=== PATIENT | male | born 1960 | race Caucasian/White ===

== ENCOUNTER 2019-05-12 19:46 | Emergency (ER) | payer MEDICARE, SELFPAY ==
[2019-05-12 19:47] VITALS: BP 129/66; PULSE 96; RESP 16; TEMP 36.6; O2SAT 99; BMI 35.6
--- NOTE | 2019-05-12 20:39 | ED.VIS.GEN ---
History of Present Illness Chief Complaint: Head Injury Informant: Patient Onset: Today Current Severity: Mild Maximum Severity: Mild Narrative: Patient presents approximate 1 hour after head injury. 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 He states the player was coming toward him and he could not grab the way. He was hit, not backwards, and hit his head on the turf. He states he was told he was knocked out for just a brief moment. Patient reports some mild soreness to the back of his scalp. He denies headache, vision change, nausea, or vomiting. He states he did not want to come but staff at the football game made him come in for evaluation. Past Medical History - Allergies and Home Meds Allergies/Adverse Reactions: Allergies No Known Allergies Allergy (Verified 05/12/19 19:50) Primary Care Physician: Victor Manuel Olvera MD [Primary Care Provider] - As Needed Prior records reviewed: Yes Past Medical History: - - Reviewed Surgical History: - - Right foot infection 2012, empyema 2010 Lives: Spouse/ Significant Other Smoking Status: Never smoker - Family History Maternal Family History: Reports: No pertinent history Paternal Family History: Reports: Cancer - age 58, pancreatic Review of Systems General: Denies: Chills, Fever Eyes: Denies: Visual changes - bilaterally ENT: Denies: Bilateral ear pain Cardiovascular: Denies: Chest pain, Palpitations Respiratory: Denies: Dyspnea, Cough Gastrointestinal: Denies: Abdominal pain, Nausea, Vomiting, Diarrhea Musculoskeletal: Denies: Neck pain Skin: Denies: Rash, Abrasions, Wounds Neurological: Reports: Headache - Scalp soreness Physical Exam Vital Signs/Narrative: Vital Signs Temp Pulse Resp BP Pulse Ox 05/12/19 19:47 97.9 F 96 16 129/66 H 99 Inital Vital Signs reviewed: Yes General: Well nourished, Well developed Head: Normocephalic, Atraumatic ENT: Moist mucous membranes Neck: Nontender Cardiovascular: Regular rate, Regular rhythm Respiratory: No distress, CTA bilaterally Abdomen: Soft, Nontender Extremities: Nontender, No edema Skin: Normal color, No rash Neurological: Alert, Oriented x3, Normal Strength, Normal Sensation Psychological: Normal affect Diagnostic/Tx/Re-eval - Medical Decision Making I discussed with the patient my preference to obtain a head CT. He is declining at this time. He states he will return if his symptoms worsen. He understands that at this time I cannot guarantee no skull fracture, bleeding, or swelling. ED Disposition - Plan for ED Patient: Disposition: Home or Assisted Living Diagnosis: Closed head injury Instructions: HEAD INJURY, No Wake-Up (Adult) Referrals: Victor Manuel Olvera MD [Primary Care Provider] - As Needed
== END 2019-05-12 20:49 | disposition home or self-care (01) ==
LOC: ED 20:48
PROVIDERS: Emergency Provider Emergency Medicine; Family Provider Family Medicine; PCP Family Medicine
DX: S09.90XA Unspecified injury of head, initial encounter (principal); W50.0XXA Accidental hit or strike by another person, initial encounter; Y93.61 Activity, american tackle football; Y92.9 Unspecified place or not applicable; Y99.9 Unspecified external cause status; Z79.82 Long term (current) use of aspirin; Z79.4 Long term (current) use of insulin; Z79.899 Other long term (current) drug therapy
CPT/HCPCS: 99284

== ENCOUNTER 2019-09-10 09:25 | Inpatient (IN) | payer MEDICARE, SELFPAY ==
[2019-09-10] VITALS (9 sets, daily range): BP systolic 104–155; BP diastolic 51–74; PULSE 88–116; RESP 16–20; TEMP 37.1–39.5; O2SAT 94–98; BMI 34.9; BMI 38.9; BMI 39.0
--- NOTE | 2019-09-10 09:48 | RAD_ITS ---
STUDY: X-RAY CHEST REASON FOR EXAM: Male, 59 years old. FEELING SHAKY X 3 HRS TECHNIQUE: PA and lateral views of the chest. COMPARISON: 07/08/2012 FINDINGS: The lungs are clear and expanded. There is no demonstrated pleural abnormality. There is moderate cardiac enlargement. Normal mediastinum and beth. Normal visualized pulmonary arteries. Normal visualized aortic arch and descending thoracic aorta. Normal visualized thoracic spine. Normal visualized ribs, clavicles, and shoulders. There is no demonstrated abnormality of the visualized soft tissue structures of the upper abdomen. RAD/Chest PA and Lateral IMPRESSION: No active disease. Electronically Signed: Reynaldo Chaudhry MD at 10:23 EST Tel , Service support ,
--- NOTE | 2019-09-10 09:49 | ED.DCSUM_ITS ---
- ER Visit Summary Date of Service: 09/10/19 Chief Complaint: Fever, chills and cough History of Present Illness: The patient is a 59 M diabetes, hypertension, high cholesterol anemia. Patient states for last 2 days he has had nausea without vomiting or diarrhea. Subjective fever and chills. Nonproductive cough. States has body aches and just is aching all over. No abdominal pain. No dysuria. Physical Examination: Middle-aged male vital signs stable temperature 100.7. He does not look septic or toxic. Pulse ox 97% room air no signs of policy. H EENT exam normal except dry mucous members. Posterior pharynx normal. No erythema or exudate. TM normal. Neck nontender no lymphadenopathy. No meningismus. Lungs clear to auscultation bilaterally. Heart tachycardic rate about 115 no murmur. Chest were nontender. Abdomen soft nontender normal bowel sounds no peritoneal signs. Extremities moves all 4. Calves nontender without edema or cords. Neurologically is awake alert with no focal motor deficits. Skin unremarkable no rashes. No petechiae or purpura. Test Results: X-ray AP lateral 2 views read myself shows no acute abnormality. No pneumonia. Normal cardiac silhouette. BG T prior to arrival by squad was 263. White count 16.9. Hemoglobin 10 hematocrit 31. Which is his baseline. Chemistries show dehydration with a BUN 25 creatinine 2.2 acute on chronic renal insufficiency and dehydration. Glucose 305. Gap of 8. Lactate is elevated 3.1. Emergency Department Course and Treatment: Patient treated with IV fluids, IV Zofran and p.o. Tylenol. History exam are consistent with viral syndrome most likely influenza. Gustavo exam patient is doing well at 10:12 AM. After his IV fluids are now be discharged home. He and I discussed his chest x-ray being negative. Patient was not feeling well enough to be discharged home. On multiple repeat exams. Will be admitted for dehydration, and acute kidney injury. Treatment Plan: He is receiving a second liter of fluid. Influenza is pending. As are blood cultures. Disposition: Admission I spoke to the hospitalist. Impression: Acute viral syndrome Dehydration Acute kidney injury with a creatinine and 2.2 Elevated lactic acid 3.1. Leukocytosis. History of insulin-dependent diabetes This note was generated with fring Ltdation software. It may contain incorrect words, spelling, and punctuation that were not noted in review of the chart prior to signing ED Disposition - Plan for ED Patient: Disposition: Home or Assisted Living Instructions: INFLUENZA (Adult) Prescriptions: Ondansetron [Zofran Odt] 4 mg PO Q8H PRN PRN #7 tab PRN Reason: Nausea Prescription Printed Referrals: Victor Manuel Olvera MD [Primary Care Provider] - 3-5 Days if not improving Additional Instructions: Plenty of fluids and rest. Alternate Tylenol Motrin for fever. Follow-up with your doctor if not improving or return if worse. Zofran as needed for nausea
--- NOTE | 2019-09-10 09:51 | ED.DEP ---
ED Disposition - Plan for ED Patient: Disposition: Home or Assisted Living Instructions: INFLUENZA (Adult) Prescriptions: Ondansetron [Zofran Odt] 4 mg PO Q8H PRN PRN #7 tab PRN Reason: Nausea Prescription Printed Referrals: Victor Manuel Olvera MD [Primary Care Provider] - 3-5 Days if not improving Additional Instructions: Plenty of fluids and rest. Alternate Tylenol Motrin for fever. Follow-up with your doctor if not improving or return if worse. Zofran as needed for nausea
[2019-09-10] MEDS: Ondansetron 4 MG/2 ML Vial IV (10:01)
[2019-09-10] MEDS: Acetaminophen 500 MG Tablet 1000 MG PO (10:01)
[2019-09-10] MEDS: 0.9% Normal Saline 1,000 ML 999 ML IV ×2 (10:01→13:20)
[2019-09-10] MEDS: Ketorolac 30 MG/ML Syringe IV (11:10)
--- NOTE | 2019-09-10 13:09 | ED.RN ---
Pt's ride arrived but pt diaphoretic and states i dont feel well and that he feels like he is going to pass out. Assisted to bed and MD Rutherford notified.
[2019-09-10 13:33] LABS: Absolute Lymphocyte Count 0.47 X10^3/uL (0.83-4.51); Absolute Neutrophil Count 15.4 X10^3/uL (2.0-7.7); Anion Gap 8 (5-15); BUN 25 mg/dL (7-18); BUN/Creat Ratio 11.4 RATIO (10-20); Basophil# 0.05 X10^3/uL; Basophil% 0.3 % (0-1); Calcium,Total 8.8 mg/dL (8.5-10.1); Chloride 104 mmol/L (98-107); EST Glomerular Filtration Rate 33 mL/min (>60); Est Glom Filt Rate - Afr Amer 39 mL/min (>60); Estimated Creatinine Clearance 42.14 ml/min; Glucose 305 mg/dL (74-106); Hematocrit 31.2 % (40-54); Hemoglobin 10.4 g/dL (13.0-16.5); Lymphocyte # 0.47 X10^3/ul (4.0); Lymphocyte % 2.8 % (19-41); Mean Corp Hgb Conc 33.3 g/dL (32-36); Mean Corpuscular Hgb 29.9 pg (27.0-32.0); Mean Corpuscular Volume 89.7 fL (80-94); Mean Platelet Vol. 9.2 fl (6.2-12.0); Monocyte# 0.86 X10^3/uL; Monocyte% 5.1 % (0-10); NRBC Flagged by Analyzer 0 % (0-5); Neutrophil # 15.41 X10^3/uL (2.7-7.7); Neutrophil % 91.2 % (47-70); POSITIVE DIFFERENTIAL YES; Platelet Count 329 K/mm3 (150-450); Potassium 4.2 mmol/L (3.5-5.1); RBC Distribution Width CV 13.2 % (11.6-14.6); RBC Distribution Width SD 43.7 fl (35.1-43.9); Red Blood Count 3.48 M/mm3 (4.6-6.2); Sodium Level 136 mmol/L (136-145); White Blood Count 16.9 K/mm3 (4.4-11.0)
[2019-09-10 13:47] LABS: Lactic Acid 3.1 mmol/L (0.4-1.9)
[2019-09-10 13:50] LABS: Differential Comment SCANNED; Differential Indicated SCAN CRITERIA MET
--- NOTE | 2019-09-10 15:07 | NURSING ---
MED SURG SEMENTI VIRAL SYDROME, DEHYDRATION, LEUKOCYTOSIS, ANDRE, DM
[2019-09-10 17:18] LABS: Reflex Lactate? Y
[2019-09-10] MEDS: 0.9% Normal Saline 1,000 ML 100 ML IV (17:45)
--- NOTE | 2019-09-10 17:51 | HP.PCM_ITS ---
Problem List (1) Febrile illness, acute Status: Acute (2) Acute renal failure Status: Acute (3) Chronic renal failure, stage 3 (moderate) Status: Chronic (4) Ankle ligament laxity Status: Resolved (5) Morbid obesity Status: Chronic (6) S/P arthroscopy Status: Resolved (7) Hyperlipidemia Status: Chronic (8) Hypertension Status: Chronic (9) Osteoarthritis Status: Chronic (10) History of BPH Status: Acute (11) Diabetes mellitus, type II Status: Chronic (12) Diabetic neuropathy Status: Acute (13) Peripheral vascular disease Status: Acute History of Present Illness Date of Admission: 09/10/19 Chief Complaint: Cough, fevers, shaking chills The patient is a 59 year old M with a past medical history of hypertension, hyperlipidemia, BPH, diabetes mellitus type 2, morbid obesity, diabetic peripheral polyneuropathy and peripheral vascular disease who presented to the emergency department earlier today complaining of sudden onset of cough associated with weakness and fevers just this morning. He was discharged home and told to come back if he felt worse. He came back later in the day and he is now being admitted for acute febrile illness, generalized weakness and acute renal failure. He tells me his appetite and intake have been good for the preceding few days. His cough is nonproductive. He denies shortness of breath and also denies chest pain. He has no diarrhea or abdominal pain but does have some nausea. He has not been checking his blood sugars and tells me that he is compliant with Lantus but often misses the mealtime Humalog. His PCP is Dr. Olvera. He has had a temp to 103.1 in the emergency department. Tachycardia resolved with resolution of the fever. Blood pressure is within normal limits. He is maintaining an appropriate oxygen saturation of 95 to 97% on room air and is not tachypneic. White blood cell count was elevated at 16.9 with 91% neutrophils. Hemoglobin is low at 10.4 with normochromic normocytic indices. Platelet count is within normal limits. BMP shows an elevated BUN at 25 with a creatinine of 2.20. The last creatinine we have on record is from July 2015 and at that time it was 1.28. Lactic acid was elevated at 3.1. Chest x-ray shows no acute infiltrates, pleural effusions or pulmonary vascular congestion. Has not voided since he presented to the ED despite boluses of fluids. Does not feel the urge to go. Has had BPH in the past and was on Flomax but, he is not now. Does not know his last HGBA1C. Denies any hx of CAD Past Medical History Past Medical History (Chronic Problems): Chronic Problems Chronic renal failure, stage 3 (moderate) (Chronic) Diabetes mellitus, type II (Chronic) Hyperlipidemia (Chronic) Morbid obesity (Chronic) Hypertension (Chronic) Osteoarthritis (Chronic) Allergies No Known Allergies Allergy (Verified 09/10/19 16:15) Home Medications: Ambulatory Orders Medication Instructions Recorded Aspirin [Aspirin, Baby] 81 mg PO DAILY@0800 06/25/15 Cilostazol 50 mg PO DAILY 06/25/15 Hydrochlorothiazide [Hctz] 25 mg PO DAILY 06/25/15 Insulin Aspart [Novolog Flexpen] 13 units SC TIDCM 06/25/15 Insulin Glargine [Lantus SoloStar 77 units SC DAILY 06/25/15 Pen] Lisinopril 40 mg PO DAILY 06/25/15 Meloxicam 15 mg PO DAILY 06/25/15 NIFEdipine [Procardia XL] 90 mg PO DAILY 06/25/15 Simvastatin 40 mg PO QHS 06/25/15 Gabapentin [Neurontin] 300 mg PO TID 07/15/15 [place]-3 Fatty Acids/Fish Oil 1 each PO BID 07/15/15 [[place] 3 1,000 mg Softgel] traMADol [Ultram] 50 - 100 mg PO Q6H PRN PRN 07/15/15 Hydrocodone Bitart/Apap 5-325 1 - 2 tablet PO Q4H PRN PRN #60 08/01/15 [[place] 5/325] tablet Iron Poly/Vit C [Niferex-150] 150 mg PO DAILYCM #30 capsule 08/01/15 Ondansetron [Zofran Odt] 4 mg PO Q8H PRN PRN #7 tab 09/10/19 Surgical History: - - Right foot infection 2012, empyema 2010, left ankle [place] [address] Dent Psychiatric History: No pertinent psych hx Lives: Alone Smoking Status: Never smoker Tobacco Use: Non-smoker Alcohol: Occasional Drugs: None - *Family History Maternal History Items: No pertinent history Paternal History Items: Cancer - age 58, pancreatic, No pertinent history Review of Systems Constitutional: Reports: Chills, Fever, Malaise, Weakness. Denies: Weight Change Eyes: Denies: Blurred vision HEENT: Reports: Sore Throat. Denies: Difficulty Hearing, Difficulty Swallowing, Ear Pain, Head Aches, Sinus Congestion, Sinus Drainage Cardiovascular: Reports: Light Headedness. Denies: Chest Pain, Orthopnea, Palpitations, Syncope Respiratory: Reports: Cough - Nonproductive. Denies: Hemoptysis, Pleuritic Pain, Shortness of Breath, Shortness of breath at rest, Shortness of breath upon exertion, Sputum production Gastrointestinal: Reports: Nausea. Denies: Abdominal Pain, Diarrhea, Vomiting Genitourinary: Reports: Retention - currently is retaining 400 cc's and his has no urge to void.. Denies: Dysuria, Incontinence, Nocturia Musculoskeletal: Denies: Joint Pain, Joint Tenderness, Leg Pain Skin: Denies: Jaundice, Rash, Wounds Neurological: Denies: Balance problems, Slurred speech, Confusion, Focal weakness, Numbness, Tingling, Tremor, Seizures Psychiatric: Denies: Anxiety, Depression, Homicidal Ideations, Suicidal Ideations Endocrine: Denies: Change in Body Habitus Hematologic/ Lymphatic: Denies: Easy Bruising, Easy Bleeding, Hx of blood clot VTE Information - Inpt Only VTE Present on Admission: No VTE Mechan Device Prophylaxis: Knee High DANISH Hose VTE Pharm Prophylaxis ordered?: Yes Patient Problems: Active and Suspected Problems Febrile illness, acute (Acute) Acute renal failure (Acute) History of BPH (Acute) Diabetic neuropathy (Acute) Peripheral vascular disease (Acute) - Physical Exam Vitals/I&O's: Vital Signs Temp Pulse Resp BP Pulse Ox 100.1 F H 93 20 H 117/59 L 94 09/10/19 16:38 09/10/19 16:38 09/10/19 16:38 09/10/19 16:38 09/10/19 16:38 Oxygen Delivery Method Room Air Weight: 312 lb Body Mass Index (BMI) 38.9 Finger Stick Blood Glucose 298 Intake and Output for Last 24 Hours 09/08/19 09/09/19 09/10/19 23:59 23:59 23:59 Intake Total 1999 Balance 1999 General: Alert, Oriented x3, Cooperative, No apparent distress, Well developed, Well nourished HEENT: Atraumatic, PERRLA, EOMI, Normocephalic Oral: Moist Mucosa, No Gingival or Mucosal Lesions/ Ulcerations - many missing teeth and broken off teeth Neck: Supple, No JVD, No Nodes, No Nuchal Rigidity, Trachea Midline Lungs: Clear to auscultation, Diminished - elyssa in the bases but no rhonchi, no rales and no wheezing, - - He is not tachypneic and has no conversational dyspnea. There is no accessory muscle use. He has symmetric chest expansion. Cardiovascular: Regular rate, Regular Rhythm, Normal S1, Normal S2, No murmurs, No rub noted, No Gallop, - Abdomen: Bowel Sounds Present, Soft, Non Tender, Non-Distended, Obese Extremities: No clubbing, No cyanosis, No edema, No Calf Tenderness, Diminished Peripheral Pulses Skin: No rashes, No breakdown Musculoskeletal: No Tenderness to Palpation of Joints or Extremities, No Muscle Wasting Neurological: Cranial nerves II-XII grossly intact, Neuro grossly intact Psych/Mental Status: Normal Affect, Appropriate Microbiology Past 72 Hours 09/10/19 15:21 Mucosa - Nasopharyngeal Influenza Types A,B Direct FA ([facility]) - Final Laboratory Results 09/10/19 13:15: WBC 16.9 H, RBC 3.48 L, Hgb 10.4 L, Hct 31.2 L, MCV 89.7, MCH 29.9, MCHC 33.3, RDW Std Deviation 43.7, RDW Coeff of [place] 13.2, Plt Count 329, MPV 9.2, Immature Gran % (Auto) 0.600, Neut % (Auto) 91.2 H, Lymph % (Auto) 2.8 L, [place] % (Auto) 5.1, Eos % (Auto) 0.0, Baso % (Auto) 0.3, Absolute Neuts (auto) 15.4 H, Absolute Lymphs (auto) 0.47 L, Nucleated RBC % 0, Differential Comment SCANNED 09/10/19 13:15: Sodium 136, Potassium 4.2, Chloride 104, Carbon Dioxide 24.0, Anion Gap 8, BUN 25 H, Creatinine 2.20 H, Estim Creat Clear Calc 42.14, Est GFR (MDRD) Af Amer 39 L, Est GFR (MDRD) Non-Af 33 L, BUN/Creatinine Ratio 11.4, Glucose 305 H, Calcium 8.8 09/10/19 13:15: Lactic Acid 3.1 H* Current Medications Acetaminophen (Tylenol) 650 mg PO Q4H PRN PRN PRN Reason: temp > 100.5 or Pain 1-5 Aspirin (Aspirin, Baby) 81 mg PO DAILY@0800 [facility] Atorvastatin Calcium (Lipitor) 20 mg PO QHS [facility] Cilostazol (Pletal) 50 mg PO BIDAC [facility] Gabapentin (Neurontin) 300 mg PO TID JANELLE Sodium Chloride () 250 mls @ 15 mls/hr IV .[id number] PRN PRN Reason: Saline Flush Sodium Chloride () 250 mls @ 15 mls/hr IV .[id number] PRN PRN Reason: Additional IVPB Infusion Sodium Chloride () 1,000 mls @ 100 mls/hr IV .Q10H [facility] Last Admin: 09/10/19 17:45 Dose: 100 mls/hr Documented by: Insulin Glargine (Lantus ([facility])) 77 units SC DAILY@0800 [facility] Insulin Human Lispro (Humalog Kwikpen ([facility])) 13 unit SC 0800,1200,1700 [facility] Nifedipine (Procardia Xl) 90 mg PO DAILY [facility] Polysaccharide Iron Complex (Ferrex 150) 150 mg PO DAILYCM [facility] Sodium Chloride () 10 - 40 ml IV UD PRN PRN Reason: SALINE FLUSH Tramadol HCl (Ultram) 50 - 100 mg PO Q6H PRN PRN PRN Reason: Pain Score 1-10/10 Assessment/Plan All Active Problems Febrile illness, acute (Acute) Acute renal failure (Acute) History of BPH (Acute) Diabetic neuropathy (Acute) Peripheral vascular disease (Acute) Ankle ligament laxity (Resolved) S/P arthroscopy (Resolved) Impressions 1. Acute febrile illness-more likely than not secondary to upper respiratory tract infection, likely viral. He also has urine retention and urinary tract infection has not been ruled out. UA and urine culture have been ordered. Will empirically place on Rocephin and Azithromycin because of the leukocytosis with left shift. Blood cultures were drawn in the emergency department. Influenza panel is negative and a respiratory panel has been ordered. 2. Uncontrolled diabetes mellitus type 2 and noncompliance with Humalog at mealtimes. Hemoglobin A1c is pending. He will be on a cardiac 2200 calorie diet. will order what he is supposed to be taking at home. Await the results of the HGBA1C. Random blood sugar in the emergency department this morning was 305. 3. Elevated lactic acid-most likely secondary to dehydration. I do not feel that he has severe sepsis. 4. Acute renal failure? He has not had a creat at this institution since 2016 so I do not know if this is acute renal failure or just a progression of chronic kidney disease due to uncontrolled DM or is it due to obstruction. Ultrasound of the kidneys and bladder ordered for the a.m. 5. History of BPH and urine retention - somehow is no longer on Flomax. He is retaining and has an increased creat so will insert a Trent and restart Flomax. Voiding trial in a few days. Urine sent for UA and culture 6. Chronic medical conditions including: Hypertension/hyperlipidemia/morbid obesity/peripheral vascular disease/chronic pain syndrome secondary to diabetic peripheral polyneuropathy-complicate care, management, recovery and prognosis. Hold lisinopril in light of increased creatinine. Avoid nonsteroidal anti-inflammatory drugs in light of renal failure. Lisinopril has been discontinued. Start Rocephin and azithromycin and await the results of the urine culture, blood cultures and respiratory panel US of the kidneys and the bladder in the AM Recheck lab in the AM Consult with the manager inspection for education/teaching. Ambulatory pulse ox on room air prior to discharge Recommend outpatient sleep study STOP BANG indicates he is at high risk for JESÚS. Code Visit Inpatient E&M: 30939 Init Hosp L2
[2019-09-10] MEDS: Gabapentin 300 MG Capsule PO ×2 (17:52→22:52)
[2019-09-10 18:39] LABS: Thyroid Stim Hormone (TSH) 0.59 uIU/mL (0.358-3.74)
[2019-09-10 18:56] LABS: Hemoglobin A1c 11.2 % (4.2-6.3)
[2019-09-10] MEDS: Acetaminophen 325 MG Tablet 650 MG PO (18:59)
[2019-09-10] MEDS: Insulin Lispro 100 UNIT/ML INSULN.PEN 13 UNIT SC (18:59)
[2019-09-10] MEDS: Tamsulosin HCl 0.4 MG Capsule PO (18:59)
[2019-09-10 19:00] LABS: Bedside Glucose 253 mg/dL (70-110)
[2019-09-10] MEDS: traMADol 50 MG Tablet PO (20:30)
[2019-09-10 21:48] LABS: Mucous, Urine 0 SEEN /hpf (<or=2+)
[2019-09-10 21:52] LABS: Color, Urine Yellow (Yellow); Glucose, Dipstick 1000 mg/dl (Normal); Ketone-Dipstick 5 mg/dl (Negative); Leukocyte Esterase-Dipstick Negative /ul (Negative); Nitrite-Dipstick Negative (Negative); Occult Blood-Urine Negative /ul (Negative); Protein-Dipstick 15 mg/dl (Negative); Specific Gravity, Urine 1.015 (1.002-1.030); Urine Bilirubin Dipstick Negative (Negative); Urine Clarity Sl. Cloudy (Clear); Urine Urobilinogen Normal (Normal)
[2019-09-10 22:00] LABS: Red Blood Cells-Urine 0-5 SEEN /hpf (0-5); White Blood Cells 0-5 SEEN /hpf (0-5)
[2019-09-10 22:01] LABS: Bacteria RARE /hpf (None Seen); Squamous Epithelial Cells - UA 0-5 SEEN /hpf (0-5)
[2019-09-10] MEDS: Atorvastatin Calcium 20 MG Tablet PO (22:52)
[2019-09-10] MEDS: Famotidine 20 MG Tablet PO (22:52)
[2019-09-10] MEDS: 0.9% Saline Lock 10 ML Syringe IV (23:12)
[2019-09-10 23:26] LABS: Bedside Glucose 172 mg/dL (70-110)
[2019-09-11] VITALS (29 sets, daily range): BP systolic 92–162; BP diastolic 47–77; PULSE 68–120; RESP 13–22; TEMP 36.3–40.9; O2SAT 84–100
[2019-09-11] MEDS: Acetaminophen 325 MG Tablet 650 MG PO (00:51)
[2019-09-11] MEDS: 0.9% Normal Saline 1,000 ML 100 ML IV ×3 (03:39→16:45)
[2019-09-11] MEDS: 0.9% Saline Lock 10 ML Syringe IV (03:40)
[2019-09-11] MEDS: traMADol 50 MG Tablet PO (04:39)
--- NOTE | 2019-09-11 04:57 | PCM.PN.BLA ---
Progress Note With increasing temperature. Will empirically start Tamiflu while we wait for respiratory pathogen panel to result. Also patient has been started on azithromycin and ceftriaxone. Patient has been placed on droplet precautions. STROKE Vital Signs/Narrative: Vital Signs Temp Pulse Resp BP Pulse Ox 09/11/19 03:37 103.0 F H 120 H 20 H 154/47 H 92
--- NOTE | 2019-09-11 05:00 | RAD_ITS ---
STUDY: X-RAY CHEST REASON FOR EXAM: Male, 59 years old. Fever. TECHNIQUE: AP portable upright COMPARISON: 09/10/2019 FINDINGS: No evidence of pneumonia, pulmonary edema, pneumothorax or pleural effusion. Mild subsegmental bibasilar atelectasis. Cardiac silhouette, hilar and mediastinal contours with no acute findings. Heart size normal. Atherosclerosis of the thoracic aorta. Degenerative osseous changes with no acute osseous abnormality. RAD/Chest 1 View (Portable) IMPRESSION: No acute findings. Electronically Signed: Milan Turner, at 5:27 EST Tel , Service support ,
--- NOTE | 2019-09-11 05:15 | NURSING ---
assisting primary rn with pt due to elevated temp, pt has ice packs in groin, axilla, neck. called nursing electrician supervisor to obtain cooling blanket as tax investigator went to icu but machine not available in icu. supv to bring to floor.
[2019-09-11] MEDS: Oseltamivir Phosphate 30 MG Capsule PO (05:32)
[2019-09-11 05:36] LABS: Bedside Glucose 247 mg/dL (70-110)
--- NOTE | 2019-09-11 05:42 | CT_ITS ---
STUDY: CT BRAIN WITHOUT CONTRAST REASON FOR EXAM: Male, 59 years old. AMS. Renal failure. TECHNIQUE: Transaxial CT imaging of the brain was performed without administration of intravenous contrast material. Individualized dose optimization techniques were used for this CT. COMPARISON: No relevant priors. FINDINGS: No evidence of intracranial hemorrhage, mass, acute infarct, or hydrocephalus. Chronic microangiopathic changes in the white matter. Atherosclerosis of the intracranial arteries. No acute osseous abnormality. Complete opacification of the left maxillary sinus with a heterogenous lesion which has some calcifications medially, and extends slightly into the nasal cavity. Mild wall thickening of the left maxillary sinus. Mild mucosal thickening right sphenoid sinus. Visualized extracranial soft tissues unremarkable. ASPECTS 04/27 CT/Brain/Head without Contrast IMPRESSION: No acute intracranial findings. Complete opacification of the left maxillary sinus with a heterogenous lesion which has some calcifications medially, and extends slightly into the nasal cavity. While this could represent chronic sinusitis, a slow-growing neoplasm is also possible. Nonemergent ENT follow-up recommended. Electronically Signed: Milan Turner, at 6:49 EST Tel , Service support ,
--- NOTE | 2019-09-11 05:48 | PN_ITS ---
Progress Note Patient is a 59-year-old gentleman who was admitted for acute febrile illness and continued to have high-grade fever with highest fever of 105.6 Fahrenheit. Nurse reported that patient is now lethargic. Patient was examined at the bedside. Patient appeared lethargic. Heart sounds S1-S2 present, tachycardia. Lung sounds noted. Neuro examination: Brudzinski was negative; Kernig's was negative. Extremities without edema. Assessment and plan: Acute febrile illness etiology unclear. Probable viral. Differential diagnosis include encephalitis/meningitis. Initially patient was started on ceftriaxone 2 g daily and azithromycin 500 mg daily. We will continue azithromycin. We will add vancomycin IV. Will escalate ceftriaxone 2 g daily to 2 g twice daily. Will start patient empirically on Tamiflu as we await respiratory pathogen panel. Of note a rapid influenza screen was negative. Start patient on acyclovir. Cooling blankets were ordered. We will get CT of the head. Portable chest x- ray ordered Lumbar puncture ordered. CSF test ordered. Will transfer patient to intensive care unit and will consult occupational therapy technician. STROKE Vital Signs/Narrative: Vital Signs Temp Pulse Resp BP Pulse Ox 09/11/19 05:12 105.6 F H 113 H 22 H 84 09/11/19 04:58 105.6 F H 09/11/19 03:37 103.0 F H 120 H 20 H 154/47 H 92
[2019-09-11 06:06] LABS: Hemoglobin 8.5 g/dL (13.0-16.5); Mean Corp Hgb Conc 31.5 g/dL (32-36); Mean Corpuscular Hgb 29.1 pg (27.0-32.0); Mean Corpuscular Volume 92.5 fL (80-94); Mean Platelet Vol. 9.1 fl (6.2-12.0); Platelet Count 272 K/mm3 (150-450); RBC Distribution Width CV 13.6 % (11.6-14.6); RBC Distribution Width SD 46.3 fl (35.1-43.9); Red Blood Count 2.92 M/mm3 (4.6-6.2); White Blood Count 11.5 K/mm3 (4.4-11.0)
--- NOTE | 2019-09-11 06:17 | NURSING ---
Addendum entered by Triny Aldrich 09/11/19 06:31: 0525 Cooling blanket placed on patient. Original Note: 0440 Pt altered level of consciousness. A&Ox1. See physician notification. 0518 Report called to ASHLYN Florez in ICU. Dr. Park wants pt to go to CT first before ICU transfer. 0600 Patient placed on a monitor. ASHLYN Schaeffer and ASHLYN Mnan took patient to CT.
[2019-09-11 06:24] LABS: Lactic Acid 1.1 mmol/L (0.4-1.9)
[2019-09-11 06:37] LABS: ALB/GLOB Ratio 0.6 RATIO (0.9-2.4); AST(SGOT) 54 U/L (15-37); Alanine Aminotransfer ALT/SGPT 57 U/L (16-61); Albumin, Serum 2.5 g/dL (3.2-5.0); Alkaline Phosphatase 132 U/L (45-117); Anion Gap 7 (5-15); BUN 28 mg/dL (7-18); BUN/Creat Ratio 16.2 RATIO (10-20); Calcium,Total 7.3 mg/dL (8.5-10.1); Chloride 105 mmol/L (98-107); Cholesterol 56 mg/dL (200); Creatinine, Serum 1.73 mg/dL (0.70-1.30); EST Glomerular Filtration Rate 43 mL/min (>60); Est Glom Filt Rate - Afr Amer 52 mL/min (>60); Estimated Creatinine Clearance 53.59 ml/min; Globulin 3.9 g/dL (2.2-4.2); Glucose 243 mg/dL (74-106); High Density Lipoprotein 26 mg/dL; Protein, Total 6.4 g/dL (6.4-8.2); Sodium Level 136 mmol/L (136-145); Triglycerides 62 mg/dL; Very Low Density Lipoprotein 12 mg/dL (5-40)
--- NOTE | 2019-09-11 06:40 | NURSING ---
0640 upon transfer to icu pt placed on cooling blanket. See vital signs intervention.
[2019-09-11 07:06] LABS: Bedside Glucose 242 mg/dL (70-110)
[2019-09-11 07:16] LABS: Allen Test POS; Base Excess -3 mmol/L (-2 to +2); Bicarbonate 21.4 mmol/L (22-26); O2 Delivery Device Nasal Can; PO2 53 mmHG (75-100); SITE L Radial; SO2 88 % (95-99); Time Given 708; Total Carbon Dioxide 22 mmol/L; pCO2 32.8 mmHg (35-45); pH 7.42 (7.35-7.45)
[2019-09-11 07:36] LABS: Bedside Glucose 298 mg/dL (70-110)
[2019-09-11] MEDS: Gabapentin 300 MG Capsule PO ×3 (07:59→21:28)
[2019-09-11] MEDS: Acetaminophen 500 MG Tablet 1000 MG PO ×3 (07:59→21:29)
--- NOTE | 2019-09-11 08:29 | PCM.CON.CC ---
Reason for Consult Date of Consultation: 09/11/19 Reason for Consultation: Severe sepsis History of Present Illness: The patient is a 59-year-old male, with a history as outlined below, who presented to the emergency department on September 10 with complaints of a fever, chills and cough. The patient reports that his symptoms initially began the day preceding his hospital admission. He denied any shortness of breath or cough. 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 He denies any recent travel. He denies photophobia or nuchal rigidity. On presentation to the emergency department, the patient was noted to be febrile with a temperature of 100.7 ?F. The patient was also tachycardic and tachypneic. He was, nevertheless, maintaining appropriate oxygen saturations on room air. Laboratory evaluation revealed an elevated white blood cell count to 17,000. Chemistry profile was notable for acute on chronic kidney disease. Lactate was elevated to 3.1. Initial plain film chest x-ray revealed no acute cardiopulmonary process. The patient received supplemental IV fluid hydration. The patient was subsequently admitted to the medical surgical floor for management of his renal insufficiency and dehydration. Antibiotics were not initially administered to the patient. During the road commissioner hours of September 11, the patient was noted to have an increasing fever to 105.6 ?F. The patient was also noted to be more lethargic. The patient was started at that time on empiric antimicrobials. A CT head was obtained which revealed complete opacification of the left maxillary sinus. While the lesion noted on CT was initially felt to be chronic sinusitis, a slow-growing neoplasm was also a consideration. Follow-up chest x-ray again demonstrated no evidence of a focal infiltrate or consolidation. Of note, the patient did receive Ultram 50 mg this morning, prior to documentation of his lethargy. The patient was then transferred to the medical intensive care unit for further management. Past Medical History Past Medical History (Chronic Problems): Chronic Problems Chronic renal failure, stage 3 (moderate) (Chronic) Diabetes mellitus, type II (Chronic) Hyperlipidemia (Chronic) Morbid obesity (Chronic) Hypertension (Chronic) Osteoarthritis (Chronic) Allergies No Known Allergies Allergy (Verified 09/10/19 16:15) Home Medications: Ambulatory Orders Medication Instructions Recorded Aspirin [Aspirin, Baby] 81 mg PO DAILY@0800 06/25/15 Cilostazol 50 mg PO DAILY 06/25/15 Hydrochlorothiazide [Hctz] 25 mg PO DAILY 06/25/15 Insulin Aspart [Novolog Flexpen] 13 units SC TIDCM 06/25/15 Insulin Glargine [Lantus SoloStar 77 units SC DAILY 06/25/15 Pen] Lisinopril 40 mg PO DAILY 06/25/15 Meloxicam 15 mg PO DAILY 06/25/15 NIFEdipine [Procardia XL] 90 mg PO DAILY 06/25/15 Simvastatin 40 mg PO QHS 06/25/15 Gabapentin [Neurontin] 300 mg PO TID 07/15/15 [place]-3 Fatty Acids/Fish Oil 1 each PO BID 07/15/15 [[place] 3 1,000 mg Softgel] traMADol [Ultram] 50 - 100 mg PO Q6H PRN PRN 07/15/15 Hydrocodone Bitart/Apap 5-325 1 - 2 tablet PO Q4H PRN PRN #60 08/01/15 [[place] 5/325] tablet Iron Poly/Vit C [Niferex-150] 150 mg PO DAILYCM #30 capsule 08/01/15 Ondansetron [Zofran Odt] 4 mg PO Q8H PRN PRN #7 tab 09/10/19 Surgical History: - - Right foot infection 2012, empyema 2010, left ankle surgery [place] [address] Dent Psychiatric History: No pertinent psych hx Lives: Alone Smoking Status: Never smoker Tobacco Use: Non-smoker Alcohol: Occasional Drugs: None - *Family History Maternal History Items: No pertinent history Paternal History Items: Cancer - age 58, pancreatic, No pertinent history Review of Systems Constitutional: Reports: Chills, Fever, Malaise, Fatigue Eyes: Denies: Blurred vision, Double vision HEENT: Denies: Head Aches, Sinus Congestion, Sinus Drainage Cardiovascular: Denies: Chest Pain, Palpitations Respiratory: Denies: Cough, Shortness of breath at rest, Sputum production Gastrointestinal: Denies: Abdominal Pain, Nausea, Vomiting Genitourinary: Denies: Dysuria Musculoskeletal: Reports: Muscle pain. Denies: Joint Pain, Joint Tenderness, Neck Pain Skin: Denies: Rash, Wounds Neurological: Denies: Numbness, Tingling, Focal weakness Psychiatric: Denies: Anxiety, Depression, Homicidal Ideations, Suicidal Ideations Hematologic/ Lymphatic: Denies: Easy Bruising, Easy Bleeding Patient Problems: Active and Suspected Problems Febrile illness, acute (Acute) Acute renal failure (Acute) History of BPH (Acute) Diabetic neuropathy (Acute) Peripheral vascular disease (Acute) Objective: The patient's most recent lab work, culture data and imaging studies have all been personally reviewed. - Physical Exam Vitals/I&O's: Vital Signs Temp Pulse Resp BP Pulse Ox 102.8 F H 111 H 13 151/77 H 98 09/11/19 06:45 09/11/19 06:45 09/11/19 06:45 09/11/19 06:45 09/11/19 07:07 Oxygen Flow Rate (L/min) 4 Oxygen Delivery Method Nasal Cannula Weight: 312 lb Body Mass Index (BMI) 38.9 Finger Stick Blood Glucose 298 Intake and Output for Last 24 Hours 09/09/19 09/10/19 09/11/19 23:59 23:59 23:59 Intake Total 1999 / 2600 2041.67 / 2041.67 Output Total 400 / 600 750 / 750 Balance 1600 / 1999 1291.67 / 1291.67 General: Alert, Oriented x3, Cooperative, No apparent distress HEENT: Atraumatic, PERRLA, Normocephalic Oral: Dry Mucosa Neck: Supple, No Nodes, Trachea Midline Lungs: No rhonchi, No wheeze, No rales, Diminished Cardiovascular: Normal S1, Normal S2, No murmurs, Tachycardic Abdomen: Bowel Sounds Present, Soft, Non Tender, Obese Extremities: No clubbing, No cyanosis, Edema Skin: No breakdown Musculoskeletal: No Tenderness to Palpation of Joints or Extremities Lymphatic: No Cervical, Supraclavicular, or Inguinal Adenopathy Neurological: Cranial nerves II-XII grossly intact, Neuro grossly intact Psych/Mental Status: Normal Affect, Appropriate Labs (Last 48 Hours) 09/10/19 09/10/19 09/10/19 13:04 13:15 13:15 WBC 16.9 H RBC 3.48 L Hgb 10.4 L Hct 31.2 L MCV 89.7 MCH 29.9 MCHC 33.3 RDW Std Deviation 43.7 RDW Coeff of [place] 13.2 Plt Count 329 MPV 9.2 Immature Gran % (Auto) 0.600 Neut % (Auto) 91.2 H Lymph % (Auto) 2.8 L [place] % (Auto) 5.1 Eos % (Auto) 0.0 Baso % (Auto) 0.3 Absolute Neuts (auto) 15.4 H Absolute Lymphs (auto) 0.47 L Nucleated RBC % 0 Differential Comment SCANNED Specimen Type Sample Site pH Bicarbonate Actual POC Total CO2 Base Excess O2 Saturation ABG pCO2 ABG pO2 Chong Test O2 Delivery Device Liter Flow Blood Gas Notified Whom Blood Gas Notified Time Sodium 136 Potassium 4.2 Chloride 104 Carbon Dioxide 24.0 Anion Gap 8 BUN 25 H Creatinine 2.20 H Estim Creat Clear Calc 42.14 Est GFR (MDRD) Af Amer 39 L Est GFR (MDRD) Non-Af 33 L BUN/Creatinine Ratio 11.4 Glucose 305 H Hemoglobin A1c Lactic Acid Calcium 8.8 Total Bilirubin AST ALT Alkaline Phosphatase Total Protein Albumin Globulin Albumin/Globulin Ratio Triglycerides Cholesterol LDL Cholesterol VLDL Cholesterol HDL Cholesterol TSH Urine Color Urine Clarity Urine pH Ur Specific [place] Urine Protein Urine Glucose (UA) Urine Ketones Urine Occult Blood Urine Nitrite Urine Bilirubin Urine Urobilinogen Ur Leukocyte Esterase Urine RBC Urine WBC Ur Squamous Epith Cells Urine Bacteria Urine Mucus MRSA (PCR) POC Glucose 298 H 09/10/19 09/10/19 09/10/19 13:15 13:15 13:15 WBC RBC Hgb Hct MCV MCH MCHC RDW Std Deviation RDW Coeff of [place] Plt Count MPV Immature Gran % (Auto) Neut % (Auto) Lymph % (Auto) [place] % (Auto) Eos % (Auto) Baso % (Auto) Absolute Neuts (auto) Absolute Lymphs (auto) Nucleated RBC % Differential Comment Specimen Type Sample Site pH Bicarbonate Actual POC Total CO2 Base Excess O2 Saturation ABG pCO2 ABG pO2 Chong Test O2 Delivery Device Liter Flow Blood Gas Notified Whom Blood Gas Notified Time Sodium Potassium Chloride Carbon Dioxide Anion Gap BUN Creatinine Estim Creat Clear Calc Est GFR (MDRD) Af Amer Est GFR (MDRD) Non-Af BUN/Creatinine Ratio Glucose Hemoglobin A1c 11.2 H Lactic Acid 3.1 H* Calcium Total Bilirubin AST ALT Alkaline Phosphatase Total Protein Albumin Globulin Albumin/Globulin Ratio Triglycerides Cholesterol LDL Cholesterol VLDL Cholesterol HDL Cholesterol TSH 0.59 Urine Color Urine Clarity Urine pH Ur Specific [place] Urine Protein Urine Glucose (UA) Urine Ketones Urine Occult Blood Urine Nitrite Urine Bilirubin Urine Urobilinogen Ur Leukocyte Esterase Urine RBC Urine WBC Ur Squamous Epith Cells Urine Bacteria Urine Mucus MRSA (PCR) POC Glucose 09/10/19 09/10/19 09/10/19 17:56 18:15 18:54 WBC RBC Hgb Hct MCV MCH MCHC RDW Std Deviation RDW Coeff of [place] Plt Count MPV Immature Gran % (Auto) Neut % (Auto) Lymph % (Auto) [place] % (Auto) Eos % (Auto) Baso % (Auto) Absolute Neuts (auto) Absolute Lymphs (auto) Nucleated RBC % Differential Comment Specimen Type Sample Site pH Bicarbonate Actual POC Total CO2 Base Excess O2 Saturation ABG pCO2 ABG pO2 Chong Test O2 Delivery Device Liter Flow Blood Gas Notified Whom Blood Gas Notified Time Sodium Potassium Chloride Carbon Dioxide Anion Gap BUN Creatinine Estim Creat Clear Calc Est GFR (MDRD) Af Amer Est GFR (MDRD) Non-Af BUN/Creatinine Ratio Glucose Hemoglobin A1c Lactic Acid 2.0 Calcium Total Bilirubin AST ALT Alkaline Phosphatase Total Protein Albumin Globulin Albumin/Globulin Ratio Triglycerides Cholesterol LDL Cholesterol VLDL Cholesterol HDL Cholesterol TSH Urine Color Yellow Urine Clarity Sl. Cloudy Urine pH 5.0 Ur Specific [place] 1.015 Urine Protein 15 H Urine Glucose (UA) 1000 H Urine Ketones 5 H Urine Occult Blood Negative Urine Nitrite Negative Urine Bilirubin Negative Urine Urobilinogen Normal Ur Leukocyte Esterase Negative Urine RBC 0-5 SEEN Urine WBC 0-5 SEEN Ur Squamous Epith Cells 0-5 SEEN Urine Bacteria RARE Urine Mucus 0 SEEN MRSA (PCR) POC Glucose 253 H 09/10/19 09/11/19 09/11/19 22:57 05:19 05:40 WBC 11.5 H RBC 2.92 L Hgb 8.5 L Hct 27.0 L MCV 92.5 MCH 29.1 MCHC 31.5 L D RDW Std Deviation 46.3 H RDW Coeff of [place] 13.6 Plt Count 272 MPV 9.1 Immature Gran % (Auto) Neut % (Auto) Lymph % (Auto) [place] % (Auto) Eos % (Auto) Baso % (Auto) Absolute Neuts (auto) Absolute Lymphs (auto) Nucleated RBC % Differential Comment Specimen Type Sample Site pH Bicarbonate Actual POC Total CO2 Base Excess O2 Saturation ABG pCO2 ABG pO2 Chong Test O2 Delivery Device Liter Flow Blood Gas Notified Whom Blood Gas Notified Time Sodium Potassium Chloride Carbon Dioxide Anion Gap BUN Creatinine Estim Creat Clear Calc Est GFR (MDRD) Af Amer Est GFR (MDRD) Non-Af BUN/Creatinine Ratio Glucose Hemoglobin A1c Lactic Acid Calcium Total Bilirubin AST ALT Alkaline Phosphatase Total Protein Albumin Globulin Albumin/Globulin Ratio Triglycerides Cholesterol LDL Cholesterol VLDL Cholesterol HDL Cholesterol TSH Urine Color Urine Clarity Urine pH Ur Specific [place] Urine Protein Urine Glucose (UA) Urine Ketones Urine Occult Blood Urine Nitrite Urine Bilirubin Urine Urobilinogen Ur Leukocyte Esterase Urine RBC Urine WBC Ur Squamous Epith Cells Urine Bacteria Urine Mucus MRSA (PCR) POC Glucose 172 H 247 H 09/11/19 09/11/19 09/11/19 05:40 05:40 06:41 WBC RBC Hgb Hct MCV MCH MCHC RDW Std Deviation RDW Coeff of [place] Plt Count MPV Immature Gran % (Auto) Neut % (Auto) Lymph % (Auto) [place] % (Auto) Eos % (Auto) Baso % (Auto) Absolute Neuts (auto) Absolute Lymphs (auto) Nucleated RBC % Differential Comment Specimen Type Sample Site pH Bicarbonate Actual POC Total CO2 Base Excess O2 Saturation ABG pCO2 ABG pO2 Chong Test O2 Delivery Device Liter Flow Blood Gas Notified Whom Blood Gas Notified Time Sodium 136 Potassium 4.0 Chloride 105 Carbon Dioxide 24.0 Anion Gap 7 BUN 28 H Creatinine 1.73 H Estim Creat Clear Calc 53.59 Est GFR (MDRD) Af Amer 52 L Est GFR (MDRD) Non-Af 43 L BUN/Creatinine Ratio 16.2 Glucose 243 H Hemoglobin A1c Lactic Acid 1.1 Calcium 7.3 L Total Bilirubin 0.40 AST 54 H ALT 57 Alkaline Phosphatase 132 H Total Protein 6.4 Albumin 2.5 L Globulin 3.9 Albumin/Globulin Ratio 0.6 L Triglycerides 62 Cholesterol 56 LDL Cholesterol 18 VLDL Cholesterol 12 HDL Cholesterol 26 L TSH Urine Color Urine Clarity Urine pH Ur Specific [place] Urine Protein Urine Glucose (UA) Urine Ketones Urine Occult Blood Urine Nitrite Urine Bilirubin Urine Urobilinogen Ur Leukocyte Esterase Urine RBC Urine WBC Ur Squamous Epith Cells Urine Bacteria Urine Mucus MRSA (PCR) Pending POC Glucose 09/11/19 09/11/19 06:47 07:09 WBC RBC Hgb Hct MCV MCH MCHC RDW Std Deviation RDW Coeff of [place] Plt Count MPV Immature Gran % (Auto) Neut % (Auto) Lymph % (Auto) [place] % (Auto) Eos % (Auto) Baso % (Auto) Absolute Neuts (auto) Absolute Lymphs (auto) Nucleated RBC % Differential Comment Specimen Type ART Sample Site L Radial pH 7.42 Bicarbonate Actual 21.4 L POC Total CO2 22 Base Excess -3 L O2 Saturation 88 L ABG pCO2 32.8 L ABG pO2 53 L Chong Test POS O2 Delivery Device Nasal Can Liter Flow 4.0 Blood Gas Notified Whom ICU Blood Gas Notified Time 708 Sodium Potassium Chloride Carbon Dioxide Anion Gap BUN Creatinine Estim Creat Clear Calc Est GFR (MDRD) Af Amer Est GFR (MDRD) Non-Af BUN/Creatinine Ratio Glucose Hemoglobin A1c Lactic Acid Calcium Total Bilirubin AST ALT Alkaline Phosphatase Total Protein Albumin Globulin Albumin/Globulin Ratio Triglycerides Cholesterol LDL Cholesterol VLDL Cholesterol HDL Cholesterol TSH Urine Color Urine Clarity Urine pH Ur Specific [place] Urine Protein Urine Glucose (UA) Urine Ketones Urine Occult Blood Urine Nitrite Urine Bilirubin Urine Urobilinogen Ur Leukocyte Esterase Urine RBC Urine WBC Ur Squamous Epith Cells Urine Bacteria Urine Mucus MRSA (PCR) POC Glucose 242 H Microbiology 09/10/19 15:21 Mucosa - Nasopharyngeal Influenza Types A,B Direct FA (MARIA ELENA) - Final Clinical Impression(s) from Imaging Studies Chest X-Ray 09/10/19 09:48 IMPRESSION: No active disease. Electronically Signed: Reynaldo Chaudhry MD at 10:23 EST Tel , Service support , Chest X-Ray 09/11/19 05:00 IMPRESSION: No acute findings. Electronically Signed: Milan Turner, at 5:27 EST Tel , Service support , Brain CT 09/11/19 05:42 IMPRESSION: No acute intracranial findings. Complete opacification of the left maxillary sinus with a heterogenous lesion which has some calcifications medially, and extends slightly into the nasal cavity. While this could represent chronic sinusitis, a slow-growing neoplasm is also possible. Nonemergent ENT follow-up recommended. Electronically Signed: Milan Turner, at 6:49 EST Tel , Service support , Current Medications Acetaminophen (Tylenol) 1,000 mg PO Q8 JANELLE Last Admin: 09/11/19 07:59 Dose: 1,000 mg Documented by: Albuterol Sulfate (Ventolin Aerosols) 2.5 mg INHALATION Q2H PRN PRN PRN Reason: Shortness of Breath/Wheezing Aspirin (Aspirin, Baby) 81 mg PO DAILY@0800 [facility] Atorvastatin Calcium (Lipitor) 20 mg PO QHS [facility] Last Admin: 09/10/19 22:52 Dose: 20 mg Documented by: Cilostazol (Pletal) 50 mg PO BIDAC [facility] Dextrose (D50w Syringe) 0 gm IV X1 PRN; Protocol PRN Reason: Hypoglycemia Enoxaparin Sodium (Lovenox) 40 mg SC DAILY [facility] Famotidine (Pepcid) 20 mg PO BID [facility] Last Admin: 09/10/19 22:52 Dose: 20 mg Documented by: Gabapentin (Neurontin) 300 mg PO TID [facility] Last Admin: 09/11/19 07:59 Dose: 300 mg Documented by: Glucagon () 1 mg IM .X1 PRN PRN Reason: Hypoglycemia Sodium Chloride () 250 mls @ 15 mls/hr IV .[id number] PRN PRN Reason: Saline Flush Sodium Chloride () 250 mls @ 15 mls/hr IV .[id number] PRN PRN Reason: Additional IVPB Infusion Sodium Chloride () 1,000 mls @ 100 mls/hr IV .Q10H [facility] Last Admin: 09/11/19 05:37 Dose: 100 mls/hr Documented by: Azithromycin 500 mg/ Dextrose 255 mls @ 250 mls/hr IV Q24@2200 [facility] Last Infusion: 09/11/19 06:55 Dose: Infused Documented by: Vancomycin IV Pharmacy to Dose (2,000 ea/ Sodium Chloride) 500 mls @ 250 mls/hr IV PRN PRN; Protocol Ceftriaxone Sodium 2 gm/ (Sodium Chloride) 50 mls @ 100 mls/hr IV Q12 [facility] Acyclovir Sodium 845 mg/ (Dextrose) 266.9 mls @ 266.9 mls/hr IV Q8 [facility] Last Admin: 09/11/19 06:55 Dose: 266.9 mls/hr Documented by: Vancomycin HCl 2,000 mg/ (Sodium Chloride) 540 mls @ 250 mls/hr IV X1 ONE Stop: 09/11/19 09:09 Last Admin: 09/11/19 08:04 Dose: 250 mls/hr Documented by: Insulin Glargine (Lantus ([facility])) 77 units SC DAILY@0800 [facility] Insulin Human Lispro (Humalog Kwikpen ([facility])) 13 unit SC 0800,1200,1700 [facility] Last Admin: 09/10/19 18:59 Dose: 10 u Documented by: Magnesium Hydroxide (Milk Of Magnesia) 30 ml PO DAILY PRN PRN PRN Reason: Constipation Nifedipine (Procardia Xl) 90 mg PO DAILY [facility] Oseltamivir Phosphate (Tamiflu) 30 mg PO BID [facility] Stop: 09/15/19 22:01 Last Admin: 09/11/19 05:32 Dose: 30 mg Documented by: Polysaccharide Iron Complex (Ferrex 150) 150 mg PO DAILYCM [facility] Prochlorperazine Edisylate (Compazine Iv) 5 mg IV Q4H PRN PRN PRN Reason: Breakthrough nausea/vomiting Sodium Chloride () 10 - 40 ml IV UD PRN PRN Reason: SALINE FLUSH Last Admin: 09/11/19 03:40 Dose: 10 ml Documented by: Sodium Chloride ([place] Nasal [place]) 1 spray NASAL Q1H PRN PRN PRN Reason: NASAL DRYNESS Tamsulosin HCl (Flomax) 0.4 mg PO DAILY@1730 [facility] Last Admin: 09/10/19 18:59 Dose: 0.4 mg Documented by: Assessment/Plan Active and Suspected Problems Febrile illness, acute (Acute) Acute renal failure (Acute) History of BPH (Acute) Diabetic neuropathy (Acute) Peripheral vascular disease (Acute) RECOMMENDATIONS: 1. Discontinue vancomycin, ceftriaxone and azithromycin. Transition to empiric Zosyn for coverage. 2. Obtain blood and urine cultures. 3. Continue Tamiflu empirically while awaiting results of respiratory viral panel. 4. Okay to discontinue orders for lumbar puncture. 5. Consider infectious diseases consultation. IMPRESSIONS: 1. Severe sepsis The patient was transferred to the medical intensive care unit from the medical floor in the setting of severe sepsis with unclear source of infection. Although the patient has remained hemodynamically stable, he was somewhat lethargic upon transfer. This may have been secondary to increased metabolic demands in the setting of a high-grade fever. Head CT did reveal evidence of sinusitis. The patient has been started on empiric antimicrobials. The patient was also started empirically on Tamiflu, pending the results of his respiratory viral panel. Consider obtaining infectious diseases consultation. I have a low clinical index of suspicion for underlying encephalitis/meningitis. Therefore, orders placed for LP can be discontinued. 2. Acute on chronic kidney disease Likely prerenal in etiology. The patient has been receiving supplemental IV fluid hydration. I anticipate improvement in creatinine with time. For now, we will continue to monitor urine output. No indication for renal replacement therapy at this time. 3. Normocytic anemia The patient has a current hemoglobin of 8.5 g/dL. He was previously known to have a baseline hemoglobin in the 9-10 range in 2016. We will continue to monitor H&H daily. Plan to transfuse if hemoglobin drops below 7 g/dL. 4. Hypertension/hyperlipidemia/diabetes mellitus/neuropathy/obesity Complicates care, management, recovery and prognosis. Recommend holding home lisinopril, given renal insufficiency. The remainder of the patient's home medications can likely be continued from my perspective. This note was generated with [employer] dictation software. It may contain incorrect words, spelling, and punctuation that were not noted in checking the note before signing. Code Visit Inpatient E&M: 34957 Init Hosp L3
--- NOTE | 2019-09-11 08:39 | PN_ITS ---
Patient Problems: Active and Suspected Problems Febrile illness, acute (Acute) Acute renal failure (Acute) History of BPH (Acute) Diabetic neuropathy (Acute) Peripheral vascular disease (Acute) Reason for Visit: Severe sepsis Objective: She was having high-grade fever at home for 2 days. Patient had high fever, T-max 105.6, currently running around 102 Fahrenheit. Tachycardic, heart rate 118, on 4 L of oxygen. Chest x-ray does not show acute finding x2. CT head shows complete opacification of left maxillary sinus with heterogeneous lesion with calcification medially on extending into nasal cavity. Possible chronic sinusitis or slow-growing neoplasm. Vitals/I&O's: Vital Signs Temp Pulse Resp BP Pulse Ox 102.0 F H 118 H 15 150/67 H 98 09/11/19 08:00 09/11/19 08:00 09/11/19 08:00 09/11/19 08:00 09/11/19 08:00 Oxygen Flow Rate (L/min) 4 Oxygen Delivery Method Nasal Cannula Weight: 312 lb Body Mass Index (BMI) 38.9 Finger Stick Blood Glucose 298 Intake and Output for Last 24 Hours 09/09/19 09/10/19 09/11/19 23:59 23:59 23:59 Intake Total 1999 / 2600 2041.67 / 2041.67 Output Total 400 / 600 750 / 750 Balance 1600 / 1999 1291.67 / 1291.67 General: Alert, Oriented x3, Cooperative HEENT: Atraumatic, PERRLA, EOMI, Normocephalic Oral: Dry Mucosa, - - No tenderness over maxillary bones on the face. Neck: Supple, No JVD, Negative Carotid Bruits, - - No neck rigidity. Lungs: Clear to auscultation, No rhonchi, No wheeze, No rales, Diminished Cardiovascular: Regular rate, Regular Rhythm, Normal S1, Normal S2, No murmurs, - - Sinus tachycardia on the monitor Abdomen: Bowel Sounds Present, Soft, Non Tender, Non-Distended, - - Trent catheter Extremities: Capillary Refill Less than 3 Seconds, Edema Skin: No rashes, No breakdown Musculoskeletal: No Tenderness to Palpation of Joints or Extremities, Arthritic Changes Neurological: Cranial nerves II-XII grossly intact, Deep Tendon Reflexes 2+/4 and Symmetrical, Neuro grossly intact, - - No neck rigidity. Brudzinski signs negative. Patient does not have signs or symptoms suggestive of meningitis. Plantar reflex downgoing. Psych/Mental Status: Normal Affect, Appropriate Microbiology Past 72 Hours 09/10/19 15:21 Mucosa - Nasopharyngeal Influenza Types A,B Direct FA (MARIA ELENA) - Final Laboratory Results 09/10/19 13:04: POC Glucose 298 H 09/10/19 13:15: WBC 16.9 H, RBC 3.48 L, Hgb 10.4 L, Hct 31.2 L, MCV 89.7, MCH 29.9, MCHC 33.3, RDW Std Deviation 43.7, RDW Coeff of [place] 13.2, Plt Count 329, MPV 9.2, Immature Gran % (Auto) 0.600, Neut % (Auto) 91.2 H, Lymph % (Auto) 2.8 L, Delta % (Auto) 5.1, Eos % (Auto) 0.0, Baso % (Auto) 0.3, Absolute Neuts (auto) 15.4 H, Absolute Lymphs (auto) 0.47 L, Nucleated RBC % 0, Differential Comment SCANNED 09/10/19 13:15: Sodium 136, Potassium 4.2, Chloride 104, Carbon Dioxide 24.0, Anion Gap 8, BUN 25 H, Creatinine 2.20 H, Estim Creat Clear Calc 42.14, Est GFR (MDRD) Af Amer 39 L, Est GFR (MDRD) Non-Af 33 L, BUN/Creatinine Ratio 11.4, Glucose 305 H, Calcium 8.8 09/10/19 13:15: Lactic Acid 3.1 H* 09/10/19 13:15: TSH 0.59 09/10/19 13:15: Hemoglobin A1c 11.2 H 09/10/19 17:56: Lactic Acid 2.0 09/10/19 18:15: Urine Color Yellow, Urine Clarity Sl. Cloudy, Urine pH 5.0, Ur Specific [place] 1.015, Urine Protein 15 H, Urine Glucose (UA) 1000 H, Urine Ketones 5 H, Urine Occult Blood Negative, Urine Nitrite Negative, Urine Bilirubin Negative, Urine Urobilinogen Normal, Ur Leukocyte Esterase Negative, Urine RBC 0-5 SEEN, Urine WBC 0-5 SEEN, Ur Squamous Epith Cells 0-5 SEEN, Urine Bacteria RARE, Urine Mucus 0 SEEN 09/10/19 18:54: POC Glucose 253 H 09/10/19 22:57: POC Glucose 172 H 09/11/19 05:19: POC Glucose 247 H 09/11/19 05:40: WBC 11.5 H, RBC 2.92 L, Hgb 8.5 L, Hct 27.0 L, MCV 92.5, MCH 29.1, MCHC 31.5 L D, RDW Std Deviation 46.3 H, RDW Coeff of [place] 13.6, Plt Count 272, MPV 9.1 09/11/19 05:40: Sodium 136, Potassium 4.0, Chloride 105, Carbon Dioxide 24.0, Anion Gap 7, BUN 28 H, Creatinine 1.73 H, Estim Creat Clear Calc 53.59, Est GFR (MDRD) Af Amer 52 L, Est GFR (MDRD) Non-Af 43 L, BUN/Creatinine Ratio 16.2, Glucose 243 H, Calcium 7.3 L, Total Bilirubin 0.40, AST 54 H, ALT 57, Alkaline Phosphatase 132 H, Total Protein 6.4, Albumin 2.5 L, Globulin 3.9, Albumin/Globulin Ratio 0.6 L, Triglycerides 62, Cholesterol 56, LDL Cholesterol 18, VLDL Cholesterol 12, HDL Cholesterol 26 L 09/11/19 05:40: Lactic Acid 1.1 09/11/19 06:41: MRSA (PCR) Pending 09/11/19 06:47: POC Glucose 242 H 09/11/19 07:09: Specimen Type ART, Sample Site L Radial, pH 7.42, Bicarbonate Actual 21.4 L, POC Total CO2 22, Base Excess -3 L, O2 Saturation 88 L, ABG pCO2 32.8 L, ABG pO2 53 L, Chong Test POS, O2 Delivery Device Nasal Can, Liter Flow 4.0, Blood Gas Notified Whom ICU MD, Blood Gas Notified Time 708 Current Medications Acetaminophen (Tylenol) 1,000 mg PO Q8 [facility] Last Admin: 09/11/19 07:59 Dose: 1,000 mg Documented by: Albuterol Sulfate (Ventolin Aerosols) 2.5 mg INHALATION Q2H PRN PRN PRN Reason: Shortness of Breath/Wheezing Aspirin (Aspirin, Baby) 81 mg PO DAILY@0800 [facility] Atorvastatin Calcium (Lipitor) 20 mg PO QHS [facility] Last Admin: 09/10/19 22:52 Dose: 20 mg Documented by: Cilostazol (Pletal) 50 mg PO BIDAC [facility] Dextrose (D50w Syringe) 0 gm IV X1 PRN; Protocol PRN Reason: Hypoglycemia Enoxaparin Sodium (Lovenox) 40 mg SC DAILY [facility] Famotidine (Pepcid) 20 mg PO BID [facility] Last Admin: 09/10/19 22:52 Dose: 20 mg Documented by: Gabapentin (Neurontin) 300 mg PO TID [facility] Last Admin: 09/11/19 07:59 Dose: 300 mg Documented by: Glucagon () 1 mg IM .X1 PRN PRN Reason: Hypoglycemia Sodium Chloride () 250 mls @ 15 mls/hr IV .[id number] PRN PRN Reason: Saline Flush Sodium Chloride () 250 mls @ 15 mls/hr IV .[id number] PRN PRN Reason: Additional IVPB Infusion Sodium Chloride () 1,000 mls @ 100 mls/hr IV .Q10H [facility] Last Admin: 09/11/19 05:37 Dose: 100 mls/hr Documented by: Azithromycin 500 mg/ Dextrose 255 mls @ 250 mls/hr IV Q24@2200 [facility] Last Infusion: 09/11/19 06:55 Dose: Infused Documented by: Vancomycin IV Pharmacy to Dose (2,000 ea/ Sodium Chloride) 500 mls @ 250 mls/hr IV PRN PRN; Protocol Ceftriaxone Sodium 2 gm/ (Sodium Chloride) 50 mls @ 100 mls/hr IV Q12 [facility] Acyclovir Sodium 845 mg/ (Dextrose) 266.9 mls @ 266.9 mls/hr IV Q8 [facility] Last Admin: 09/11/19 06:55 Dose: 266.9 mls/hr Documented by: Vancomycin HCl 2,000 mg/ (Sodium Chloride) 540 mls @ 250 mls/hr IV X1 ONE Stop: 09/11/19 09:09 Last Admin: 09/11/19 08:04 Dose: 250 mls/hr Documented by: Insulin Glargine (Lantus (Bk)) 77 units SC DAILY@0800 [facility] Insulin Human Lispro (Humalog Kwikpen ([facility])) 13 unit SC 0800,1200,1700 [facility] Last Admin: 09/10/19 18:59 Dose: 10 u Documented by: Magnesium Hydroxide (Milk Of Magnesia) 30 ml PO DAILY PRN PRN PRN Reason: Constipation Nifedipine (Procardia Xl) 90 mg PO DAILY [facility] Oseltamivir Phosphate (Tamiflu) 30 mg PO BID [facility] Stop: 09/15/19 22:01 Last Admin: 09/11/19 05:32 Dose: 30 mg Documented by: Polysaccharide Iron Complex (Ferrex 150) [facility] Prochlorperazine Edisylate (Compazine Iv) 5 mg IV Q4H PRN PRN PRN Reason: Breakthrough nausea/vomiting Sodium Chloride () 10 - 40 ml IV UD PRN PRN Reason: SALINE FLUSH Last Admin: 09/11/19 03:40 Dose: 10 ml Documented by: Sodium Chloride (Christian Nasal [place]) 1 spray NASAL Q1H PRN PRN PRN Reason: NASAL DRYNESS Tamsulosin HCl (Flomax) 0.4 mg PO DAILY@1730 [facility] Last Admin: 09/10/19 18:59 Dose: 0.4 mg Documented by: STROKE Vital Signs/Narrative: Vital Signs Temp Pulse Resp BP Pulse Ox 09/11/19 08:00 102.0 F H 118 H 15 150/67 H 98 09/11/19 07:30 111 H 21 H 135/75 H 94 09/11/19 07:15 110 H 21 H 150/72 H 94 09/11/19 07:07 98 09/11/19 07:00 110 H 17 162/72 H 98 09/11/19 06:45 102.8 F H 111 H 13 151/77 H 98 09/11/19 06:39 108 H 09/11/19 05:52 104.2 F H 107 H 18 97 09/11/19 05:12 105.6 F H 113 H 22 H 84 09/11/19 04:58 105.6 F H Medical Necessity - Tobacco Use Smoking Status: Never smoker Tobacco Use: Non-smoker Assessment/Plan All Active Problems Febrile illness, acute (Acute) Acute renal failure (Acute) History of BPH (Acute) Diabetic neuropathy (Acute) Peripheral vascular disease (Acute) Ankle ligament laxity (Resolved) S/P arthroscopy (Resolved) This 59-year-old male with history of hypertension, diabetes mellitus 2, BPH presenting with sudden onset of cough along with generalized weakness and high- grade fever. Patient also found tachycardic and tachypneic Assessment and plan: 1. Severe sepsis (high-grade fever, tachycardia, tachypnea, lactic acidosis), exact etiology unclear but possible sinusitis or acute RSV a bronchitis: Nose signs and symptoms suggestive of meningitis. CTA shows complete opacification of left medullary sinus. Chest x-ray and UA is negative. On broad-spectrum antibiotic. Consult ID. Respiratory panel positive RSV A. Urine culture negative. Blood cultures x2 pending 2. Uncontrolled diabetes mellitus type 2, complicated with neuropathy and possible nephropathy and noncompliance with Humalog at mealtimes. Hemoglobin A1c 11.2. Last blood sugar 230. On Accu-Cheks and insulin coverage with sliding scale. 3. Acute kidney injury on CKD stage II: Patient baseline creatinine runs around 1.3. Admitted with creatinine 2.2 currently 1.73. Ultrasound of kidneys and bladder ordered. Probably he has a diabetic nephropathy. 5. History of BPH and urine retention -patient has Trent catheter. Urine is clear. On Flomax. UA and urine culture are negative. 6. Chronic medical conditions including: Hypertension/hyperlipidemia/morbid obesity/peripheral vascular disease/chronic pain syndrome secondary to diabetic peripheral polyneuropathy-complicate care, management, recovery and prognosis. Hold lisinopril in light of increased creatinine. Ambulatory pulse ox on room air prior to discharge Recommend outpatient sleep study 09/10/19 18:15 Urine Catheter - Trent Urine Culture - Preliminary Culture exhibits no growth. 09/10/19 18:00 Mucosa - Nasopharyngeal Respiratory Panel (PCR) - Final RSV A 09/10/19 15:21 Mucosa - Nasopharyngeal Influenza Types A,B Direct FA (MARIA ELENA) - Final Laboratory Results 09/10/19 13:04: POC Glucose 298 H 09/10/19 13:15: TSH 0.59 09/10/19 13:15: Hemoglobin A1c 11.2 H 09/10/19 17:56: Lactic Acid 2.0 09/10/19 18:15: Urine Color Yellow, Urine Clarity Sl. Cloudy, Urine pH 5.0, Ur Specific [place] 1.015, Urine Protein 15 H, Urine Glucose (UA) 1000 H, Urine Ketones 5 H, Urine Occult Blood Negative, Urine Nitrite Negative, Urine Bilirubin Negative, Urine Urobilinogen Normal, Ur Leukocyte Esterase Negative, Urine RBC 0-5 SEEN, Urine WBC 0-5 SEEN, Ur Squamous Epith Cells 0-5 SEEN, Urine Bacteria RARE, Urine Mucus 0 SEEN 09/10/19 18:54: POC Glucose 253 H 09/10/19 22:57: POC Glucose 172 H 09/11/19 05:19: POC Glucose 247 H 09/11/19 05:40: WBC 11.5 H, RBC 2.92 L, Hgb 8.5 L, Hct 27.0 L, MCV 92.5, MCH 29.1, MCHC 31.5 L D, RDW Std Deviation 46.3 H, RDW Coeff of [place] 13.6, Plt Count 272, MPV 9.1 09/11/19 05:40: Sodium 136, Potassium 4.0, Chloride 105, Carbon Dioxide 24.0, Anion Gap 7, BUN 28 H, Creatinine 1.73 H, Estim Creat Clear Calc 53.59, Est GFR (MDRD) Af Amer 52 L, Est GFR (MDRD) Non-Af 43 L, BUN/Creatinine Ratio 16.2, Glucose 243 H, Calcium 7.3 L, Total Bilirubin 0.40, AST 54 H, ALT 57, Alkaline Phosphatase 132 H, Total Protein 6.4, Albumin 2.5 L, Globulin 3.9, Albumin/Globulin Ratio 0.6 L, Triglycerides 62, Cholesterol 56, LDL Cholesterol 18, VLDL Cholesterol 12, HDL Cholesterol 26 L 09/11/19 05:40: Lactic Acid 1.1 09/11/19 06:41: MRSA (PCR) Negative 09/11/19 06:47: POC Glucose 242 H 09/11/19 07:09: Specimen Type ART, Sample Site L Radial, pH 7.42, Bicarbonate Actual 21.4 L, POC Total CO2 22, Base Excess -3 L, O2 Saturation 88 L, ABG pCO2 32.8 L, ABG pO2 53 L, Chong Test POS, O2 Delivery Device Nasal Can, Liter Flow 4.0, Blood Gas Notified Whom ICU , Blood Gas Notified Time 708 09/11/19 08:41: POC Glucose 308 H 09/11/19 08:45: PT 16.0 H, INR 1.3, APTT 30.0 09/11/19 12:11: POC Glucose 230 H Clinical Impression(s) from Imaging Studies Chest X-Ray 09/10/19 09:48 IMPRESSION: No active disease. Electronically Signed: Reynaldo Chaudhry MD at 10:23 EST Tel , Service support , Chest X-Ray 09/11/19 05:00 IMPRESSION: No acute findings. Electronically Signed: Milan Turner, at 5:27 EST Tel , Service support , Brain CT 09/11/19 05:42 IMPRESSION: No acute intracranial findings. Complete opacification of the left maxillary sinus with a heterogenous lesion which has some calcifications medially, and extends slightly into the nasal cavity. While this could represent chronic sinusitis, a slow-growing neoplasm is also possible. Nonemergent ENT follow-up recommended. Code Visit Inpatient E&M: 52185 Subs Hosp L3
[2019-09-11] MEDS: Aspirin 81 MG TAB.CHEW PO (08:46)
[2019-09-11] MEDS: Cilostazol 50 MG Tablet PO ×2 (08:46→16:39)
[2019-09-11] MEDS: Iron Polysaccharide Complex 150 MG CAPSULE PO (08:47)
[2019-09-11] MEDS: Insulin Lispro 100 UNIT/ML INSULN.PEN 13 UNIT SC (08:47)
[2019-09-11 09:17] LABS: M R Staph aureus DNA By PCR Negative (Negative); Probe Check PASS; Specimen Processing Control PASS
[2019-09-11 10:43] LABS: International Normalized Ratio 1.3
[2019-09-11 10:50] LABS: Bedside Glucose 308 mg/dL (70-110)
[2019-09-11] MEDS: Famotidine 20 MG Tablet PO ×2 (10:54→21:28)
[2019-09-11] MEDS: Enoxaparin 40 MG/0.4 ML Syringe SC (10:54)
[2019-09-11] MEDS: Insulin Lispro 100 UNIT/ML INSULN.PEN SC ×3 (12:13→21:30)
[2019-09-11 12:26] LABS: Bedside Glucose 230 mg/dL (70-110)
--- NOTE | 2019-09-11 14:31 | NURSING ---
education re chronic illness deferred till acute illness resolving
--- NOTE | 2019-09-11 16:12 | PCM.HP.ID ---
Problem List (1) Febrile illness, acute Status: Acute Reason for Consult: severe sepsis Consulted by: Dr. Grande History of Present Illness: The patient is a 59 year old M with h/o DM and CKD presented to ED with one day history of fever, shakes, chills, nausea, congestion, dyspnea with dry cough. 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 No diarrhea. No headache. No h/o sinus problems. Came to ED, had fever to 105.6 overnight. Given tamiflu, azithro, ceftriaxone, vanc, and acyclovir. Now on zosyn. Feeling better. Full ROS performed and neg except as noted above. - Medical History Past Medical History (Chronic Problems): Chronic Problems Chronic renal failure, stage 3 (moderate) (Chronic) Diabetes mellitus, type II (Chronic) Hyperlipidemia (Chronic) Morbid obesity (Chronic) Hypertension (Chronic) Osteoarthritis (Chronic) Allergies/Adverse Reactions: Allergies No Known Allergies Allergy (Verified 09/10/19 16:15) Home Medications: Ambulatory Orders Medication Instructions Recorded Aspirin [Aspirin, Baby] 81 mg PO DAILY@0800 06/25/15 Cilostazol 50 mg PO DAILY 06/25/15 Hydrochlorothiazide [Hctz] 25 mg PO DAILY 06/25/15 Insulin Aspart [Novolog Flexpen] 13 units SC TIDCM 06/25/15 Insulin Glargine [Lantus SoloStar 77 units SC DAILY 06/25/15 Pen] Lisinopril 40 mg PO DAILY 06/25/15 Meloxicam 15 mg PO DAILY 06/25/15 NIFEdipine [Procardia XL] 90 mg PO DAILY 06/25/15 Simvastatin 40 mg PO QHS 06/25/15 Gabapentin [Neurontin] 300 mg PO TID 07/15/15 [place]-3 Fatty Acids/Fish Oil 1 each PO BID 07/15/15 [[place] 3 1,000 mg Softgel] traMADol [Ultram] 50 - 100 mg PO Q6H PRN PRN 07/15/15 Hydrocodone Bitart/Apap 5-325 1 - 2 tablet PO Q4H PRN PRN #60 08/01/15 [[place] 5/325] tablet Iron Poly/Vit C [Niferex-150] 150 mg PO DAILYCM #30 capsule 08/01/15 Ondansetron [Zofran Odt] 4 mg PO Q8H PRN PRN #7 tab 09/10/19 - Social History Tobacco Use: non-smoker Vital Signs Temp Pulse Resp BP Pulse Ox 97.4 F L 68 19 H 102/65 99 09/11/19 15:00 09/11/19 15:00 09/11/19 15:00 09/11/19 15:00 09/11/19 15:00 Oxygen Flow Rate (L/min) 2 Oxygen Delivery Method Nasal Cannula Weight: 141.521 kg Body Mass Index (BMI) 38.9 Finger Stick Blood Glucose 298 Microbiology Past 72 Hours 09/10/19 18:15 Urine Culture - Preliminary Urine Catheter - Trent Culture exhibits no growth. 09/10/19 18:00 Respiratory Panel (PCR) - Final Mucosa - Nasopharyngeal RSV A 09/10/19 15:21 Influenza Types A,B Direct FA (MARIA ELENA) - Final Mucosa - Nasopharyngeal Laboratory Tests Past 24 Hrs 09/10/19 09/10/19 09/10/19 13:15 13:15 17:56 WBC RBC Hgb Hct MCV MCH MCHC RDW Std Deviation RDW Coeff of [place] Plt Count MPV PT INR APTT Specimen Type Sample Site pH Bicarbonate Actual POC Total CO2 Base Excess O2 Saturation ABG pCO2 ABG pO2 Chong Test O2 Delivery Device Liter Flow Blood Gas Notified Whom Blood Gas Notified Time Sodium Potassium Chloride Carbon Dioxide Anion Gap BUN Creatinine Estim Creat Clear Calc Est GFR (MDRD) Af Amer Est GFR (MDRD) Non-Af BUN/Creatinine Ratio Glucose Hemoglobin A1c 11.2 H Lactic Acid 2.0 Calcium Total Bilirubin AST ALT Alkaline Phosphatase Total Protein Albumin Globulin Albumin/Globulin Ratio Triglycerides Cholesterol LDL Cholesterol VLDL Cholesterol HDL Cholesterol TSH 0.59 Urine Color Urine Clarity Urine pH Ur Specific [place] Urine Protein Urine Glucose (UA) Urine Ketones Urine Occult Blood Urine Nitrite Urine Bilirubin Urine Urobilinogen Ur Leukocyte Esterase Urine RBC Urine WBC Ur Squamous Epith Cells Urine Bacteria Urine Mucus MRSA (PCR) 09/10/19 09/11/19 09/11/19 18:15 05:40 05:40 WBC 11.5 H RBC 2.92 L Hgb 8.5 L Hct 27.0 L MCV 92.5 MCH 29.1 MCHC 31.5 L D RDW Std Deviation 46.3 H RDW Coeff of [place] 13.6 Plt Count 272 MPV 9.1 PT INR APTT Specimen Type Sample Site pH Bicarbonate Actual POC Total CO2 Base Excess O2 Saturation ABG pCO2 ABG pO2 Chong Test O2 Delivery Device Liter Flow Blood Gas Notified Whom Blood Gas Notified Time Sodium 136 Potassium 4.0 Chloride 105 Carbon Dioxide 24.0 Anion Gap 7 BUN 28 H Creatinine 1.73 H Estim Creat Clear Calc 53.59 Est GFR (MDRD) Af Amer 52 L Est GFR (MDRD) Non-Af 43 L BUN/Creatinine Ratio 16.2 Glucose 243 H Hemoglobin A1c Lactic Acid Calcium 7.3 L Total Bilirubin 0.40 AST 54 H ALT 57 Alkaline Phosphatase 132 H Total Protein 6.4 Albumin 2.5 L Globulin 3.9 Albumin/Globulin Ratio 0.6 L Triglycerides 62 Cholesterol 56 LDL Cholesterol 18 VLDL Cholesterol 12 HDL Cholesterol 26 L TSH Urine Color Yellow Urine Clarity Sl. Cloudy Urine pH 5.0 Ur Specific [place] 1.015 Urine Protein 15 H Urine Glucose (UA) 1000 H Urine Ketones 5 H Urine Occult Blood Negative Urine Nitrite Negative Urine Bilirubin Negative Urine Urobilinogen Normal Ur Leukocyte Esterase Negative Urine RBC 0-5 SEEN Urine WBC 0-5 SEEN Ur Squamous Epith Cells 0-5 SEEN Urine Bacteria RARE Urine Mucus 0 SEEN MRSA (PCR) 09/11/19 09/11/19 09/11/19 05:40 06:41 07:09 WBC RBC Hgb Hct MCV MCH MCHC RDW Std Deviation RDW Coeff of [place] Plt Count MPV PT INR APTT Specimen Type ART Sample Site L Radial pH 7.42 Bicarbonate Actual 21.4 L POC Total CO2 22 Base Excess -3 L O2 Saturation 88 L ABG pCO2 32.8 L ABG pO2 53 L Chong Test POS O2 Delivery Device Nasal Can Liter Flow 4.0 Blood Gas Notified Whom ICU Blood Gas Notified Time 708 Sodium Potassium Chloride Carbon Dioxide Anion Gap BUN Creatinine Estim Creat Clear Calc Est GFR (MDRD) Af Amer Est GFR (MDRD) Non-Af BUN/Creatinine Ratio Glucose Hemoglobin A1c Lactic Acid 1.1 Calcium Total Bilirubin AST ALT Alkaline Phosphatase Total Protein Albumin Globulin Albumin/Globulin Ratio Triglycerides Cholesterol LDL Cholesterol VLDL Cholesterol HDL Cholesterol TSH Urine Color Urine Clarity Urine pH Ur Specific [place] Urine Protein Urine Glucose (UA) Urine Ketones Urine Occult Blood Urine Nitrite Urine Bilirubin Urine Urobilinogen Ur Leukocyte Esterase Urine RBC Urine WBC Ur Squamous Epith Cells Urine Bacteria Urine Mucus MRSA (PCR) Negative 09/11/19 08:45 WBC RBC Hgb Hct MCV MCH MCHC RDW Std Deviation RDW Coeff of [place] Plt Count MPV PT 16.0 H INR 1.3 APTT 30.0 Specimen Type Sample Site pH Bicarbonate Actual POC Total CO2 Base Excess O2 Saturation ABG pCO2 ABG pO2 Chong Test O2 Delivery Device Liter Flow Blood Gas Notified Whom Blood Gas Notified Time Sodium Potassium Chloride Carbon Dioxide Anion Gap BUN Creatinine Estim Creat Clear Calc Est GFR (MDRD) Af Amer Est GFR (MDRD) Non-Af BUN/Creatinine Ratio Glucose Hemoglobin A1c Lactic Acid Calcium Total Bilirubin AST ALT Alkaline Phosphatase Total Protein Albumin Globulin Albumin/Globulin Ratio Triglycerides Cholesterol LDL Cholesterol VLDL Cholesterol HDL Cholesterol TSH Urine Color Urine Clarity Urine pH Ur Specific [place] Urine Protein Urine Glucose (UA) Urine Ketones Urine Occult Blood Urine Nitrite Urine Bilirubin Urine Urobilinogen Ur Leukocyte Esterase Urine RBC Urine WBC Ur Squamous Epith Cells Urine Bacteria Urine Mucus MRSA (PCR) - Other Studies Radiology: [] reviewed Other Studies: [] Route of nutrition/ use of supplements: [] Nutritional Intake: [] IV Site: [] Trent Catheter: [] - Physical Exam General: Alert, Oriented x3, Cooperative, No apparent distress HEENT: Atraumatic, PERRLA, EOMI, - - multiple rotted teeth. No sinus tenderness. Neck: Supple, No Nodes Lungs: Clear to auscultation, Normal air movement Cardiovascular: Regular rate, Regular Rhythm, No murmurs Abdomen: Soft, Non Tender, Non-Distended Extremities: No edema Skin: No rashes IV Site: Peripheral, without redness Musculoskeletal: No Tenderness to Palpation of Joints or Extremities Neurological: Cranial nerves II-XII grossly intact - Assessment/Plan Antibiotics: [] Assessment/Plan: [] Active and Suspected Problems Febrile illness, acute (Acute) Acute renal failure (Acute) History of BPH (Acute) Diabetic neuropathy (Acute) Peripheral vascular disease (Acute) severe sepsis with ANDRE on CKD and RSV-A (+) - cxr is clear, not producing sputum. Head CT did show L maxillary opacification, but no headache or sinus tenderness. Does have poor dentition. Overall rapidly improved wbc, Cr, and mental status. Cont zosyn while cxs are pending. Will order panorex. Will follow, thank you, d/w nursing and Dr. Grande.
[2019-09-11] MEDS: Tamsulosin HCl 0.4 MG Capsule PO (16:39)
[2019-09-11 16:50] LABS: Bedside Glucose 203 mg/dL (70-110)
[2019-09-11 21:26] LABS: Bedside Glucose 205 mg/dL (70-110)
[2019-09-11] MEDS: Atorvastatin Calcium 20 MG Tablet PO (21:28)
[2019-09-12] VITALS (16 sets, daily range): BP systolic 114–159; BP diastolic 50–110; PULSE 71–88; RESP 8–18; TEMP 36.4–38.3; O2SAT 94–100
[2019-09-12] MEDS: 0.9% Normal Saline 1,000 ML 100 ML IV (01:38)
[2019-09-12] MEDS: Acetaminophen 500 MG Tablet 1000 MG PO ×3 (05:59→22:24)
[2019-09-12] MEDS: Gabapentin 300 MG Capsule PO ×3 (05:59→22:24)
--- NOTE | 2019-09-12 07:01 | PN_ITS ---
Subjective: The patient was seen and examined at the bedside this morning. Events from the last 24 hours have been reviewed. The patient is currently febrile with a T-max overnight of 100.9 ?F. He remains hemodynamically stable, nevertheless and is maintaining appropriate oxygen saturations on 2 L/min via nasal cannula. The patient continues to cough without sputum production. He reports the continued presence of chills as well. Objective: The patient's most recent lab work, culture data and imaging studies have all been personally reviewed. Respiratory viral panel was positive for RSV. Blood and urine cultures are pending. General: Alert, Oriented x3, Cooperative, No apparent distress HEENT: Atraumatic, PERRLA, Normocephalic Oral: Moist Mucosa, No Gingival or Mucosal Lesions/ Ulcerations Neck: Supple, No Nodes, Trachea Midline Lungs: No rhonchi, No wheeze, No rales, Diminished Cardiovascular: Regular rate, Regular Rhythm, Normal S1, Normal S2 Abdomen: Bowel Sounds Present, Soft, Non Tender, Obese Extremities: No clubbing, No cyanosis Skin: No rashes, No breakdown Musculoskeletal: No Tenderness to Palpation of Joints or Extremities, No Muscle Wasting Lymphatic: No Cervical, Supraclavicular, or Inguinal Adenopathy Neurological: Cranial nerves II-XII grossly intact, Neuro grossly intact Psych/Mental Status: Alert and oriented to time, place, person, mood and affect Vital Signs Temp Pulse Resp BP Pulse Ox 100.4 F H 87 18 158/110 H 98 09/12/19 06:00 09/12/19 06:00 09/12/19 06:00 09/12/19 06:00 09/12/19 06:00 Oxygen Flow Rate (L/min) 2 Oxygen Delivery Method Nasal Cannula Weight: 276 lb 14.409 oz Body Mass Index (BMI) 38.9 Finger Stick Blood Glucose 298 Intake and Output for Last 24 Hours 09/10/19 09/11/19 09/12/19 23:59 23:59 23:59 Intake Total 1999 4048.57 / 4248.57 1138.33 / 1138.33 Output Total 400 / 600 1550 / 1875 925 / 925 Balance 1599 / 1999 2498.57 / 2373.57 213.33 / 213.33 Labs (Last 48 Hours) 09/10/19 09/10/19 09/10/19 13:04 13:15 13:15 WBC 16.9 H RBC 3.48 L Hgb 10.4 L Hct 31.2 L MCV 89.7 MCH 29.9 MCHC 33.3 RDW Std Deviation 43.7 RDW Coeff of [place] 13.2 Plt Count 329 MPV 9.2 Immature Gran % (Auto) 0.600 Neut % (Auto) 91.2 H Lymph % (Auto) 2.8 L [place] % (Auto) 5.1 Eos % (Auto) 0.0 Baso % (Auto) 0.3 Absolute Neuts (auto) 15.4 H Absolute Lymphs (auto) 0.47 L Nucleated RBC % 0 Differential Comment SCANNED PT INR APTT Specimen Type Sample Site pH Bicarbonate Actual POC Total CO2 Base Excess O2 Saturation ABG pCO2 ABG pO2 Chong Test O2 Delivery Device Liter Flow Blood Gas Notified Whom Blood Gas Notified Time Sodium 136 Potassium 4.2 Chloride 104 Carbon Dioxide 24.0 Anion Gap 8 BUN 25 H Creatinine 2.20 H Estim Creat Clear Calc 42.14 Est GFR (MDRD) Af Amer 39 L Est GFR (MDRD) Non-Af 33 L BUN/Creatinine Ratio 11.4 Glucose 305 H Hemoglobin A1c Lactic Acid Calcium 8.8 Total Bilirubin AST ALT Alkaline Phosphatase Total Protein Albumin Globulin Albumin/Globulin Ratio Triglycerides Cholesterol LDL Cholesterol VLDL Cholesterol HDL Cholesterol TSH Urine Color Urine Clarity Urine pH Ur Specific [place] Urine Protein Urine Glucose (UA) Urine Ketones Urine Occult Blood Urine Nitrite Urine Bilirubin Urine Urobilinogen Ur Leukocyte Esterase Urine RBC Urine WBC Ur Squamous Epith Cells Urine Bacteria Urine Mucus MRSA (PCR) POC Glucose 298 H 09/10/19 09/10/19 09/10/19 13:15 13:15 13:15 WBC RBC Hgb Hct MCV MCH MCHC RDW Std Deviation RDW Coeff of [place] Plt Count MPV Immature Gran % (Auto) Neut % (Auto) Lymph % (Auto) [place] % (Auto) Eos % (Auto) Baso % (Auto) Absolute Neuts (auto) Absolute Lymphs (auto) Nucleated RBC % Differential Comment PT INR APTT Specimen Type Sample Site pH Bicarbonate Actual POC Total CO2 Base Excess O2 Saturation ABG pCO2 ABG pO2 Chong Test O2 Delivery Device Liter Flow Blood Gas Notified Whom Blood Gas Notified Time Sodium Potassium Chloride Carbon Dioxide Anion Gap BUN Creatinine Estim Creat Clear Calc Est GFR (MDRD) Af Amer Est GFR (MDRD) Non-Af BUN/Creatinine Ratio Glucose Hemoglobin A1c 11.2 H Lactic Acid 3.1 H* Calcium Total Bilirubin AST ALT Alkaline Phosphatase Total Protein Albumin Globulin Albumin/Globulin Ratio Triglycerides Cholesterol LDL Cholesterol VLDL Cholesterol HDL Cholesterol TSH 0.59 Urine Color Urine Clarity Urine pH Ur Specific [place] Urine Protein Urine Glucose (UA) Urine Ketones Urine Occult Blood Urine Nitrite Urine Bilirubin Urine Urobilinogen Ur Leukocyte Esterase Urine RBC Urine WBC Ur Squamous Epith Cells Urine Bacteria Urine Mucus MRSA (PCR) POC Glucose 09/10/19 09/10/19 09/10/19 17:56 18:15 18:54 WBC RBC Hgb Hct MCV MCH MCHC RDW Std Deviation RDW Coeff of [place] Plt Count MPV Immature Gran % (Auto) Neut % (Auto) Lymph % (Auto) [place] % (Auto) Eos % (Auto) Baso % (Auto) Absolute Neuts (auto) Absolute Lymphs (auto) Nucleated RBC % Differential Comment PT INR APTT Specimen Type Sample Site pH Bicarbonate Actual POC Total CO2 Base Excess O2 Saturation ABG pCO2 ABG pO2 Chong Test O2 Delivery Device Liter Flow Blood Gas Notified Whom Blood Gas Notified Time Sodium Potassium Chloride Carbon Dioxide Anion Gap BUN Creatinine Estim Creat Clear Calc Est GFR (MDRD) Af Amer Est GFR (MDRD) Non-Af BUN/Creatinine Ratio Glucose Hemoglobin A1c Lactic Acid 2.0 Calcium Total Bilirubin AST ALT Alkaline Phosphatase Total Protein Albumin Globulin Albumin/Globulin Ratio Triglycerides Cholesterol LDL Cholesterol VLDL Cholesterol HDL Cholesterol TSH Urine Color Yellow Urine Clarity Sl. Cloudy Urine pH 5.0 Ur Specific [place] 1.015 Urine Protein 15 H Urine Glucose (UA) 1000 H Urine Ketones 5 H Urine Occult Blood Negative Urine Nitrite Negative Urine Bilirubin Negative Urine Urobilinogen Normal Ur Leukocyte Esterase Negative Urine RBC 0-5 SEEN Urine WBC 0-5 SEEN Ur Squamous Epith Cells 0-5 SEEN Urine Bacteria RARE Urine Mucus 0 SEEN MRSA (PCR) POC Glucose 253 H 09/10/19 09/11/19 09/11/19 22:57 05:19 05:40 WBC 11.5 H RBC 2.92 L Hgb 8.5 L Hct 27.0 L MCV 92.5 MCH 29.1 MCHC 31.5 L D RDW Std Deviation 46.3 H RDW Coeff of [place] 13.6 Plt Count 272 MPV 9.1 Immature Gran % (Auto) Neut % (Auto) Lymph % (Auto) [place] % (Auto) Eos % (Auto) Baso % (Auto) Absolute Neuts (auto) Absolute Lymphs (auto) Nucleated RBC % Differential Comment PT INR APTT Specimen Type Sample Site pH Bicarbonate Actual POC Total CO2 Base Excess O2 Saturation ABG pCO2 ABG pO2 Chong Test O2 Delivery Device Liter Flow Blood Gas Notified Whom Blood Gas Notified Time Sodium Potassium Chloride Carbon Dioxide Anion Gap BUN Creatinine Estim Creat Clear Calc Est GFR (MDRD) Af Amer Est GFR (MDRD) Non-Af BUN/Creatinine Ratio Glucose Hemoglobin A1c Lactic Acid Calcium Total Bilirubin AST ALT Alkaline Phosphatase Total Protein Albumin Globulin Albumin/Globulin Ratio Triglycerides Cholesterol LDL Cholesterol VLDL Cholesterol HDL Cholesterol TSH Urine Color Urine Clarity Urine pH Ur Specific [place] Urine Protein Urine Glucose (UA) Urine Ketones Urine Occult Blood Urine Nitrite Urine Bilirubin Urine Urobilinogen Ur Leukocyte Esterase Urine RBC Urine WBC Ur Squamous Epith Cells Urine Bacteria Urine Mucus MRSA (PCR) POC Glucose 172 H 247 H 09/11/19 09/11/19 09/11/19 05:40 05:40 06:41 WBC RBC Hgb Hct MCV MCH MCHC RDW Std Deviation RDW Coeff of [place] Plt Count MPV Immature Gran % (Auto) Neut % (Auto) Lymph % (Auto) [place] % (Auto) Eos % (Auto) Baso % (Auto) Absolute Neuts (auto) Absolute Lymphs (auto) Nucleated RBC % Differential Comment PT INR APTT Specimen Type Sample Site pH Bicarbonate Actual POC Total CO2 Base Excess O2 Saturation ABG pCO2 ABG pO2 Chong Test O2 Delivery Device Liter Flow Blood Gas Notified Whom Blood Gas Notified Time Sodium 136 Potassium 4.0 Chloride 105 Carbon Dioxide 24.0 Anion Gap 7 BUN 28 H Creatinine 1.73 H Estim Creat Clear Calc 53.59 Est GFR (MDRD) Af Amer 52 L Est GFR (MDRD) Non-Af 43 L BUN/Creatinine Ratio 16.2 Glucose 243 H Hemoglobin A1c Lactic Acid 1.1 Calcium 7.3 L Total Bilirubin 0.40 AST 54 H ALT 57 Alkaline Phosphatase 132 H Total Protein 6.4 Albumin 2.5 L Globulin 3.9 Albumin/Globulin Ratio 0.6 L Triglycerides 62 Cholesterol 56 LDL Cholesterol 18 VLDL Cholesterol 12 HDL Cholesterol 26 L TSH Urine Color Urine Clarity Urine pH Ur Specific [place] Urine Protein Urine Glucose (UA) Urine Ketones Urine Occult Blood Urine Nitrite Urine Bilirubin Urine Urobilinogen Ur Leukocyte Esterase Urine RBC Urine WBC Ur Squamous Epith Cells Urine Bacteria Urine Mucus MRSA (PCR) Negative POC Glucose 09/11/19 09/11/19 09/11/19 06:47 07:09 08:41 WBC RBC Hgb Hct MCV MCH MCHC RDW Std Deviation RDW Coeff of [place] Plt Count MPV Immature Gran % (Auto) Neut % (Auto) Lymph % (Auto) [place] % (Auto) Eos % (Auto) Baso % (Auto) Absolute Neuts (auto) Absolute Lymphs (auto) Nucleated RBC % Differential Comment PT INR APTT Specimen Type ART Sample Site L Radial pH 7.42 Bicarbonate Actual 21.4 L POC Total CO2 22 Base Excess -3 L O2 Saturation 88 L ABG pCO2 32.8 L ABG pO2 53 L Chong Test POS O2 Delivery Device Nasal Can Liter Flow 4.0 Blood Gas Notified Whom ICU MD Blood Gas Notified Time 708 Sodium Potassium Chloride Carbon Dioxide Anion Gap BUN Creatinine Estim Creat Clear Calc Est GFR (MDRD) Af Amer Est GFR (MDRD) Non-Af BUN/Creatinine Ratio Glucose Hemoglobin A1c Lactic Acid Calcium Total Bilirubin AST ALT Alkaline Phosphatase Total Protein Albumin Globulin Albumin/Globulin Ratio Triglycerides Cholesterol LDL Cholesterol VLDL Cholesterol HDL Cholesterol TSH Urine Color Urine Clarity Urine pH Ur Specific [place] Urine Protein Urine Glucose (UA) Urine Ketones Urine Occult Blood Urine Nitrite Urine Bilirubin Urine Urobilinogen Ur Leukocyte Esterase Urine RBC Urine WBC Ur Squamous Epith Cells Urine Bacteria Urine Mucus MRSA (PCR) POC Glucose 242 H 308 H 09/11/19 09/11/19 09/11/19 08:45 12:11 16:31 WBC RBC Hgb Hct MCV MCH MCHC RDW Std Deviation RDW Coeff of [place] Plt Count MPV Immature Gran % (Auto) Neut % (Auto) Lymph % (Auto) [place] % (Auto) Eos % (Auto) Baso % (Auto) Absolute Neuts (auto) Absolute Lymphs (auto) Nucleated RBC % Differential Comment PT 16.0 H INR 1.3 APTT 30.0 Specimen Type Sample Site pH Bicarbonate Actual POC Total CO2 Base Excess O2 Saturation ABG pCO2 ABG pO2 [place] Test O2 Delivery Device Liter Flow Blood Gas Notified Whom Blood Gas Notified Time Sodium Potassium Chloride Carbon Dioxide Anion Gap BUN Creatinine Estim Creat Clear Calc Est GFR (MDRD) Af Amer Est GFR (MDRD) Non-Af BUN/Creatinine Ratio Glucose Hemoglobin A1c Lactic Acid Calcium Total Bilirubin AST ALT Alkaline Phosphatase Total Protein Albumin Globulin Albumin/Globulin Ratio Triglycerides Cholesterol LDL Cholesterol VLDL Cholesterol HDL Cholesterol TSH Urine Color Urine Clarity Urine pH Ur Specific [place] Urine Protein Urine Glucose (UA) Urine Ketones Urine Occult Blood Urine Nitrite Urine Bilirubin Urine Urobilinogen Ur Leukocyte Esterase Urine RBC Urine WBC Ur Squamous Epith Cells Urine Bacteria Urine Mucus MRSA (PCR) POC Glucose 230 H 203 H 09/11/19 21:12 WBC RBC Hgb Hct MCV MCH MCHC RDW Std Deviation RDW Coeff of [place] Plt Count MPV Immature Gran % (Auto) Neut % (Auto) Lymph % (Auto) [place] % (Auto) Eos % (Auto) Baso % (Auto) Absolute Neuts (auto) Absolute Lymphs (auto) Nucleated RBC % Differential Comment PT INR APTT Specimen Type Sample Site pH Bicarbonate Actual POC Total CO2 Base Excess O2 Saturation ABG pCO2 ABG pO2 Chong Test O2 Delivery Device Liter Flow Blood Gas Notified Whom Blood Gas Notified Time Sodium Potassium Chloride Carbon Dioxide Anion Gap BUN Creatinine Estim Creat Clear Calc Est GFR (MDRD) Af Amer Est GFR (MDRD) Non-Af BUN/Creatinine Ratio Glucose Hemoglobin A1c Lactic Acid Calcium Total Bilirubin AST ALT Alkaline Phosphatase Total Protein Albumin Globulin Albumin/Globulin Ratio Triglycerides Cholesterol LDL Cholesterol VLDL Cholesterol HDL Cholesterol TSH Urine Color Urine Clarity Urine pH Ur Specific [place] Urine Protein Urine Glucose (UA) Urine Ketones Urine Occult Blood Urine Nitrite Urine Bilirubin Urine Urobilinogen Ur Leukocyte Esterase Urine RBC Urine WBC Ur Squamous Epith Cells Urine Bacteria Urine Mucus MRSA (PCR) POC Glucose 205 H Microbiology 09/10/19 18:15 Urine Catheter - [place] Urine Culture - Preliminary Culture exhibits no growth. 09/10/19 18:00 Mucosa - Nasopharyngeal Respiratory Panel (PCR) - Final RSV A 09/10/19 15:21 Mucosa - Nasopharyngeal Influenza Types A,B Direct FA (MARIA ELENA) - Final Clinical Impression(s) from Imaging Studies Chest X-Ray 09/10/19 09:48 IMPRESSION: No active disease. Electronically Signed: Reynaldo Chaudhry MD at 10:23 EST Tel , Service support , Chest X-Ray 09/11/19 05:00 IMPRESSION: No acute findings. Electronically Signed: Milan Turner at 5:27 EST Tel , Service support , Brain CT 09/11/19 05:42 IMPRESSION: No acute intracranial findings. Complete opacification of the left maxillary sinus with a heterogenous lesion which has some calcifications medially, and extends slightly into the nasal cavity. While this could represent chronic sinusitis, a slow-growing neoplasm is also possible. Nonemergent ENT follow-up recommended. Electronically Signed: Milan Turner, at 6:49 EST Tel , Service support , Medical Necessity - Tobacco Use Smoking Status: Never smoker Tobacco Use: Non-smoker Assessment/Plan All Active Problems Febrile illness, acute (Acute) Acute renal failure (Acute) History of BPH (Acute) Diabetic neuropathy (Acute) Peripheral vascular disease (Acute) Ankle ligament laxity (Resolved) S/P arthroscopy (Resolved) RECOMMENDATIONS: 1. Continue empiric antimicrobials per ID recommendations. 2. Continue supplemental IV fluids to offset insensible losses, given poor p.o. intake. 3. Wean supplemental oxygen to maintain saturations at or above 90%. 4. Encourage incentive spirometer use and mobilize patient as tolerated. 5. Transition from normal saline to lactated Ringer's. 6. Continue appropriate prophylaxis. IMPRESSIONS: 1. Severe sepsis The patient was transferred to the medical intensive care unit from the medical floor in the setting of severe sepsis with unclear source of infection. Subsequent CT head did reveal evidence of chronic sinusitis and respiratory viral panel was positive for RSV. No other sources of infection have been identified to date. The patient remains on empiric antimicrobials per ID recommendations. 2. Acute on chronic kidney disease Resolved. Likely prerenal in etiology. The patient's creatinine has normalized in the setting of IV fluid resuscitation. Urine output is appropriate. No indication for renal replacement therapy. 3. Normocytic anemia Hemoglobin remains stable. He was previously known to have a baseline hemoglobin in the 9-10 range in 2016. We will continue to monitor H&H daily. Plan to transfuse if hemoglobin drops below 7 g/dL. 4. Hypertension/hyperlipidemia/diabetes mellitus/neuropathy/obesity Complicates care, management, recovery and prognosis. This note was generated with [employer] software. It may contain incorrect words, spelling, and punctuation that were not noted in checking the note before signing. Code Visit Inpatient E&M: 03095 Subs Hosp L3
[2019-09-12 07:05] LABS: Bedside Glucose 154 mg/dL (70-110)
[2019-09-12 07:17] LABS: Absolute Lymphocyte Count 0.58 X10^3/uL (0.83-4.51); Absolute Neutrophil Count 5.2 X10^3/uL (2.0-7.7); Basophil# 0.03 X10^3/uL; Basophil% 0.5 % (0-1); Eosinophil# 0.03 X10^3/uL; Eosinophils% 0.5 % (0-5); Hematocrit 27.5 % (40-54); Hemoglobin 8.5 g/dL (13.0-16.5); Lymphocyte # 0.58 X10^3/ul (4.0); Lymphocyte % 9.1 % (19-41); Mean Corp Hgb Conc 30.9 g/dL (32-36); Mean Corpuscular Hgb 29.1 pg (27.0-32.0); Mean Corpuscular Volume 94.2 fL (80-94); Mean Platelet Vol. 9.4 fl (6.2-12.0); Monocyte# 0.52 X10^3/uL; Monocyte% 8.1 % (0-10); NRBC Flagged by Analyzer 0 % (0-5); Neutrophil # 5.21 X10^3/uL (2.7-7.7); Neutrophil % 81.5 % (47-70); POSITIVE DIFFERENTIAL YES; Platelet Count 270 K/mm3 (150-450); RBC Distribution Width CV 13.5 % (11.6-14.6); RBC Distribution Width SD 46.9 fl (35.1-43.9); Red Blood Count 2.92 M/mm3 (4.6-6.2); White Blood Count 6.4 K/mm3 (4.4-11.0)
[2019-09-12 07:21] LABS: Differential Indicated SCAN CRITERIA MET
[2019-09-12 07:25] LABS: Anion Gap 5 (5-15); BUN 21 mg/dL (7-18); BUN/Creat Ratio 16.3 RATIO (10-20); Calcium,Total 7.1 mg/dL (8.5-10.1); Chloride 109 mmol/L (98-107); Creatinine, Serum 1.29 mg/dL (0.70-1.30); EST Glomerular Filtration Rate 60 mL/min (>60); Est Glom Filt Rate - Afr Amer 73 mL/min (>60); Estimated Creatinine Clearance 71.87 ml/min; Glucose 160 mg/dL (74-106); Potassium 3.8 mmol/L (3.5-5.1); Sodium Level 139 mmol/L (136-145)
--- NOTE | 2019-09-12 08:22 | PN_ITS ---
Patient Problems: Active and Suspected Problems Febrile illness, acute (Acute) Acute renal failure (Acute) History of BPH (Acute) Diabetic neuropathy (Acute) Peripheral vascular disease (Acute) Reason for Visit: Severe sepsis with acute kidney injury. RSV positive Objective: Patient still has low-grade temperature, T 100.4, 100.9 Fahrenheit. Has diaphoresis, chills and sweating. Heart rate and blood pressure in acceptable range. Vitals/I&O's: Vital Signs Temp Pulse Resp BP Pulse Ox 100.9 F H 80 17 154/72 H 98 09/12/19 07:00 09/12/19 07:00 09/12/19 07:00 09/12/19 07:00 09/12/19 07:00 Oxygen Flow Rate (L/min) 2 Oxygen Delivery Method Nasal Cannula Weight: 276 lb 14.409 oz Body Mass Index (BMI) 38.9 Finger Stick Blood Glucose 298 Intake and Output for Last 24 Hours 09/10/19 09/11/19 09/12/19 23:59 23:59 23:59 Intake Total 1999 / 2600 4048.57 / 4248.57 1138.33 / 1138.33 Output Total 400 / 600 1550 / 1875 925 / 925 Balance 1600 / 1999 2498.57 / 2373.57 213.33 / 213.33 General: Alert, Oriented x3, Cooperative HEENT: Atraumatic, PERRLA, EOMI, Normocephalic Oral: Dry Mucosa, - - Patient had all her tooth pulled out about 2 to 3 years ago, gumline is hard, chronic but no acute bleeding, tenderness or swelling Neck: Supple, No JVD, Negative Carotid Bruits Lungs: Clear to auscultation, No rhonchi, No wheeze, No rales, Diminished Cardiovascular: Regular rate, Regular Rhythm, Normal S1, Normal S2, No murmurs Abdomen: Bowel Sounds Present, Soft, Non Tender, Non-Distended Extremities: No edema, Capillary Refill Less than 3 Seconds Skin: No rashes, No breakdown Musculoskeletal: No Tenderness to Palpation of Joints or Extremities, Arthritic Changes Neurological: Cranial nerves II-XII grossly intact, Deep Tendon Reflexes 2+/4 and Symmetrical, Neuro grossly intact, Motor Exam 5/5 strength throughout Psych/Mental Status: Normal Affect, Appropriate Microbiology Past 72 Hours 09/10/19 18:15 Urine Catheter - Trent Urine Culture - Preliminary Culture exhibits no growth. 09/10/19 18:00 Mucosa - Nasopharyngeal Respiratory Panel (PCR) - Final RSV A 09/10/19 15:21 Mucosa - Nasopharyngeal Influenza Types A,B Direct FA (MARIA ELENA) - Final Laboratory Results 09/11/19 06:41: MRSA (PCR) Negative 09/11/19 08:41: POC Glucose 308 H 09/11/19 08:45: PT 16.0 H, INR 1.3, APTT 30.0 09/11/19 12:11: POC Glucose 230 H 09/11/19 16:31: POC Glucose 203 H 09/11/19 21:12: POC Glucose 205 H 09/12/19 06:00: WBC 6.4, RBC 2.92 L, Hgb 8.5 L, Hct 27.5 L, MCV 94.2 H, MCH 29.1, MCHC 30.9 L, RDW Std Deviation 46.9 H, RDW Coeff of [place] 13.5, Plt Count 270, MPV 9.4, Immature Gran % (Auto) 0.300, Neut % (Auto) 81.5 H, Lymph % (Auto) 9.1 L, [place] % (Auto) 8.1, Eos % (Auto) 0.5, Baso % (Auto) 0.5, Absolute Neuts (auto) 5.2, Absolute Lymphs (auto) 0.58 L, Nucleated RBC % 0 09/12/19 06:00: Sodium 139, Potassium 3.8, Chloride 109 H, Carbon Dioxide 25.0, Anion Gap 5, BUN 21 H, Creatinine 1.29, Estim Creat Clear Calc 71.87, Est GFR (MDRD) Af Amer 73, Est GFR (MDRD) Non-Af 60, BUN/Creatinine Ratio 16.3, Glucose 160 H, Calcium 7.1 L 09/12/19 06:59: POC Glucose 154 H Current Medications Acetaminophen (Tylenol) 1,000 mg PO Q8 [facility] Last Admin: 09/12/19 05:59 Dose: 1,000 mg Documented by: Albuterol Sulfate (Ventolin Aerosols) 2.5 mg INHALATION Q2H PRN PRN PRN Reason: Shortness of Breath/Wheezing Aspirin (Aspirin, Baby) 81 mg PO DAILY@0800 [facility] Last Admin: 09/11/19 08:46 Dose: 81 mg Documented by: Atorvastatin Calcium (Lipitor) 20 mg PO QHS [facility] Last Admin: 09/11/19 21:28 Dose: 20 mg Documented by: Cilostazol (Pletal) 50 mg PO BIDAC [facility] Last Admin: 09/11/19 16:39 Dose: 50 mg Documented by: Dextrose (D50w Syringe) 0 gm IV X1 PRN; Protocol PRN Reason: Hypoglycemia Enoxaparin Sodium (Lovenox) 40 mg SC DAILY [facility] Last Admin: 09/11/19 10:54 Dose: 40 mg Documented by: Famotidine (Pepcid) 20 mg PO BID [facility] Last Admin: 09/11/19 21:28 Dose: 20 mg Documented by: Gabapentin (Neurontin) 300 mg PO TID [facility] Last Admin: 09/12/19 05:59 Dose: 300 mg Documented by: Glucagon () 1 mg IM .X1 PRN PRN Reason: Hypoglycemia Sodium Chloride () 250 mls @ 15 mls/hr IV .[id number] PRN PRN Reason: Saline Flush Sodium Chloride () 250 mls @ 15 mls/hr IV .[id number] PRN PRN Reason: Additional IVPB Infusion Piperacillin Sod/Tazobactam (Sod 3.375 gm/ Sodium Chloride) 50 mls @ 12.5 mls/hr IV Q8 [facility] Last Admin: 09/12/19 05:59 Dose: 12.5 mls/hr Documented by: Lactated Ringer's () 1,000 mls @ 125 mls/hr IV .Q8H [facility] Insulin Glargine (Lantus (Bkc)) 77 units SC DAILY@0800 [facility] Last Admin: 09/11/19 08:48 Dose: Not Given Documented by: Insulin Human Lispro (Humalog Kwikpen (Bk)) 0 unit SC ACHS [facility]; Protocol Last Admin: 09/11/19 21:30 Dose: 3 u Documented by: Magnesium Hydroxide (Milk Of Magnesia) 30 ml PO DAILY PRN PRN PRN Reason: Constipation Nifedipine (Procardia Xl) 90 mg PO DAILY [facility] Last Admin: 09/11/19 10:54 Dose: Not Given Documented by: Polysaccharide Iron Complex (Ferrex 150) 150 mg PO DAILYCM [facility] Last Admin: 09/11/19 08:47 Dose: 150 mg Documented by: Prochlorperazine Edisylate (Compazine Iv) 5 mg IV Q4H PRN PRN PRN Reason: Breakthrough nausea/vomiting Sodium Chloride () 10 - 40 ml IV UD PRN PRN Reason: SALINE FLUSH Last Admin: 09/11/19 03:40 Dose: 10 ml Documented by: Sodium Chloride ([place] Nasal [place]) 1 spray NASAL Q1H PRN PRN PRN Reason: NASAL DRYNESS Tamsulosin HCl (Flomax) 0.4 mg PO DAILY@1730 [facility] Last Admin: 09/11/19 16:39 Dose: 0.4 mg Documented by: STROKE Vital Signs/Narrative: Vital Signs Temp Pulse Resp BP Pulse Ox 09/12/19 07:00 100.9 F H 80 17 154/72 H 98 09/12/19 06:00 100.4 F H 87 18 158/110 H 98 09/12/19 05:00 100.4 F H 74 11 L 154/59 H 99 Medical Necessity - Tobacco Use Smoking Status: Never smoker Tobacco Use: Non-smoker Assessment/Plan All Active Problems Febrile illness, acute (Acute) Acute renal failure (Acute) History of BPH (Acute) Diabetic neuropathy (Acute) Peripheral vascular disease (Acute) Ankle ligament laxity (Resolved) S/P arthroscopy (Resolved) This 59-year-old male with history of hypertension, diabetes mellitus 2, BPH presenting with sudden onset of cough along with generalized weakness and high- grade fever. Patient also found tachycardic and tachypneic Assessment and plan: 1. Severe sepsis (high-grade fever, tachycardia, tachypnea, lactic acidosis), exact etiology unclear but possible sinusitis or acute RSV a bronchitis: Nose signs and symptoms suggestive of meningitis. CTA shows complete opacification of left medullary sinus. Chest x-ray and UA is negative. On broad-spectrum antibiotic. Consult ID. Respiratory panel positive RSV A. Urine culture negative. Blood cultures x2 pending 09/12: No panoramic x-ray done as recommended by ID. Continue antibiotic. RSV-A bronchitis. Low-grade fever. Continue antibiotic. Patient is status is changed to PCU. 2. Uncontrolled diabetes mellitus type 2, complicated with neuropathy and possible nephropathy and noncompliance with Humalog at mealtimes. Hemoglobin A1c 11.2. Last blood sugar 230. On Accu-Cheks and insulin coverage with sliding scale. 09/12: Blood sugar, around 154, Lantus is on hold. 3. Acute kidney injury on CKD stage II: Patient baseline creatinine runs around 1.3. Admitted with creatinine 2.2 currently 1.73. Ultrasound of kidneys and bladder ordered. Probably he has a diabetic nephropathy. 5. History of BPH and urine retention -patient has Trent catheter. Urine is clear. On Flomax. UA and urine culture are negative. 6. Chronic medical conditions including: Hypertension/hyperlipidemia/morbid obesity/peripheral vascular disease/chronic pain syndrome secondary to diabetic peripheral polyneuropathy-complicate care, management, recovery and prognosis. Hold lisinopril in light of increased creatinine. Ambulatory pulse ox on room air prior to discharge Recommend outpatient sleep study 09/10/19 18:15 Urine Catheter - Trent Urine Culture - Preliminary Culture exhibits no growth. 09/10/19 18:00 Mucosa - Nasopharyngeal Respiratory Panel (PCR) - Final RSV A 09/10/19 15:21 Mucosa - Nasopharyngeal Influenza Types A,B Direct FA (MARIA ELENA) - Final 09/12/19 06:00: WBC 6.4, RBC 2.92 L, Hgb 8.5 L, Hct 27.5 L, MCV 94.2 H, MCH 29.1, MCHC 30.9 L, RDW Std Deviation 46.9 H, RDW Coeff of [place] 13.5, Plt Count 270, MPV 9.4, Immature Gran % (Auto) 0.300, Neut % (Auto) 81.5 H, Lymph % (Auto) 9.1 L, [place] % (Auto) 8.1, Eos % (Auto) 0.5, Baso % (Auto) 0.5, Absolute Neuts (auto) 5.2, Absolute Lymphs (auto) 0.58 L, Nucleated RBC % 0, Differential Comment SCANNED, Hypochromasia 1+, Anisocytosis 1+, Ovalocytes RARE 09/12/19 06:00: Sodium 139, Potassium 3.8, Chloride 109 H, Carbon Dioxide 25.0, Anion Gap 5, BUN 21 H, Creatinine 1.29, Estim Creat Clear Calc 71.87, Est GFR (MDRD) Af Amer 73, Est GFR (MDRD) Non-Af 60, BUN/Creatinine Ratio 16.3, Glucose 160 H, Calcium 7.1 L 09/12/19 06:59: POC Glucose 154 H Clinical Impression(s) from Imaging Studies Chest X-Ray 09/10/19 09:48 IMPRESSION: No active disease. Electronically Signed: Reynaldo Chaudhry MD at 10:23 EST Tel , Service support , Chest X-Ray 09/11/19 05:00 IMPRESSION: No acute findings. Electronically Signed: Milna Turner at 5:27 EST Tel , Service support , Brain CT 09/11/19 05:42 IMPRESSION: No acute intracranial findings. Complete opacification of the left maxillary sinus with a heterogenous lesion which has some calcifications medially, and extends slightly into the nasal cavity. While this could represent chronic sinusitis, a slow-growing neoplasm is also possible. Nonemergent ENT follow-up recommended. Code Visit Inpatient E&M: 98134 Subs Hosp L3
[2019-09-12 08:35] LABS: Anisocytosis 1+; Hypochromasia 1+; Ovalocyte RARE
[2019-09-12 08:36] LABS: Differential Comment SCANNED
[2019-09-12] MEDS: Insulin Lispro 100 UNIT/ML INSULN.PEN SC ×4 (09:02→22:24)
[2019-09-12] MEDS: Aspirin 81 MG TAB.CHEW PO (09:03)
[2019-09-12] MEDS: Lactated Ringers 1,000 ML 125 ML IV ×2 (09:03→16:28)
[2019-09-12] MEDS: Iron Polysaccharide Complex 150 MG CAPSULE PO (09:03)
[2019-09-12] MEDS: Cilostazol 50 MG Tablet PO ×2 (09:03→16:35)
[2019-09-12] MEDS: Famotidine 20 MG Tablet PO ×2 (09:04→22:25)
[2019-09-12] MEDS: Enoxaparin 40 MG/0.4 ML Syringe SC (09:04)
[2019-09-12] MEDS: NIFEdipine 90 MG Tablet PO (09:06)
[2019-09-12 09:21] LABS: Bedside Glucose 159 mg/dL (70-110)
--- NOTE | 2019-09-12 10:33 | PN.ID_ITS ---
Patient Problems: Active and Suspected Problems Febrile illness, acute (Acute) Acute renal failure (Acute) History of BPH (Acute) Diabetic neuropathy (Acute) Peripheral vascular disease (Acute) Subjective: Feeling better, mild fever overnight. No sputum, SOB improved. No abd pain, no headache, no n/v/d. - Physical Exam Vitals/I&O's: Vital Signs Temp Pulse Resp BP Pulse Ox 100.6 F H 71 11 L 159/53 H 99 09/12/19 08:30 09/12/19 08:30 09/12/19 08:30 09/12/19 08:30 09/12/19 08:30 Oxygen Flow Rate (L/min) 2 Oxygen Delivery Method Room Air Weight: 125.6 kg Body Mass Index (BMI) 38.9 Finger Stick Blood Glucose 298 Intake and Output for Last 24 Hours 09/10/19 09/11/19 09/12/19 23:59 23:59 23:59 Intake Total 1999 / 2600 4048.57 / 4248.57 1885.00 / 1885.00 Output Total 400 / 600 1550 / 1875 925 / 925 Balance 1600 / 1999 2498.57 / 2373.57 960.00 / 960.00 General: Alert, Cooperative, No apparent distress Lungs: Clear to auscultation, Normal air movement Cardiovascular: Regular rate, Regular Rhythm Abdomen: Soft, Non Tender, Non-Distended Skin: No rashes Microbiology Past 72 Hours 09/10/19 18:15 Urine Catheter - [place] Urine Culture - Preliminary Culture exhibits no growth. 09/10/19 18:00 Mucosa - Nasopharyngeal Respiratory Panel (PCR) - Final RSV A 09/10/19 15:21 Mucosa - Nasopharyngeal Influenza Types A,B Direct FA (MARIA EELNA) - Final Laboratory Results 09/11/19 08:41: POC Glucose 308 H 09/11/19 08:45: PT 16.0 H, INR 1.3, APTT 30.0 09/11/19 12:11: POC Glucose 230 H 09/11/19 16:31: POC Glucose 203 H 09/11/19 21:12: POC Glucose 205 H 09/12/19 06:00: WBC 6.4, RBC 2.92 L, Hgb 8.5 L, Hct 27.5 L, MCV 94.2 H, MCH 29.1, MCHC 30.9 L, RDW Std Deviation 46.9 H, RDW Coeff of [place] 13.5, Plt Count 270, MPV 9.4, Immature Gran % (Auto) 0.300, Neut % (Auto) 81.5 H, Lymph % (Auto) 9.1 L, [place] % (Auto) 8.1, Eos % (Auto) 0.5, Baso % (Auto) 0.5, Absolute Neuts (auto) 5.2, Absolute Lymphs (auto) 0.58 L, Nucleated RBC % 0, Differential Comment SCANNED, Hypochromasia 1+, Anisocytosis 1+, Ovalocytes RARE 09/12/19 06:00: Sodium 139, Potassium 3.8, Chloride 109 H, Carbon Dioxide 25.0, Anion Gap 5, BUN 21 H, Creatinine 1.29, Estim Creat Clear Calc 71.87, Est GFR (MDRD) Af Amer 73, Est GFR (MDRD) Non-Af 60, BUN/Creatinine Ratio 16.3, Glucose 160 H, Calcium 7.1 L 09/12/19 06:59: POC Glucose 154 H 09/12/19 08:58: POC Glucose 159 H Current Medications Acetaminophen (Tylenol) 1,000 mg PO Q8 [facility] Last Admin: 09/12/19 05:59 Dose: 1,000 mg Documented by: Albuterol Sulfate (Ventolin Aerosols) 2.5 mg INHALATION Q2H PRN PRN PRN Reason: Shortness of Breath/Wheezing Aspirin (Aspirin, Baby) 81 mg PO DAILY@0800 [facility] Last Admin: 09/12/19 09:03 Dose: 81 mg Documented by: Atorvastatin Calcium (Lipitor) 20 mg PO QHS [facility] Last Admin: 09/11/19 21:28 Dose: 20 mg Documented by: Cilostazol (Pletal) 50 mg PO BIDAC [facility] Last Admin: 09/12/19 09:03 Dose: 50 mg Documented by: Dextrose (D50w Syringe) 0 gm IV X1 PRN; Protocol PRN Reason: Hypoglycemia Enoxaparin Sodium (Lovenox) 40 mg SC DAILY [facility] Last Admin: 09/12/19 09:04 Dose: 40 mg Documented by: Famotidine (Pepcid) 20 mg PO BID [facility] Last Admin: 09/12/19 09:04 Dose: 20 mg Documented by: Gabapentin (Neurontin) 300 mg PO TID [facility] Last Admin: 09/12/19 05:59 Dose: 300 mg Documented by: Glucagon () 1 mg IM .X1 PRN PRN Reason: Hypoglycemia Sodium Chloride () 250 mls @ 15 mls/hr IV .[id number] PRN PRN Reason: Saline Flush Sodium Chloride () 250 mls @ 15 mls/hr IV .[id number] PRN PRN Reason: Additional IVPB Infusion Lactated Ringer's () 1,000 mls @ 125 mls/hr IV .Q8H [facility] Last Admin: 09/12/19 09:03 Dose: 125 mls/hr Documented by: Insulin Glargine (Lantus ([facility])) 77 units SC DAILY@0800 [facility] Last Admin: 09/12/19 09:03 Dose: Not Given Documented by: Insulin Human Lispro (Humalog Kwikpen ([facility])) 0 unit SC ACHS [facility]; Protocol Last Admin: 09/12/19 09:02 Dose: 3 u Documented by: Magnesium Hydroxide (Milk Of Magnesia) 30 ml PO DAILY PRN PRN PRN Reason: Constipation Nifedipine (Procardia Xl) 90 mg PO DAILY [facility] Last Admin: 09/12/19 09:06 Dose: 90 mg Documented by: Polysaccharide Iron Complex (Ferrex 150) [facility] Last Admin: 09/12/19 09:03 Dose: 150 mg Documented by: Prochlorperazine Edisylate (Compazine Iv) 5 mg IV Q4H PRN PRN PRN Reason: Breakthrough nausea/vomiting Sodium Chloride () 10 - 40 ml IV UD PRN PRN Reason: SALINE FLUSH Last Admin: 09/11/19 03:40 Dose: 10 ml Documented by: Sodium Chloride ([place] Nasal [place]) 1 spray NASAL Q1H PRN PRN PRN Reason: NASAL DRYNESS Tamsulosin HCl (Flomax) 0.4 mg PO DAILY@1730 [facility] Last Admin: 09/11/19 16:39 Dose: 0.4 mg Documented by: Medical Necessity - Tobacco Use Smoking Status: Never smoker Tobacco Use: Non-smoker Route of nutrition/ use of supplements: [] Nutritional Intake: [] IV Site: [] Bowie Catheter: [] - Assessment/Plan Antibiotics: [] Assessment/Plan: [] Active and Suspected Problems Febrile illness, acute (Acute) Acute renal failure (Acute) History of BPH (Acute) Diabetic neuropathy (Acute) Peripheral vascular disease (Acute) severe sepsis with ANDRE on CKD and RSV-A (+) - cxr is clear, not producing sputum. Head CT did show L maxillary opacification, but no headache or sinus tenderness. Does have poor dentition. Overall rapidly improved wbc, Cr, and mental status. No evidence of bacterial infection at this time. Will stop zosyn. Recommend bowie removal. Unable to do panorex here. Recommend outpt dentistry and ENT eval. Will follow, d/w Dr. Celeste and nursing.
--- NOTE | 2019-09-12 10:40 | CASEMGMT ---
Addendum entered by Marco Antonio Patel 09/12/19 11:04: Pt is Type II diabetic. States he has functioning Blood glucose monitoring equipment at home and checks his blood sugars. Hgb A1c is 11.2 - community mental health worker following. Original Note: RN CM Assessment Note Presentation: Severe Sepsis, Diverticulitis Intro role of CM and purpose of RN CM assessment to patient in room. Pt is sitting in chair, able to participate in assessment. Demographics, PCP and Pharmacy verified. Pt states he lives independently, no DME use and no care needs per pt. PCP: Dr. Olvera Specialists: Dr. Andrews, HARRY Preferred [facility]acy: [facility] Insurance: [employer] Prescription Benefit: yes LNOK : Friend Geovanny Montemayor is listed as NOK Living Arrangements: Lives independently, denies care needs. Plans to return home on dc. Transportation: drives DME: none per pt. States he does not have any ambulatory devices at home. HHC/SNF: no HHC in past few years. Pt was in [facility] 2014 after L ankle repair Patient DC goals: Home DC PLAN: anticipate home on discharge. PT/OT evaluations pending. RN CM available if dc needs arise. RN CM advised to contact cm for any concerns/needs that may arise. Katie FITZGERALDN RN ACM
[2019-09-12 12:25] LABS: Bedside Glucose 271 mg/dL (70-110)
--- NOTE | 2019-09-12 15:49 | CASEMGMT ---
ASHLYN ANGUIANO Note: Reviewed Dr. Andrews's note. Recommendation is for pt to f/u with dentist and ENT. Pt states he does not have dental coverage and limited finances. ASHLYN ANGUIANO let pt know ENT visit would be covered under [facility] Part B benefits, and recommended pt utilize [facility]. Brochure for Dental clinic given to patient. Katie GRANADO RN ACM
[2019-09-12] MEDS: Tamsulosin HCl 0.4 MG Capsule PO ×2 (16:21)
[2019-09-12 16:45] LABS: Bedside Glucose 254 mg/dL (70-110)
[2019-09-12] MEDS: guaiFENesin 10 ML UDC (200MG/10ML) PO (22:24)
[2019-09-12] MEDS: Atorvastatin Calcium 20 MG Tablet PO (22:25)
[2019-09-12 23:46] LABS: Bedside Glucose 267 mg/dL (70-110)
[2019-09-13] MEDS: Lactated Ringers 1,000 ML 125 ML IV (00:14)
[2019-09-13] MEDS: 0.9% Saline Lock 10 ML Syringe IV (00:14)
[2019-09-13] MEDS: MELATONIN 3 MG TABLET PO (00:49)
[2019-09-13 02:59] VITALS: PULSE 73
[2019-09-13] MEDS: guaiFENesin 10 ML UDC (200MG/10ML) PO ×2 (03:56→11:14)
[2019-09-13 04:00] VITALS: BP 141/64; PULSE 78; RESP 15; TEMP 36.6; O2SAT 97
[2019-09-13] MEDS: Acetaminophen 500 MG Tablet 1000 MG PO ×2 (06:27→14:01)
[2019-09-13] MEDS: Gabapentin 300 MG Capsule PO ×2 (06:27→14:01)
[2019-09-13] MEDS: Insulin Lispro 100 UNIT/ML INSULN.PEN SC ×2 (06:31→11:14)
[2019-09-13 06:40] LABS: Bedside Glucose 169 mg/dL (70-110)
[2019-09-13] MEDS: Cilostazol 50 MG Tablet PO (06:54)
[2019-09-13 07:00] VITALS: PULSE 78
[2019-09-13 07:45] VITALS: O2SAT 97
[2019-09-13 07:57] LABS: Blood Gas Specimen Type VEN
[2019-09-13] MEDS: Famotidine 20 MG Tablet PO (08:52)
[2019-09-13] MEDS: Iron Polysaccharide Complex 150 MG CAPSULE PO (08:52)
[2019-09-13] MEDS: Aspirin 81 MG TAB.CHEW PO (08:52)
[2019-09-13] MEDS: NIFEdipine 90 MG Tablet PO (08:52)
[2019-09-13 08:55] VITALS: BP 132/61; PULSE 78; RESP 16; TEMP 36.7; O2SAT 92
--- NOTE | 2019-09-13 10:03 | PCM.PN.PUL ---
Patient Problems: Active and Suspected Problems Febrile illness, acute (Acute) Acute renal failure (Acute) History of BPH (Acute) Diabetic neuropathy (Acute) Peripheral vascular disease (Acute) Subjective: The patient was seen and examined at the bedside this morning. Events from the last 24 hours have been reviewed. The patient is currently afebrile, hemodynamically stable and maintaining appropriate oxygen saturations on room air. The patient has essentially remained afebrile since yesterday evening. Objective: The patient's most recent lab work, culture data and imaging studies have all been personally reviewed. Respiratory viral panel was positive for RSV. Blood and urine cultures have shown no growth to date. - Physical Exam Vitals/I&O's: Vital Signs Temp Pulse Resp BP Pulse Ox 98.0 F 78 16 132/61 H 92 09/13/19 08:55 09/13/19 08:55 09/13/19 08:55 09/13/19 08:55 09/13/19 08:55 Oxygen Flow Rate (L/min) 2 Oxygen Delivery Method Room Air Weight: 284 lb 6.341 oz Body Mass Index (BMI) 38.9 Finger Stick Blood Glucose 298 Intake and Output for Last 24 Hours 09/11/19 09/12/19 09/13/19 23:59 23:59 23:59 Intake Total 4048.57 / 4248.57 4331.25 / 4331.25 1277.08 / 1277.08 Output Total 1550 / 1875 1875 / 1875 Balance 2498.57 / 2373.57 2456.25 / 2456.25 1277.08 / 1277.08 General: Alert, Cooperative, No apparent distress HEENT: Atraumatic, Normocephalic Oral: No Gingival or Mucosal Lesions/ Ulcerations Neck: Supple, No Nodes, Trachea Midline Lungs: No rhonchi, No wheeze, No rales Cardiovascular: Regular rate, Regular Rhythm, Normal S1, Normal S2, No murmurs Abdomen: Bowel Sounds Present, Soft, Non Tender, Obese Extremities: No clubbing, No cyanosis, No edema Skin: No breakdown Musculoskeletal: No Tenderness to Palpation of Joints or Extremities Lymphatic: No Cervical, Supraclavicular, or Inguinal Adenopathy Neurological: Neuro grossly intact Psych/Mental Status: Normal Affect, Appropriate Labs (Last 48 Hours) 09/11/19 09/11/19 09/11/19 07:09 08:41 08:45 WBC RBC Hgb Hct MCV MCH MCHC RDW Std Deviation RDW Coeff of Kamil[place] Plt Count MPV Immature Gran % (Auto) Neut % (Auto) Lymph % (Auto) [place] % (Auto) Eos % (Auto) Baso % (Auto) Absolute Neuts (auto) Absolute Lymphs (auto) Nucleated RBC % Differential Comment Hypochromasia Anisocytosis Ovalocytes PT 16.0 H INR 1.3 APTT 30.0 Specimen Type ANGEL Sodium Potassium Chloride Carbon Dioxide Anion Gap BUN Creatinine Estim Creat Clear Calc Est GFR (MDRD) Af Amer Est GFR (MDRD) Non-Af BUN/Creatinine Ratio Glucose Calcium POC Glucose 308 H 09/11/19 09/11/19 09/11/19 12:11 16:31 21:12 WBC RBC Hgb Hct MCV MCH MCHC RDW Std Deviation RDW Coeff of [place] Plt Count MPV Immature Gran % (Auto) Neut % (Auto) Lymph % (Auto) [place] % (Auto) Eos % (Auto) Baso % (Auto) Absolute Neuts (auto) Absolute Lymphs (auto) Nucleated RBC % Differential Comment Hypochromasia Anisocytosis Ovalocytes PT INR APTT Specimen Type Sodium Potassium Chloride Carbon Dioxide Anion Gap BUN Creatinine Estim Creat Clear Calc Est GFR (MDRD) Af Amer Est GFR (MDRD) Non-Af BUN/Creatinine Ratio Glucose Calcium POC Glucose 230 H 203 H 205 H 09/12/19 09/12/19 09/12/19 06:00 06:00 06:59 WBC 6.4 RBC 2.92 L Hgb 8.5 L Hct 27.5 L MCV 94.2 H MCH 29.1 MCHC 30.9 L RDW Std Deviation 46.9 H RDW Coeff of [place] 13.5 Plt Count 270 MPV 9.4 Immature Gran % (Auto) 0.300 Neut % (Auto) 81.5 H Lymph % (Auto) 9.1 L [place] % (Auto) 8.1 Eos % (Auto) 0.5 Baso % (Auto) 0.5 Absolute Neuts (auto) 5.2 Absolute Lymphs (auto) 0.58 L Nucleated RBC % 0 Differential Comment SCANNED Hypochromasia 1+ Anisocytosis 1+ Ovalocytes RARE PT INR APTT Specimen Type Sodium 139 Potassium 3.8 Chloride 109 H Carbon Dioxide 25.0 Anion Gap 5 BUN 21 H Creatinine 1.29 Estim Creat Clear Calc 71.87 Est GFR (MDRD) Af Amer 73 Est GFR (MDRD) Non-Af 60 BUN/Creatinine Ratio 16.3 Glucose 160 H Calcium 7.1 L POC Glucose 154 H 09/12/19 09/12/19 09/12/19 08:58 12:11 16:23 WBC RBC Hgb Hct MCV MCH MCHC RDW Std Deviation RDW Coeff of [place] Plt Count MPV Immature Gran % (Auto) Neut % (Auto) Lymph % (Auto) [place] % (Auto) Eos % (Auto) Baso % (Auto) Absolute Neuts (auto) Absolute Lymphs (auto) Nucleated RBC % Differential Comment Hypochromasia Anisocytosis Ovalocytes PT INR APTT Specimen Type Sodium Potassium Chloride Carbon Dioxide Anion Gap BUN Creatinine Estim Creat Clear Calc Est GFR (MDRD) Af Amer Est GFR (MDRD) Non-Af BUN/Creatinine Ratio Glucose Calcium POC Glucose 159 H 271 H 254 H 09/12/19 09/13/19 22:22 06:30 WBC RBC Hgb Hct MCV MCH MCHC RDW Std Deviation RDW Coeff of [place] Plt Count MPV Immature Gran % (Auto) Neut % (Auto) Lymph % (Auto) [place] % (Auto) Eos % (Auto) Baso % (Auto) Absolute Neuts (auto) Absolute Lymphs (auto) Nucleated RBC % Differential Comment Hypochromasia Anisocytosis Ovalocytes PT INR APTT Specimen Type Sodium Potassium Chloride Carbon Dioxide Anion Gap BUN Creatinine Estim Creat Clear Calc Est GFR (MDRD) Af Amer Est GFR (MDRD) Non-Af BUN/Creatinine Ratio Glucose Calcium POC Glucose 267 H 169 H Microbiology 09/10/19 18:15 Urine Catheter - Trent Urine Culture - Final Culture exhibits no growth. 09/10/19 15:05 Blood Culture (Wb) - Anticubital Left Blood Culture - Preliminary No growth in 48 hours. 09/10/19 09:35 Blood Culture (Wb) - Anticubital Right Blood Culture - Preliminary No growth in 48 hours. 09/10/19 18:00 Mucosa - Nasopharyngeal Respiratory Panel (PCR) - Final RSV A Clinical Impression(s) from Imaging Studies Chest X-Ray 09/10/19 09:48 IMPRESSION: No active disease. Electronically Signed: Reynaldo Chaudhry MD at 10:23 EST Tel , Service support , Chest X-Ray 09/11/19 05:00 IMPRESSION: No acute findings. Electronically Signed: Milan Turner, at 5:27 EST Tel , Service support , Brain CT 09/11/19 05:42 IMPRESSION: No acute intracranial findings. Complete opacification of the left maxillary sinus with a heterogenous lesion which has some calcifications medially, and extends slightly into the nasal cavity. While this could represent chronic sinusitis, a slow-growing neoplasm is also possible. Nonemergent ENT follow-up recommended. Electronically Signed: Milan Turner, at 6:49 EST Tel , Service support , Current Medications Acetaminophen (Tylenol) 1,000 mg PO Q8 [facility] Last Admin: 09/13/19 06:27 Dose: 1,000 mg Documented by: Albuterol Sulfate (Ventolin Aerosols) 2.5 mg INHALATION Q2H PRN PRN PRN Reason: Shortness of Breath/Wheezing Aspirin (Aspirin, Baby) 81 mg PO DAILY@0800 [facility] Last Admin: 09/13/19 08:52 Dose: 81 mg Documented by: Atorvastatin Calcium (Lipitor) 20 mg PO QHS [facility] Last Admin: 09/12/19 22:25 Dose: 20 mg Documented by: Cilostazol (Pletal) 50 mg PO BIDAC [facility] Last Admin: 09/13/19 06:54 Dose: 50 mg Documented by: Dextrose (D50w Syringe) 0 gm IV X1 PRN; Protocol PRN Reason: Hypoglycemia Enoxaparin Sodium (Lovenox) 40 mg SC DAILY [facility] Last Admin: 09/13/19 08:52 Dose: Not Given Documented by: Famotidine (Pepcid) 20 mg PO BID [facility] Last Admin: 09/13/19 08:52 Dose: 20 mg Documented by: Gabapentin (Neurontin) 300 mg PO TID [facility] Last Admin: 09/13/19 06:27 Dose: 300 mg Documented by: Glucagon () 1 mg IM .X1 PRN PRN Reason: Hypoglycemia Guaifenesin (Robitussin) 10 ml PO Q4H PRN PRN PRN Reason: COUGH Last Admin: 09/13/19 03:56 Dose: 10 ml Documented by: Sodium Chloride () 250 mls @ 15 mls/hr IV .[id number] PRN PRN Reason: Saline Flush Sodium Chloride () 250 mls @ 15 mls/hr IV .[id number] PRN PRN Reason: Additional IVPB Infusion Insulin Glargine (Lantus ([facility])) 77 units SC DAILY@0800 [facility] Last Admin: 09/13/19 08:52 Dose: 77 units Documented by: Insulin Human Lispro (Humalog Kwikpen ([facility])) 0 unit SC ACHS [facility]; Protocol Last Admin: 09/13/19 06:31 Dose: 3 u Documented by: Magnesium Hydroxide (Milk Of Magnesia) 30 ml PO DAILY PRN PRN PRN Reason: Constipation Melatonin (Melatonin) 3 mg PO QHS PRN PRN Last Admin: 09/13/19 00:49 Dose: 3 mg Documented by: Nifedipine (Procardia Xl) 90 mg PO DAILY [facility] Last Admin: 09/13/19 08:52 Dose: 90 mg Documented by: Polysaccharide Iron Complex (Ferrex 150) 150 mg PO DAILYCM [facility] Last Admin: 09/13/19 08:52 Dose: 150 mg Documented by: Prochlorperazine Edisylate (Compazine Iv) 5 mg IV Q4H PRN PRN PRN Reason: Breakthrough nausea/vomiting Sodium Chloride () 10 - 40 ml IV UD PRN PRN Reason: SALINE FLUSH Last Admin: 09/13/19 00:14 Dose: 10 ml Documented by: Sodium Chloride ([place] Nasal [place]) 1 spray NASAL Q1H PRN PRN PRN Reason: NASAL DRYNESS Tamsulosin HCl (Flomax) 0.4 mg PO DAILY@1730 [facility] Last Admin: 09/12/19 16:21 Dose: 0.4 mg Documented by: Medical Necessity - Tobacco Use Smoking Status: Never smoker Tobacco Use: Non-smoker Assessment/Plan All Active Problems Febrile illness, acute (Acute) Acute renal failure (Acute) History of BPH (Acute) Diabetic neuropathy (Acute) Peripheral vascular disease (Acute) Ankle ligament laxity (Resolved) S/P arthroscopy (Resolved) RECOMMENDATIONS: 1. Continue to monitor clinically off of antimicrobials. 2. Encourage incentive spirometer use and mobilize patient as tolerated. 3. Continue appropriate prophylaxis. 4. Given the patient's lack of further ICU or pulmonary needs, will sign off. Please call with any additional questions. IMPRESSIONS: 1. Severe sepsis The patient was transferred to the medical intensive care unit from the medical floor in the setting of severe sepsis with unclear source of infection. Subsequent CT head did reveal evidence of chronic sinusitis and respiratory viral panel was positive for RSV. No other sources of infection have been identified to date. 2. Acute on chronic kidney disease Resolved. Likely prerenal in etiology. The patient's creatinine has normalized in the setting of IV fluid resuscitation. Urine output is appropriate. No indication for renal replacement therapy. 3. Normocytic anemia Hemoglobin remains stable. He was previously known to have a baseline hemoglobin in the 9-10 range in 2016. We will continue to monitor H&H daily. Plan to transfuse if hemoglobin drops below 7 g/dL. 4. Hypertension/hyperlipidemia/diabetes mellitus/neuropathy/obesity Complicates care, management, recovery and prognosis. This note was generated with [employer] dictation software. It may contain incorrect words, spelling, and punctuation that were not noted in checking the note before signing. Code Visit Inpatient E&M: 16356 Subs Hosp L2
[2019-09-13 11:31] LABS: Bedside Glucose 199 mg/dL (70-110)
[2019-09-13 14:02] VITALS: BP 140/65; PULSE 67; RESP 16; TEMP 36.7; O2SAT 95
--- NOTE | 2019-09-13 14:18 | DCINST_ITS ---
- Discharge Diagnoses Current Active Problems: Current Active and Chronic Problems Febrile illness, acute (Acute) Acute renal failure (Acute) Chronic renal failure, stage 3 (moderate) (Chronic) History of BPH (Acute) Diabetes mellitus, type II (Chronic) Diabetic neuropathy (Acute) Peripheral vascular disease (Acute) You will use the following diet at home:: Calorie/Carbohydrate Controlled (specify 1200, 1400, etc), Cardiac Your food should be the consistency of: Regular Discharge Activity: May Not Drive Call your doctor if you observe: Fever of 101 or Higher, Coldness, Increased Pain, Numbness or Tingling, Change in Color, Inability to have a bowel movement, Shortness of breath, Dizziness, Fainting spells, Swelling in the ankles, Chest pain, Prolonged hiccoughing, Increased palpitations (irregular heartbeat), Calf discomfort, Uncontrolled pain Instructions: INFLUENZA (Adult) Allergies/Adverse Reactions: Allergies No Known Allergies Allergy (Verified 09/10/19 16:15) Medications to take at Discharge Aspirin [Aspirin, Baby] 81 mg PO DAILY@0800 06/25/15 Cilostazol 50 mg PO DAILY 06/25/15 Insulin Aspart [Novolog Flexpen] 13 units SC TIDCM 06/25/15 Insulin Glargine [Lantus SoloStar Pen] 77 units SC DAILY 06/25/15 NIFEdipine [Procardia XL] 90 mg PO DAILY 06/25/15 Simvastatin 40 mg PO QHS 06/25/15 Gabapentin [Neurontin] 300 mg PO TID 07/15/15 Delta-3 Fatty Acids/Fish Oil [Delta 3 1,000 mg Softgel] 1 each PO BID 07/15/15 traMADol [Ultram] 50 - 100 mg PO Q6H PRN PRN 07/15/15 Hydrocodone Bitart/Apap 5-325 [[place] 5/325] 1 - 2 tablet PO Q4H PRN PRN #60 tablet 08/01/15 Iron Poly/Vit C [Niferex-150] 150 mg PO DAILYCM #30 capsule 08/01/15 Ondansetron [Zofran Odt] 4 mg PO Q8H PRN PRN #7 tab 09/10/19 Hydrochlorothiazide [Hctz] 25 mg PO DAILY #0 09/13/19 Lisinopril [Prinivil] 10 mg PO DAILY #30 tab 09/13/19 Tamsulosin HCl [Flomax] 0.4 mg PO DAILY@1730 #30 cap 09/13/19 The following prescriptions were given: Tamsulosin HCl [Flomax] 0.4 mg PO DAILY@1730 #30 cap Transmission Status: Pending to [facility] Lisinopril [Prinivil] 10 mg PO DAILY #30 tab Transmission Status: Pending to [facility] Ondansetron [Zofran Odt] 4 mg PO Q8H PRN PRN #7 tab PRN Reason: Nausea Prescription Printed Primary Care Physician: Victor Manuel Olvera MD [Primary Care Provider] - 3-5 Days if not improving Test Results: Test results from this visit will be discussed in further detail at your follow- up appointment, if applicable. Please Follow Up With: Victor Manuel Olvera MD When: in 1-2 weeks Please Follow Up With: Pal Almanzar MD When: for ANDRE in 2 weeks
--- NOTE | 2019-09-13 14:20 | PCM.DC.SUM ---
Discharge Date and Diagnosis - Problem List Patient Problems: Active and Suspected Problems Febrile illness, acute (Acute) Acute renal failure (Acute) History of BPH (Acute) Diabetic neuropathy (Acute) Peripheral vascular disease (Acute) Date of Admission: 09/10/19 Date of Discharge: 09/13/19 - Primary Discharge Diagnosis Active and Suspected Problems Febrile illness, acute (Acute) Acute renal failure (Acute) History of BPH (Acute) Diabetic neuropathy (Acute) Peripheral vascular disease (Acute) - Secondary Discharge Diagnosis Chronic Problems Chronic renal failure, stage 3 (moderate) (Chronic) Diabetes mellitus, type II (Chronic) Hyperlipidemia (Chronic) Morbid obesity (Chronic) Hypertension (Chronic) Osteoarthritis (Chronic) Hospital Course and Treatment Operations: None, - - arthroscopy, left ankle. Summary of Care Provided: [] This 59-year-old male with history of hypertension, diabetes mellitus 2, BPH presenting with sudden onset of cough along with generalized weakness and high-grade fever. Patient also found tachycardic and tachypneic Assessment and plan: 1. Severe sepsis (high-grade fever, tachycardia, tachypnea, lactic acidosis), exact etiology unclear but possible sinusitis or acute RSV a bronchitis: Nose signs and symptoms suggestive of meningitis. CTA shows complete opacification of left medullary sinus. Chest x-ray and UA is negative. On broad-spectrum antibiotic. Consult ID. Respiratory panel positive RSV A. Urine culture negative. Blood cultures x2 negative for 48 hours 09/12: No panoramic x-ray done as recommended by ID. Continue antibiotic. RSV-A bronchitis. Low-grade fever. Continue antibiotic. Patient is status is changed to PCU. 09/13: Discussed with ID. He recommended patient can be discharged home without antibiotics. Low-grade fever possible RSV A bronchitis 2. Uncontrolled diabetes mellitus type 2, complicated with neuropathy and possible nephropathy and noncompliance with Humalog at mealtimes. Hemoglobin A1c 11.2. Last blood sugar 230. On Accu-Cheks and insulin coverage with sliding scale. 09/12: Blood sugar, around 154, Lantus is on hold. 3. Acute kidney injury on CKD stage II: Patient baseline creatinine runs around 1.3. Admitted with creatinine 2.2 currently 1.73. Ultrasound of kidneys and bladder ordered. Probably he has a diabetic nephropathy. 09/13: Acute kidney injury resolved. BUN/creatinine /.29. Advised follow-up with tack welder as an outpatient. 5. History of BPH and urine retention -patient has Trent catheter. Urine is clear. On Flomax. UA and urine culture are negative. 6. Chronic medical conditions including: Hypertension/hyperlipidemia/morbid obesity/peripheral vascular disease/chronic pain syndrome secondary to diabetic peripheral polyneuropathy-complicate care, management, recovery and prognosis. Hold lisinopril in light of increased creatinine. Ambulatory pulse ox on room air prior to discharge Recommend outpatient sleep study Discharge medication reconciliation done. Discharge follow-up instructions completed. Discharge process discussed with the patient and all questions were answered to patient's satisfaction. Total time spent, exact 35 minutes on discharge meds reconciliation, examination, coordination of care with nurses and ancillary staff, review of imaging and blood test and discussion with the patient on follow-up instructions Patient Problems: Active and Suspected Problems Febrile illness, acute (Acute) Acute renal failure (Acute) History of BPH (Acute) Diabetic neuropathy (Acute) Peripheral vascular disease (Acute) Subjective: Seen and examined. Patient wants to go home. Patient states if he is not discharged he is leaving AMA. Patient had been afebrile most of the time except yesterday morning when he had T-max 100.9 and evening about 99.6 at 4 PM. Has mild cough but he thinks it is not severe and usual for him. - Physical Exam Vitals/I&O's: Vital Signs Temp Pulse Resp BP Pulse Ox 98.0 F 67 16 140/65 H 95 09/13/19 14:02 09/13/19 14:02 09/13/19 14:02 09/13/19 14:02 09/13/19 14:02 Oxygen Flow Rate (L/min) 2 Oxygen Delivery Method Room Air Weight: 284 lb 6.341 oz Body Mass Index (BMI) 38.9 Finger Stick Blood Glucose 298 Intake and Output for Last 24 Hours 09/11/19 09/12/19 09/13/19 23:59 23:59 23:59 Intake Total 4048.57 / 4248.57 4331.25 / 4331.25 1752.08 / 175.08 Output Total 1550 / 1875 1875 / 1875 Balance 2498.57 / 2373.57 2456.25 / 2456.25 1752.08 / 1752.08 General: Alert, Oriented x3, Cooperative HEENT: Atraumatic, PERRLA, EOMI, Normocephalic Neck: Supple, No JVD, Negative Carotid Bruits Lungs: Clear to auscultation, No rhonchi, No wheeze, No rales, Diminished Cardiovascular: Regular rate, Regular Rhythm, Normal S1, Normal S2, No murmurs Abdomen: Bowel Sounds Present, Soft, Non Tender, Non-Distended Extremities: No edema, Capillary Refill Less than 3 Seconds Skin: No rashes, No breakdown Musculoskeletal: No Tenderness to Palpation of Joints or Extremities, Arthritic Changes Neurological: Cranial nerves II-XII grossly intact, Deep Tendon Reflexes 2+/4 and Symmetrical, Neuro grossly intact, Motor Exam 5/5 strength throughout Psych/Mental Status: Normal Affect, Appropriate Microbiology Past 72 Hours 09/10/19 18:15 Urine Catheter - Trent Urine Culture - Final Culture exhibits no growth. 09/10/19 15:05 Blood Culture (Wb) - Anticubital Left Blood Culture - Preliminary No growth in 48 hours. 09/10/19 09:35 Blood Culture (Wb) - Anticubital Right Blood Culture - Preliminary No growth in 48 hours. 09/10/19 18:00 Mucosa - Nasopharyngeal Respiratory Panel (PCR) - Final RSV A 09/10/19 15:21 Mucosa - Nasopharyngeal Influenza Types A,B Direct FA (MARIA ELENA) - Final Laboratory Results 09/11/19 07:09: Specimen Type ANGEL 09/12/19 16:23: POC Glucose 254 H 09/12/19 22:22: POC Glucose 267 H 09/13/19 06:30: POC Glucose 169 H 09/13/19 11:10: POC Glucose 199 H Current Medications Acetaminophen (Tylenol) 1,000 mg PO Q8 [facility] Last Admin: 09/13/19 14:01 Dose: 1,000 mg Documented by: Albuterol Sulfate (Ventolin Aerosols) 2.5 mg INHALATION Q2H PRN PRN PRN Reason: Shortness of Breath/Wheezing Aspirin (Aspirin, Baby) 81 mg PO DAILY@0800 [facility] Last Admin: 09/13/19 08:52 Dose: 81 mg Documented by: Atorvastatin Calcium (Lipitor) 20 mg PO QHS [facility] Last Admin: 09/12/19 22:25 Dose: 20 mg Documented by: Cilostazol (Pletal) 50 mg PO BIDAC [facility] Last Admin: 09/13/19 06:54 Dose: 50 mg Documented by: Dextrose (D50w Syringe) 0 gm IV X1 PRN; Protocol PRN Reason: Hypoglycemia Famotidine (Pepcid) 20 mg PO BID [facility] Last Admin: 09/13/19 08:52 Dose: 20 mg Documented by: Gabapentin (Neurontin) 300 mg PO TID [facility] Last Admin: 09/13/19 14:01 Dose: 300 mg Documented by: Glucagon () 1 mg IM .X1 PRN PRN Reason: Hypoglycemia Guaifenesin (Robitussin) 10 ml PO Q4H PRN PRN PRN Reason: COUGH Last Admin: 09/13/19 11:14 Dose: 10 ml Documented by: Sodium Chloride () 250 mls @ 15 mls/hr IV .[id number] PRN PRN Reason: Saline Flush Sodium Chloride () 250 mls @ 15 mls/hr IV .[id number] PRN PRN Reason: Additional IVPB Infusion Insulin Glargine (Lantus ([facility])) 77 units SC DAILY@0800 [facility] Last Admin: 09/13/19 08:52 Dose: 77 units Documented by: Insulin Human Lispro (Humalog Kwikpen ([facility])) 0 unit SC ACHS [facility]; Protocol Last Admin: 09/13/19 11:14 Dose: 3 u Documented by: Magnesium Hydroxide (Milk Of Magnesia) 30 ml PO DAILY PRN PRN PRN Reason: Constipation Melatonin (Melatonin) 3 mg PO QHS PRN PRN Last Admin: 09/13/19 00:49 Dose: 3 mg Documented by: Nifedipine (Procardia Xl) 90 mg PO DAILY [facility] Last Admin: 09/13/19 08:52 Dose: 90 mg Documented by: Polysaccharide Iron Complex (Ferrex 150) 150 mg PO DAILYCM [facility] Last Admin: 09/13/19 08:52 Dose: 150 mg Documented by: Prochlorperazine Edisylate (Compazine Iv) 5 mg IV Q4H PRN PRN PRN Reason: Breakthrough nausea/vomiting Sodium Chloride () 10 - 40 ml IV UD PRN PRN Reason: SALINE FLUSH Last Admin: 09/13/19 00:14 Dose: 10 ml Documented by: Sodium Chloride ([place] Nasal [place]) 1 spray NASAL Q1H PRN PRN PRN Reason: NASAL DRYNESS Tamsulosin HCl (Flomax) 0.4 mg PO DAILY@1730 [facility] Last Admin: 09/12/19 16:21 Dose: 0.4 mg Documented by: Discharge Activity: May Not Drive Call your doctor if you observe: Fever of 101 or Higher, Coldness, Increased Pain, Numbness or Tingling, Change in Color, Inability to have a bowel movement, Shortness of breath, Dizziness, Fainting spells, Swelling in the ankles, Chest pain, Prolonged hiccoughing, Increased palpitations (irregular heartbeat), Calf discomfort, Uncontrolled pain Home Medications: Medications to take at Discharge Aspirin [Aspirin, Baby] 81 mg PO DAILY@0800 06/25/15 Cilostazol 50 mg PO DAILY 06/25/15 Insulin Aspart [Novolog Flexpen] 13 units SC TIDCM 06/25/15 Insulin Glargine [Lantus SoloStar Pen] 77 units SC DAILY 06/25/15 NIFEdipine [Procardia XL] 90 mg PO DAILY 06/25/15 Simvastatin 40 mg PO QHS 06/25/15 Gabapentin [Neurontin] 300 mg PO TID 07/15/15 Mitchell-3 Fatty Acids/Fish Oil [Mitchell 3 1,000 mg Softgel] 1 each PO BID 07/15/15 traMADol [Ultram] 50 - 100 mg PO Q6H PRN PRN 07/15/15 Hydrocodone Bitart/Apap 5-325 [[place]rison 5/325] 1 - 2 tablet PO Q4H PRN PRN #60 tablet 08/01/15 Iron Poly/Vit C [Niferex-150] 150 mg PO DAILYCM #30 capsule 08/01/15 Ondansetron [Zofran Odt] 4 mg PO Q8H PRN PRN #7 tab 09/10/19 Hydrochlorothiazide [Hctz] 25 mg PO DAILY #0 09/13/19 Lisinopril [Prinivil] 10 mg PO DAILY #30 tab 09/13/19 Tamsulosin HCl [Flomax] 0.4 mg PO DAILY@1730 #30 cap 09/13/19 Following Prescrptions Were Given to Patient: Tamsulosin HCl [Flomax] 0.4 mg PO DAILY@1730 #30 cap Transmission Status: Received by [id number] Lisinopril [Prinivil] 10 mg PO DAILY #30 tab Transmission Status: Received by [facility] Ondansetron [Zofran Odt] 4 mg PO Q8H PRN PRN #7 tab PRN Reason: Nausea Prescription Printed Primary Care Physician: Victor Manuel Olvera MD [Primary Care Provider] - 3-5 Days if not improving Please Follow Up With: Victor Manuel Olvera MD When: in 1-2 weeks Please Follow Up With: Pal Almanzar MD When: for ANDRE in 2 weeks Patient Instructions: INFLUENZA (Adult) Medical Necessity - Tobacco Use Smoking Status: Never smoker Tobacco Use: Non-smoker Meaningful Use Info Meaningful Use Diagnoses (Choose all that apply): None applicable Code Visit Inpatient E&M: 69005 Disch Hosp
--- NOTE | 2019-09-13 14:25 | PCA ---
No apts made, patient threatening to leave AMA if he didn't get his paperwork TEVIN.
--- NOTE | 2019-09-14 13:54 | CASEMGMT ---
RN CM Discharge Follow-Up Phone Call. Lace: 12 Strata: 3 Discharge Date: 09/13/19 Adm Dx: ARF, Febrile Illness Attempted discharge follow-up phone call. No answer. Message left for pt to return call to RN ANNMARIE if he has any questions/concerns/needs. Phone number provided. Musa GRANADO RN CM
== END 2019-09-13 14:46 | disposition home or self-care (01) | DRG 872 ==
LOC: ED 10:37 → MS3 16:57 → ICU 09-11 05:55 → PCU 09-12 17:12
PROVIDERS: Hospitalist; Internal Medicine Critical Care Medicine; Admitting Provider Internal Medicine; Emergency Provider Emergency Medicine; PCP Family Medicine; Visit Provider Internal Medicine
DX: A41.89 Other specified sepsis (principal); G93.40 Encephalopathy, unspecified; N17.9 Acute kidney failure, unspecified; J20.5 Acute bronchitis due to respiratory syncytial virus; E11.65 Type 2 diabetes mellitus with hyperglycemia; R65.20 Severe sepsis without septic shock; A41.9 Sepsis, unspecified organism; E66.01 Morbid (severe) obesity due to excess calories; E11.42 Type 2 diabetes mellitus with diabetic polyneuropathy; J32.9 Chronic sinusitis, unspecified; Z91.14 Patient's other noncompliance with medication regimen; E78.5 Hyperlipidemia, unspecified; D64.9 Anemia, unspecified; N18.3 Chronic kidney disease, stage 3 (moderate); I12.9 Hypertensive chronic kidney disease with stage 1 through stage 4 chronic kidney disease, or unspecified chronic kidney disease; E11.22 Type 2 diabetes mellitus with diabetic chronic kidney disease; M19.90 Unspecified osteoarthritis, unspecified site; N40.0 Benign prostatic hyperplasia without lower urinary tract symptoms; I73.9 Peripheral vascular disease, unspecified; G89.4 Chronic pain syndrome; Z68.38 Body mass index [BMI] 38.0-38.9, adult; Z79.4 Long term (current) use of insulin
CPT/HCPCS: 36415; 36600; 70450; 71045; 71046; 80048; 80053; 80061; 81001; 82803; 82962; 83036; 83605; 84443; 85025; 85027; 85610; 85730; 87040; 87086; 87633; 87641; 87804; 97162; 97530; 97802; 99285; J7030; J7040; J7120; A4216; J0696; J2405

== ENCOUNTER 2020-02-27 19:21 | Inpatient (IN) | payer MEDICARE, SELFPAY ==
[2019-09-10 16:06] VITALS: BMI 38.9
[2020-02-27] VITALS (8 sets, daily range): BP systolic 155–195; BP diastolic 68–88; PULSE 87–108; RESP 12–18; TEMP 37.7–38.8; O2SAT 96–99; BMI 34.5
--- NOTE | 2020-02-27 19:55 | EKG12_ITS ---
Test Reason : DYSRHYTHMIA Blood Pressure : / mmHG Vent. Rate : 100 BPM Atrial Rate : 100 BPM P-R Int : 140 ms QRS Dur : 098 ms QT Int : 340 ms P-R-T Axes : 049 067 043 degrees QTc Int : 438 ms Normal sinus rhythm Normal ECG Confirmed by SADAF RAMIRES ([id number]), index editor MILY BARNHART ([id number]) on 03/01/2020 10:26:25 AM Referred By: PASHA Confirmed By:SADAF RAMIRES
--- NOTE | 2020-02-27 20:06 | CT_ITS ---
STUDY: CT BRAIN WITHOUT CONTRAST REASON FOR EXAM: Male, 59 years old. ALTERED LOC/BLOOD GLUCOSE 360/FEVER RADIATION DOSAGE (If Supplied By Facility): CTDIvol = ( 44.99 ) mGy, DLP = ( 897.35 ) mGycm TECHNIQUE: Transaxial CT imaging of the brain was performed without administration of intravenous contrast material. Individualized dose optimization techniques were used for this CT. COMPARISON: Prior study of 09/11/2019 FINDINGS: Normal soft tissue structures. Normal calvarium. Normal size ventricles and extra-axial spaces for the patient''s age. Normal white matter tracts of the cerebral hemispheres. Normal basal ganglia and thalami. Normal brainstem. Normal cerebellum. There is no intracranial hemorrhage. There are no findings of an acute ischemic infarction. There is mucosal thickening of the maxillary sinuses. CT/Brain/Head without Contrast IMPRESSION: Chronic maxillary sinusitis. There is no intracranial hemorrhage or evidence of acute infarct. Findings appear similar to the previous study. Electronically Signed: Milan Lee MD at 21:06 EDT , Service support ,
--- NOTE | 2020-02-27 20:20 | ED.DCSUM_ITS ---
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 Apparently he was driving the [place] and was not acting right. EMS does know the patient states that this is not like him. He does appear confused and not answering questions appropriately on exam. He denies using any alcohol or drugs. He is a known diabetic and has chronic kidney disease with hypertension and hyperlipidemia. Patient denies being ill recently. His only complaint at time of exam is feeling very cold. [place] any cough, abdominal pain or nausea/vomiting. Denies any chest pain or shortness of breath. Denies any diarrhea. He is answering all his questions but not sure if these are correct answers as he does not remember who brought him here he does not know the month and year. He is currently denying any headache, vision changes or neck stiffness. Patient apparently has tested positive for antibodies for COVID and had all the symptoms a few months back. Past Medical History - Allergies and Home Meds Allergies/Adverse Reactions: Allergies No Known Allergies Allergy (Verified 02/27/20 19:30) Primary Care Physician: Victor Manuel Olvera MD [Primary Care Provider] - Prior records reviewed: Yes Past Medical History: - - Diabetes, hypertension, hyperlipidemia, CKD Surgical History: - - Right foot infection 2012, empyema 2010, left ankle surgery [place] [address] Dent Smoking Status: Never smoker Alcohol: None Drugs: None - Family History Paternal Family History: Reports: Cancer - age 58, pancreatic, No pertinent history Maternal Family History: Reports: No pertinent history Review of Systems All systems negative except as indicated General: Reports: Chills, Fever. Denies: Sweats Eyes: Denies: Visual changes - bilaterally, Diplopia ENT: Denies: Rhinorrhea, Sore throat Cardiovascular: Denies: Chest pain, Palpitations Respiratory: Denies: Dyspnea, Cough, Dyspnea on exertion Gastrointestinal: Denies: Abdominal pain, Nausea, Vomiting, Diarrhea Genitourinary: Denies: Dysuria, Hematuria, Frequency Musculoskeletal: Denies: Back pain, Extremity Pain Skin: Denies: Rash, Wounds Neurological: Denies: Headache, Weakness, Numbness Physical Exam Vital Signs/Narrative: Vital Signs Temp Pulse Resp BP Pulse Ox 02/27/20 19:26 101.8 F H 100 12 155/88 H 99 Inital Vital Signs reviewed: Yes General: Well nourished, Well developed, - - Patient appears confused. Head: Normocephalic, Atraumatic Eyes: Perrl, EOMI ENT: Moist mucous membranes Neck: Supple, Nontender, - - Negative Kernig and Brudzinski sign Cardiovascular: Regular rate, Regular rhythm, No murmurs Respiratory: No distress, CTA bilaterally, Chest nontender Abdomen: Soft, Nontender, Nondistended, Normal bowel sounds Back: Nontender, Normal Inspection Extremities: Nontender, No edema Skin: Normal color, No rash Neurological: Alert, Normal Strength, Normal Sensation, - - Patient oriented to person and place but not time.. Negative for: Lethargic, Left side facial droop, Right side facial droop Diagnostic/Tx/Re-eval - EKG Initial EKG Interpretation: - - Rate of 100 bpm and normal sinus rhythm. Normal intervals. Normal axis. No ST elevations or depressions appreciated. No T wave abnormalities. - Medical Decision Making Patient presents to the emerge department for confusion and was found to have a fever. He does appear confused but answering some questions appropriately but others he does not know the answer to. He otherwise does not appear in any acute distress on physical exam. He is given Tylenol and started on IV fluids. Blood cultures, lactic acid basic lab work being obtained. Will check chest x- ray and urinalysis for evidence of infection. We will repeat coronavirus test now. Patient did appear confused and was having difficulty answering questions upon arrival. Throughout ED stay he is becoming more alert and answering questions appropriately. Etiology as to why patient has a fever and the confusion. He has no meningitic symptoms on physical exam. The scan of the head was obtained which was unremarkable. Lab work does not show any significant acute abnormality to explain patient's symptoms. Chest x-ray does not show any evidence of pneumonia. Will bring to the hospital for further evaluation and management. This was all discussed with the hospitalist. He may benefit from MRI. We will hold off on lumbar puncture this time. Start broad-spectrum antibiotics in the meantime and can de-escalate at a later time. Patient did refuse to give urinalysis and is absolutely refusing to do a straight cath. ED Disposition - Plan for ED Patient: Disposition: Acute Care Hospital [facility] Diagnosis: Fever of unknown origin, Encephalopathy acute Referrals: Naumoff,Victor Manuel, MD [Primary Care Provider] -
[2020-02-27] MEDS: 0.9% Normal Saline 1,000 ML 999 ML IV (20:50)
[2020-02-27] MEDS: Acetaminophen 325 MG Tablet 650 MG PO (20:50)
--- NOTE | 2020-02-27 20:54 | RAD_ITS ---
STUDY: X-RAY CHEST REASON FOR EXAM: Male, 59 years old. CONFUSED, TEMP 102.8. ILL SEVERAL MONTHS AGO WITH PRESUMED COVID, POSIITVE ANTIBODY TEST LATER. DIABETIC. TECHNIQUE: Single AP portable view of the chest. COMPARISON: Prior study of 09/11/2019 FINDINGS: lunchroom monitor leads are present. The lungs are clear and expanded. There is no demonstrated pleural abnormality. Normal size heart. Normal mediastinum and beth. Normal visualized pulmonary arteries. Normal visualized aortic arch and descending thoracic aorta. There are diffuse degenerative changes of the visualized thoracic spine. Normal visualized ribs, clavicles, and shoulders. There is no demonstrated abnormality of the visualized soft tissue structures of the upper abdomen. RAD/Chest 1 View (Portable) IMPRESSION: Degenerative changes of the thoracic spine. No acute cardiopulmonary disease process is seen. Electronically Signed: Milan Lee MD at 21:25 EDT , Service support ,
[2020-02-27 21:07] LABS: Absolute Neutrophil Count 9.1 X10^3/uL (2.0-7.7); Basophil# 0.04 X10^3/uL; Basophil% 0.4 % (0-1); Eosinophil# 0.01 X10^3/uL; Eosinophils% 0.1 % (0-5); Hematocrit 30.7 % (40-54); Hemoglobin 9.7 g/dL (13.0-16.5); Lymphocyte % 4.9 % (19-41); Mean Corp Hgb Conc 31.6 g/dL (32-36); Mean Corpuscular Hgb 28.1 pg (27.0-32.0); Mean Platelet Vol. 9.9 fl (6.2-12.0); Monocyte# 0.47 X10^3/uL; Monocyte% 4.6 % (0-10); NRBC Flagged by Analyzer 0 % (0-5); Neutrophil # 9.06 X10^3/uL (2.7-7.7); Neutrophil % 89.6 % (47-70); POSITIVE DIFFERENTIAL YES; Platelet Count 398 K/mm3 (150-450); RBC Distribution Width CV 14.1 % (11.6-14.6); RBC Distribution Width SD 45.1 fl (35.1-43.9); Red Blood Count 3.45 M/mm3 (4.6-6.2); White Blood Count 10.1 K/mm3 (4.4-11.0)
[2020-02-27 21:14] LABS: Differential Indicated SCAN CRITERIA MET
[2020-02-27 21:23] LABS: ALB/GLOB Ratio 0.7 RATIO (0.9-2.4); AST(SGOT) 43 U/L (15-37); Alanine Aminotransfer ALT/SGPT 42 U/L (16-61); Albumin, Serum 3.1 g/dL (3.2-5.0); Alkaline Phosphatase 147 U/L (45-117); Anion Gap 8 (5-15); BUN 16 mg/dL (7-18); BUN/Creat Ratio 10.7 RATIO (10-20); Calcium,Total 8.8 mg/dL (8.5-10.1); Chloride 106 mmol/L (98-107); Creatinine, Serum 1.49 mg/dL (0.70-1.30); EST Glomerular Filtration Rate 51 mL/min (>60); Est Glom Filt Rate - Afr Amer 62 mL/min (>60); Estimated Creatinine Clearance 60.53 ml/min; Globulin 4.4 g/dL (2.2-4.2); Glucose 217 mg/dL (74-106); Potassium 4.3 mmol/L (3.5-5.1); Protein, Total 7.5 g/dL (6.4-8.2); Sodium Level 137 mmol/L (136-145)
--- NOTE | 2020-02-27 21:29 | PCM.HP.STD ---
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 of insulin (7) Diabetic neuropathy Status: Chronic Qualifiers: Diabetes mellitus type: type 2 Diabetes mellitus complication detail: with other neurological complication Qualified Code(s): E11.49 - Type 2 diabetes mellitus with other diabetic neurological complication (8) Hyperlipidemia Status: Chronic Qualifiers: Hyperlipidemia type: unspecified Qualified Code(s): E78.5 - Hyperlipidemia, unspecified (9) Hypertension Status: Chronic Qualifiers: Hypertension type: essential hypertension Qualified Code(s): I10 - Essential (primary) hypertension (10) Osteoarthritis Status: Chronic Qualifiers: Osteoarthritis location: unspecified site Osteoarthritis type: unspecified Qualified Code(s): M19.90 - Unspecified osteoarthritis, unspecified site History of Present Illness Date of Admission: 02/27/20 Chief Complaint: Fever, confusion. The patient is a 59 y/o M w/ PMHx: Chronic normocytic anemia, Diabetes mellitus type II with Neuropathy, HTN, HLD, BPH, CKD stage III who presents to the [facility] ED on 02/27/20, noted to have been driving his usual route with the [place] but was acting erratically per his passengers and thus referred to the ED with at arrival noted fever, chills and ongoing confusion although patient improved during ED evaluation. He denied any recent cough, dyspnea, congestion, alteration in sense of taste or smell, abdominal pain, diarrhea, nausea or emesis, arthralgias, dysuria or increased frequency, headaches or sore neck. Patient had been admitted in August 2019 and at that time per records have been diagnosed with RSV A on respiratory viral panel but had similar prolonged admission with Sirs with lactic acidosis of unclear etiology. He also states that he had been diagnosed with COVID and notes this was back in August but there is no clear testing in the system and given timeline lower suspicion. Work-up in the ED included T1 101.8, heart rate 108, BP 155/88, 99% on room air, CBC with WBC 10.5, hemoglobin 9.7, platelet 398 with left shift and concurrent lymphopenia, CMP with BUN/creatinine 16/1.49, glucose 217, lactic acid initially 2.4, AST/ALT 43/42, alk phos 147, ammonia 39, troponin less than 0.015, ethyl alcohol level 9, pending COVID testing upon requested evaluation of patient, chest x-ray with chronic changes with no acute cardiopulmonary findings, CT of the head with chronic maxillary sinusitis with no acute intracranial findings, EKG with sinus tachycardia with no acute evidence of ischemia. Past Medical History Past Medical History (Chronic Problems): Chronic Problems Chronic renal failure, stage 3 (moderate) (Chronic) Diabetes mellitus, type II (Chronic) Diabetic neuropathy (Chronic) Chronic anemia (Chronic) Hyperlipidemia (Chronic) Morbid obesity (Chronic) Hypertension (Chronic) Osteoarthritis (Chronic) Allergies No Known Allergies Allergy (Verified 02/27/20 19:30) Home Medications: Ambulatory Orders Medication Instructions Recorded Aspirin [Aspirin, Baby] 81 mg PO DAILY@0800 06/25/15 Cilostazol 50 mg PO DAILY 06/25/15 Insulin Aspart [Novolog Flexpen] 13 units SC TIDCM 06/25/15 Insulin Glargine [Lantus SoloStar 77 units SC DAILY 06/25/15 Pen] NIFEdipine [Procardia XL] 90 mg PO DAILY 06/25/15 Simvastatin 40 mg PO QHS 06/25/15 Gabapentin [Neurontin] 300 mg PO TID 07/15/15 Scotia-3 Fatty Acids/Fish Oil 1 each PO BID 07/15/15 [Scotia 3 1,000 mg Softgel] traMADol [Ultram] 50 - 100 mg PO Q6H PRN PRN 07/15/15 Iron Poly/Vit C [Niferex-150] 150 mg PO DAILYCM #30 capsule 08/01/15 Hydrochlorothiazide [Hctz] 25 mg PO DAILY #0 09/13/19 Lisinopril [Prinivil] 10 mg PO DAILY #30 tab 09/13/19 Tamsulosin HCl [Flomax] 0.4 mg PO DAILY@1730 #30 cap 09/13/19 Surgical History: - - Right foot infection 2012, empyema 2010, left ankle [place] [address] Dent Psychiatric History: No pertinent psych hx Lives: Alone Smoking Status: Never smoker Alcohol: None Drugs: None - *Family History Maternal History Items: Cancer, Diabetes Paternal History Items: Cancer - age 58, pancreatic, Diabetes Review of Systems Constitutional: Reports: Chills, Fever. Denies: Anorexia, Malaise, Weakness, Weight Change, Fatigue HEENT: Denies: Head Aches, Sinus Congestion, Sinus Drainage Cardiovascular: Denies: Chest Pain, Palpitations Respiratory: Denies: Cough, Shortness of Breath, Shortness of breath at rest, Shortness of breath upon exertion, Sputum production Gastrointestinal: Denies: Abdominal Pain, Nausea, Vomiting Genitourinary: Denies: Dysuria Musculoskeletal: Denies: Joint Pain, Joint Tenderness, Muscle pain Skin: Denies: Rash, Wounds Neurological: Reports: Confusion. Denies: Focal weakness, Numbness, Tingling Psychiatric: Denies: Anxiety, Depression, Homicidal Ideations, Suicidal Ideations Hematologic/ Lymphatic: Reports: Anemia. Denies: Easy Bruising, Easy Bleeding VTE Information - Inpt Only VTE Present on Admission: No VTE Mechan Device Prophylaxis: SCD's VTE Pharm Prophylaxis ordered?: Yes Patient Problems: Active and Suspected Problems Fever of unknown origin (Acute) Encephalopathy acute (Acute) Suspected COVID-19 virus infection (Acute) Subjective: Seated upright in ED bed, fatigued appearance otherwise no acute distress, answering all questions appropriately. Objective: Physical Examination: General: Patient currently awake, alert, oriented x 3 had been confused initially upon ED presentation, remains cooperative, seated upright in the ED bed in no apparent distress. Skin: Mildly flushed color, turgor, no icterus, cyanosis. HEENT: AT/NC, EOMI, PERRLA, dry MM, no carotid bruits or JVD noted. Lungs: CTA bilaterally, moderate effort, moderate decrease BL bases, no rales, ronchi or wheezing. Heart: Tachycardic with regular rhythm; no gallop, rub audible. Abdomen: soft, obese, NTTP, ND, normal BS, no HSM. Extremities: no cyanosis, clubbing, or edema. Neurological: patient awake, alert, oriented as noted; cognitive function currently improved, suspect near baseline intact although had been confused upon initial ED presentation; pupils equally reactive to light and accomodation; cranial nerves II-XII grossly normal, moving all 4 extremities, no focal deficits, strength moderately globally Iqra secondary to acute presentation Psychiatric: affect appears fatigued and mildly flat, no acute evidence of depressive or anxiety feelings. - Physical Exam Vitals/I&O's: Vital Signs Temp Pulse Resp BP Pulse Ox 101.7 F H 102 H 17 195/81 H 98 02/27/20 20:54 02/27/20 20:29 02/27/20 20:29 02/27/20 20:29 02/27/20 20:29 Oxygen Delivery Method Room Air Weight: 268 lb 15.423 oz Body Mass Index (BMI) 34.5 Finger Stick Blood Glucose 298 Laboratory Results 02/27/20 19:00: Sodium 137, Potassium 4.3, Chloride 106, Carbon Dioxide 23.0, Anion Gap 8, BUN 16, Creatinine 1.49 H, Estim Creat Clear Calc 60.53, Est GFR (MDRD) Af Amer 62, Est GFR (MDRD) Non-Af 51 L, BUN/Creatinine Ratio 10.7, Glucose 217 H, Calcium 8.8, Total Bilirubin 0.40, AST 43 H, ALT 42, Alkaline Phosphatase 147 H, Troponin I < 0.015, Total Protein 7.5, Albumin 3.1 L, Globulin 4.4 H, Albumin/Globulin Ratio 0.7 L 02/27/20 19:55: Lactic Acid Pending 02/27/20 20:23: COVID-19 (SREEKANTH) Pending 02/27/20 20:43: WBC 10.1, RBC 3.45 L, Hgb 9.7 L, Hct 30.7 L, MCV 89.0, MCH 28.1, MCHC 31.6 L, RDW Std Deviation 45.1 H, RDW Coeff of [place] 14.1, Plt Count 398, MPV 9.9, Immature Gran % (Auto) 0.400, Neut % (Auto) 89.6 H, Lymph % (Auto) 4.9 L, [place] % (Auto) 4.6, Eos % (Auto) 0.1, Baso % (Auto) 0.4, Absolute Neuts (auto) 9.1 H, Absolute Lymphs (auto) 0.50 L, Nucleated RBC % 0 02/27/20 20:43: Ammonia 39.0 H 02/27/20 20:43: Ethyl Alcohol Pending Current Medications Ceftriaxone Sodium 2 gm/ (Sodium Chloride) 50 mls @ 100 mls/hr IV X1 ONE Stop: 02/27/20 21:46 Assessment/Plan All Active Problems Febrile illness, acute (Acute) Acute renal failure (Acute) History of BPH (Acute) Peripheral vascular disease (Acute) Fever of unknown origin (Acute) Encephalopathy acute (Acute) Suspected COVID-19 virus infection (Acute) Ankle ligament laxity (Resolved) S/P arthroscopy (Resolved) The patient is a 59 y/o M w/ PMHx: Chronic normocytic anemia, Diabetes mellitus type II with Neuropathy, HTN, HLD, BPH, CKD stage III who presents to the [facility] ED on 02/27/20, noted to have been driving his usual route [place] the [place] but was acting erratically per his passengers and thus referred to the ED with at arrival noted fever, chills and ongoing confusion although patient improved during ED evaluation. 1. Acute Encephalopathy secondary to Acute SIRS, Unclear Etiology, Possibly Acute Viral Syndrome, COVID-19: Pending COVID testing, given unclear source, will admit to the COVID unit pending testing, will maintain on oxygen with wean as tolerated to room air, PRN albuterol, maintain on IV Rocephin and vancomycin for also possible meningitis although lower suspicion is unremarkable examination, HOB, IS parameters, will obtain procalcitonin, d-dimer, CRP, CPK, Ferritin, LDH, will request MRI of the brain with and without contrast, will obtain TSH and free T4 level, will request infectious disease consultation is unclear etiology for current presentation, continue supportive care including q 2 hour turning including prone given no prone bed availability and judicious hydration, closely monitor for worsening status for ARDS and multiorgan failure. ED ammonia level only mildly elevated at 39, will repeat level in AM. Bld cx x 2 obtained in the ED. 2. Diabetes mellitus type II with neuropathy: Hold oral home regimen, continue home insulin regimen, ADA diet, accu checks w/ ISS. 3. Hypertension: Continue home regimen including lisinopril, temporarily hold hydrochlorothiazide given presentation with ongoing hydration with resumption once appropriate, PRN hydralazine. 4. Hyperlipidemia: Continue home statin regimen. 5. Chronic Kidney Disease Stage III: Admission BUN/Cr 16/1.49, baseline renal function 1.2, repeat BMP in AM. 6. BPH: We will continue patient on Flomax regimen. 7. Chronic anemia: Admission hemoglobin 9.7, prior baseline 8-10, most recently 09/12/2019 8.5, repeat CBC in a.m. 8. DVT prophylaxis: SCDs, Lovenox. 9. CODE status: Given patient currently answering all appropriate orientation questions discussed CODE STATUS. Patient denied having any healthcare power of assistant prosecuting attorney or living will set up. Discussed CODE status at length including difference between FULL code, DNR-CCA and DNR-CC status. Following discussions about the differences in these status, requested full CODE STATUS. Advanced Care Planning Face to Face Time: 16 minutes. Inpatient E&M: 68260 Init Hosp L3 Procedures: 48941 Advncd Care Plan 30 Min
[2020-02-27 21:43] LABS: Lactic Acid 2.4 mmol/L (0.4-1.9)
--- NOTE | 2020-02-27 23:27 | ED.RN ---
PT DENIES HAVING ANY FAMILY LOCAL, STATES THEY ALL GO TO [place], PT DOES NOT WANT ANYONE CALLED TO NOTIFY HE IS BEING ADMITTED, STATES MY BOSS ELEAZAR WILL KNOW.
[2020-02-28] VITALS (17 sets, daily range): BP systolic 108–187; BP diastolic 44–104; PULSE 79–104; RESP 12–20; TEMP 36.9–39.7; O2SAT 95–98; BMI 34.5; BMI 34.8
[2020-02-28 01:14] LABS: Reflex Lactate? Y
[2020-02-28] MEDS: Acetaminophen 325 MG Tablet 650 MG PO ×2 (02:27→16:53)
--- NOTE | 2020-02-28 04:37 | MRI_ITS ---
STUDY: MRI BRAIN WITHOUT CONTRAST REASON FOR EXAM: Male, 59 years old. Fever, meningitis TECHNIQUE: Standardized multiplanar fat and water weighted pulse sequences were obtained. COMPARISON: CT head without contrast 02/27/2020. FINDINGS: No restricted diffusion throughout the brain parenchyma. No focal signal abnormalities throughout the brain parenchyma in all of the pulse sequences. Normal size of the ventricles and extra-axial spaces for the patient''s age. Normal white matter tracts of the supratentorial brain. Normal bilateral basal ganglia. Normal thalami. There is no extra-axial fluid accumulation. Normal flow voids within the major intracranial circulation suggesting patency by spin echo criteria. Normal sella turcica, pituitary gland, infundibular stalk, optic chiasm and hypothalamus. Normal tectal plate and pineal gland. Normal midbrain, henry and medulla. Normal cerebellum. Normal basal cisterns. Normal bilateral temporal bones. Normal bilateral internal auditory canals. No demonstrated orbital abnormality, within the constraints of a routine brain study. Mucosal thickening in the left maxillary sinus greater than right maxillary sinus are unchanged. Normal calvarium and skull base. Normal visualized soft tissue structures. Normal visualized upper cervical spine. MRI/Brain without Contrast IMPRESSION: 1. Normal unenhanced MRI of the brain. 2. Left maxillary sinus mucosal thickening greater than right maxillary sinus are unchanged. Electronically Signed: Marlo Mckeon MD at 10:14 EDT , Service support ,
[2020-02-28 05:24] LABS: Absolute Lymphocyte Count 0.61 X10^3/uL (0.83-4.51); Absolute Neutrophil Count 9.1 X10^3/uL (2.0-7.7); Basophil# 0.05 X10^3/uL; Basophil% 0.5 % (0-1); Hematocrit 28.4 % (40-54); Hemoglobin 9.1 g/dL (13.0-16.5); Lymphocyte # 0.61 X10^3/ul (4.0); Lymphocyte % 5.8 % (19-41); Mean Corpuscular Hgb 28.3 pg (27.0-32.0); Mean Corpuscular Volume 88.2 fL (80-94); Mean Platelet Vol. 9.1 fl (6.2-12.0); Monocyte# 0.59 X10^3/uL; Monocyte% 5.7 % (0-10); NRBC Flagged by Analyzer 0 % (0-5); Neutrophil # 9.13 X10^3/uL (2.7-7.7); Neutrophil % 87.4 % (47-70); Platelet Count 344 K/mm3 (150-450); RBC Distribution Width CV 14.4 % (11.6-14.6); RBC Distribution Width SD 46.8 fl (35.1-43.9); Red Blood Count 3.22 M/mm3 (4.6-6.2); White Blood Count 10.4 K/mm3 (4.4-11.0)
[2020-02-28] MEDS: Ibuprofen 400 MG Tablet PO (05:24)
[2020-02-28] MEDS: 0.9% Normal Saline 1,000 ML 999 ML IV (05:34)
[2020-02-28] MEDS: 0.9% Saline Lock 10 ML Syringe IV ×2 (05:35→09:00)
[2020-02-28 05:41] LABS: D-Dimer Quantitative (DVT/PE) 0.66 FEU/ug/m (0.27-0.49)
[2020-02-28 05:51] LABS: ALB/GLOB Ratio 0.6 RATIO (0.9-2.4); AST(SGOT) 32 U/L (15-37); Alanine Aminotransfer ALT/SGPT 36 U/L (16-61); Albumin, Serum 2.6 g/dL (3.2-5.0); Alkaline Phosphatase 128 U/L (45-117); Anion Gap 9 (5-15); BUN 18 mg/dL (7-18); BUN/Creat Ratio 13.7 RATIO (10-20); Calcium,Total 7.7 mg/dL (8.5-10.1); Chloride 105 mmol/L (98-107); Creatinine, Serum 1.31 mg/dL (0.70-1.30); EST Glomerular Filtration Rate 59 mL/min (>60); Est Glom Filt Rate - Afr Amer 71 mL/min (>60); Estimated Creatinine Clearance 66.92 ml/min; Ferritin 31 ng/mL (26-388); Globulin 4.2 g/dL (2.2-4.2); Glucose 228 mg/dL (74-106); LDH 161 U/L (87-241); Magnesium 1.2 mg/dL (1.6-2.6); Potassium 3.2 mmol/L (3.5-5.1); Protein, Total 6.8 g/dL (6.4-8.2); Sodium Level 136 mmol/L (136-145); T4 Free Direct 1.22 ng/dL (0.76-1.46); Thyroid Stim Hormone (TSH) 0.33 uIU/mL (0.358-3.74)
--- NOTE | 2020-02-28 06:37 | CT_ITS ---
STUDY: CTA CHEST REASON FOR EXAM: Male, 59 years old. ELEVATED D-DIMER RADIATION DOSAGE (If Supplied By Facility): CTDIvol = ( 14.23 ) mGy, DLP = ( 977.38 ) mGycm TECHNIQUE: The examination was performed with the intravenous administration of 75 ML ISOVUE 370. Post-processing of the angiographic images was performed, with multiplanar reformation and 3D reconstruction. Individualized dose optimization techniques were used for this CT. COMPARISON: None. FINDINGS: Normal enhancement of the main pulmonary artery and right and left pulmonary arteries. Normal enhancement of the bilateral peripheral pulmonary arteries. There is no demonstrated pulmonary embolism. Normal thoracic aorta and visualized great vessels. There is no demonstrated aortic dissection. There are calcifications of the coronary arteries. Normal mediastinum. Normal hilar regions. Normal visualized trachea and bronchi. The lungs are well expanded. There is evidence of a nonspecific groundglass appearance in both upper lobes more prominent on the right side as well as in the lingular segment of the left upper lobe. Similar changes are seen at the lung bases superimposed on a mild degree of bibasilar scarring. Normal pleura. Normal chest wall structures. There are degenerative changes of thoracic spine. Multiple small layering gallstones are seen along the dependent portion of the gallbladder. Small hiatal hernia. CT/CTA Chest W/WO Contrast IMPRESSION: No evidence of pulmonary embolism. Nonspecific groundglass appearance in both lungs as described superimposed on mild bibasilar scarring. Multiple small gallstones. Electronically Signed: Dexter Vela, at 9:53 EDT , Service support ,
[2020-02-28] MEDS: 0.9% Normal Saline 1,000 ML 125 ML IV (06:45)
[2020-02-28] MEDS: LORazepam 2 MG/ML Syringe 0.5 MG IV (07:16)
--- NOTE | 2020-02-28 07:23 | PCM.RX.CS ---
Consult Pharmacy has been consulted to manage selected antiobiotic: Vancomycin Type of Consult: New start Labs: Sodium 136 mmol/L (136-145) 02/28/20 05:10 Potassium 3.2 mmol/L (3.5-5.1) L 02/28/20 05:10 Chloride 105 mmol/L (98-107) 02/28/20 05:10 Carbon Dioxide 22.0 mmol/L (21.0-32.0) 02/28/20 05:10 Anion Gap 9 (5-15) 02/28/20 05:10 BUN 18 mg/dL (7-18) 02/28/20 05:10 Creatinine 1.31 mg/dL (0.70-1.30) H 02/28/20 05:10 Est GFR (MDRD) Af Amer 71 mL/min (>60) 02/28/20 05:10 Est GFR (MDRD) Non-Af 59 mL/min (>60) L 02/28/20 05:10 BUN/Creatinine Ratio 13.7 RATIO (-20) 02/28/20 05:10 Glucose 228 mg/dL (74-106) H 02/28/20 05:10 Weight used for dosin kg Estimated Creatinine Clearance: 80.3ML/MIN Goal Trough: 15-20 mcg/mL Pharmacy Plan for Drug Dosing: Give initial load of 2000mg IV x1, then continue with 2000mg IV q12h. Will order a trough to be drawn before the 4th dose. The patient's CrCl of 80.3ml/min was calculated using an adjusted body weight. Pharmacy Service will continue to monitor and adjust dosing as required. Follow-Up Labs: Trough Vancomycin Labs to be done on [date and time ordered]: 02/29/20 18:30
[2020-02-28] MEDS: Ondansetron 4 MG/2 ML Vial IV (09:00)
[2020-02-28 10:17] LABS: Procalcitonin 0.98 ng/mL (0.00-0.09)
[2020-02-28 11:56] LABS: Bedside Glucose 216 mg/dL (70-110)
[2020-02-28] MEDS: Magnesium Sulfate 4gm/100mL 4 GM/100 ML IV.SOLN. IV (13:02)
[2020-02-28] MEDS: NIFEdipine 90 MG Tablet PO (13:28)
[2020-02-28] MEDS: Famotidine 20 MG Tablet PO ×2 (13:28→21:10)
[2020-02-28] MEDS: Iron Polysaccharide Complex 150 MG CAPSULE PO (13:29)
[2020-02-28] MEDS: Gabapentin 300 MG Capsule PO ×2 (13:29→21:10)
[2020-02-28] MEDS: Aspirin 81 MG TAB.CHEW PO (13:29)
[2020-02-28] MEDS: Cilostazol 50 MG Tablet PO (13:29)
[2020-02-28] MEDS: Lisinopril 10 MG Tablet PO (13:29)
[2020-02-28] MEDS: Enoxaparin 40 MG/0.4 ML Syringe SC (13:35)
--- NOTE | 2020-02-28 14:16 | CASEMGMT ---
RN CM Note: Attempted to speak with patient re: case management assessment. Pt states he is sleeping and does not wish to talk right now. Katie FITZGERALDN RN ACM
--- NOTE | 2020-02-28 14:53 | NURSING ---
per pt, okay to talk to Isidro Yepez about patient condition and that covid resulted negative.
[2020-02-28 15:24] LABS: Bacteria 0 SEEN /hpf (None Seen); Mucous, Urine 0 SEEN /hpf (<or=2+); Red Blood Cells-Urine 0 SEEN /hpf (0-5); Squamous Epithelial Cells - UA 0 SEEN /hpf (0-5); White Blood Cells 0 SEEN /hpf (0-5)
[2020-02-28 15:34] LABS: Color, Urine Yellow (Yellow); Glucose, Dipstick 250 mg/dl (Normal); Ketone-Dipstick 5 mg/dl (Negative); Leukocyte Esterase-Dipstick Negative /ul (Negative); Nitrite-Dipstick Negative (Negative); Occult Blood-Urine Negative /ul (Negative); Protein-Dipstick 30 mg/dl (Negative); Urine Bilirubin Dipstick Negative (Negative); Urine Clarity Clear (Clear); Urine Urobilinogen Normal (Normal)
[2020-02-28 15:48] LABS: Amphetamine Urine VISTA NEGATIVE (<1000 ng/mL); Barbiturate Urine VISTA NEGATIVE (< 200 ng/mL); Benzodiazepine Urine VISTA NEGATIVE (< 200 ng/mL); Cocaine Urine VISTA NEGATIVE (< 300 ng/mL); Ecstacy Urine VISTA NEGATIVE (< 500 ng/mL); Methadone Urine VISTA NEGATIVE (< 300 ng/mL); PCP Urine VISTA NEGATIVE (< 25 ng/mL); THC Urine VISTA NEGATIVE (< 50 ng/mL); Vista UDS pH Range 6
[2020-02-28] MEDS: Insulin Lispro 100 UNIT/ML INSULN.PEN SC ×2 (16:31→21:10)
[2020-02-28] MEDS: Tamsulosin HCl 0.4 MG Capsule PO (16:35)
[2020-02-28 16:45] LABS: Bedside Glucose 285 mg/dL (70-110)
--- NOTE | 2020-02-28 18:00 | PN_ITS ---
Patient Problems: Active and Suspected Problems Fever of unknown origin (Acute) Encephalopathy acute (Acute) Suspected COVID-19 virus infection (Acute) Subjective: Pt states that he is feeling better but still not great. Has continue fevers intermittently, malaise and no appetite. MS is back to baseline. PO intake has been minimal. Vitals/I&O's: Vital Signs Temp Pulse Resp BP Pulse Ox 102.6 F H 98 18 124/49 H 96 02/28/20 16:45 02/28/20 16:45 02/28/20 16:45 02/28/20 16:45 02/28/20 16:45 Oxygen Flow Rate (L/min) 2 Oxygen Delivery Method Room Air Weight: 119.7 kg Body Mass Index (BMI) 34.8 Finger Stick Blood Glucose 298 Intake and Output for Last 24 Hours 02/26/20 02/27/20 02/28/20 23:59 23:59 23:59 Intake Total 1050 / 1050 2110.00 / 2110.00 Output Total 2100 / 2100 Balance 1050 / 1050 10.00 / 10.00 General: Alert, Oriented x3, Cooperative, No apparent distress, Well developed, Well nourished, - - Obese middle aged WM lying in bed, nsg at bed side HEENT: Atraumatic, PERRLA, EOMI, Normocephalic, EAC Clear, - - short thick neck Oral: Moist Mucosa, No Gingival or Mucosal Lesions/ Ulcerations, - - mallampati 3, no thrush Neck: Supple, No JVD, Negative Carotid Bruits, Negative Hepatojugular Reflux, No Nodes, No Nuchal Rigidity, Trachea Midline, Thyroid Normal Size and Texture Lungs: Clear to auscultation, Normal air movement, No rhonchi, No wheeze, No rales Cardiovascular: Regular Rhythm, Normal S1, Normal S2, No murmurs, No Ectopic Activity, No rub noted, No Gallop, Tachycardic - mild Abdomen: Bowel Sounds Present, Soft, Non Tender, Non-Distended, No Hepato- splenomegaly, Obese, No hernias noted Extremities: No clubbing, No cyanosis, No edema, Capillary Refill Less than 3 Seconds, Peripheral Pulses Normal Skin: No rashes, No breakdown Musculoskeletal: No Tenderness to Palpation of Joints or Extremities, No Muscle Wasting Lymphatic: No Cervical, Supraclavicular, or Inguinal Adenopathy Neurological: Cranial nerves II-XII grossly intact, Neuro grossly intact, Muscle tone normal, Coordination normal Psych/Mental Status: Normal Affect, Appropriate, Alert and oriented to time, place, person, mood and affect Microbiology Past 72 Hours 02/27/20 20:43 Blood Culture (Wb) - Right Hand Blood Culture - Preliminary 02/28/20 05:05 Mucosa - Nasopharyngeal Respiratory Panel (PCR) - Final Laboratory Results 02/27/20 19:00: Sodium 137, Potassium 4.3, Chloride 106, Carbon Dioxide 23.0, Anion Gap 8, BUN 16, Creatinine 1.49 H, Estim Creat Clear Calc 60.53, Est GFR (MDRD) Af Amer 62, Est GFR (MDRD) Non-Af 51 L, BUN/Creatinine Ratio 10.7, Glu cose 217 H, Calcium 8.8, Total Bilirubin 0.40, AST 43 H, ALT 42, Alkaline Phosphatase 147 H, Troponin I < 0.015, Total Protein 7.5, Albumin 3.1 L, Globulin 4.4 H, Albumin/Globulin Ratio 0.7 L 02/27/20 19:55: Lactic Acid 2.4 H* 02/27/20 20:23: COVID-19 ([facility]) Cancelled 02/27/20 20:23: COVID-19 ([facility]) Not Detected 02/27/20 20:43: WBC 10.1, RBC 3.45 L, Hgb 9.7 L, Hct 30.7 L, MCV 89.0, MCH 28.1, MCHC 31.6 L, RDW Std Deviation 45.1 H, RDW Coeff of [place] 14.1, Plt Count 398, MPV 9.9, Immature Gran % (Auto) 0.400, Neut % (Auto) 89.6 H, Lymph % (Auto) 4.9 L, [place] % (Auto) 4.6, Eos % (Auto) 0.1, Baso % (Auto) 0.4, Absolute Neuts (auto) 9.1 H, Absolute Lymphs (auto) 0.50 L, Nucleated RBC % 0 02/27/20 20:43: Ammonia 39.0 H 02/27/20 20:43: Ethyl Alcohol 9.0 02/28/20 01:50: Lactic Acid 1.0 02/28/20 05:10: D-Dimer Quant (PE/DVT) 0.66 H* 02/28/20 05:10: Sodium 136, Potassium 3.2 L, Chloride 105, Carbon Dioxide 22.0, Anion Gap 9, BUN 18, Creatinine 1.31 H, Estim Creat Clear Calc 66.92, Est GFR (MDRD) Af Amer 71, Est GFR (MDRD) Non-Af 59 L, BUN/Creatinine Ratio 13.7, Glucose 228 H, Calcium 7.7 L, Magnesium 1.2 L, Ferritin 31, Total Bilirubin 0.30, AST 32, ALT 36, Alkaline Phosphatase 128 H, Lactate Dehydrogenase 161, C- React Prot Ext Range 56.60 H, Total Protein 6.8, Albumin 2.6 L, Globulin 4.2, Albumin/Globulin Ratio 0.6 L, TSH 0.33 L, Free T4 1.22 02/28/20 05:10: Procalcitonin 0.98 H 02/28/20 05:10: WBC 10.4, RBC 3.22 L, Hgb 9.1 L, Hct 28.4 L, MCV 88.2, MCH 28.3, MCHC 32.0, RDW Std Deviation 46.8 H, RDW Coeff of [place] 14.4, Plt Count 344, MPV 9.1, Immature Gran % (Auto) 0.600, Neut % (Auto) 87.4 H, Lymph % (Auto) 5.8 L, [place] % (Auto) 5.7, Eos % (Auto) 0.0, Baso % (Auto) 0.5, Absolute Neuts (auto) 9.1 H, Absolute Lymphs (auto) 0.61 L, Nucleated RBC % 0 02/28/20 05:10: Ammonia 26.0 02/28/20 11:48: POC Glucose 216 H 02/28/20 15:00: Urine Opiates Screen NEGATIVE, Urine Methadone Screen NEGATIVE, Ur Barbiturates Screen NEGATIVE, Ur Phencyclidine Scrn NEGATIVE, Ur Amphetamines Screen NEGATIVE, U Methamphetamin-MDMA NEGATIVE, U Benzodiazepines Scrn NEGATIVE, Urine Cocaine Screen NEGATIVE, U Cannabinoids Screen NEGATIVE, Ur Drug Screen Comment 02/28/20 15:00: Urine Color Yellow, Urine Clarity Clear, Urine pH 7.0, Ur Specific [place] 1.010, Urine Protein 30 H, Urine Glucose (UA) 250 H, Urine Ketones 5 H, Urine Occult Blood Negative, Urine Nitrite Negative, Urine Bilirubin Negative, Urine Urobilinogen Normal, Ur Leukocyte Esterase Negative, Urine RBC 0 SEEN, Urine WBC 0 SEEN, Ur Squamous Epith Cells 0 SEEN, Urine Bacteria 0 SEEN, Urine Mucus 0 SEEN 02/28/20 16:24: POC Glucose 285 H Current Medications Acetaminophen (Tylenol) 650 mg PO Q6H PRN PRN PRN Reason: Pain Score 1-10/Temp > 100.7 F Last Admin: 02/28/20 16:53 Dose: 650 mg Documented by: Al Hydroxide/Mg Hydroxide (Mylanta Ii) 30 ml PO Q6H PRN PRN PRN Reason: Gastric Burning Aspirin (Aspirin, Baby) 81 mg PO DAILY@0800 [facility] Last Admin: 02/28/20 13:29 Dose: 81 mg Documented by: Atorvastatin Calcium (Lipitor) 20 mg PO QHS [facility] Cilostazol (Pletal) 50 mg PO DAILY [facility] Last Admin: 02/28/20 13:29 Dose: 50 mg Documented by: Enoxaparin Sodium (Lovenox) 40 mg SC DAILY [facility] Last Admin: 02/28/20 13:35 Dose: 40 mg Documented by: Famotidine (Pepcid) 20 mg PO BID [facility] Last Admin: 02/28/20 13:28 Dose: 20 mg Documented by: Gabapentin (Neurontin) 300 mg PO TID [facility] Last Admin: 02/28/20 13:29 Dose: 300 mg Documented by: Guaifenesin (Robitussin) 20 ml PO Q4H PRN PRN PRN Reason: COUGH Hydralazine HCl (Apresoline Iv) 10 mg IV Q4H PRN PRN PRN Reason: SBP > 160 Ceftriaxone Sodium 2 gm/ (Sodium Chloride) 50 mls @ 100 mls/hr IV Q12 [facility] Last Infusion: 02/28/20 17:04 Dose: Infused Documented by: Vancomycin IV Pharmacy to Dose (1 ea/ Sodium Chloride) 500 mls @ 250 mls/hr IV PRN PRN; Protocol PRN Reason: Rx to Dose Sodium Chloride () 250 mls @ 15 mls/hr IV .[id number] PRN PRN Reason: Saline Flush Sodium Chloride () 250 mls @ 15 mls/hr IV .[id number] PRN PRN Reason: Additional IVPB Infusion Vancomycin HCl 2,000 mg/ (Sodium Chloride) 540 mls @ 250 mls/hr IV Q12H [facility] Sodium Chloride () 1,000 mls @ 75 mls/hr IV .[id number] [facility] Ibuprofen (Motrin) 400 mg PO Q4H PRN PRN PRN Reason: fever, pain 1-10/10 Last Admin: 02/28/20 05:24 Dose: 400 mg Documented by: Insulin Glargine (Lantus (Bkc)) 50 units SC DAILY [facility] Insulin Human Lispro (Humalog Kwikpen (Bk)) 0 unit SC ACHS [facility]; Protocol Last Admin: 02/28/20 16:31 Dose: 6 u Documented by: Insulin Human Lispro (Humalog Kwikpen ([facility])) 13 unit SC TIDAC [facility] Lisinopril (Zestril) 10 mg PO DAILY [facility] Last Admin: 02/28/20 13:29 Dose: 10 mg Documented by: Magnesium Hydroxide (Milk Of Magnesia) 30 ml PO DAILY PRN PRN PRN Reason: Constipation Melatonin (Melatonin) 3 mg PO QHS PRN PRN PRN Reason: INSOMNIA Morphine Sulfate () 2 mg IV Q3H PRN PRN PRN Reason: Pain Score 6-10/10 Nifedipine (Procardia Xl) 90 mg PO DAILY [facility] Last Admin: 02/28/20 13:28 Dose: 90 mg Documented by: Nitroglycerin (Nitrostat) 0.4 mg SUBLINGUAL Q5M PRN PRN Reason: CARDIAC/CHEST PAIN Ondansetron HCl (Zofran) 4 mg IV Q8H PRN PRN PRN Reason: NAUSEA/VOMITING Last Admin: 02/28/20 09:00 Dose: 4 mg Documented by: Oxycodone HCl (Oxyir) 5 mg PO Q4H PRN PRN PRN Reason: Pain Score 4-5/10 Polysaccharide [facility] ([facility]rex 150) [facility] Last Admin: 02/28/20 13:29 Dose: 150 mg Documented by: Prochlorperazine Edisylate (Compazine Iv) 5 mg IV Q4H PRN PRN PRN Reason: Breakthrough Nausea/Vomiting Psyllium Hydrophilic Mucilloid (Metamucil) 1 packet PO DAILY PRN PRN PRN Reason: Constipation Senna/Docusate Sodium (Senokot-S, Analilia-Colace) 2 tablet PO BID PRN PRN PRN Reason: Constipation Sodium Chloride () 10 - 40 ml IV UD PRN PRN Reason: SALINE FLUSH Last Admin: 02/28/20 09:00 Dose: 10 ml Documented by: Tamsulosin HCl (Flomax) 0.4 mg PO DAILY@1730 [facility] Last Admin: 02/28/20 16:35 Dose: 0.4 mg Documented by: Throat Lozenges (Cepacol Sore Throat Lozenge) 1 lozenge MUCOUS MEM Q2H PRN PRN PRN Reason: SORE THROAT STROKE Vital Signs/Narrative: Vital Signs Temp Pulse Resp BP Pulse Ox 02/28/20 16:45 102.6 F H 98 18 124/49 H 96 02/28/20 15:00 104 H Medical Necessity - Tobacco Use Smoking Status: Never smoker Assessment/Plan All Active Problems Febrile illness, acute (Acute) Acute renal failure (Acute) History of BPH (Acute) Peripheral vascular disease (Acute) Fever of unknown origin (Acute) Encephalopathy acute (Acute) Suspected COVID-19 virus infection (Acute) Ankle ligament laxity (Resolved) S/P arthroscopy (Resolved) Sepsis 2/2 GNR Bacteremia -d/c vanc -continue CTX for now -urine cx pending but suspect this is the source with urinary retention -decrease IVF to 75 cc/hr as po intake is still poor -await identification of organism -ID consulted Hypokalemia -replaced -recheck in am Hypomagnesemia -replaced and recheck in am ANDRE on CKD stage 3 -SCr at baseline is around 1.2-1.3 -improving and close to baseline -repeat in am DM-2 -nsg has held all insulins today -d/w nsg -will decrease Lantus to 50 from 77 u -continue 13 log with meals -po intake is not good as pt states that he has no appetite Chronic Anemia -stable counts HTN/HPL/PVD -continue statin -cont asa/pletal -continue lisinopril/Procardia -hold HCTZ Neuropathy -cont gabapentin Acute Metabolic Encephalopathy -resolved BPH -flomax Obesity -recommend wgt loss DVT prophylaxis -Lovenox Code status -Full Inpatient E&M: [id number] [facility] Hosp L3
--- NOTE | 2020-02-28 18:11 | US_ITS ---
STUDY: RENAL ULTRASOUND - COMPLETE REASON FOR EXAM: Male, 59 years old. BACTERMIA TECHNIQUE: Ultrasound evaluation of the kidneys was performed with real-time and static marcus-scale imaging. COMPARISON: None. FINDINGS: RIGHT KIDNEY: Normal location of the right kidney, which is normal in size. The right kidney measures 12.9 x 5.4 x 6.1 cm. There is a normal cortex of the right kidney. The renal cortex measures 1.5 cm. There is no right renal mass or cyst. There are no right renal calculi. There is no right hydronephrosis. DISTAL RIGHT URETER: There is non-visualization of the distal right ureter. There is no demonstrated right ureterovesical junction calculus. There is no demonstrated right ureteral jet. LEFT KIDNEY: Normal location of the left kidney, which is normal in size. The left kidney measures 11.4 x 5.6 x 6.4 cm. There is a normal cortex of the left kidney. The renal cortex measures 1.9 cm. There is no left renal mass or cyst. There are no left renal calculi. There is no left hydronephrosis. DISTAL LEFT URETER: There is non-visualization of the distal left ureter. There is no demonstrated left ureterovesical junction calculus. There is no demonstrated left ureteral jet. BLADDER: A LIPSCOMB catheter seen within a decompressed urinary bladder. US/Kidney and Bladder IMPRESSION: Normal ultrasound of the kidneys. LIPSCOMB catheter seen within a decompressed urinary bladder. Electronically Signed: Milan Lee MD at 20:07 EDT , Service support ,
[2020-02-28] MEDS: 0.9% Normal Saline 1,000 ML 75 ML IV (18:12)
--- NOTE | 2020-02-28 19:27 | PCM.HP.ID ---
Problem List (1) Bacteremia Status: Acute Reason for Consult: bacteremia Consulted by: Dr. Alvarez History of Present Illness: The patient is a 59 year old M with h/o DM, BPH, htn, presented yesterday with one day history of confusion, fever, chills, not feeling well. Denies sick contacts, no headache, no aches, no abd pain, no dysuria, no rash, no n/v/d, no cough or SOB. Taken to ED, cxs drawn, imaging done, covid neg, started on ceftriaxone for possible uti. Still with high fever, but feeling a little better today. Full ROS performed and neg except as noted above. Thinks he may have had COVID in late Aug when in the hospital. - Medical History Past Medical History (Chronic Problems): Chronic Problems Chronic renal failure, stage 3 (moderate) (Chronic) Diabetes mellitus, type II (Chronic) Diabetic neuropathy (Chronic) Chronic anemia (Chronic) Hyperlipidemia (Chronic) Morbid obesity (Chronic) Hypertension (Chronic) Osteoarthritis (Chronic) Allergies/Adverse Reactions: Allergies No Known Allergies Allergy (Verified 02/27/20 19:30) Home Medications: Ambulatory Orders Medication Instructions Recorded Aspirin [Aspirin, Baby] 81 mg PO DAILY@0800 06/25/15 Cilostazol 50 mg PO DAILY 06/25/15 Insulin Aspart [Novolog Flexpen] 13 units SC TIDCM 06/25/15 Insulin Glargine [Lantus SoloStar 77 units SC DAILY 06/25/15 Pen] NIFEdipine [Procardia XL] 90 mg PO DAILY 06/25/15 Simvastatin 40 mg PO QHS 06/25/15 Gabapentin [Neurontin] 300 mg PO TID 07/15/15 [place]-3 Fatty Acids/Fish Oil 1 each PO BID 07/15/15 [[place] 3 1,000 mg Softgel] traMADol [Ultram] 50 - 100 mg PO Q6H PRN PRN 07/15/15 Iron Poly/Vit C [Niferex-150] 150 mg PO DAILYCM #30 capsule 08/01/15 Hydrochlorothiazide [Hctz] 25 mg PO DAILY #0 09/13/19 Lisinopril [Prinivil] 10 mg PO DAILY #30 tab 09/13/19 Tamsulosin HCl [Flomax] 0.4 mg PO DAILY@1730 #30 cap 02/26/20 - Social History Tobacco Use: non-smoker Vital Signs Temp Pulse Resp BP Pulse Ox 102.6 F H 98 18 124/49 H 96 02/28/20 16:45 02/28/20 16:45 02/28/20 16:45 02/28/20 16:45 02/28/20 16:45 Oxygen Flow Rate (L/min) 2 Oxygen Delivery Method Room Air Weight: 119.7 kg Body Mass Index (BMI) 34.8 Finger Stick Blood Glucose 298 Microbiology Past 72 Hours 02/27/20 20:43 Blood Culture - Preliminary Blood Culture (Wb) - Right Hand 02/28/20 05:05 Respiratory Panel (PCR) - Final Mucosa - Nasopharyngeal Laboratory Tests Past 24 Hrs 02/27/20 02/27/20 02/27/20 19:00 19:55 20:23 WBC RBC Hgb Hct MCV MCH MCHC RDW Std Deviation RDW Coeff of [place] Plt Count MPV Immature Gran % (Auto) Neut % (Auto) Lymph % (Auto) [place] % (Auto) Eos % (Auto) Baso % (Auto) Absolute Neuts (auto) Absolute Lymphs (auto) Nucleated RBC % D-Dimer Quant (PE/DVT) Sodium 137 Potassium 4.3 Chloride 106 Carbon Dioxide 23.0 Anion Gap 8 BUN 16 Creatinine 1.49 H Estim Creat Clear Calc 60.53 Est GFR (MDRD) Af Amer 62 Est GFR (MDRD) Non-Af 51 L BUN/Creatinine Ratio 10.7 Glucose 217 H Lactic Acid 2.4 H* Calcium 8.8 Magnesium Ferritin Total Bilirubin 0.40 AST 43 H ALT 42 Alkaline Phosphatase 147 H Ammonia Lactate Dehydrogenase Troponin I < 0.015 C-React Prot Ext Range Total Protein 7.5 Albumin 3.1 L Globulin 4.4 H Albumin/Globulin Ratio 0.7 L Procalcitonin TSH Free T4 Urine Color Urine Clarity Urine pH Ur Specific [place] Urine Protein Urine Glucose (UA) Urine Ketones Urine Occult Blood Urine Nitrite Urine Bilirubin Urine Urobilinogen Ur Leukocyte Esterase Urine RBC Urine WBC Ur Squamous Epith Cells Urine Bacteria Urine Mucus Urine Opiates Screen Urine Methadone Screen Ur Barbiturates Screen Ur Phencyclidine Scrn Ur Amphetamines Screen U Methamphetamin-MDMA U Benzodiazepines Scrn Urine Cocaine Screen U Cannabinoids Screen Ur Drug Screen Comment Ethyl Alcohol COVID-19 ([facility]) Cancelled 02/27/20 02/27/20 02/27/20 20:23 20:43 20:43 WBC 10.1 RBC 3.45 L Hgb 9.7 L Hct 30.7 L MCV 89.0 MCH 28.1 MCHC 31.6 L RDW Std Deviation 45.1 H RDW Coeff of [place] 14.1 Plt Count 398 MPV 9.9 Immature Gran % (Auto) 0.400 Neut % (Auto) 89.6 H Lymph % (Auto) 4.9 L [place] % (Auto) 4.6 Eos % (Auto) 0.1 Baso % (Auto) 0.4 Absolute Neuts (auto) 9.1 H Absolute Lymphs (auto) 0.50 L Nucleated RBC % 0 D-Dimer Quant (PE/DVT) Sodium Potassium Chloride Carbon Dioxide Anion Gap BUN Creatinine Estim Creat Clear Calc Est GFR (MDRD) Af Amer Est GFR (MDRD) Non-Af BUN/Creatinine Ratio Glucose Lactic Acid Calcium Magnesium Ferritin Total Bilirubin AST ALT Alkaline Phosphatase Ammonia 39.0 H Lactate Dehydrogenase Troponin I C-React Prot Ext Range Total Protein Albumin Globulin Albumin/Globulin Ratio Procalcitonin TSH Free T4 Urine Color Urine Clarity Urine pH Ur Specific [place] Urine Protein Urine Glucose (UA) Urine Ketones Urine Occult Blood Urine Nitrite Urine Bilirubin Urine Urobilinogen Ur Leukocyte Esterase Urine RBC Urine WBC Ur Squamous Epith Cells Urine Bacteria Urine Mucus Urine Opiates Screen Urine Methadone Screen Ur Barbiturates Screen Ur Phencyclidine Scrn Ur Amphetamines Screen U Methamphetamin-MDMA U Benzodiazepines Scrn Urine Cocaine Screen U Cannabinoids Screen Ur Drug Screen Comment Ethyl Alcohol COVID-19 ([facility]) Not Detected 02/27/20 02/28/20 02/28/20 20:43 01:50 05:10 WBC RBC Hgb Hct MCV MCH MCHC RDW Std Deviation RDW Coeff of [place] Plt Count MPV Immature Gran % (Auto) Neut % (Auto) Lymph % (Auto) [place] % (Auto) Eos % (Auto) Baso % (Auto) Absolute Neuts (auto) Absolute Lymphs (auto) Nucleated RBC % D-Dimer Quant (PE/DVT) 0.66 H* Sodium Potassium Chloride Carbon Dioxide Anion Gap BUN Creatinine Estim Creat Clear Calc Est GFR (MDRD) Af Amer Est GFR (MDRD) Non-Af BUN/Creatinine Ratio Glucose Lactic Acid 1.0 Calcium Magnesium Ferritin Total Bilirubin AST ALT Alkaline Phosphatase Ammonia Lactate Dehydrogenase Troponin I C-React Prot Ext Range Total Protein Albumin Globulin Albumin/Globulin Ratio Procalcitonin TSH Free T4 Urine Color Urine Clarity Urine pH Ur Specific [place] Urine Protein Urine Glucose (UA) Urine Ketones Urine Occult Blood Urine Nitrite Urine Bilirubin Urine Urobilinogen Ur Leukocyte Esterase Urine RBC Urine WBC Ur Squamous Epith Cells Urine Bacteria Urine Mucus Urine Opiates Screen Urine Methadone Screen Ur Barbiturates Screen Ur Phencyclidine Scrn Ur Amphetamines Screen U Methamphetamin-MDMA U Benzodiazepines Scrn Urine Cocaine Screen U Cannabinoids Screen Ur Drug Screen Comment Ethyl Alcohol 9.0 COVID-19 ([facility]) 02/28/20 02/28/20 02/28/20 05:10 05:10 05:10 WBC 10.4 RBC 3.22 L Hgb 9.1 L Hct 28.4 L MCV 88.2 MCH 28.3 MCHC 32.0 RDW Std Deviation 46.8 H RDW Coeff of [place] 14.4 Plt Count 344 MPV 9.1 Immature Gran % (Auto) 0.600 Neut % (Auto) 87.4 H Lymph % (Auto) 5.8 L [place] % (Auto) 5.7 Eos % (Auto) 0.0 Baso % (Auto) 0.5 Absolute Neuts (auto) 9.1 H Absolute Lymphs (auto) 0.61 L Nucleated RBC % 0 D-Dimer Quant (PE/DVT) Sodium 136 Potassium 3.2 L Chloride 105 Carbon Dioxide 22.0 Anion Gap 9 BUN 18 Creatinine 1.31 H Estim Creat Clear Calc 66.92 Est GFR (MDRD) Af Amer 71 Est GFR (MDRD) Non-Af 59 L BUN/Creatinine Ratio 13.7 Glucose 228 H Lactic Acid Calcium 7.7 L Magnesium 1.2 L Ferritin 31 Total Bilirubin 0.30 AST 32 ALT 36 Alkaline Phosphatase 128 H Ammonia Lactate Dehydrogenase 161 Troponin I C-React Prot Ext Range 56.60 H Total Protein 6.8 Albumin 2.6 L Globulin 4.2 Albumin/Globulin Ratio 0.6 L Procalcitonin 0.98 H TSH 0.33 L Free T4 1.22 Urine Color Urine Clarity Urine pH Ur Specific [place] Urine Protein Urine Glucose (UA) Urine Ketones Urine Occult Blood Urine Nitrite Urine Bilirubin Urine Urobilinogen Ur Leukocyte Esterase Urine RBC Urine WBC Ur Squamous Epith Cells Urine Bacteria Urine Mucus Urine Opiates Screen Urine Methadone Screen Ur Barbiturates Screen Ur Phencyclidine Scrn Ur Amphetamines Screen U Methamphetamin-MDMA U Benzodiazepines Scrn Urine Cocaine Screen U Cannabinoids Screen Ur Drug Screen Comment Ethyl Alcohol COVID-19 ([facility]) 02/28/20 02/28/20 02/28/20 05:10 15:00 15:00 WBC RBC Hgb Hct MCV MCH MCHC RDW Std Deviation RDW Coeff of [place] Plt Count MPV Immature Gran % (Auto) Neut % (Auto) Lymph % (Auto) [place] % (Auto) Eos % (Auto) Baso % (Auto) Absolute Neuts (auto) Absolute Lymphs (auto) Nucleated RBC % D-Dimer Quant (PE/DVT) Sodium Potassium Chloride Carbon Dioxide Anion Gap BUN Creatinine Estim Creat Clear Calc Est GFR (MDRD) Af Amer Est GFR (MDRD) Non-Af BUN/Creatinine Ratio Glucose Lactic Acid Calcium Magnesium Ferritin Total Bilirubin AST ALT Alkaline Phosphatase Ammonia 26.0 Lactate Dehydrogenase Troponin I C-React Prot Ext Range Total Protein Albumin Globulin Albumin/Globulin Ratio Procalcitonin TSH Free T4 Urine Color Yellow Urine Clarity Clear Urine pH 7.0 Ur Specific [place] 1.010 Urine Protein 30 H Urine Glucose (UA) 250 H Urine Ketones 5 H Urine Occult Blood Negative Urine Nitrite Negative Urine Bilirubin Negative Urine Urobilinogen Normal Ur Leukocyte Esterase Negative Urine RBC 0 SEEN Urine WBC 0 SEEN Ur Squamous Epith Cells 0 SEEN Urine Bacteria 0 SEEN Urine Mucus 0 SEEN Urine Opiates Screen NEGATIVE Urine Methadone Screen NEGATIVE Ur Barbiturates Screen NEGATIVE Ur Phencyclidine Scrn NEGATIVE Ur Amphetamines Screen NEGATIVE U Methamphetamin-MDMA NEGATIVE U Benzodiazepines Scrn NEGATIVE Urine Cocaine Screen NEGATIVE U Cannabinoids Screen NEGATIVE Ur Drug Screen Comment Ethyl Alcohol COVID-19 ([facility]) - Other Studies Radiology: [] reviewed Other Studies: [] Route of nutrition/ use of supplements: [] Nutritional Intake: [] IV Site: [] Trent Catheter: [] - Physical Exam General: Alert, Cooperative, No apparent distress, - - oriented x2 HEENT: Atraumatic, PERRLA Neck: Supple, No Nodes Lungs: Clear to auscultation, Normal air movement Cardiovascular: Regular rate, Regular Rhythm Abdomen: Soft, Non Tender, Non-Distended, Obese Extremities: No edema Skin: No rashes IV Site: Peripheral, without redness Musculoskeletal: No Tenderness to Palpation of Joints or Extremities Neurological: Cranial nerves II-XII grossly intact - Assessment/Plan Antibiotics: [] Assessment/Plan: [] Active and Suspected Problems Fever of unknown origin (Acute) Encephalopathy acute (Acute) Suspected COVID-19 virus infection (Acute) Severe sepsis with GNR bacteremia - unclear source. Non focal symptoms. GNR seen in anaerobic bottle. H/o BPH, but no urinary symptoms and UA was normal. Will broaden ceftriaxone to zosyn given persistent fever and possible polymicrobial/anaerobic infection. LFTs were relatively normal. PCT was 1. He thinks he may have had COVID in August, but records showed he had RSV here at that time. COVID pcr neg here. ANDRE improving, lactate improving. Next step likely will need abd ct/pelvis. Will follow, thank you, d/w Dr. Solorio.
[2020-02-28] MEDS: Atorvastatin Calcium 20 MG Tablet PO (21:10)
[2020-02-28 21:41] LABS: Bedside Glucose 253 mg/dL (70-110)
[2020-02-29] VITALS (9 sets, daily range): BP systolic 104–132; BP diastolic 64–67; PULSE 73–85; RESP 16–18; TEMP 36.6–36.9; O2SAT 96–98
[2020-02-29] MEDS: Acetaminophen 325 MG Tablet 650 MG PO (00:06)
[2020-02-29] MEDS: Gabapentin 300 MG Capsule PO ×3 (05:46→20:42)
[2020-02-29 06:34] LABS: Absolute Lymphocyte Count 1.03 X10^3/uL (0.83-4.51); Absolute Neutrophil Count 3.9 X10^3/uL (2.0-7.7); Basophil# 0.03 X10^3/uL; Basophil% 0.5 % (0-1); Eosinophil# 0.04 X10^3/uL; Eosinophils% 0.7 % (0-5); Hematocrit 28.1 % (40-54); Hemoglobin 8.5 g/dL (13.0-16.5); Lymphocyte # 1.03 X10^3/ul (4.0); Mean Corp Hgb Conc 30.2 g/dL (32-36); Mean Corpuscular Hgb 27.7 pg (27.0-32.0); Mean Corpuscular Volume 91.5 fL (80-94); Mean Platelet Vol. 9.3 fl (6.2-12.0); Monocyte# 0.68 X10^3/uL; Monocyte% 11.9 % (0-10); NRBC Flagged by Analyzer 0 % (0-5); Neutrophil % 68.4 % (47-70); Platelet Count 293 K/mm3 (150-450); RBC Distribution Width CV 14.5 % (11.6-14.6); RBC Distribution Width SD 48.6 fl (35.1-43.9); Red Blood Count 3.07 M/mm3 (4.6-6.2); White Blood Count 5.7 K/mm3 (4.4-11.0)
[2020-02-29 06:59] LABS: Anion Gap 6 (5-15); BUN 19 mg/dL (7-18); BUN/Creat Ratio 14.6 RATIO (10-20); Calcium,Total 7.5 mg/dL (8.5-10.1); Chloride 107 mmol/L (98-107); EST Glomerular Filtration Rate 60 mL/min (>60); Est Glom Filt Rate - Afr Amer 72 mL/min (>60); Estimated Creatinine Clearance 67.44 ml/min; Glucose 190 mg/dL (74-106); Magnesium 2.4 mg/dL (1.6-2.6); Phosphorus 2.2 mg/dL (2.5-4.9); Potassium 3.9 mmol/L (3.5-5.1); Sodium Level 137 mmol/L (136-145)
[2020-02-29] MEDS: Aspirin 81 MG TAB.CHEW PO (08:04)
[2020-02-29] MEDS: Insulin Lispro 100 UNIT/ML INSULN.PEN SC ×2 (08:04→11:24)
[2020-02-29] MEDS: Iron Polysaccharide Complex 150 MG CAPSULE PO (08:04)
[2020-02-29] MEDS: Insulin Lispro 100 UNIT/ML INSULN.PEN 13 UNIT SC ×3 (08:05→16:53)
[2020-02-29] MEDS: NIFEdipine 90 MG Tablet PO (09:26)
[2020-02-29] MEDS: Lisinopril 10 MG Tablet PO (09:26)
[2020-02-29] MEDS: Famotidine 20 MG Tablet PO ×2 (09:26→20:41)
[2020-02-29] MEDS: Cilostazol 50 MG Tablet PO (09:26)
[2020-02-29] MEDS: Enoxaparin 40 MG/0.4 ML Syringe SC (09:26)
--- NOTE | 2020-02-29 10:32 | CT_ITS ---
STUDY: CT ABDOMEN AND PELVIS WITHOUT CONTRAST REASON FOR EXAM: Male, 59 years old. BACTEREMIA, ABDOM PAIN, ORAL CONTRAST ONLY RADIATION DOSAGE (If Supplied By Facility): CTDIvol = ( 21.8 ) mGy, DLP = ( 1230.98 ) mGycm TECHNIQUE: Transaxial images were obtained from the dome of the diaphragm to the symphysis pubis with oral contrast, and without intravenous contrast. Sagittal and coronal images were reconstructed. Individualized dose optimization techniques were used for this CT. COMPARISON: None. FINDINGS: Mild degree of increased markings at the lung bases with areas of probable bronchiectasis suggestive of scarring. Coronary artery calcification. Normal liver. Multiple small gallstones are seen along the dependent portion of the gallbladder lumen. Normal spleen. Normal pancreas. Normal bilateral adrenal glands. Normal right kidney. Normal left kidney. Nonspecific mild degree of bilateral perinephric stranding. There is a small hiatal hernia. Normal small intestine. Moderate amount of fecal material is seen in the left hemicolon. The appendix is visualized and appears normal. There is diffuse atherosclerotic calcification of the abdominal aorta and its major visceral branches, without a demonstrated aneurysm. Normal inferior vena cava. Normal retroperitoneum. Diffuse irregular bladder wall thickening although the bladder is not adequately distended. Contrast is seen within the base of the bladder most likely from a prior IV contrast administration. Small amount of air is seen along the anterior aspect of the urinary bladder wall. Emphysematous cystitis should BE ruled out. Calcification of the vas deferens. Normal abdominal wall. There are mild degenerative changes of the visualized lumbar spine. CT/Abdomen/Pel W ORAL Cont Only IMPRESSION: Findings suggest mild scarring at the lung bases. Multiple small layering gallstones. Nonspecific mild degree of bilateral perinephric stranding. Irregular diffuse bladder wall thickening. Air is seen along the anterior wall of the urinary bladder. Emphysematous cystitis should BE ruled out. Electronically Signed: Dexter Vela, at 13:07 EDT , Service support ,
[2020-02-29 11:10] LABS: Bedside Glucose 196 mg/dL (70-110)
--- NOTE | 2020-02-29 11:11 | PCM.PN.HOSP ---
Patient Problems: Active and Suspected Problems Fever of unknown origin (Acute) Encephalopathy acute (Acute) Suspected COVID-19 virus infection (Acute) Bacteremia (Acute) Reason for Visit: Fever and bacteremia Subjective: Patient is a 59-year-old gentleman admitted with fever and confusion; blood cultures obtained on admission. Admitted to a monitored bed as a case of encephalopathy secondary to SIRS of undetermined etiology. COVID-19 was ruled out. Blood cultures obtained on admission came back positive for gram-negative rods final identification and sensitivities pending. Patient also went into acute urinary retention resulting in placement of a Trent catheter Objective: GENERAL: cooperative HEENT: Atraumatic; EYES; Anicteric, Normal Conjunctiva NECK; supple, normal thyroid, RESPIRATORY: Diminished to auscultation CARDIOVASCULAR: Regular S1 S2, GI: soft, normoactive bowel sounds, : Trent catheter in place EXTREMITIES: No edema, no clubbing, MUSCULOSKELETAL: no muscle waisting NEURO: Awake; no lateralizing signs. SKIN: No Rash PSYCH; Flat affect Vitals/I&O's: Vital Signs Temp Pulse Resp BP Pulse Ox 98.4 F 83 16 125/64 H 97 02/29/20 09:20 02/29/20 09:20 02/29/20 09:20 02/29/20 09:20 02/29/20 09:20 Oxygen Flow Rate (L/min) 2 Oxygen Delivery Method Room Air Weight: 119.7 kg Body Mass Index (BMI) 34.8 Finger Stick Blood Glucose 298 Intake and Output for Last 24 Hours 02/27/20 02/28/20 02/29/20 23:59 23:59 23:59 Intake Total 1050 / 1050 4107.50 / 4107.50 676.25 / 676.25 Output Total 2450 / 2450 250 / 250 Balance 1050 / 1050 1657.50 / 1657.50 426.25 / 426.25 Microbiology Past 72 Hours 02/27/20 20:43 Blood Culture (Wb) - Right Hand Blood Culture - Preliminary GNR lactose quiller machine fixer 02/28/20 05:05 Mucosa - Nasopharyngeal Respiratory Panel (PCR) - Final Laboratory Results 02/28/20 11:48: POC Glucose 216 H 02/28/20 15:00: Urine Opiates Screen NEGATIVE, Urine Methadone Screen NEGATIVE, Ur Barbiturates Screen NEGATIVE, Ur Phencyclidine Scrn NEGATIVE, Ur Amphetamines Screen NEGATIVE, U Methamphetamin-MDMA NEGATIVE, U Benzodiazepines Scrn NEGATIVE, Urine Cocaine Screen NEGATIVE, U Cannabinoids Screen NEGATIVE, Ur Drug Screen Comment 02/28/20 15:00: Urine Color Yellow, Urine Clarity Clear, Urine pH 7.0, Ur Specific [place] 1.010, Urine Protein 30 H, Urine Glucose (UA) 250 H, Urine Ketones 5 H, Urine Occult Blood Negative, Urine Nitrite Negative, Urine Bilirubin Negative, Urine Urobilinogen Normal, Ur Leukocyte Esterase Negative, Urine RBC 0 SEEN, Urine WBC 0 SEEN, Ur Squamous Epith Cells 0 SEEN, Urine Bacteria 0 SEEN, Urine Mucus 0 SEEN 02/28/20 16:24: POC Glucose 285 H 02/28/20 21:05: POC Glucose 253 H 02/29/20 06:24: WBC 5.7, RBC 3.07 L, Hgb 8.5 L, Hct 28.1 L, MCV 91.5, MCH 27.7, MCHC 30.2 L D, RDW Std Deviation 48.6 H, RDW Coeff of [place] 14.5, Plt Count 293, MPV 9.3, Immature Gran % (Auto) 0.500, Neut % (Auto) 68.4, Lymph % (Auto) 18.0 L, Bartholomew % (Auto) 11.9 H, Eos % (Auto) 0.7, Baso % (Auto) 0.5, Absolute Neuts (auto) 3.9, Absolute Lymphs (auto) 1.03, Nucleated RBC % 0 02/29/20 06:24: Sodium 137, Potassium 3.9, Chloride 107, Carbon Dioxide 24.0, Anion Gap 6, BUN 19 H, Creatinine 1.30, Estim Creat Clear Calc 67.44, Est GFR (MDRD) Af Amer 72, Est GFR (MDRD) Non-Af 60, BUN/Creatinine Ratio 14.6, Glucose 190 H, Calcium 7.5 L, Phosphorus 2.2 L, Magnesium 2.4 02/29/20 07:57: POC Glucose 196 H Current Medications Acetaminophen (Tylenol) 650 mg PO Q6H PRN PRN PRN Reason: Pain Score 1-10/Temp > 100.7 F Last Admin: 02/29/20 00:06 Dose: 650 mg Documented by: Al Hydroxide/Mg Hydroxide (Mylanta Ii) 30 ml PO Q6H PRN PRN PRN Reason: Gastric Burning Aspirin (Aspirin, Baby) 81 mg PO DAILY@0800 [facility] Last Admin: 02/29/20 08:04 Dose: 81 mg Documented by: Atorvastatin Calcium (Lipitor) 20 mg PO QHS [facility] Last Admin: 02/28/20 21:10 Dose: 20 mg Documented by: Cilostazol (Pletal) 50 mg PO DAILY [facility] Last Admin: 02/29/20 09:26 Dose: 50 mg Documented by: Enoxaparin Sodium (Lovenox) 40 mg SC DAILY [facility] Last Admin: 02/29/20 09:26 Dose: 40 mg Documented by: Famotidine (Pepcid) 20 mg PO BID [facility] Last Admin: 02/29/20 09:26 Dose: 20 mg Documented by: Gabapentin (Neurontin) 300 mg PO TID [facility] Last Admin: 02/29/20 05:46 Dose: 300 mg Documented by: Guaifenesin (Robitussin) 20 ml PO Q4H PRN PRN PRN Reason: COUGH Hydralazine HCl (Apresoline Iv) 10 mg IV Q4H PRN PRN PRN Reason: SBP > 160 Sodium Chloride () 250 mls @ 15 mls/hr IV .[id number] PRN PRN Reason: Saline Flush Sodium Chloride () 250 mls @ 15 mls/hr IV .[id number] PRN PRN Reason: Additional IVPB Infusion Sodium Chloride () 1,000 mls @ 75 mls/hr IV .[id number] [facility] Last Infusion: 02/29/20 09:44 Dose: 75 mls/hr Documented by: Piperacillin Sod/Tazobactam (Sod 3.375 gm/ Sodium Chloride) 50 mls @ 12.5 mls/hr IV Q8 [facility] Last Infusion: 02/29/20 09:44 Dose: Infused Documented by: Ibuprofen (Motrin) 400 mg PO Q4H PRN PRN PRN Reason: fever, pain 1-04/27 Last Admin: 02/28/20 05:24 Dose: 400 mg Documented by: Insulin Glargine (Lantus (Bkc)) 50 units SC DAILY [facility] Insulin Human Lispro (Humalog Kwikpen (Bkc)) 0 unit SC ACHS [facility]; Protocol Last Admin: 02/29/20 08:04 Dose: 2 u Documented by: Insulin Human Lispro (Humalog Kwikpen (Bkc)) 13 unit SC TIDAC [facility] Last Admin: 02/29/20 08:05 Dose: 13 units Documented by: Lisinopril (Zestril) 10 mg PO DAILY [facility] Last Admin: 02/29/20 09:26 Dose: 10 mg Documented by: Magnesium Hydroxide (Milk Of Magnesia) 30 ml PO DAILY PRN PRN PRN Reason: Constipation Melatonin (Melatonin) 3 mg PO QHS PRN PRN PRN Reason: INSOMNIA Morphine Sulfate () 2 mg IV Q3H PRN PRN PRN Reason: Pain Score 6-10/10 Nifedipine (Procardia Xl) 90 mg PO DAILY [facility] Last Admin: 02/29/20 09:26 Dose: 90 mg Documented by: Nitroglycerin (Nitrostat) 0.4 mg SUBLINGUAL Q5M PRN PRN Reason: CARDIAC/CHEST PAIN Ondansetron HCl (Zofran) 4 mg IV Q8H PRN PRN PRN Reason: NAUSEA/VOMITING Last Admin: 02/28/20 09:00 Dose: 4 mg Documented by: Oxycodone HCl (Oxyir) 5 mg PO Q4H PRN PRN PRN Reason: Pain Score 4-5/10 Polysaccharide [facility] Last Admin: 02/29/20 08:04 Dose: 150 mg Documented by: Prochlorperazine Edisylate (Compazine Iv) 5 mg IV Q4H PRN PRN PRN Reason: Breakthrough Nausea/Vomiting Psyllium Hydrophilic Mucilloid (Metamucil) 1 packet PO DAILY PRN PRN PRN Reason: Constipation Senna/Docusate Sodium (Senokot-S, Analilia-Colace) 2 tablet PO BID PRN PRN PRN Reason: Constipation Sodium Chloride () 10 - 40 ml IV UD PRN PRN Reason: SALINE FLUSH Last Admin: 02/28/20 09:00 Dose: 10 ml Documented by: Tamsulosin HCl (Flomax) 0.4 mg PO DAILY@1730 [facility] Last Admin: 02/28/20 16:35 Dose: 0.4 mg Documented by: Throat Lozenges (Cepacol Sore Throat Lozenge) 1 lozenge MUCOUS MEM Q2H PRN PRN PRN Reason: SORE THROAT STROKE Vital Signs/Narrative: Vital Signs Temp Pulse Resp BP Pulse Ox 02/29/20 09:20 98.4 F 83 16 125/64 H 97 Medical Necessity - Tobacco Use Smoking Status: Never smoker Assessment/Plan All Active Problems Febrile illness, acute (Acute) Acute renal failure (Acute) History of BPH (Acute) Peripheral vascular disease (Acute) Fever of unknown origin (Acute) Encephalopathy acute (Acute) Suspected COVID-19 virus infection (Acute) Bacteremia (Acute) Ankle ligament laxity (Resolved) S/P arthroscopy (Resolved) Patient is a 59-year-old gentleman admitted with fever and confusion; blood cultures obtained on admission. Admitted to a monitored bed as a case of encephalopathy secondary to SIRS of undetermined etiology. COVID-19 was ruled out. Blood cultures obtained on admission came back positive for gram-negative rods final identification and sensitivities pending. Patient also went into acute urinary retention resulting in placement of a Trent catheter 1. Acute metabolic encephalopathy ?Secondary to infectious encephalopathy possibly from urinary tract infection. Blood cultures so far positive for gram-negative rods final identification and sensitivities pending 2. Acute urinary retention ?Secondary to suspected cystitis patient had a Trent catheter placed blood cultures positive for gram-negative rods on broad-spectrum antibiotic therapy seen by ID. Patient is also on Flomax 3. Hypertension - Blood pressure controlled, home medications continued with dose adjustment as needed 4. Dyslipidemia -Patient is on statin therapy, continued at home dose 5. Acute kidney injury secondary to ?ATN from patient's underlying infection improving 6. Peripheral vascular disease ?Patient is on both aspirin as well as Pletal 7. BPH ?Patient on Flomax 8. Obesity with BMI of 34.8 ?Weight loss advised 9. DVT prophylaxis -Lovenox Inpatient E&M: 59035 Subs Hosp L2
[2020-02-29 11:31] LABS: Bedside Glucose 217 mg/dL (70-110)
--- NOTE | 2020-02-29 11:44 | CASEMGMT ---
ASHLYN ANGUIANO assessment: Face to Face with patient for initial transition planning/care coordination assessment. ASHLYN ANGUIANO introduced self and role at [facility], pt voices understanding and consents to assessment at this time. Pt is sitting up in chair in no distress at this time. Pt is A/Ox4 at this time and answers all questions appropriately at this time. Care providers, pharmacy, and demographics verified/updated at this time. Presentation: Pt confused, ill for several months, fever Admitting dx: SIRS, unk etiology PCP: Wade Specialists: Pt states no specialists. Preferred Pharmacy: [facility] Insurance: [facility] A/B Prescription Benefit: [employer] Living Will/HPOA: Pt states does not have LW/HPOA and declines info at this time. LNOK: Itzel Decker, sister Living Arrangements: Pt states lives alone in 1 story apt and states no concerns at home at this time. Pt states independent w/ ADL's. Transportation: Pt states drives self and states no transportation concerns at this time. DME/HHC: Pt states no current DME or need for any DME at this time. Pt states no hx of HHC but states has been to [facility] in the past. Pt states no concerns with going home at time of discharge. Pt states is on disability. Pt states does not smoke or drink ETOH. Pt states no further concerns/needs at this time. CM to follow for ID recommendations and any further discharge planning/needs. Advised pt to ask for CM if any further questions/concerns/needs arise, voices understanding. Pt Goal: Home Plan[place] ASHLYN ANGUIANO
--- NOTE | 2020-02-29 12:58 | RAD_ITS ---
STUDY: X-RAY - MANDIBLE (COMPLETE) REASON FOR EXAM: Male, 59 years old. PATIENTS STATES HE HAS NO PAIN IN MANDIBLE, NO SWELLING LUMPS OR BUMPS. PATIENT STATES HE HAS A BLOOD INFECTION OF UNKNOWN ORIGIN. TECHNIQUE: 6 view(s) of the mandible were obtained. COMPARISON: None. FINDINGS: Normal mandible. Normal visualized right temporomandibular joint. Normal visualized left temporomandibular joint. Multiple dental cavities are seen in the remaining teeth of the mandibular region. The remaining visualized osseous structures are normal. The soft tissue structures are unremarkable. RAD/Mandible Min 4 Views IMPRESSION: Findings suggestive of multiple cavities in the remaining teeth of the mandible. Electronically Signed: Dexter Vela, at 14:08 EDT , Service support ,
[2020-02-29] MEDS: 0.9% Saline Lock 10 ML Syringe IV (14:18)
[2020-02-29] MEDS: 0.9% Normal Saline 1,000 ML 75 ML IV (14:22)
[2020-02-29] MEDS: Tamsulosin HCl 0.4 MG Capsule PO (16:54)
[2020-02-29 17:01] LABS: Bedside Glucose 136 mg/dL (70-110)
[2020-02-29] MEDS: Atorvastatin Calcium 20 MG Tablet PO (20:41)
--- NOTE | 2020-02-29 20:46 | NURSING ---
Pt requesting to have meds a few minutes early.
[2020-02-29 21:00] LABS: Bedside Glucose 139 mg/dL (70-110)
[2020-03-01 02:55] VITALS: BP 136/63; PULSE 77; RESP 16; TEMP 37; O2SAT 98
[2020-03-01 03:19] VITALS: PULSE 79
[2020-03-01 07:06] VITALS: O2SAT 95
[2020-03-01] MEDS: Gabapentin 300 MG Capsule PO (07:21)
[2020-03-01 07:49] VITALS: PULSE 71
[2020-03-01] MEDS: Insulin Lispro 100 UNIT/ML INSULN.PEN 13 UNIT SC (08:00)
[2020-03-01] MEDS: Iron Polysaccharide Complex 150 MG CAPSULE PO (08:03)
[2020-03-01] MEDS: Aspirin 81 MG TAB.CHEW PO (08:03)
[2020-03-01 08:55] VITALS: BP 127/69; PULSE 78; RESP 17; TEMP 36.8; O2SAT 98
[2020-03-01] MEDS: Famotidine 20 MG Tablet PO (08:59)
[2020-03-01] MEDS: Lisinopril 10 MG Tablet PO (08:59)
[2020-03-01] MEDS: NIFEdipine 90 MG Tablet PO (08:59)
[2020-03-01] MEDS: Cilostazol 50 MG Tablet PO (08:59)
[2020-03-01] MEDS: Enoxaparin 40 MG/0.4 ML Syringe SC (08:59)
--- NOTE | 2020-03-01 09:26 | DCINST_ITS ---
- Discharge Diagnoses Current Active Problems: Current Active and Chronic Problems Fever of unknown origin (Acute) Encephalopathy acute (Acute) Chronic anemia (Chronic) Suspected COVID-19 virus infection (Acute) Bacteremia (Acute) You will use the following diet at home:: No restrictions Your food should be the consistency of: Regular Discharge Activity: Return to Normal Activity, May not drive while taking narcotic pain medications. Allergies/Adverse Reactions: Allergies No Known Allergies Allergy (Verified 02/27/20 19:30) Medications to take at Discharge Aspirin [Aspirin, Baby] 81 mg PO DAILY@0800 06/25/15 Cilostazol 50 mg PO DAILY 06/25/15 Insulin Aspart [Novolog Flexpen] 13 units SC TIDCM 06/25/15 Insulin Glargine [Lantus SoloStar Pen] 77 units SC DAILY 06/25/15 NIFEdipine [Procardia XL] 90 mg PO DAILY 06/25/15 Simvastatin 40 mg PO QHS 06/25/15 Gabapentin [Neurontin] 300 mg PO TID 07/15/15 [place]-3 Fatty Acids/Fish Oil [[place] 3 1,000 mg Softgel] 1 each PO BID 07/15/15 traMADol [Ultram] 50 - 100 mg PO Q6H PRN PRN 07/15/15 Iron Poly/Vit C [Niferex-150] 150 mg PO DAILYCM #30 capsule 08/01/15 Hydrochlorothiazide [Hctz] 25 mg PO DAILY #0 09/13/19 Lisinopril [Prinivil] 10 mg PO DAILY #30 tab 09/13/19 Tamsulosin HCl [Flomax] 0.4 mg PO DAILY@1730 #30 cap 09/13/19 Cefdinir [Omnicef [equiv]] 300 mg PO Q12H #14 cap 03/01/20 Lactobacillus Acidophilus [Acidophilus] 1 tab PO DAILY #30 tab 03/01/20 The following prescriptions were given: Lactobacillus Acidophilus [Acidophilus] 1 tab PO DAILY #30 tab [facility]: [facility] Cefdinir [Omnicef [equiv]] 300 mg PO Q12H #14 cap Transmission Status: Pending to [facility] [address] [facility]. Primary Care Physician: Victor Manuel Olvera MD [Primary Care Provider] - Please follow up with your Primary Care Physician in: in 1 week Test Results: Test results from this visit will be discussed in further detail at your follow- up appointment, if applicable. Proposed Discharge Date: 03/01/20
[2020-03-01 09:56] LABS: Bedside Glucose 122 mg/dL (70-110)
--- NOTE | 2020-03-01 10:02 | NURSING ---
Urinary bowie catheter removed per v/o Dr. Pérez prior to pt d/c.
--- NOTE | 2020-03-01 10:06 | PHA.DC.COU ---
Pharmacy Services has performed discharge medication counseling for this patient. The patient was counseled on the following discharge medications and changes in medications for homegoing review. The Reason for Use, instructions for use, and potential side effects were reviewed for all new medications. The patient's questions regarding all of their medications were answered. The patient was able to verbally demonstrate an understanding of their discharge medications. The patient demonstrated some understanding but would benefit from further education and reinforcement. The patient was not able to adequately demonstrate understanding.
--- NOTE | 2020-03-04 13:40 | PCM.DC.SUM ---
Discharge Date and Diagnosis Date of Admission: 02/27/20 Date of Discharge: 03/01/20 - Primary Discharge Diagnosis Acute Problems: E Coli Bactermia Acute Cystitis - Secondary Discharge Diagnosis Chronic Problems: Chronic Problems Chronic renal failure, stage 3 (moderate) (Chronic) Diabetes mellitus, type II (Chronic) Diabetic neuropathy (Chronic) Chronic anemia (Chronic) Hyperlipidemia (Chronic) Morbid obesity (Chronic) Hypertension (Chronic) Osteoarthritis (Chronic) Hospital Course and Treatment Imaging Results: Clinical Impression(s) from Imaging Studies Brain CT 02/27/20 20:06 IMPRESSION: Chronic maxillary sinusitis. There is no intracranial hemorrhage or evidence of acute infarct. Findings appear similar to the previous study. Electronically Signed: Milan Lee MD at 21:06 EDT , Service support , Chest X-Ray 02/27/20 20:54 IMPRESSION: Degenerative changes of the thoracic spine. No acute cardiopulmonary disease process is seen. Electronically Signed: Milan Lee MD at 21:25 EDT , Service support , Brain MRI 02/28/20 04:37 IMPRESSION: 1. Normal unenhanced MRI of the brain. 2. Left maxillary sinus mucosal thickening greater than right maxillary sinus are unchanged. Electronically Signed: Marlo Mckeon MD at 10:14 EDT , Service support , Chest CTA 02/28/20 06:37 IMPRESSION: No evidence of pulmonary embolism. Nonspecific groundglass appearance in both lungs as described superimposed on mild bibasilar scarring. Multiple small gallstones. Electronically Signed: Dexter Vela at 9:53 EDT , Service support , Renal Ultrasound 02/28/20 18:11 IMPRESSION: Normal ultrasound of the kidneys. LIPSCOMB catheter seen within a decompressed urinary bladder. Electronically Signed: Milan Lee MD at 20:07 EDT , Service support , Abdomen CT 02/29/20 10:32 IMPRESSION: Findings suggest mild scarring at the lung bases. Multiple small layering gallstones. Nonspecific mild degree of bilateral perinephric stranding. Irregular diffuse bladder wall thickening. Air is seen along the anterior wall of the urinary bladder. Emphysematous cystitis should BE ruled out. Electronically Signed: Dexter Mirian, at 13:07 EDT , Service support , Mandible X-Ray 02/29/20 12:58 IMPRESSION: Findings suggestive of multiple cavities in the remaining teeth of the mandible. Electronically Signed: Dexter Mirian, at 14:08 EDT , Service support , Operations: None, - - arthroscopy, left ankle. Summary of Care Provided: The patient is a 59 year old M [] Patient is a 59-year-old gentleman admitted with fever and confusion; blood cultures obtained on admission. Admitted to a monitored bed as a case of encephalopathy secondary to SIRS of undetermined etiology. COVID-19 was ruled out. Blood cultures obtained on admission came back positive for gram-negative rods final identification and sensitivities pending. Patient also went into acute urinary retention resulting in placement of a Lipscomb catheter 1. Acute metabolic encephalopathy secondary to E coli Bacteremia from a Urinary source ?Secondary to infectious encephalopathy possibly from urinary tract infection. Blood cultures positive for E coli 2. Acute urinary retention ?Secondary to suspected cystitis patient had a Lipscomb catheter placed blood cultures positive for gram-negative rods on broad-spectrum antibiotic therapy seen by ID. Patient is also on Flomax 3. Hypertension - Blood pressure controlled, home medications continued with dose adjustment as needed 4. Dyslipidemia -Patient is on statin therapy, continued at home dose 5. Acute kidney injury secondary to ?ATN from patient's underlying infection improving 6. Peripheral vascular disease ?Patient is on both aspirin as well as Pletal 7. BPH ?Patient on Flomax 8. Obesity with BMI of 34.8 ?Weight loss advised 9. DVT prophylaxis -Lovenox - Physical Exam Vitals/I&O's: Vital Signs Temp Pulse Resp BP Pulse Ox 98.2 F 78 17 127/69 H 98 03/01/20 08:55 03/01/20 08:55 03/01/20 08:55 03/01/20 08:55 03/01/20 08:55 Oxygen Flow Rate (L/min) 2 Oxygen Delivery Method Room Air Weight: 119.7 kg Body Mass Index (BMI) 34.8 Finger Stick Blood Glucose 298 General: Oriented x3 HEENT: Atraumatic Neurological: Neuro grossly intact Psych/Mental Status: Normal Affect Microbiology Past 72 Hours 02/27/20 20:43 Blood Culture (Wb) - Right Hand Blood Culture - Final Escherichia coli 02/27/20 20:35 Blood Culture (Wb) - Left Hand Blood Culture - Final No growth in 5 days. 02/28/20 15:00 Urine, Clean Catch Urine Culture - Final Culture exhibits no growth. Discharge Diet: No Restrictions Discharge Activity: Return to Normal Activity, May not drive while taking narcotic pain medications. Home Medications: Medications to take at Discharge Aspirin [Aspirin, Baby] 81 mg PO DAILY@0800 06/25/15 Cilostazol 50 mg PO DAILY 06/25/15 Insulin Aspart [Novolog Flexpen] 13 units SC TIDCM 06/25/15 Insulin Glargine [Lantus SoloStar Pen] 77 units SC DAILY 06/25/15 NIFEdipine [Procardia XL] 90 mg PO DAILY 06/25/15 Simvastatin 40 mg PO QHS 06/25/15 Gabapentin [Neurontin] 300 mg PO TID 07/15/15 [place]-3 Fatty Acids/Fish Oil [[place] 3 1,000 mg Softgel] 1 each PO BID 07/15/15 traMADol [Ultram] 50 - 100 mg PO Q6H PRN PRN 07/15/15 Iron Poly/Vit C [Niferex-150] 150 mg PO DAILYCM #30 capsule 08/01/15 Hydrochlorothiazide [Hctz] 25 mg PO DAILY #0 09/13/19 Lisinopril [Prinivil] 10 mg PO DAILY #30 tab 09/13/19 Tamsulosin HCl [Flomax] 0.4 mg PO DAILY@1730 #30 cap 09/13/19 Cefdinir [Omnicef [equiv]] 300 mg PO Q12H #14 cap 03/01/20 Lactobacillus Acidophilus [Acidophilus] 1 tab PO DAILY #30 tab 03/01/20 Following Prescriptions Were Given to Patient: Lactobacillus Acidophilus [Acidophilus] 1 tab PO DAILY #30 tab Transmission Status: Received by [address] Cefdinir [Omnicef [equiv]] 300 mg PO Q12H #14 cap Transmission Status: Received by [address] Primary Care Physician: Victor Manuel Olvera MD [Primary Care Provider] - Please follow up with your Primary Care Physician in: in 1 week Please Follow Up With: Victor Manuel Olvera MD Please Follow Up With: Reinaldo Petty MD Disposition: Home Minutes spent on discharge:: 35 Patient Condition:: Stable Medical Necessity - Tobacco Use Smoking Status: Never smoker Meaningful Use Info Meaningful Use Diagnoses (Choose all that apply): None applicable Inpatient E&M: 60789 [facility] Hosp
--- NOTE | 2020-03-04 16:17 | CASEMGMT ---
ASHLYN ANGUIANO Discharge Follow-Up Phone Call. Kristen: 12 Strata: 3 Discharge Date: 03/01/20 Adm Dx: SIRS, unclear etiology Call to pt to inquire about how he has been doing since being discharged from the hospital. Pt states, Just fine. He states he is aware of the appt with his PCP and he is awaiting a referral to Dr Petty's office from his PCP to schedule an appt. He states he was able to last picker all of his prescriptions and denies having any questions about them or his other medications. He denies having questions about the discharge instructions and denies having any concerns/needs. ASHLYN ANGUIANO thanked pt for choosing [facility]. Musa GRANADO RN, CM
== END 2020-03-01 12:05 | disposition home or self-care (01) | DRG 871 ==
LOC: ED 02-28 00:56 → PCU 02-28 04:12
PROVIDERS: Internal Medicine; Admitting Provider Family Medicine; Emergency Provider Emergency Medicine; PCP Family Medicine; Visit Provider Internal Medicine
DX: A41.50 Gram-negative sepsis, unspecified (principal); G93.41 Metabolic encephalopathy; N17.0 Acute kidney failure with tubular necrosis; N30.00 Acute cystitis without hematuria; B96.20 Unspecified Escherichia coli [E. coli] as the cause of diseases classified elsewhere; N17.9 Acute kidney failure, unspecified; R65.20 Severe sepsis without septic shock; R33.8 Other retention of urine; E87.6 Hypokalemia; E83.42 Hypomagnesemia; I12.9 Hypertensive chronic kidney disease with stage 1 through stage 4 chronic kidney disease, or unspecified chronic kidney disease; N18.3 Chronic kidney disease, stage 3 (moderate); E11.22 Type 2 diabetes mellitus with diabetic chronic kidney disease; E11.40 Type 2 diabetes mellitus with diabetic neuropathy, unspecified; E11.51 Type 2 diabetes mellitus with diabetic peripheral angiopathy without gangrene; E78.5 Hyperlipidemia, unspecified; M19.90 Unspecified osteoarthritis, unspecified site; N40.0 Benign prostatic hyperplasia without lower urinary tract symptoms; E66.01 Morbid (severe) obesity due to excess calories; Z68.34 Body mass index [BMI] 34.0-34.9, adult; Z79.4 Long term (current) use of insulin; Z79.02 Long term (current) use of antithrombotics/antiplatelets; Z79.899 Other long term (current) drug therapy
CPT/HCPCS: 36415; 70110; 70450; 70551; 71045; 71275; 74176; 76770; 80048; 80053; 80307; 80320; 81001; 82140; 82728; 82962; 83605; 83615; 83735; 84100; 84145; 84439; 84443; 84484; 85025; 85379; 86140; 87040; 87077; 87086; 87186; 87633; 87635; 93005; 94799; 99285; J7030; J7040; Q9967; A4216; G0480; J0696; J2405; U0003

== ENCOUNTER 2020-10-01 08:00 | Outpatient (RCR) | payer MEDICARE, SELFPAY ==
[2020-02-28 04:45] VITALS: BMI 34.8
[2020-10-01] MEDS: COVID-19 VACC, MRNA(PFIZER)/PF 30 MCG/0.3 ML SYRINGE IM (12:57)
== END 2020-12-24 23:59 ==
LOC: IMMUN 08:00
PROVIDERS: PCP Family Medicine; Visit Provider Family Medicine
DX: Z23 Encounter for immunization (principal)
CPT/HCPCS: 0001A; 91300

== ENCOUNTER → 2021-01-07 07:04 | Outpatient (CLI) | payer MEDICARE, SELFPAY ==
[2021-01-01 12:48] VITALS: BMI 32.6
--- NOTE | 2021-01-07 07:08 | CT_ITS ---
INDICATION: LUNG NODULES, COLON CANCER EXAMINATION: CT Chest W/ Contrast Injection TECHNIQUE: Helically acquired images were obtained of the chest following administration of IV contrast. A radiation dose optimization technique was used for this scan. 3D postprocessing images including MIPS were reviewed. IV Contrast dosage and agent: IV 100mL Isovue-300 COMPARISON: CTA 02/28/2020. FINDINGS: Lungs: Scattered nonspecific areas of fine and coarse reticular markings, mostly in the right lung. 3 mm pulmonary nodule in the lingula (image 71, series 4). Mediastinum: The cardiomediastinal silhouette is not enlarged. No mediastinal, hilar or axillary adenopathy. Mild aortic arch and coronary artery calcifications. No obvious filling defect seen within the visualized pulmonary arteries. Pleura: Unremarkable Bones/Soft tissues: No suspicious osseous or soft tissue lesions Upper abdomen: Cholelithiasis. CT/Chest WITH Contrast IMPRESSION: 3 mm pulmonary nodule in the lingula. This is difficult to compare to most recent prior. Recommend close attention on follow-up imaging. Scattered nonspecific areas of fine and coarse reticular markings, mostly in the right lung. Electronically Signed: Gigi Arciniega MD at 19:53 EDT Tel , Service support ,
== END ==
PROVIDERS: PCP Family Medicine; Visit Provider Internal Medicine Hematology & Oncology
DX: C18.9 Malignant neoplasm of colon, unspecified (principal); C77.9 Secondary and unspecified malignant neoplasm of lymph node, unspecified
CPT/HCPCS: 71260; Q9967

== ENCOUNTER → 2021-02-18 18:35 | Outpatient (CLI) | payer MEDICARE, SELFPAY ==
[2021-01-30 10:16] VITALS: BMI 32.8
--- NOTE | 2021-02-18 18:40 | CT_ITS ---
EXAM: CT ABDOMEN AND PELVIS WITH INTRAVENOUS CONTRAST CLINICAL INDICATION: Elevated CEA, elevated LFTs in colon ca -- Please read STAT TECHNIQUE: Helically acquired images were obtained of the abdomen and pelvis with intravenous contrast. This CT exam was performed using one or more of the following dose reduction techniques: automated exposure control, adjustment of the mA and/or kV according to patient size, and/or use of iterative reconstruction technique. [place] report generation technology utilized. CONTRAST: Oral and amp; IV Readi-CAT and amp; 100mL Isovue-370 COMPARISON: 02/29/2020 FINDINGS: LOWER THORAX: Limited views of the lower chest show scarring in the lung bases, stable. Findings are worse on the right. No cardiomegaly. No significant pericardial effusion. ABDOMEN: LIVER: There is hepatomegaly. Probable fatty infiltration. No focal liver masses. GALLBLADDER AND BILE DUCTS: Cholelithiasis. This is stable. No gallbladder distention or wall edema. No intra- or extrahepatic biliary ductal dilation. PANCREAS: Unremarkable. No focal cystic or solid mass. SPLEEN: Unremarkable. Normal size without focal cystic or solid mass. ADRENALS: Unremarkable. No nodules. KIDNEYS AND URETERS: Unremarkable. Normal renal size and position. No hydronephrosis. STOMACH AND BOWEL: Unremarkable. No stomach or bowel distention. No focal inflammatory change. Moderate fecal retention. PELVIS: APPENDIX: No evidence of acute appendicitis. BLADDER: Unremarkable. REPRODUCTIVE: Unremarkable as visualized. No mass. ABDOMEN and PELVIS: INTRAPERITONEAL SPACE: Unremarkable. No ascites or other fluid collection. No free air. BONES/JOINTS: Unremarkable. No suspicious lytic or blastic abnormality. SOFT TISSUES: Unremarkable. No discrete abdominal or pelvic wall hernia. VASCULATURE: Unremarkable. Abdominal aorta is non-dilated. LYMPH NODES: Unremarkable. No enlarged lymph nodes. CT/Abdomen/Pelvis WITH Contrast IMPRESSION: No definite acute abnormalities. Electronically Signed: Franky Kay MD at 20:46 EDT , Service support ,
== END ==
PROVIDERS: PCP Family Medicine; Referring Provider Nurse Practitioner Family; Visit Provider Nurse Practitioner Family
DX: C18.9 Malignant neoplasm of colon, unspecified (principal)
CPT/HCPCS: 74177; Q9967

== ENCOUNTER → 2021-03-12 18:14 | Outpatient (CLI) | payer MEDICARE, SELFPAY ==
--- NOTE | 2021-03-12 18:17 | RAD_ITS ---
EXAM: XR CHEST, 2 VIEWS : 1960 CLINICAL INDICATION: left sided rib pain TECHNIQUE: Frontal and lateral views of the chest. This report was created using [employer] report generation technology. COMPARISON: 02/27/2020 FINDINGS: LUNGS AND PLEURAL SPACES: Unremarkable. No consolidation or edema. No pneumothorax. No effusion. HEART: Unremarkable. Cardiac silhouette not enlarged. MEDIASTINUM: Central airways and mediastinal contour are unremarkable. BONES/JOINTS: Unremarkable. SOFT TISSUES: Unremarkable. RAD/Chest PA and Lateral IMPRESSION: No radiographic evidence of acute cardiopulmonary disease. at 0328 Reported and signed by: Ayad Blancas MD Electronically Signed: Ayad Blancas MD at 3:27 EDT Tel , Service support ,
== END ==
PROVIDERS: PCP Family Medicine; Visit Provider Nurse Practitioner Family
DX: R07.81 Pleurodynia (principal)
CPT/HCPCS: 71046

== ENCOUNTER 2021-07-31 08:03 | Outpatient (CLI) | payer MEDICARE, SELFPAY ==
--- NOTE | 2021-07-31 08:07 | CT_ITS ---
STUDY: CT CHEST, ABDOMEN T PELVIS WITH CONTRAST REASON FOR EXAM: Male, 60 years old. COLON CA, RISING CEA, AND LEFT LUNG NODULE RADIATION DOSAGE (If Supplied By Facility): CTDIvol = ( 18.26 ) mGy, DLP = ( 1730 ) mGycm TECHNIQUE: Transaxial imaging was performed following intravenous administration of IV 100mL Isovue-370. Individualized dose optimization techniques were used for this CT. COMPARISON: Comparison is made with prior examination dated 01/07/2021. FINDINGS: CHEST Stable scattered nonspecific areas of reticular scarring mostly in the right lung. In the right mid lung, there is a 9.3 mm noncalcified nodule. This is increased in size as compared to prior study. Stable 3 mm noncalcified nodule in the lingular segment of the left upper lobe. There is no demonstrated pleural abnormality. There are calcifications of the coronary arteries. Normal mediastinum. Normal hilar regions. Normal unenhanced pulmonary arteries. Normal aorta arch and descending thoracic aorta. There are multi-level degenerative changes of the thoracic spine. ABDOMEN Normal liver. Mildly distended gallbladder with multiple small stones in the region of the neck of the gallbladder. Normal spleen. Normal pancreas. Normal bilateral adrenal glands. Normal right kidney. Normal left kidney. Normal visualized stomach. Normal small intestine. Normal colon. The appendix is visualized and appears normal. There is scattered atherosclerotic calcification of the abdominal aorta, without a demonstrated aneurysm. Normal inferior vena cava. Normal retroperitoneum. PELVIS Normal urinary bladder. Normal visualized small intestine. Normal visualized colon. There is no pelvic fluid. There is no pelvic lymphadenopathy or mass lesion. There is diffuse atherosclerotic calcification of the pelvic arteries. Normal abdominal wall. There are mild degenerative changes of the visualized lumbar spine. CT/CT Chest, Abd, Pel w/Contrast IMPRESSION: Stable scarring in the lungs with evidence of a 9.3 mm noncalcified nodule in the right mid lung. Stable 3 mm noncalcified nodule in the lingular segment of the left upper lobe. Stable cholelithiasis. Electronically Signed: Dexter Vela MD at 9:16 EST , Service support ,
== END 2021-07-31 23:59 | disposition short-term general hospital (02) ==
LOC: CT 08:06
PROVIDERS: PCP Family Medicine; Referring Provider Internal Medicine Hematology & Oncology; Visit Provider Internal Medicine Hematology & Oncology
DX: C18.9 Malignant neoplasm of colon, unspecified (principal); R91.1 Solitary pulmonary nodule
CPT/HCPCS: 71260; 74177; J7040; Q9967; A4216

== ENCOUNTER 2021-08-06 08:10 | Outpatient (CLI) | payer MEDICARE, SELFPAY ==
--- NOTE | 2021-08-06 08:20 | CT_ITS ---
STUDY: CT CHEST WITHOUT CONTRAST REASON FOR EXAM: Male, 61 years old. RIGHT LUNG NODULE RADIATION DOSAGE (If Supplied By Facility): CTDIvol = ( 28.46 ) mGy, DLP = ( 763.66 ) mGycm TECHNIQUE: Transaxial imaging was performed without the administration of intravenous contrast material. Individualized dose optimization techniques were used for this CT. COMPARISON: Comparison is made with prior study dated 07/31/2021. FINDINGS: The questionable nodular density in the right mid lung represents superimposition of vascular structure. No suspicious nodule is seen. There is no demonstrated pleural abnormality. CT/Biopsy/Inj or Needle Placement IMPRESSION: No suspicious nodule is seen on the repeat CT scan of the thorax. The biopsy was not performed. Electronically Signed: Dexter Vela MD at 9:56 EST , Service support ,
[2021-08-06 08:29] LABS: Absolute Lymphocyte Count 2.55 X10^3/uL (0.83-4.51); Basophil# 0.05 X10^3/uL; Basophil% 0.5 % (0-1); Eosinophil# 0.16 X10^3/uL; Eosinophils% 1.7 % (0-5); Hematocrit 36.4 % (40-54); Hemoglobin 12.7 g/dL (13.0-16.5); Lymphocyte # 2.55 X10^3/ul (0.83-4.51); Lymphocyte % 26.8 % (19-41); Mean Corp Hgb Conc 34.9 g/dL (32-36); Mean Corpuscular Hgb 31.9 pg (27.0-32.0); Mean Corpuscular Volume 91.5 fL (80-94); Mean Platelet Vol. 9.7 fl (6.2-12.0); Monocyte# 0.73 X10^3/uL; Monocyte% 7.7 % (0-10); NRBC Flagged by Analyzer 0 % (0-5); Neutrophil # 5.99 X10^3/uL (2.7-7.7); Neutrophil % 63.1 % (47-70); Platelet Count 233 K/mm3 (150-450); RBC Distribution Width CV 12.2 % (11.6-14.6); RBC Distribution Width SD 40.8 fl (35.1-43.9); Red Blood Count 3.98 M/mm3 (4.6-6.2); White Blood Count 9.5 K/mm3 (4.4-11.0)
[2021-08-06 08:33] VITALS: BP 148/69; PULSE 84; RESP 18; TEMP 36.8; O2SAT 96; BMI 33.7
[2021-08-06 08:40] LABS: International Normalized Ratio 1.1; Partial Thromboplast Time 29.1 Seconds (24.1-36.2)
--- NOTE | 2021-08-06 09:12 | NURSING ---
Images taken. No nodule visible to biopsy. Dr. Vela discussed change in plan for today and follow up with patient.
== END 2021-08-06 23:59 | disposition home or self-care (01) ==
PROVIDERS: PCP Family Medicine; Referring Provider Internal Medicine Hematology & Oncology; Visit Provider Internal Medicine Hematology & Oncology
DX: Z01.812 Encounter for preprocedural laboratory examination (principal); C77.9 Secondary and unspecified malignant neoplasm of lymph node, unspecified; C18.2 Malignant neoplasm of ascending colon; E10.40 Type 1 diabetes mellitus with diabetic neuropathy, unspecified; Z79.4 Long term (current) use of insulin; R91.1 Solitary pulmonary nodule; D63.0 Anemia in neoplastic disease; I10 Essential (primary) hypertension; Z79.82 Long term (current) use of aspirin; Z79.899 Other long term (current) drug therapy; Z86.16 Personal history of COVID-19
CPT/HCPCS: 36415; 77012; 85025; 85610; 85730; J7040; A4216

== ENCOUNTER 2022-01-29 08:17 | Outpatient (CLI) | payer MEDICARE, SELFPAY ==
--- NOTE | 2022-01-29 08:20 | CT_ITS ---
STUDY: CT CHEST, ABDOMEN T PELVIS WITH CONTRAST REASON FOR EXAM: Male, 61 years old. h/o colon cancer; surveillance scans RADIATION DOSAGE (If Supplied By Facility): CTDIvol = ( 20.14 ) mGy, DLP = ( 2324.28 ) mGycm TECHNIQUE: Transaxial imaging was performed following intravenous administration of IV 100mL Isovue-370. Multiplanar coronal and sagittal images were reformatted. Individualized dose optimization techniques were used for this CT. COMPARISON: Comparison is made with prior study dated 07/31/2021. FINDINGS: CHEST Stable scattered nonspecific focal areas of reticular scarring more prominent in the right lung. The previously seen nodule in the right mid lung in the area of scarring unchanged. Stable 3 mm noncalcified nodule in the lingular segment of the left upper lobe. There is no demonstrated pleural abnormality. There are calcifications of the coronary arteries. Normal mediastinum. Normal hilar regions. Normal unenhanced pulmonary arteries. Normal aorta arch and descending thoracic aorta. There are multi-level degenerative changes of the thoracic spine. ABDOMEN Normal liver. There are multiple small gallstones. Normal spleen. Normal pancreas. Normal bilateral adrenal glands. Normal right kidney. Normal left kidney. Normal visualized stomach. Normal small intestine. Normal colon. The appendix is visualized and appears normal. There is scattered atherosclerotic calcification of the abdominal aorta, without a demonstrated aneurysm. Normal inferior vena cava. There is borderline retroperitoneal lymphadenopathy with enlarged nodes no greater than 10mm in the short axis diameter. Normal abdominal wall. There are mild degenerative changes of the visualized lumbar spine. PELVIS Normal urinary bladder. Normal visualized small intestine. Normal visualized colon. There is no pelvic fluid. There is no pelvic lymphadenopathy or mass lesion. There is diffuse atherosclerotic calcification of the pelvic arteries. CT/CT Chest, Abd, Pel w/Contrast IMPRESSION: Stable examination. Electronically Signed: Dexter Vela MD at 10:05 EDT ,
[2022-01-29 14:11] LABS: CREATININE FINGERSTICK 1.2 mg/dL (0.70-1.30); EGFR FINGERSTICK > 60.0000 mL/min (>60)
== END 2022-01-29 23:59 | disposition home or self-care (01) ==
LOC: CT 08:19
PROVIDERS: Referring Provider Nurse Practitioner Family; Visit Provider Nurse Practitioner Family
DX: C18.2 Malignant neoplasm of ascending colon (principal); C77.9 Secondary and unspecified malignant neoplasm of lymph node, unspecified; I10 Essential (primary) hypertension; Z85.038 Personal history of other malignant neoplasm of large intestine
CPT/HCPCS: 71260; 74177; 96360; J7040; Q9967; A4216

== ENCOUNTER 2022-02-27 07:37 | Day surgery (SDC) | payer MEDICARE, SELFPAY ==
[2022-02-27] MEDS: Lactated Ringers 1,000 ML 15 ML IV (08:13)
[2022-02-27 08:14] VITALS: BP 147/65; PULSE 69; RESP 18; TEMP 36.2; O2SAT 99; BMI 34.6
--- NOTE | 2022-02-27 08:36 | HP.PCM_ITS ---
History and Physical Date of Admission: 02/27/22 Intake Vital Signs ? 01/02/2212:50 Height 6 ft 3 in Weight: 278 lb 4 oz BMI 34.7 BP 140/68 H Blood Pressure Location Rt brachial Position Sitting Respiration 18 Pulse 78 Pulse Source Monitor Temp 97.5 F L Temp Source Temporal Pulse Oximetry (%) 98 Oxygen Delivery Method room air Intake Visit Reasons:?CSCOPE Chief Complaint: colonoscopy consult [facility] Required: No Is patient in pain?: No Allergies No Known Allergies Allergy (Verified 01/01/22 12:52) Medications Cilostazol 50 mg PO DAILY neuropathy 06/25/15 [History Confirmed 01/01/22] aspirin 81 mg chewable tablet 81 mg PO DAILY@0800 heart health 06/25/15 [History Confirmed 01/01/22] insulin aspart U-100 100 unit/mL (3 mL) subcutaneous pen (Novolog Flexpen U-100 Insulin aspart) 13 units subcut TIDCM diabetes 06/25/15 [History Confirmed 01/01/22] insulin glargine 100 unit/mL (3 mL) subcutaneous pen (Lantus Solostar U-100 Insulin) 77 units subcut DAILY DM 06/25/15 [History Confirmed 01/01/22] nifedipine 90 mg tablet,extended release 90 mg PO DAILY HTN 06/25/15 [History Confirmed 01/01/22] simvastatin 40 mg tablet 40 mg PO QHS cholesterol 06/25/15 [History Confirmed 01/01/22] gabapentin 300 mg capsule 300 mg PO TID nerve pain 07/15/15 [History Confirmed 01/01/22] omega-3 fatty acids-fish oil 300 mg-1,000 mg capsule 1 ea PO BID supplement 07/15/15 [History Confirmed 01/01/22] tramadol 50 mg tablet 50 - 100 mg PO Q6H PRN PRN Pain 07/15/15 [History Confirmed 01/01/22] iron aspgl and ps cmplx 150 mg-vit C 50 mg-succinic acid 50 mg capsule (Ferrex) 150 mg PO DAILYCM #30 caps 08/01/15 [Rx Confirmed 01/01/22] hydrochlorothiazide 25 mg tablet 25 mg PO DAILY diuretic ##0 09/13/19 [Rx Confirmed 01/01/22] lisinopril 10 mg tablet 10 mg PO DAILY #30 tabs 09/13/19 [Rx Confirmed 01/01/22] meloxicam 15 mg tablet 15 mg PO DAILY 01/14/21 [History Confirmed 01/01/22] PFSH Medical History? ANDRE (acute kidney injury) Anemia CINV (chemotherapy-induced nausea and vomiting) Colon cancer Colon cancer COVID-19 Diabetes mellitus Diabetic neuropathy Diarrhea due to drug Encounter for education History of colon cancer Hyperglycemia Hypertension Nodule of left lung Pneumonia Regional lymph node metastasis present Respiratory failure Rib pain on left side Sepsis Stuttering priapism Vitreous hemorrhage due to type 1 diabetes mellitus Surgical History? History of right hemicolectomy Family History? Father Pancreas cancerMother CVA (cerebral vascular accident) Social History? Smoking Status:? Never smoker second hand exposure:? No alcohol intake:? never substance use type:? does not use willian/rastafarian:? Latter-Day seatbelt use:? always do you feel safe at home:? Yes HPI HPI HPI: ELEAZAR RODRIGUEZ, is a 61 M who presents to the office today for colonoscopy.? The patient had right hemicolectomy last year for colon cancer.? He is not having any abdominal pain or blood in the stool. ROS General General: Yes colon cancer; No weight change, appetite, fatigue, breast cancer or weakness HEENT HEENT: Yes eye injury; No difficulty swallowing, eye surgery, swollen glands or hoarseness Endo Endocrine: Yes diabetes mellitus; No thyroid disease, thyroid cancer, Hair loss, heat intolerance or cold intolerance Skin Skin: No rash or changing moles Breast Breast: No left breast lump, right breast lump, nipple discharge, breast pain, abnormal mammogram, abnormal US or breast enlargement Musc Musculoskeletal: Yes arthritis; No back problems, rheumatoid arthritis, gout or joint pain Cardio Cardiovascular: Yes high blood pressure; No murmur, pacemaker, heart disease, atrial fibrillation, heart attack, heart stent, palpitations, shortness of breat with exertion or chest pain Psych Psychiatric: No depression, anxiety or hearing voices Resp Respiratory: No shortness of breath, No sleep apnea, No cough, No COPD, No asthma, No emphysema and No wheezing Gastro Gastrointestinal: No abdominal pain, No nausea or vomiting, No diarrhea, No constipation, No blood in stool, No acid reflux, No hemorrhoids, No ulcers, No gallbladder problem and No black,tarry stools [place] Hematologic: No blood thinners, No blood disorders, No bleeding, Yes anemia and No blood clots Neuro Neurologic: No system reviewed and no additional complaints, except as documented, No as per HPI, No abnormal gait, No abnormal hearing, No abnormal movements, No abnormal speech, No behavioral changes, No burning sensations, No confusion, No convulsions, No disequilibrium, No dizziness, No localized weakness, No frequent falls, No headache(s), No lack of coordination, No loss of vision, No memory loss, No numbness, No other visual disturbances, No radicular pain, No restless legs, No sensory deficit, No syncope, No tingling, No tremor(s), No weakness and No other Exam Const General: cooperative Orientation: alert and oriented x3 HENMT Head: normal to inspection Neck Neck: normal visual inspection and full ROM Chest Chest palpation & inspection: normal inspection of the chest Resp Effort & Inspection: normal respiratory effort Auscultation: clear to auscultation bilaterally Cardio Rate: regular rate Rhythm: regular rhythm GI Inspection: non-distended Palpation: soft and nontender Skin General: no rashes or lesions noted Neuro General: patient alert and patient oriented x3 Extrem General: full ROM Psych Appearance: grossly normal Mental Status: mental status grossly normal Assessment and Plan Assessment and Plan (1) History of colon cancer: ?Status:?Acute ?Plan: Patient has a history of colon cancer and underwent a right hemicolectomy about 1 year ago.? He is here for surveillance colonoscopy. I explained endoscopy in detail to the patient.? I explained the risks including but not limited to stroke or heart attack with anesthesia, perforation of the GI tract, bleeding, infection.? I explained that any of these could necessitate further emergency surgery.? The patient understands and all questions were a nswered sufficiently.? The patient wishes to proceed with procedure. Marko Stover MD Pager: [facility] [address] [place] [address] [address] [place] [id number] Office: I have re-examined the patient. There are no clinical changes since date of exam.
[2022-02-27 08:40] LABS: Bedside Glucose 227 mg/dL (74-106)
--- NOTE | 2022-02-27 09:09 | OP.CCLET_ITS ---
02/27/2022 Gamaliel Hein, Do Re : Colonoscopy procedure for Isidro Markham Dear Dr. Hein This procedure was performed on Sunday, February 27, 2022. My impressions and recommendations are as follows: Impressions : - Preparation of the colon was poor. - No specimens collected. Recommendations : - Discharge patient to home. - Resume previous diet. - Continue present medications. - Repeat colonoscopy in 2 weeks because the bowel preparation was poor. My findings are described in the full procedure note, which is enclosed. If I can be of further assistance, please feel free to contact me at Doctor phone number(s): , Work: . Sincerely, Marko Stover MD 02/27/2022 9:09:33 AM This report has been signed electronically.
--- NOTE | 2022-02-27 09:09 | OP.COLON_ITS ---
Patient Name: Isidro Markham Procedure Date: 02/27/2022 8:44 AM Date of : 1960 Age: 61 Procedure: Colonoscopy Indications: High risk colon cancer surveillance: Personal history of colon cancer Providers: Marko Stover MD Medicines: Monitored Anesthesia Care Patient Profile: This is a 61 year old male. Refer to note in patient chart for documentation of history and physical. Last Colonoscopy: 1 year ago. Complications: No immediate complications. Procedure: Pre-Anesthesia Assessment: - Prior to the procedure, a History and Physical was performed, and patient medications and allergies were reviewed. The patient's tolerance of previous anesthesia was also reviewed. The risks and benefits of the procedure and the sedation options and risks were discussed with the patient. All questions were answered, and informed consent was obtained. Prior Anticoagulants: The patient has taken no previous anticoagulant or antiplatelet agents. After reviewing the risks and benefits, the patient was deemed in satisfactory condition to undergo the procedure. After I obtained informed consent, the scope was passed under direct vision. Throughout the procedure, the patient's blood pressure, pulse, and oxygen saturations were monitored continuously. The Colonoscope was introduced through the anus with the intention of advancing to the cecum. The scope was advanced to the ascending colon before the procedure was aborted. Medications were not given. The colonoscopy was performed without difficulty. The patient tolerated the procedure well. The quality of the bowel preparation was poor. Scope In: 8:53:01 AM Scope Out: 9:02:44 AM Total Procedure Duration Time 0 hours 9 minutes 43 seconds Findings: The procedure was performed with difficulty due to inadequate bowel prep. Impression: - Preparation of the colon was poor. - No specimens collected. Recommendation: - Discharge patient to home. - Resume previous diet. - Continue present medications. - Repeat colonoscopy in 2 weeks because the bowel preparation was poor. Procedure Code(s): --- Professional --- 19198, 53, Colonoscopy, flexible; diagnostic, including collection of specimen(s) by brushing or washing, when performed (separate procedure) Diagnosis Code(s): --- Professional --- Z85.038, Personal history of other malignant neoplasm of large intestine CPT copyright 2017 [employer]. All rights reserved. The codes documented in this report are preliminary and upon wastewater engineer review may be revised to meet current compliance requirements. Marko Stover MD 02/27/2022 9:09:33 AM This report has been signed electronically. Number of Addenda: 0 Note Initiated On: 02/27/2022 8:44 AM
[2022-02-27 09:10] VITALS: BP 132/76; BP 147/65; PULSE 64; RESP 16; TEMP 36.1; O2SAT 98
[2022-02-27 09:15] VITALS: BP 143/77; BP 147/65; PULSE 64; RESP 16; O2SAT 95
[2022-02-27 09:20] VITALS: BP 142/77; BP 147/65; PULSE 66; RESP 16; O2SAT 94
[2022-02-27 09:25] VITALS: BP 147/65; BP 150/78; PULSE 64; RESP 16; TEMP 36.3; O2SAT 99
[2022-02-27 09:56] VITALS: BP 147/65
== END 2022-02-27 09:58 | disposition home or self-care (01) ==
LOC: EN 07:40 → AC 07:46
PROVIDERS: PCP Family Medicine; Referring Provider Family Medicine; Visit Provider Surgery
PROC: 0DJD8ZZ Inspection of Lower Intestinal Tract, Via Natural or Artificial Opening Endoscopic (ICD-10-PCS; CPT 45378; principal; 2022-02-27 08:40)
DX: Z12.11 Encounter for screening for malignant neoplasm of colon (principal); E11.40 Type 2 diabetes mellitus with diabetic neuropathy, unspecified; Z79.4 Long term (current) use of insulin; I10 Essential (primary) hypertension; Z79.82 Long term (current) use of aspirin; Z79.1 Long term (current) use of non-steroidal anti-inflammatories (NSAID); Z79.899 Other long term (current) drug therapy; Z85.038 Personal history of other malignant neoplasm of large intestine; Z90.49 Acquired absence of other specified parts of digestive tract
CPT/HCPCS: G0105; 82962; J7120; J2405

== ENCOUNTER 2022-03-17 07:43 | Day surgery (SDC) | payer MEDICARE, SELFPAY ==
[2022-03-17] MEDS: Lactated Ringers 1,000 ML 15 ML IV (08:05)
[2022-03-17 08:25] VITALS: BP 140/68; PULSE 71; RESP 16; TEMP 36.3; O2SAT 100; BMI 33.6
[2022-03-17 08:55] LABS: Bedside Glucose 155 mg/dL (74-106)
--- NOTE | 2022-03-17 09:01 | HP.PCM_ITS ---
History and Physical Date of Admission: 03/17/22 Intake Vital Signs ?? 01/02/2212:50 Height? 6 ft 3 in Weight:? 278 lb 4 oz BMI? 34.7 BP? 140/68 H Blood Pressure Location? Rt brachial Position? Sitting Respiration? 18 Pulse? 78 Pulse Source? Monitor Temp? 97.5 F L Temp Source? Temporal Pulse Oximetry (%)? 98 Oxygen Delivery Method? room air Intake Visit Reasons:?CSCOPE Chief Complaint: colonoscopy consult Medical Office Coordinator Required: No Is patient in pain?: No Allergies No Known Allergies Allergy (Verified 01/01/22 12:52) Medications Cilostazol 50 mg PO DAILY neuropathy 06/25/15 [History Confirmed 01/01/22] aspirin 81 mg chewable tablet 81 mg PO DAILY@0800 heart health 06/25/15 [History Confirmed 01/01/22] insulin aspart U-100 100 unit/mL (3 mL) subcutaneous pen (Novolog Flexpen U-100 Insulin aspart) 13 units subcut TIDCM diabetes 06/25/15 [History Confirmed 01/01/22] insulin glargine 100 unit/mL (3 mL) subcutaneous pen (Lantus Solostar U-100 Insulin) 77 units subcut DAILY DM 06/25/15 [History Confirmed 01/01/22] nifedipine 90 mg tablet,extended release 90 mg PO DAILY HTN 06/25/15 [History Confirmed 01/01/22] simvastatin 40 mg tablet 40 mg PO QHS cholesterol 06/25/15 [History Confirmed 01/01/22] gabapentin 300 mg capsule 300 mg PO TID nerve pain 07/15/15 [History Confirmed 01/01/22] omega-3 fatty acids-fish oil 300 mg-1,000 mg capsule 1 ea PO BID supplement 07/15/15 [History Confirmed 01/01/22] tramadol 50 mg tablet 50 - 100 mg PO Q6H PRN PRN Pain 07/15/15 [History Confirmed 01/01/22] iron aspgl and ps cmplx 150 mg-vit C 50 mg-succinic acid 50 mg capsule (Ferrex) 150 mg PO DAILYCM #30 caps 08/01/15 [Rx Confirmed 01/01/22] hydrochlorothiazide 25 mg tablet 25 mg PO DAILY diuretic ##0 09/13/19 [Rx Confirmed 01/01/22] lisinopril 10 mg tablet 10 mg PO DAILY #30 tabs 09/13/19 [Rx Confirmed 01/01/22] meloxicam 15 mg tablet 15 mg PO DAILY 01/14/21 [History Confirmed 01/01/22] PFSH Medical History? ANDRE (acute kidney injury) Anemia CINV (chemotherapy-induced nausea and vomiting) Colon cancer Colon cancer COVID-19 Diabetes mellitus Diabetic neuropathy Diarrhea due to drug Encounter for education History of colon cancer Hyperglycemia Hypertension Nodule of left lung Pneumonia Regional lymph node metastasis present Respiratory failure Rib pain on left side Sepsis Stuttering priapism Vitreous hemorrhage due to type 1 diabetes mellitus Surgical History? History of right hemicolectomy Family History? Father Pancreas cancerMother CVA (cerebral vascular accident) Social History? Smoking Status:? Never smoker second hand exposure:? No alcohol intake:? never substance use type:? does not use willian/mosque:? Je[employer] seatbelt use:? always do you feel safe at home:? Yes HPI HPI HPI: ELEAZAR RODRIGUEZ, is a 61 M who presents to the office today for colonoscopy.? The patient had right hemicolectomy last year for colon cancer.? He is not having any abdominal pain or blood in the stool. ROS General General: Yes colon cancer; No weight change, appetite, fatigue, breast cancer or weakness HEENT HEENT: Yes eye injury; No difficulty swallowing, eye surgery, swollen glands or hoarseness Endo Endocrine: Yes diabetes mellitus; No thyroid disease, thyroid cancer, Hair loss, heat intolerance or cold intolerance Skin Skin: No rash or changing moles Breast Breast: No left breast lump, right breast lump, nipple discharge, breast pain, abnormal mammogram, abnormal US or breast enlargement Musc Musculoskeletal: Yes arthritis; No back problems, rheumatoid arthritis, gout or joint pain Cardio Cardiovascular: Yes high blood pressure; No murmur, pacemaker, heart disease, atrial fibrillation, heart attack, heart stent, palpitations, shortness of breat with exertion or chest pain Psych Psychiatric: No depression, anxiety or hearing voices Resp Respiratory: No shortness of breath, No sleep apnea, No cough, No COPD, No asthma, No emphysema and No wheezing Gastro Gastrointestinal: No abdominal pain, No nausea or vomiting, No diarrhea, No constipation, No blood in stool, No acid reflux, No hemorrhoids, No ulcers, No gallbladder problem and No black,tarry stools Chucky Hematologic: No blood thinners, No blood disorders, No bleeding, Yes anemia and No blood clots Neuro Neurologic: No system reviewed and no additional complaints, except as documented, No as per HPI, No abnormal gait, No abnormal hearing, No abnormal movements, No abnormal speech, No behavioral changes, No burning sensations, No confusion, No convulsions, No disequilibrium, No dizziness, No localized weakness, No frequent falls, No headache(s), No lack of coordination, No loss of vision, No memory loss, No numbness, No other visual disturbances, No radicular pain, No restless legs, No sensory deficit, No syncope, No tingling, No tremor(s), No weakness and No other Exam Const General: cooperative Orientation: alert and oriented x3 HENMT Head: normal to inspection Neck Neck: normal visual inspection and full ROM Chest Chest palpation & inspection: normal inspection of the chest Resp Effort & Inspection: normal respiratory effort Auscultation: clear to auscultation bilaterally Cardio Rate: regular rate Rhythm: regular rhythm GI Inspection: non-distended Palpation: soft and nontender Skin General: no rashes or lesions noted Neuro General: patient alert and patient oriented x3 Extrem General: full ROM Psych Appearance: grossly normal Mental Status: mental status grossly normal Assessment and Plan Assessment and Plan (1) History of colon cancer: ?Status:?Acute ?Plan: Patient has a history of colon cancer and underwent a right hemicolectomy about 1 year ago.? He is here for surveillance colonoscopy. I explained endoscopy in detail to the patient.? I explained the risks including but not limited to stroke or heart attack with anesthesia, perforation of the GI tract, bleeding, infection.? I explained that any of these could necessitate further emergency surgery.? The patient understands and all questions were answered sufficiently.? The patient wishes to proceed with procedure. Marko Stover MD Pager: [facility] [address] [place] [address], [address] [place] [address] Office: I have re-examined the patient. There are no clinical changes since date of exam.
--- NOTE | 2022-03-17 09:38 | OP.CCLET_ITS ---
03/17/2022 Mimi Unger [address] [place] [address] Re : Colonoscopy procedure for Isidro Markham Dear Dr. Unegr This procedure was performed on Thursday, March 17, 2022. My impressions and recommendations are as follows: Impressions : - The entire examined colon is normal on direct and retroflexion views. - No specimens collected. Recommendations : - Discharge patient to home. - Resume previous diet. - Continue present medications. - Resume Pletal (cilostazol) at prior dose today. - Repeat colonoscopy in 1 year for surveillance. My findings are described in the full procedure note, which is enclosed. If I can be of further assistance, please feel free to contact me at Doctor phone number(s): , Work: . Sincerely, Marko Stover MD 03/17/2022 9:37:58 AM This report has been signed electronically.
--- NOTE | 2022-03-17 09:38 | OP.COLON_ITS ---
Patient Name: Isidro Markham Procedure Date: 03/17/2022 9:13 AM Date of : 1960 Age: 61 Procedure: Colonoscopy Indications: High risk colon cancer surveillance: Personal history of colon cancer Providers: Marko Stover MD Medicines: Monitored Anesthesia Care Patient Profile: This is a 61 year old male. Refer to note in patient chart for documentation of history and physical. Last Colonoscopy: 1 year ago. Complications: No immediate complications. Procedure: Pre-Anesthesia Assessment: - Prior to the procedure, a History and Physical was performed, and patient medications and allergies were reviewed. The patient's tolerance of previous anesthesia was also reviewed. The risks and benefits of the procedure and the sedation options and risks were discussed with the patient. All questions were answered, and informed consent was obtained. Prior Anticoagulants: The patient has taken anticoagulant medication, last dose was 5 days prior to procedure. After reviewing the risks and benefits, the patient was deemed in satisfactory condition to undergo the procedure. After I obtained informed consent, the scope was passed under direct vision. Throughout the procedure, the patient's blood pressure, pulse, and oxygen saturations were monitored continuously. The colonoscope was introduced through the anus and advanced to the ileocolonic anastomosis. The colonoscopy was performed without difficulty. The patient tolerated the procedure well. The quality of the bowel preparation was good. Scope In: 9:24:21 AM Scope Withdrawal Time 0 hours 4 minutes 18 seconds Scope Out: 9:34:35 AM Total Procedure Duration Time 0 hours 10 minutes 14 seconds Findings: The entire examined colon appeared normal on direct and retroflexion views. Impression: - The entire examined colon is normal on direct and retroflexion views. - No specimens collected. Recommendation: - Discharge patient to home. - Resume previous diet. - Continue present medications. - Resume Pletal (cilostazol) at prior dose today. - Repeat colonoscopy in 1 year for surveillance. Procedure Code(s): --- Professional --- 97575, Colonoscopy, flexible; diagnostic, including collection of specimen(s) by brushing or washing, when performed (separate procedure) Diagnosis Code(s): --- Professional --- Z85.038, Personal history of other malignant neoplasm of large intestine CPT copyright 2017 [employer]. All rights reserved. The codes documented in this report are preliminary and upon it business process architect review may be revised to meet current compliance requirements. Marko Stover MD 03/17/2022 9:37:58 AM This report has been signed electronically. Number of Addenda: 0 Note Initiated On: 03/17/2022 9:13 AM
[2022-03-17 09:39] VITALS: BP 130/51; BP 140/68; PULSE 67; RESP 16; TEMP 36.6; O2SAT 99
[2022-03-17 09:45] VITALS: BP 106/55; BP 140/68; PULSE 67; RESP 16; O2SAT 92
[2022-03-17 09:50] VITALS: BP 136/58; BP 140/68; PULSE 65; RESP 16; O2SAT 98
[2022-03-17 09:54] VITALS: BP 140/68; BP 143/64; PULSE 68; RESP 16; TEMP 36.4; O2SAT 96
[2022-03-17 10:15] LABS: Bedside Glucose 156 mg/dL (74-106)
[2022-03-17 10:18] VITALS: BP 140/68
== END 2022-03-17 10:25 | disposition home or self-care (01) ==
LOC: EN 07:44 → AC 07:45
PROVIDERS: Visit Provider Surgery
PROC: 0DJD8ZZ Inspection of Lower Intestinal Tract, Via Natural or Artificial Opening Endoscopic (ICD-10-PCS; CPT 45378; principal; 2022-03-17 08:55)
DX: Z12.11 Encounter for screening for malignant neoplasm of colon (principal); Z79.4 Long term (current) use of insulin; E11.9 Type 2 diabetes mellitus without complications; Z86.16 Personal history of COVID-19; Z79.82 Long term (current) use of aspirin; Z79.899 Other long term (current) drug therapy; Z85.038 Personal history of other malignant neoplasm of large intestine
CPT/HCPCS: 45378; 82962; J7120; J2405

== ENCOUNTER 2022-03-19 07:14 | Outpatient (CLI) | payer MEDICARE, SELFPAY ==
--- NOTE | 2022-03-19 07:18 | CT_ITS ---
STUDY: CT CHEST, ABDOMEN T PELVIS WITH CONTRAST REASON FOR EXAM: Male, 61 years old. COLON CANCER WITH RISING CEA RADIATION DOSAGE (If Supplied By Facility): CTDIvol = ( 20.46 ) mGy, DLP = ( 2284.41 ) mGycm TECHNIQUE: Transaxial imaging was performed following intravenous administration of IV 100mL Isovue-300. Multiplanar coronal and sagittal images were reformatted. Individualized dose optimization techniques were used for this CT. COMPARISON: Comparison is made with prior study dated 01/29/2022. FINDINGS: CHEST Stable focal area of reticular scarring in the right upper lobe as well as in the superior segment of the right lower lobe. Mild scarring in the lingular segment of the left upper lobe as well as the right middle lobe. There is no demonstrated pleural abnormality. There are calcifications of the coronary arteries. Normal mediastinum. Normal hilar regions. Normal unenhanced pulmonary arteries. There is atherosclerotic calcification of the aortic arch. There are multi-level degenerative changes of the thoracic spine. ABDOMEN There is decreased attenuation of the liver consistent with mild degree of diffuse fatty infiltration of the liver. Steatosis. There are multiple small layering gallstones. Normal spleen. Normal pancreas. Normal bilateral adrenal glands. Normal right kidney. Normal left kidney. Normal visualized stomach. Normal small intestine. The patient is status post right hemicolectomy. There is a 4.1 cm by 3.4 cm x 3.5 cm irregular soft tissue nodular density in the mesenteric fat in the right upper quadrant. Linear densities seen within it. This is seen within the mesenteric fat just anterior to the right kidney. A metastatic deposit should be ruled out. There is scattered atherosclerotic calcification of the abdominal aorta, without a demonstrated aneurysm. Normal inferior vena cava. Normal retroperitoneum. There is a small umbilical hernia containing fat. There are diffuse degenerative changes of the visualized lumbar spine. PELVIS Normal urinary bladder. There is diffuse atherosclerotic calcification of the pelvic arteries. CT/CT Chest, Abd, Pel w/Contrast IMPRESSION: Status post right hemicolectomy. 4.1 cm x 3.4 cm x 3.5 cm irregular soft tissue density in the mesenteric fat in the right mid abdomen just anterior to the right kidney. A metastatic deposit should be ruled out. Multiple small gallstones. Electronically Signed: Dexter Vela MD at 13:40 EDT ,
== END 2022-03-19 23:59 | disposition home or self-care (01) ==
LOC: CT 07:15
PROVIDERS: Referring Provider Internal Medicine Hematology & Oncology; Visit Provider Internal Medicine Hematology & Oncology
DX: C18.2 Malignant neoplasm of ascending colon (principal)
CPT/HCPCS: 71260; 74177; J7040; Q9967; A4216

== ENCOUNTER → 2022-07-17 | Outpatient (CLI) | payer MEDICARE, SELFPAY ==
--- NOTE | 2022-07-17 06:35 | CT_ITS ---
STUDY: CT CHEST, ABDOMEN T PELVIS WITH CONTRAST REASON FOR EXAM: Male, 61 years old. Colon carcinoma, follow-up RADIATION DOSAGE (If Supplied By Facility): CTDIvol = ( 21.91 ) mGy, DLP = ( 2455.58 ) mGycm TECHNIQUE: Transaxial imaging was performed following intravenous administration of Oral and amp; IV Readi-CAT and amp; 100mL Isovue-300. Individualized dose optimization techniques were used for this CT. COMPARISON: 03/19/2022 FINDINGS: CHEST Lungs are expanded with stable scattered reticular scarring in both lung marks more prominent in the right lung than the left. No organized infiltrate, effusion, or new suspicious noncalcified mass or nodule. No significant interval change since the previous study. Normal-appearing thyroid gland. Normal heart and pericardium. There are calcifications of the coronary arteries. Normal mediastinum. Normal hilar regions. Normal unenhanced pulmonary arteries. Normal aorta arch and descending thoracic aorta. Normal osseous structures. ABDOMEN Normal liver. There are multiple gallstones. Normal spleen. Normal pancreas. Normal bilateral adrenal glands. Normal right kidney. Normal left kidney. Normal visualized stomach. Nondistended fluid-filled small bowel loops consistent with ileus. Retained stool noted in the remaining colon. Appendix not visualized. A previously noted soft tissue mass in the right upper abdomen, likely lymphadenopathy has increased in size from 3.53 cm on the previous study of 4.7 cm on current study. Normal abdominal aorta. Normal inferior vena cava. Normal retroperitoneum. Additionally, soft tissue density in the left lower rectus muscle has increased in size from the previous study. On the previous study measured 6.79 x 2.0 cm on current study measures 7.73 cm x 2.89 cm. This is concerning for progression of metastasis. PELVIS Normal urinary bladder. There is no pelvic fluid. There is no pelvic lymphadenopathy or mass lesion. Changes consistent with previous prostatectomy There is diffuse atherosclerotic calcification of the pelvic arteries. CT/CT Chest, Abd, Pel w/Contrast IMPRESSION: Soft tissue densities in the right upper quadrant of the abdomen and within the lower left rectus musculature have increased in size since the previous study of 03/19/2022 and are suspicious for metastasis. Chronic interstitial changes in both lung marks with stable fibrotic scarring, no interval change since the previous study, no new suspicious abnormality Stable cholelithiasis Small bowel ileus Degenerative bony changes without suspicious lytic or blastic bony lesion Electronically Signed: Benoit Baires MD at 11:48 EST ,
[2022-07-17 07:00] LABS: CREATININE FINGERSTICK < 0.9 mg/dL (0.70-1.30); EGFR FINGERSTICK > 60.0000 mL/min (>60)
[2022-07-17 07:12] LABS: Absolute Lymphocyte Count 2.18 X10^3/uL (0.83-4.51); Absolute Neutrophil Count 5.9 X10^3/uL (2.0-7.7); Basophil# 0.07 X10^3/uL; Basophil% 0.8 % (0-1); Eosinophil# 0.17 X10^3/uL; Eosinophils% 1.9 % (0-5); Hematocrit 36.1 % (40-54); Hemoglobin 12.1 g/dL (13.0-16.5); Lymphocyte # 2.18 X10^3/ul (0.83-4.51); Mean Corp Hgb Conc 33.5 g/dL (32-36); Mean Corpuscular Hgb 31.1 pg (27.0-32.0); Mean Corpuscular Volume 92.8 fL (80-94); Mean Platelet Vol. 9.3 fl (6.2-12.0); Monocyte# 0.73 X10^3/uL; NRBC Flagged by Analyzer 0 % (0-5); Neutrophil % 64.8 % (47-70); Platelet Count 242 K/mm3 (150-450); RBC Distribution Width CV 12.6 % (11.6-14.6); RBC Distribution Width SD 42.9 fl (35.1-43.9); Red Blood Count 3.89 M/mm3 (4.6-6.2); White Blood Count 9.1 K/mm3 (4.4-11.0)
[2022-07-17 07:55] LABS: ALB/GLOB Ratio 0.9 RATIO (0.9-2.4); AST(SGOT) 33 U/L (15-37); Alanine Aminotransfer ALT/SGPT 49 U/L (16-61); Albumin, Serum 3.5 g/dL (3.2-5.0); Alkaline Phosphatase 83 U/L (45-117); Anion Gap 5 (5-15); BUN 24 mg/dL (7-18); BUN/Creat Ratio 19.2 RATIO (10-20); Chloride 100 mmol/L (98-107); Creatinine, Serum 1.25 mg/dL (0.70-1.30); EST Glomerular Filtration Rate 62 mL/min (>60); Est Glom Filt Rate - Afr Amer 75 mL/min (>60); Globulin 3.9 g/dL (2.2-4.2); Glucose 251 mg/dL (74-106); Potassium 4.1 mmol/L (3.5-5.1); Protein, Total 7.4 g/dL (6.4-8.2); Sodium Level 134 mmol/L (136-145)
[2022-07-17 15:02] LABS: Xtra Tube EP Lab EXTRA TUBE
== END | disposition home or self-care (01) ==
PROVIDERS: Referring Provider Internal Medicine Hematology & Oncology; Visit Provider Internal Medicine Hematology & Oncology
DX: I25.10 Atherosclerotic heart disease of native coronary artery without angina pectoris (principal); C78.6 Secondary malignant neoplasm of retroperitoneum and peritoneum; C18.9 Malignant neoplasm of colon, unspecified; K56.7 Ileus, unspecified; K80.20 Calculus of gallbladder without cholecystitis without obstruction
CPT/HCPCS: 36415; 71260; 74177; 80053; 82378; 85025; Q9967

== ENCOUNTER → 2022-10-23 | Outpatient (CLI) | payer MEDICARE, SELFPAY ==
[2022-10-23 13:09] LABS: Anion Gap 7 (5-15); BUN 22 mg/dL (7-18); BUN/Creat Ratio 15.7 RATIO (10-20); Calcium,Total 9.3 mg/dL (8.5-10.1); Chloride 100 mmol/L (98-107); EST Glomerular Filtration Rate 54 mL/min (>60); Est Glom Filt Rate - Afr Amer 66 mL/min (>60); Glucose 338 mg/dL (74-106); Potassium 4.4 mmol/L (3.5-5.1); Sodium Level 134 mmol/L (136-145)
== END | disposition home or self-care (01) ==
LOC: LAB 10:09
PROVIDERS: Referring Provider Family Medicine; Visit Provider Family Medicine
DX: C78.6 Secondary malignant neoplasm of retroperitoneum and peritoneum (principal); E11.9 Type 2 diabetes mellitus without complications
CPT/HCPCS: 36415; 80048

== ENCOUNTER 2022-12-06 18:45 | Inpatient (IN) | payer MEDICARE, SELFPAY ==
[2022-12-06 18:47] VITALS: BP 155/55; PULSE 96; RESP 14; TEMP 36.3; O2SAT 100
[2022-12-06 19:14] VITALS: BMI 34.0
[2022-12-06 19:16] VITALS: BP 118/57; BP 143/62; BP 149/73; PULSE 88; PULSE 91; PULSE 96
[2022-12-06 19:31] LABS: Absolute Lymphocyte Count 1.73 X10^3/uL (0.83-4.51); Absolute Neutrophil Count 7.5 X10^3/uL (2.0-7.7); Basophil# 0.06 X10^3/uL; Basophil% 0.6 % (0-1); Eosinophil# 0.04 X10^3/uL; Eosinophils% 0.4 % (0-5); Hematocrit 22.4 % (40-54); Hemoglobin 7.2 g/dL (13.0-16.5); Lymphocyte # 1.73 X10^3/ul (0.83-4.51); Lymphocyte % 17.2 % (19-41); Mean Corp Hgb Conc 32.1 g/dL (32-36); Mean Corpuscular Hgb 30.1 pg (27.0-32.0); Mean Corpuscular Volume 93.7 fL (80-94); Mean Platelet Vol. 9.7 fl (6.2-12.0); Monocyte# 0.67 X10^3/uL; Monocyte% 6.6 % (0-10); NRBC Flagged by Analyzer 0 % (0-5); Neutrophil # 7.53 X10^3/uL (2.7-7.7); Neutrophil % 74.7 % (47-70); Platelet Count 351 K/mm3 (150-450); RBC Distribution Width SD 48.2 fl (35.1-43.9); Red Blood Count 2.39 M/mm3 (4.6-6.2); White Blood Count 10.1 K/mm3 (4.4-11.0)
[2022-12-06 19:36] LABS: ALB/GLOB Ratio 0.9 RATIO (0.9-2.4); AST(SGOT) 27 U/L (15-37); Alanine Aminotransfer ALT/SGPT 28 U/L (16-61); Albumin, Serum 3.3 g/dL (3.2-5.0); Alkaline Phosphatase 95 U/L (45-117); Anion Gap 9 (5-15); BUN 24 mg/dL (7-18); BUN/Creat Ratio 14.4 RATIO (10-20); Calcium,Total 8.8 mg/dL (8.5-10.1); Chloride 98 mmol/L (98-107); Creatinine, Serum 1.67 mg/dL (0.70-1.30); EST Glomerular Filtration Rate 44 mL/min (>60); Est Glom Filt Rate - Afr Amer 54 mL/min (>60); Estimated Creatinine Clearance 53.41 ml/min; Globulin 3.8 g/dL (2.2-4.2); Glucose 344 mg/dL (74-106); Potassium 3.6 mmol/L (3.5-5.1); Protein, Total 7.1 g/dL (6.4-8.2); Sodium Level 135 mmol/L (136-145)
--- NOTE | 2022-12-06 19:36 | CT_ITS ---
INDICATION: abdominal pain EXAMINATION: CT ABDOMEN AND PELVIS WITH CONTRAST - CT Abdomen And Pelvis W/ Contrast Injection TECHNIQUE: Helically acquired images were obtained of the abdomen and pelvis following IV contrast. A radiation dose optimization technique was used for this scan. IV Contrast dosage and agent: 100 cc Isovue-370 Oral contrast: None. COMPARISON: July 17, 2020. FINDINGS: LOWER CHEST: Basilar atelectasis or scarring. No cardiomegaly or pericardial effusion. LIVER: Peritoneal nodularity superior to the liver image 10 series 2 coronal image 55 series 601. Axial image 13 series 2. GALLBLADDER AND BILIARY TREE: Gallstones. Mild nonspecific gallbladder distention. This is similar to prior. No pericholecystic fluid. PANCREAS: No focal cystic or solid mass. SPLEEN: Normal size without focal cystic or solid mass. ADRENAL GLANDS: No nodules. KIDNEYS AND URETERS: Normal renal size and position. No hydronephrosis. PERITONEUM: Areas of abnormal density in the right abdomen image 56 series 2. One area medially image 56 series 2 measures 5.8 x 5.0 cm previously 4.5 cm x 3.9 cm. There is an area lateral to this larger than on the prior study now measuring about 7.6 x 7.0 cm previously 5.6 cm x 3.7 cm. Slight increase in peritoneal disease inferior to the liver. BOWEL: No evidence of acute appendicitis. No stomach or bowel distension. No focal inflammatory change. LYMPH NODES: No enlarged mesenteric or retroperitoneal lymph nodes. VESSELS: Aorta is non-dilated. URINARY BLADDER: Unremarkable. REPRODUCTIVE ORGANS: No pelvic masses. ABDOMINAL WALL: Soft tissue and anterior abdominal wall 9.1 x 4.3 cm. Slight increase in size compared to July 17, 2022. BONES: No acute lytic or blastic abnormality. CT/Abdomen/Pelvis W IV Cont ONLY IMPRESSION: Findings of metastatic disease to the peritoneum and abdominal wall with increase compared to prior study July 17, 2022. No bowel obstruction. Gallbladder distention with gallstones although appearance is similar to July 17, 2022. Electronically Signed: Bernardo Meyer MD at 20:41 EDT ,
[2022-12-06 19:39] LABS: International Normalized Ratio 1.1; Prothrombin Time (Protime)PT. 14.1 SECONDS (11.7-14.9)
[2022-12-06 20:47] VITALS: BP 163/75; PULSE 83; RESP 16; O2SAT 98
--- NOTE | 2022-12-06 21:23 | PCM.HP.STD ---
HPI - General General Date of Admission: 12/06/22 Date of Service: 12/06/22 Chief Complaint: Weak, fatigued, black stools HPI Narrative The patient is a 62 y/o M w/ PMHx: CKD stage III unclear subtype, IDDM w/ chronic neuropathy, Chronic normocytic anemia, HTN, HLD, Colon CA with recurrent following w/ Dr. Giang who presents to the [facility] ED on 12/06/22 with history of dark appearing stools, increasing weakness and malaise with history of frequent transfusions secondary to underlying chronic GI bleed component with underlying cancer treatment on palliative treatment only with no active treatments prompting eventual ED evaluation. He reports unchanged abdominal diffuse pain/cramping 5/10 with sharp pain intermittently 10/10 with worse pain with palpation especially LLQ. He denies any N/V. Work-up in the ED included T97.3, heart rate 96, BP 155/55, respiratory rate 14, 100% room air, orthostatics notable, CBC with WBC 10.7, hemoglobin 7.2, MCV 93.7 with most recent noted hemoglobin prior 07/17/22 Hgb 12.1 of note, platelet 351 without marked shift, unremarkable coags, CMP with sodium 135, BUN/creatinine 20/1.67, glucose 344, hepatic profile unremarkable, type and cross initiated per ED physician, CT abdomen and pelvis with findings of metastatic disease to the peritoneum and abdominal wall with increased findings compared to prior study 07/17/2022 with no evidence of any bowel obstruction, gallbladder distention with gallstones although similar appearance from imaging 07/17/2022, occult blood positive. In the ED patient administered Protonix bolus and initiated on continuous drip, 2 unit PRBC initiated per ED. ED discussed case with Dr. Salgado GI and Hospitalist also reviewed case and imaging with decision to initiate in the ED protonix with drip, octreotide and IV rocephin. [facility] Medical History (Updated 12/06/22 @ 23:[address] Faith Solorio MD) Anemia Arthritis Back pain Colon cancer metastasized to multiple sites COVID-19 Diabetic neuropathy History of colon cancer Hypertension Insulin dependent diabetes mellitus Peritoneal carcinomatosis Stuttering priapism Vitreous hemorrhage due to type 1 diabetes mellitus Home Medications Cilostazol 50 mg PO DINNER neuropathy 06/25/15 [History Last Taken 12/05/22] aspirin 81 mg chewable tablet 81 mg PO DAILY@0800 heart health 06/25/15 [History Last Taken 12/06/22] insulin aspart U-100 100 unit/mL (3 mL) subcutaneous pen (Novolog FlexPen U-100 Insulin aspart) 13 units subcut TIDCM diabetes 06/25/15 [History Last Taken 02/27/20 12:00 13 units] insulin glargine 100 unit/mL (3 mL) subcutaneous pen (Lantus Solostar U-100 Insulin) 77 units subcut 1200 DM 06/25/15 [History Last Taken 02/27/20 08:00 77 units] nifedipine 90 mg tablet,extended release 90 mg PO DAILY HTN 06/25/15 [History Last Taken 12/06/22] simvastatin 40 mg tablet 40 mg PO QHS cholesterol 06/25/15 [History Last Taken 12/05/22] gabapentin 300 mg capsule 300 mg PO TID nerve pain 07/15/15 [History Last Taken 12/06/22] omega-3 fatty acids-fish oil 300 mg-1,000 mg capsule 1 ea PO BID supplement 07/15/15 [History Last Taken 12/06/22] tramadol 50 mg tablet 50 - 100 mg PO Q6H PRN PRN Pain 07/15/15 [History Last Taken 02/27/20 08:00 100 mg] hydrochlorothiazide 25 mg tablet 25 mg PO DAILY diuretic ##0 09/13/19 [Rx Last Taken 12/06/22] meloxicam 15 mg tablet 15 mg PO DAILY pain 01/14/21 [History Last Taken 12/06/22] multivitamin 1 tab PO DAILY supplement 02/25/22 [History Last Taken 12/06/22] Allergy/AdvReac Type Severity Reaction Status Date / Time No Known Allergies Allergy Verified 12/06/22 18:47 Family History Father Pancreas cancer Mother CVA (cerebral vascular accident) Surgical History History of right hemicolectomy Hx of colonoscopy Social History Smoking Status: Never smoker second hand exposure: No alcohol intake: never substance use type: does not use willian/yarsani: Amish seatbelt use: always do you feel safe at home: Yes ROS JOANNA Narrative Admission Review of Systems: CONSTITUTIONAL: No weight loss, fever, chills, + weakness or fatigue. HEENT: Eyes: No visual loss, blurred vision, double vision or yellow sclerae. Ears, Nose, Throat: No hearing loss, sneezing, congestion, runny nose or sore throat. SKIN: No rash or itching, lesions, wounds. CARDIOVASCULAR: + Edema. No chest pain, chest pressure or chest discomfort, palpitations, orthopnea, syncopal events. RESPIRATORY: No shortness of breath, cough or sputum, wheezing, hemoptysis. GASTROINTESTINAL: + anorexia, abdominal cramping/pain, black appearing stools. No marked nausea, vomiting or diarrhea, BRBPR. GENITOURINARY: No dysuria, frequency, urgency or retention. NEUROLOGICAL: No headache, dizziness, syncope, paralysis, ataxia, numbness or tingling in the extremities, focal weakness, change in bowel or bladder control, seizure. MUSCULOSKELETAL: + muscle, back pain, joint pain or stiffness. HEMATOLOGIC: + anemia, bleeding or bruising. LYMPHATICS: No enlarged nodes. No history of splenectomy. PSYCHIATRIC: No history of depression or anxiety. ENDOCRINOLOGIC: No reports of sweating, cold or heat intolerance. No polyuria or polydipsia. ALLERGIES: No history of asthma, hives, eczema or rhinitis. Vital Signs Vital Signs Vital Signs: 12/06/22 18:47 12/06/22 19:16 12/06/22 20:47 Temperature 97.3 F L Temperature Source Temporal Pulse Rate 96 83 Pulse Rate [Lying] 88 Pulse Rate [Sitting (for 1 minute prior to obtaining)] 91 Pulse Rate [Standing (for 1 minute prior to obtaining)] 96 Respiratory Rate 14 16 Blood Pressure 155/55 H 163/75 H Blood Pressure [Lying] 149/73 H Blood Pressure [Sitting (for 1 minute prior to obtaining)] 143/62 H Blood Pressure [Standing (for 1 minute prior to obtaining)] 118/57 L Blood Pressure Mean 88 104 Blood Pressure Mean [Lying] 98 Blood Pressure Mean [Sitting (for 1 minute prior to obtaining)] 89 Blood Pressure Mean [Standing (for 1 minute prior to obtaining)] 77 Pulse Ox 100 98 Oxygen Delivery Method Room Air Room Air Weight Weight: 272 lb 0.807 oz Body Mass Index (BMI) 34.0 Physical Exam Narrative Physical Examination: General: Awake, alert, oriented x 3 and cooperative, seated upright in the ED bed, fatigued otherwise no acute distress. Skin: Mildly pale color, normal turgor, no icterus, no cyanosis. HEENT: AT/NC, EOMI, PERRLA, mildly dry MM, no carotid bruits or JVD noted. Lungs: Mildly diminished, greater bases, appropriate effort, no rales, ronchi or wheezing. Heart: Currently regular rate and rhythm; no gallop, rub audible. Abdomen: Soft, generalized discomfort, worse in the left lower quadrant with some guarding and rebound noted and he states this is chronic unfortunately secondary to the tumor present in that region, no obvious marked distention, hyperactive bowel sounds, difficult to assess HSM given habitus and discomfort elicited with manual palpation Extremities: No cyanosis, no clubbing, mild peripheral ankle nonpitting edema. Neurological: Patient awake, alert, oriented as noted, cognitive function intact; pupils equally reactive to light and accommodation, cranial nerves II-XII grossly normal, moving all 4 extremities, no focal deficits, strength moderately globally decreased secondary to acute presentation and underlying comorbidities Psychiatric: Affect appears fatigued, no acute evidence of depressive or anxiety feelings. Results Lab / Micro Data Result Diagrams: 12/06/22 19:03 12/06/22 19:03 Labs: Laboratory Results - last 24 hr 12/06/22 19:03: WBC 10.1, RBC 2.39 L, Hgb 7.2 L, Hct 22.4 L, MCV 93.7, MCH 30.1, MCHC 32.1, RDW Std Deviation 48.2 H, RDW Coeff of [place] 15.0 H, Plt Count 351, MPV 9.7, Immature Gran % (Auto) 0.500, Neut % (Auto) 74.7 H, Lymph % (Auto) 17.2 L, [place] % (Auto) 6.6, Eos % (Auto) 0.4, Baso % (Auto) 0.6, Absolute Neuts (auto) 7.5, Absolute Lymphs (auto) 1.73, Nucleated RBC % 0 12/06/22 19:03: Sodium 135 L, Potassium 3.6, Chloride 98, Carbon Dioxide 28.0, Anion Gap 9, BUN 24 H, Creatinine 1.67 H, Estim Creat Clear Calc 53.41, Est GFR (MDRD) Af Amer 54 L, Est GFR (MDRD) Non-Af 44 L, BUN/Creatinine Ratio 14.4, Glucose 344 H, Calcium 8.8, Total Bilirubin 0.30, AST 27, ALT 28, Alkaline Phosphatase 95, Total Protein 7.1, Albumin 3.3, Globulin 3.8, Albumin/Globulin Ratio 0.9 12/06/22 19:03: Blood Type O POSITIVE, Antibody Screen NEGATIVE, Crossmatch See Detail 12/06/22 19:03: PT 14.1, INR 1.1 Micro: Microbiology 12/06/22 19:30 Stool Stool Occult Blood (MARIA ELENA) - Final Occult Blood Positive Radiology Impression Abdomen/Pelvis CT 12/06/22 19:36 IMPRESSION: Findings of metastatic disease to the peritoneum and abdominal wall with increase compared to prior study July 17, 2022. No bowel obstruction. Gallbladder distention with gallstones although appearance is similar to July 17, 2022. Electronically Signed: Bernardo Meyer MD at 20:41 EDT , Assessment & Plan Assessment/Plan (1) Acute GI bleeding: PLAN: Plan The patient is a 62 y/o M w/ PMHx: CKD stage III unclear subtype, IDDM w/ chronic neuropathy, Chronic normocytic anemia, HTN, HLD, Colon CA with recurrent following w/ Dr. Giang who presents to the [facility] ED on 12/06/22 with history of dark appearing stools, increasing weakness and malaise with history of frequent transfusions secondary to underlying chronic GI bleed component with underlying cancer treatment on palliative treatment only with no active treatments prompting eventual ED evaluation. #1. Acute GI Bleed w/ resultant Acute Blood Loss Anemia on Chronic Normocytic anemia complicated by #2: Admission Hgb 7.2, last noted hemoglobin prior 06/20/2022 hemoglobin 12.1, will admit to [facility] given stable VS, maintain on IVFs, obtain serial H+H, continue with ED initiated 2 u PRBC T+C, maintain on IV PPI drip, continue on also octreotide drip and IV Rocephin, will maintain n.p.o. status, continue judicious fluids, as needed pain medication, Dr. Salgado consulted and aware with plan evaluation and endoscopy. #2. Recurrent colon cancer with resulting associated neuropathy secondary to underlying treatments and also severe diabetic neuropathy: Patient with pathologic stage IIIB (T3, N1b, M0) grade 2 adenocarcinoma (2 foci) of the right colon status post extended right hemicolectomy with resection of the terminal ileum 11/21/[address] Unger, most recent visit noted 08/18/2022, noted to be microsatellite stable and rash/KRYSTAL wild-type with unfortunate upstaged to stage IV with peritoneal carcinomatosis 03/2022 apparently offered IV 5-FU or oral Xeloda as not a candidate for other agents secondary to underlying neuropathy receiving only 1 cycle with unfortunate GI side effects stopping all adjuvant therapy with rising CEA and enlarging mass 01/2022 right upper quadrant abdominal mesentery in the front of the right kidney with eventual referral to [facility] surgical oncology with eventual imaging consistent with widespread disease. At this point from notes patient is under palliative care with no intention for curative cancer treatments following with oncology mostly for monitoring. Continue on gabapentin, holding cilostazol given #1. Mag, phos levels requested. #3. Chronic Kidney Disease Stage III, unclear subtype: Admission BUN/Cr 20/1.6, baseline renal function primarily 1.3-1.6, repeat BMP in AM. #4. Diabetes mellitus type II with chronic neuropathy: Hold oral home regimen, continue home insulin regimen lantus, hold scheduled TID short-acting until diet resumed, clears until n.p.o. status given presentation thus every 6 accu checks w/ ISS, continue home gabapentin regimen. #5. Hypertension: Continue home regimen including nifedipine, hydrochlorothiazide although low threshold to hold given presentation, PRN hydralazine. #6. Hyperlipidemia: We will continue patient on statin therapy. #7. Obesity: Weight loss and lifestyle changes encouraged. #8. DVT prophylaxis: SCDs. #9. CODE status: Patient CESARIO is his friend who is present Alan [facility] and living will is currently in place. Discussed CODE status at length including difference between FULL code, DNR-CCA and DNR-CC status. Following discussions about the differences in these status, requested Full Code status at this point. His status was discussed at length given his metastatic CA history and he notes plan to review further with Alan. Advanced Care Planning Face to Face Time: 18 minutes. Admission Evaluation Time spent evaluating chart, patient history, patient evaluation, care planning and discussion with specialists: 76 minutes. Charges/Coding Visit Charges Inpatient E&M: 46262 Init Hosp L3 Procedures Hospitalists Procedures: 75101 Advncd Care Plan 30 Min
--- NOTE | 2022-12-06 21:53 | EDS_ITS ---
HPI HPI - GI History of Present Illness Chief Complaint: GI Bleed Narrative Narrative: 62-year-old male with known history of colon cancer presenting with abdominal pain which is fairly mild but he is also having some black stools and lightheadedness. He states he can barely walk a distance because he is so short of breath. No fevers or chills. No cough. No nausea or vomiting. No chest pain. Patient states he has a history of colon cancer and previously had partial colectomy. He went on chemotherapy and he states it almost killed me. He states he will do chemotherapy anymore. He states he is followed by Dr. Giang. He refuses to do any more chemotherapy. He states he just wants to live what ever life he has left. He is not on any blood thinners. PFSH [facility] Medical History ANDRE (acute kidney injury) Anemia Arthritis Back pain CINV (chemotherapy-induced nausea and vomiting) Colon cancer Colon cancer COVID-19 Diabetic neuropathy Diarrhea due to drug Encounter for education History of colon cancer Hyperglycemia Hypertension Insulin dependent diabetes mellitus Lung nodule, multiple Peritoneal carcinomatosis Pneumonia Regional lymph node metastasis present Respiratory failure Rib pain on left side Sepsis Stuttering priapism Vitreous hemorrhage due to type 1 diabetes mellitus Home Medications Cilostazol 50 mg PO DAILY neuropathy 06/25/15 [History Last Taken 02/27/20 08:00 50 mg] aspirin 81 mg chewable tablet 81 mg PO DAILY@0800 heart health 06/25/15 [History Last Taken 07/30/21] insulin aspart U-100 100 unit/mL (3 mL) subcutaneous pen (Novolog FlexPen U-100 Insulin aspart) 13 units subcut TIDCM diabetes 06/25/15 [History Last Taken 02/27/20 12:00 13 units] insulin glargine 100 unit/mL (3 mL) subcutaneous pen (Lantus Solostar U-100 Insulin) 77 units subcut DAILY DM 06/25/15 [History Last Taken 02/27/20 08:00 77 units] nifedipine 90 mg tablet,extended release 90 mg PO DAILY HTN 06/25/15 [History Last Taken 02/27/20 08:00 90 mg] simvastatin 40 mg tablet 40 mg PO QHS cholesterol 06/25/15 [History Last Taken 02/27/20 22:00 40 mg] gabapentin 300 mg capsule 300 mg PO TID nerve pain 07/15/15 [History Last Taken 02/27/20 08:00 300 mg] omega-3 fatty acids-fish oil 300 mg-1,000 mg capsule 1 ea PO BID supplement 07/15/15 [History Last Taken 02/27/20 08:00 1 each] tramadol 50 mg tablet 50 - 100 mg PO Q6H PRN PRN Pain 07/15/15 [History Last Taken 02/27/20 08:00 100 mg] hydrochlorothiazide 25 mg tablet 25 mg PO DAILY diuretic ##0 09/13/19 [Rx Last Taken 02/27/20 08:00 25 mg] meloxicam 15 mg tablet 15 mg PO DAILY 01/14/21 [History Last Taken Unknown] multivitamin 1 tab PO DAILY 02/25/22 [History Last Taken Unknown] Allergy/AdvReac Type Severity Reaction Status Date / Time No Known Allergies Allergy Verified 12/06/22 18:47 Family History Father Pancreas cancer Mother CVA (cerebral vascular accident) Surgical History History of right hemicolectomy Hx of colonoscopy Social History Smoking Status: Never smoker second hand exposure: No alcohol intake: never substance use type: does not use willian/denominational: Muslim seatbelt use: always do you feel safe at home: Yes ROS ROS ED Review of Systems ROS Unobtainable: Denies due to encephalopathy Constitutional Constitutional ED: Denies chills or fever(s) ENT ENT ED: Denies rhinorrhea or sore throat Cardiovascular Cardiovascular: Denies chest pain or palpitations Respiratory/Chest Respiratory/Chest: Reports dyspnea Gastrointestinal Gastrointestinal: Reports abdominal pain, melena and nausea Genitourinary Genitourinary ED: Denies dysuria or hematuria Musculoskeletal Musculoskeletal: Denies arthralgias or back pain Integumentary Denies abscess Neurologic Neurologic: Denies headache(s) or paresthesias EXAM Physical Exam Const Vital Signs: 12/06/22 18:47 12/06/22 19:16 12/06/22 20:47 Temperature 97.3 F L Temperature Source Temporal Pulse Rate 96 83 Pulse Rate [Lying] 88 Pulse Rate [Sitting (for 1 minute prior to obtaining)] 91 Pulse Rate [Standing (for 1 minute prior to obtaining)] 96 Respiratory Rate 14 16 Blood Pressure 155/55 H 163/75 H Blood Pressure [Lying] 149/73 H Blood Pressure [Sitting (for 1 minute prior to obtaining)] 143/62 H Blood Pressure [Standing (for 1 minute prior to obtaining)] 118/57 L Blood Pressure Mean 88 104 Blood Pressure Mean [Lying] 98 Blood Pressure Mean [Sitting (for 1 minute prior to obtaining)] 89 Blood Pressure Mean [Standing (for 1 minute prior to obtaining)] 77 Pulse Ox 100 98 Oxygen Delivery Method Room Air Room Air Positive well nourished General Appearance ED: NAD and pallor HEENT Reports moist mucous membranes normocephalic and atraumatic Eyes PERRL and EOMs intact bilaterally Neck no lymphadenopathy Resp normal respiratory effort and clear to auscultation bilaterally Cardio regular rate Neuro CN's II-XII intact bilaterally and moves all extremities Sensorium / Orientation: alert Psych mental status grossly normal Skin General Skin Exam: pallor; Negative for jaundice MDM MDM MDM Narrative Medical decision making narrative: Patient presenting with black stools. He is orthostatic positive. Hemoccult positive. He has a history of colon cancer but he does not want any treatment for this. Differential includes upper GI bleed, lower GI bleed, bowel obstruction, colitis, diverticulitis, worsening cancer. CBC shows no leukocytosis but the patient has a hemoglobin of 7.2. This was previously 12.1. Platelet count is normal. Creatinine slightly worsened at 1.67. Electrolytes within normal limits. LFTs are normal. Glucose 344 without anion gap. PT/INR normal. CT of the abdomen pelvis shows diffuse metastatic disease without obstruction. Discussed with Dr. Salgado who recommended Rocephin, Protonix drip, octreotide drip. Patient was consented for blood transfusion. Impression: 1. Upper GI bleed 2. Abdominal pain 3. Metastatic colon cancer 4. Acute blood loss anemia 5. Orthostatic Lab Data Attestation: I reviewed the patient's lab results. Labs: Laboratory Results - last 24 hr 12/06/22 12/06/22 12/06/22 19:03 19:03 19:03 WBC 10.1 RBC 2.39 L Hgb 7.2 L Hct 22.4 L MCV 93.7 MCH 30.1 MCHC 32.1 RDW Std Deviation 48.2 H RDW Coeff of [place] 15.0 H Plt Count 351 MPV 9.7 Immature Gran % (Auto) 0.500 Neut % (Auto) 74.7 H Lymph % (Auto) 17.2 L [place] % (Auto) 6.6 Eos % (Auto) 0.4 Baso % (Auto) 0.6 Absolute Neuts (auto) 7.5 Absolute Lymphs (auto) 1.73 Nucleated RBC % 0 PT INR Sodium 135 L Potassium 3.6 Chloride 98 Carbon Dioxide 28.0 Anion Gap 9 BUN 24 H Creatinine 1.67 H Estim Creat Clear Calc 53.41 Est GFR (MDRD) Af Amer 54 L Est GFR (MDRD) Non-Af 44 L BUN/Creatinine Ratio 14.4 Glucose 344 H Calcium 8.8 Total Bilirubin 0.30 AST 27 ALT 28 Alkaline Phosphatase 95 Total Protein 7.1 Albumin 3.3 Globulin 3.8 Albumin/Globulin Ratio 0.9 Blood Type O POSITIVE Antibody Screen NEGATIVE Crossmatch See Detail 12/06/22 19:03 WBC RBC Hgb Hct MCV MCH MCHC RDW Std Deviation RDW Coeff of [place] Plt Count MPV Immature Gran % (Auto) Neut % (Auto) Lymph % (Auto) [place] % (Auto) Eos % (Auto) Baso % (Auto) Absolute Neuts (auto) Absolute Lymphs (auto) Nucleated RBC % PT 14.1 INR 1.1 Sodium Potassium Chloride Carbon Dioxide Anion Gap BUN Creatinine Estim Creat Clear Calc Est GFR (MDRD) Af Amer Est GFR (MDRD) Non-Af BUN/Creatinine Ratio Glucose Calcium Total Bilirubin AST ALT Alkaline Phosphatase Total Protein Albumin Globulin Albumin/Globulin Ratio Blood Type Antibody Screen Crossmatch Radiography Diagnostic Testing: Clinical Impression(s) from Imaging Studies Abdomen/Pelvis CT 12/06/22 19:36 IMPRESSION: Findings of metastatic disease to the peritoneum and abdominal wall with increase compared to prior study July 17, 2022. No bowel obstruction. Gallbladder distention with gallstones although appearance is similar to July 17, 2022. Electronically Signed: Bernardo Meyer MD at 20:41 EDT , Discharge Plan Triage Chief Complaint: GI Bleed Other Complaint: Weakness ED Provider: Danny Brown Dx/Rx/DC Orders Primary Care Provider: Gamaliel Hein
[2022-12-06] MEDS: Ceftriaxone 1 GM/50 ML BAG IV (22:10)
[2022-12-06 22:13] VITALS: BP 168/74; PULSE 90; RESP 16; TEMP 37.1; O2SAT 100
[2022-12-06 22:46] LABS: Magnesium 1.8 mg/dL (1.6-2.6); Phosphorus 2.8 mg/dL (2.5-4.9)
[2022-12-06 22:47] VITALS: BMI 33.0
[2022-12-06 23:00] VITALS: BP 170/68; PULSE 87; RESP 16; TEMP 36.8; O2SAT 100
--- NOTE | 2022-12-06 23:00 | EX.PCM.CON.G ---
HPI Consult Data Date of Consult: 12/06/22 HPI Narrative Reason for Consultation: GI bleed HPI Narrative: ELEAZAR RODRIGUEZ, is a 62 M who presents for the evaluation of dark stools, fatigue, weakness and dizziness. He has a history of colon cancer presenting with abdominal pain which is fairly mild but he is also having some black stools and lightheadedness.? He states he can barely walk a distance because he is so short of breath.? No fevers or chills.? No cough.? No nausea or vomiting.? No chest pain.? Patient states he has a history of colon cancer and previously had partial colectomy.? He went on chemotherapy and he states it almost killed me.? He states he will do chemotherapy anymore.? He states he is followed by Dr. Giang.? He refuses to do any more chemotherapy.? He states he just wants to live what ever life he has left.? He is not on any blood thinners. 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 CT scan of the chest abdomen and pelvis November 14, 2020?reported scattered small nodular and reticular opacities in the right lung sparing the apex, similar opacities in the left upper lobe, a transverse colon mass, enlarged adjacent mesenteric lymph nodes and no identifiable hepatic lesions. CEA preoperative:?38.4. November 20, 2020 underwent an extended right hemicolectomy?pathology revealed 2 foci of invasive adenocarcinoma grade 2, that invaded through the muscularis propria into pericolorectal tissue, no macroscopic tumor perforation, no lymphovascular invasion, no perineural invasion, all margins were negative and 3 out of 34 dissected lymph nodes were positive for metastatic carcinoma pathologically staged T3N1B.??Tumor is microsatellite stable. His past medical history is notable for diabetes for over 20 years duration, peripheral neuropathy of the lower extremities which together with an old left ankle injury contribute to his disability, hypertension, dyslipidemia.? He has a history of pneumonia and empyema in 2010.? 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 ?Hemoglobin 7.2, MCV 93.7 with most recent noted hemoglobin prior 07/17/22 Hgb 12.1 of note, platelet 351 without marked shift, unremarkable coags, CMP with sodium 135, BUN/creatinine 20/1.67, glucose 344, hepatic profile unremarkable, type and cross initiated per ED physician, CT abdomen and pelvis with findings of metastatic disease to the peritoneum and abdominal wall with increased findings compared to prior study 07/17/2022 with no evidence of any bowel obstruction, gallbladder distention with gallstones although similar appearance from imaging 07/17/2022, occult blood positive. [facility] Medical History (Updated 12/07/22 @ 12:[address] Hernandez Friend, DO) Anemia Arthritis Back pain Colon cancer metastasized to multiple sites COVID-19 Diabetic neuropathy H/O colon cancer, stage IV History of colon cancer Hypertension Insulin dependent diabetes mellitus Peritoneal carcinomatosis Stuttering priapism Vitreous hemorrhage due to type 1 diabetes mellitus Home Medications Cilostazol 50 mg PO DINNER neuropathy 06/25/15 [History Last Taken 12/05/22] aspirin 81 mg chewable tablet 81 mg PO DAILY@0800 heart health 06/25/15 [History Last Taken 12/06/22] insulin aspart U-100 100 unit/mL (3 mL) subcutaneous pen (Novolog FlexPen U-100 Insulin aspart) 13 units subcut TIDCM diabetes 06/25/15 [History Last Taken 02/27/20 12:00 13 units] insulin glargine 100 unit/mL (3 mL) subcutaneous pen (Lantus Solostar U-100 Insulin) 77 units subcut 1200 DM 06/25/15 [History Last Taken 02/27/20 08:00 77 units] nifedipine 90 mg tablet,extended release 90 mg PO DAILY HTN 06/25/15 [History Last Taken 12/06/22] simvastatin 40 mg tablet 40 mg PO QHS cholesterol 06/25/15 [History Last Taken 12/05/22] gabapentin 300 mg capsule 300 mg PO TID nerve pain 07/15/15 [History Last Taken 12/06/22] omega-3 fatty acids-fish oil 300 mg-1,000 mg capsule 1 ea PO BID supplement 07/15/15 [History Last Taken 12/06/22] tramadol 50 mg tablet 50 - 100 mg PO Q6H PRN PRN Pain 07/15/15 [History Last Taken 02/27/20 08:00 100 mg] hydrochlorothiazide 25 mg tablet 25 mg PO DAILY diuretic ##0 09/13/19 [Rx Last Taken 12/06/22] meloxicam 15 mg tablet 15 mg PO DAILY pain 01/14/21 [History Last Taken 12/06/22] multivitamin 1 tab PO DAILY supplement 02/25/22 [History Last Taken 12/06/22] Allergy/AdvReac Type Severity Reaction Status Date / Time No Known Allergies Allergy Verified 12/06/22 18:47 Family History Father Pancreas cancer Mother CVA (cerebral vascular accident) Surgical History History of right hemicolectomy Hx of colonoscopy Social History Smoking Status: Never smoker second hand exposure: No alcohol intake: never substance use type: does not use willian/anabaptist: Pentecostal seatbelt use: always do you feel safe at home: Yes ROS ROS Narrative Admission Review of Systems: CONSTITUTIONAL: No weight loss, fever, chills, + weakness or fatigue. HEENT: Eyes: No visual loss, blurred vision, double vision or yellow sclerae. Ears, Nose, Throat: No hearing loss, sneezing, congestion, runny nose or sore throat. SKIN: No rash or itching, lesions, wounds. CARDIOVASCULAR: + Edema. No chest pain, chest pressure or chest discomfort, palpitations, orthopnea, syncopal events. RESPIRATORY: No shortness of breath, cough or sputum, wheezing, hemoptysis. GASTROINTESTINAL: + anorexia, abdominal cramping/pain, black appearing stools. No marked nausea, vomiting or diarrhea, BRBPR. GENITOURINARY: No dysuria, frequency, urgency or retention. NEUROLOGICAL: No headache, dizziness, syncope, paralysis, ataxia, numbness or tingling in the extremities, focal weakness, change in bowel or bladder control, seizure. MUSCULOSKELETAL: + muscle, back pain, joint pain or stiffness. HEMATOLOGIC: + anemia, bleeding or bruising. LYMPHATICS: No enlarged nodes. No history of splenectomy. PSYCHIATRIC: No history of depression or anxiety. ENDOCRINOLOGIC: No reports of sweating, cold or heat intolerance. No polyuria or polydipsia. ALLERGIES: No history of asthma, hives, eczema or rhinitis. Physical Exam Narrative Physical Examination: General: Awake, alert, oriented x 3 and cooperative, seated upright in the ED bed, fatigued otherwise no acute distress. Skin: Mildly pale color, normal turgor, no icterus, no cyanosis. HEENT: AT/NC, EOMI, PERRLA, mildly dry MM, no carotid bruits or JVD noted. Lungs: Mildly diminished, greater bases, appropriate effort, no rales, ronchi or wheezing. Heart: Currently regular rate and rhythm; no gallop, rub audible. Abdomen: Soft, generalized discomfort, worse in the left lower quadrant with some guarding and rebound noted and he states this is chronic unfortunately secondary to the tumor present in that region, no obvious marked distention, hyperactive bowel sounds, difficult to assess HSM given habitus and discomfort elicited with manual palpation Extremities: No cyanosis, no clubbing, mild peripheral ankle nonpitting edema. Neurological: Patient awake, alert, oriented as noted, cognitive function intact; pupils equally reactive to light and accommodation, cranial nerves II-XII grossly normal, moving all 4 extremities, no focal deficits, strength moderately globally decreased secondary to acute presentation and underlying comorbidities Psychiatric: Affect appears fatigued, no acute evidence of depressive or anxiety feelings. Lab / Micro Data Result Diagrams: 12/07/22 07:49 12/07/22 07:49 Labs: Laboratory Results - last 24 hr 12/06/22 19:03: WBC 10.1, RBC 2.39 L, Hgb 7.2 L, Hct 22.4 L, MCV 93.7, MCH 30.1, MCHC 32.1, RDW Std Deviation 48.2 H, RDW Coeff of [place] 15.0 H, Plt Count 351, MPV 9.7, Immature Gran % (Auto) 0.500, Neut % (Auto) 74.7 H, Lymph % (Auto) 17.2 L, [place] % (Auto) 6.6, Eos % (Auto) 0.4, Baso % (Auto) 0.6, Absolute Neuts (auto) 7.5, Absolute Lymphs (auto) 1.73, Nucleated RBC % 0 12/06/22 19:03: Sodium 135 L, Potassium 3.6, Chloride 98, Carbon Dioxide 28.0, Anion Gap 9, BUN 24 H, Creatinine 1.67 H, Estim Creat Clear Calc 53.41, Est GFR (MDRD) Af Amer 54 L, Est GFR (MDRD) Non-Af 44 L, BUN/Creatinine Ratio 14.4, Glucose 344 H, Calcium 8.8, Total Bilirubin 0.30, AST 27, ALT 28, Alkaline Phosphatase 95, Total Protein 7.1, Albumin 3.3, Globulin 3.8, Albumin/Globulin Ratio 0.9 12/06/22 19:03: Blood Type O POSITIVE, Antibody Screen NEGATIVE, Crossmatch See Detail 12/06/22 19:03: PT 14.1, INR 1.1 12/06/22 19:03: Phosphorus 2.8, Magnesium 1.8 12/07/22 00:45: POC Glucose 212 H 12/07/22 02:02: Urine Color Yellow, Urine Clarity Clear, Urine pH 8.0, Ur Specific [place] 1.010, Urine Protein Negative, Urine Glucose (UA) 1000 H, Urine Ketones Negative, Urine Occult Blood Negative, Urine Nitrite Negative, Urine Bilirubin Negative, Urine Urobilinogen Normal, Ur Leukocyte Esterase Negative, Urine RBC 0 SEEN, Urine WBC 0 SEEN, Ur Squamous Epith Cells 0 SEEN, Urine Bacteria 0 SEEN, Urine Mucus 0 SEEN 12/07/22 07:49: WBC 9.3, RBC 2.94 L, Hgb 8.7 L, Hct 27.6 L, MCV 93.9, MCH 29.6, MCHC 31.5 L, RDW Std Deviation 50.1 H, RDW Coeff of [place] 15.1 H, Plt Count 322, MPV 9.6, Immature Gran % (Auto) 0.500, Neut % (Auto) 70.3 H, Lymph % (Auto) 19.7, [place] % (Auto) 7.8, Eos % (Auto) 1.1, Baso % (Auto) 0.6, Absolute Neuts (auto) 6.5, Absolute Lymphs (auto) 1.83, Nucleated RBC % 0 12/07/22 07:49: Sodium 138, Potassium 3.6, Chloride 101, Carbon Dioxide 28.0, Anion Gap 9, BUN 17, Creatinine 1.21, Estim Creat Clear Calc 73.71, Est GFR (MDRD) Af Amer 78, Est GFR (MDRD) Non-Af 64, BUN/Creatinine Ratio 14.0, Glucose 144 H, Calcium 8.7, Total Bilirubin 0.80, AST 27, ALT 25, Alkaline Phosphatase 93, Total Protein 7.0, Albumin 3.1 L, Globulin 3.9, Albumin/Globulin Ratio 0.8 L 12/07/22 07:49: Hemoglobin A1c 9.4 H 12/07/22 07:49: APTT 25.9 12/07/22 10:39: POC Glucose 143 H Micro: Microbiology 12/06/22 19:30 Stool Stool Occult Blood (MARIA ELENA) - Final Occult Blood Positive Radiology Impression Abdomen/Pelvis CT 12/06/22 19:36 IMPRESSION: Findings of metastatic disease to the peritoneum and abdominal wall with increase compared to prior study July 17, 2022. No bowel obstruction. Gallbladder distention with gallstones although appearance is similar to July 17, 2022. Electronically Signed: Bernardo Meyer MD at 20:41 EDT , Assessment & Plan Assessment/Plan (1) Acute GI bleeding: PLAN: Differential diagnosis for acute GI bleeding would include bleeding from his known recurrence of colon cancer, angiodysplasias or telangiectasia associated with malignancy, peptic ulcer disease, ischemia to the stomach, small bowel or colon. He should undergo an upper endoscopy to evaluate his upper GI tract. We will put him on PPI drip and octreotide. He will also get transfusion of 2 units of packed red blood cells. If this study does not reveal any signs of acute GI bleeding then he may need a colonoscopy and possible capsule endoscopy. He was explained alternatives, risk, benefits including outstanding bleeding, infection, sepsis, perforation, need for emergent surgery . He will have an ASA of 3. Charges/Coding Visit Charges Inpatient E&M: 30198 Init Hosp L2
[2022-12-07] VITALS (14 sets, daily range): BP systolic 115–155; BP diastolic 61–78; PULSE 67–78; RESP 16–18; TEMP 36.2–37.1; O2SAT 92–98; BMI 32.2
[2022-12-07] MEDS: Gabapentin 300 MG Capsule PO ×4 (00:53→22:54)
[2022-12-07] MEDS: Atorvastatin Calcium 20 MG Tablet PO ×2 (00:53→22:54)
[2022-12-07] MEDS: Acetaminophen 325 MG Tablet 650 MG PO ×3 (00:56→22:54)
[2022-12-07] MEDS: oxyCODONE 5 MG Tablet PO ×2 (01:56→17:56)
[2022-12-07 02:03] LABS: Bacteria 0 SEEN /hpf (None Seen); Mucous, Urine 0 SEEN /hpf (<or=2+); Red Blood Cells-Urine 0 SEEN /hpf (0-5); Squamous Epithelial Cells - UA 0 SEEN /hpf (0-5); White Blood Cells 0 SEEN /hpf (0-5)
[2022-12-07 02:05] LABS: Color, Urine Yellow (Yellow); Glucose, Dipstick 1000 mg/dl (Normal); Ketone-Dipstick Negative (Negative); Leukocyte Esterase-Dipstick Negative /ul (Negative); Nitrite-Dipstick Negative (Negative); Occult Blood-Urine Negative /ul (Negative); Protein-Dipstick Negative (Negative); Urine Bilirubin Dipstick Negative (Negative); Urine Clarity Clear (Clear); Urine Urobilinogen Normal (Normal)
[2022-12-07 02:51] LABS: Bedside Glucose 212 mg/dL (74-106)
--- NOTE | 2022-12-07 06:00 | EKG12_ITS ---
Test Reason : AM EKG Blood Pressure : / mmHG Vent. Rate : 072 BPM Atrial Rate : 072 BPM P-R Int : 180 ms QRS Dur : 118 ms QT Int : 384 ms P-R-T Axes : 054 042 037 degrees QTc Int : 420 ms Normal sinus rhythm Normal ECG When compared with ECG of 27-FEB-2020 20:09, Questionable change in QRS duration Confirmed by DILIP RAUSCH, MARISSA ([id number]), writer editor MILY BARNHART ([id number]) on 12/08/2022 9:08:30 AM Referred By: GEM Confirmed By:MARISSA CHERRY MD
--- NOTE | 2022-12-07 07:40 | PCM.PN.HOSP ---
Reason for Visit Reason for Visit: Generalized weakness/fatigue/melena Subjective Subjective Mr. Markham is a 62-year-old white male who presented to the emergency department at [facility] on 12/06/2022 complaining of dark appearing stools, increased weakness, and malaise. Patient has a history of colon cancer with recurrence and follows with Dr. Giang. Currently stage IV. Patient is currently under palliative care services and is not a candidate for any active cancer treatment. CT of the abdomen pelvis emergency department revealed findings consistent with metastatic disease to the peritoneum and abdominal wall with increasing compared to previous study on 07/17/2022, no evidence of bowel obstruction, and gallbladder distention without gallstones. His occult stool was positive for blood. Hemoglobin was 17.2 with his most recent hemoglobin from 07/17/2022 being 12.1. Platelets were normal. The emergency department discussed the case with Dr. Salgado who reviewed the case and the imaging and recommended Protonix drip, octreotide drip, and IV Rocephin. We are currently waiting GI consultation. Patient states he knows his situation is terminal. He has been feeling quite well overall and doing well at home. He states his fatigue is slowly been worsening and he has had melenic stools at least for a few months. He indicated he knows the routine. He is willing to discuss things with hospice but does not want to commit to anything at this time. We will consult hospice to have a discussion. He would like to feel as good as he could so is willing to have an EGD and colonoscopy done if they can stop some bleeding and stabilize his hemoglobin. After transfusion his hemoglobin improved from 7.2-8.7. This is after 2 units of packed red blood cells. I did discuss the case with GI and plan is for EGD today and possible colonoscopy in the future. The patient did indicate he would like his CODE STATUS to be changed from full code to DNR CCA after conversation with admitting hospitalist. Objective Data Objective Data Vital Signs: Vital Signs Temp Pulse Resp BP Pulse Ox O2 Del Method 98.5 F 71 16 152/77 H 97 Room Air 12/07/22 06:49 12/07/22 06:49 12/07/22 06:49 12/07/22 06:49 12/07/22 06:49 12/07/22 06:49 Oxygen Delivery Method Room Air Weight: 116.9 kg Body Mass Index (BMI) 32.2 Intake & Output: Intake and Output for Last 24 Hours 12/05/22 12/06/22 12/07/22 23:59 23:59 23:59 Intake Total 800 / 800 Output Total 1400 / 1400 Balance -600 / -600 Lab / Micro Data Result Diagrams: 12/07/22 07:49 12/07/22 07:49 Labs: Laboratory Results - last 24 hr 12/06/22 19:03: WBC 10.1, RBC 2.39 L, Hgb 7.2 L, Hct 22.4 L, MCV 93.7, MCH 30.1, MCHC 32.1, RDW Std Deviation 48.2 H, RDW Coeff of [place] 15.0 H, Plt Count 351, MPV 9.7, Immature Gran % (Auto) 0.500, Neut % (Auto) 74.7 H, Lymph % (Auto) 17.2 L, [place] % (Auto) 6.6, Eos % (Auto) 0.4, Baso % (Auto) 0.6, Absolute Neuts (auto) 7.5, Absolute Lymphs (auto) 1.73, Nucleated RBC % 0 12/06/22 19:03: Sodium 135 L, Potassium 3.6, Chloride 98, Carbon Dioxide 28.0, Anion Gap 9, BUN 24 H, Creatinine 1.67 H, Estim Creat Clear Calc 53.41, Est GFR (MDRD) Af Amer 54 L, Est GFR (MDRD) Non-Af 44 L, BUN/Creatinine Ratio 14.4, Glucose 344 H, Calcium 8.8, Total Bilirubin 0.30, AST 27, ALT 28, Alkaline Phosphatase 95, Total Protein 7.1, Albumin 3.3, Globulin 3.8, Albumin/Globulin Ratio 0.9 12/06/22 19:03: Blood Type O POSITIVE, Antibody Screen NEGATIVE, Crossmatch See Detail 12/06/22 19:03: PT 14.1, INR 1.1 12/06/22 19:03: Phosphorus 2.8, Magnesium 1.8 12/07/22 00:45: POC Glucose 212 H 12/07/22 02:02: Urine Color Yellow, Urine Clarity Clear, Urine pH 8.0, Ur Specific [place] 1.010, Urine Protein Negative, Urine Glucose (UA) 1000 H, Urine Ketones Negative, Urine Occult Blood Negative, Urine Nitrite Negative, Urine Bilirubin Negative, Urine Urobilinogen Normal, Ur Leukocyte Esterase Negative, Urine RBC 0 SEEN, Urine WBC 0 SEEN, Ur Squamous Epith Cells 0 SEEN, Urine Bacteria 0 SEEN, Urine Mucus 0 SEEN Micro: Microbiology 12/06/22 19:30 Stool Stool Occult Blood (MARIA ELENA) - Final Occult Blood Positive Radiography Diagnostic Testing: Radiology Impression Abdomen/Pelvis CT 12/06/22 19:36 IMPRESSION: Findings of metastatic disease to the peritoneum and abdominal wall with increase compared to prior study July 17, 2022. No bowel obstruction. Gallbladder distention with gallstones although appearance is similar to July 17, 2022. Electronically Signed: Bernardo Meyer MD at 20:41 EDT , Physical Exam Const alert, oriented x3 and no apparent distress Constitutional Narrative: Obese, upper middle-aged, white male, sitting up in bed, appears comfortable nontoxic, very pleasant HEENT head/scalp atraumatic and moist oral mucous membranes Head and Scalp: normocephalic Resp normal respiratory effort, no retractions, no use of accessory muscles and clear to auscultation bilaterally Auscultation: Negative for rales, rhonchi or wheezes Cardio regular rate, regular rhythm, S1 normal heart sound, S2 normal heart sound, no murmurs, no rub, no gallops and no clicks GI normal to inspection, nondistended, normoactive bowel sounds and soft to palpation Extremity no clubbing, cyanosis or edema Extremity Narrative: Pedal pulses are 2+ Skin Skin Narrative: Pale Neuro oriented x3, moves all extremities and no focal motor deficits Speech: speech normal Psych affect normal Psych Narrative: Appropriate, eye contact is good, interaction is normal Assessment & Plan Assessment/Plan (1) Acute GI bleeding: (2) Peritoneal carcinomatosis: (3) H/O colon cancer, stage IV: (4) Acute anemia: (5) Elevated serum creatinine: PLAN: Plan Melena with suspected GI bleed -Guaiac is positive -BUN is not disproportionate to serum creatinine so I suspect it is probably lower especially given history however upper should be ruled out as well given melanotic stool -PPI -Octreotide drip -EGD planned for later today -Suspect colonoscopy will be pursued tomorrow -Discontinue ceftriaxone as patient is not a cirrhotic Acute anemia on chronic anemia -Patient's baseline hemoglobin appears to have been running in the 12-13 range -Hemoglobin on presentation was 7.2 down from 12.1 on 07/17/2022 -Patient with history of colon cancer -Has been having dark tarry stools for several months -EGD later today and anticipate colonoscopy to be done tomorrow -Status post 2 units of packed red blood cells on 12/06/2021 -Hold home meloxicam Serum creatinine elevation on CKD stage IIIa -Serum creatinine presentation was 1.67 -Baseline creatinine looks to be between 1.3 and 1.5 -Gentle hydration has improved to serum creatinine to 1.21 -Continue to monitor Stage IV metastatic colon CA -Patient with abdominal wall and peritoneal metastatic disease that is worsening on most recent imaging -Was following with oncology-Dr. Giang -Did not tolerate oral chemo -Is following with palliative care -With worsening disease is willing to discuss case with hospice -Would like to change CODE STATUS to DNR CCA no intubation Hypertension/hyperlipidemia -Continue home nifedipine -Continue home statin -Hold home HCTZ DM-2 -Continue basal insulin -Sliding scale -Hold mealtime scheduled Humalog until p.o. intake has reinitiated as patient is n.p.o. for scopes Diabetic neuropathy -Continue home gabapentin Chronic pain -Continue home medications Obesity -Complicates treatment, prognosis, outcomes DVT prophylaxis -SCDs with concern for bleeding CODE STATUS -Patient would like to change his CODE STATUS from full code to DNR CCA with no intubation Charges/Coding Visit Charges Inpatient E&M: 60289 Subs Hosp L2
[2022-12-07] MEDS: 0.9% Normal Saline 1,000 ML 100 ML IV (07:55)
[2022-12-07] MEDS: 0.9% Saline Lock 10 ML Syringe IV ×2 (08:04→20:34)
[2022-12-07 08:25] LABS: Absolute Lymphocyte Count 1.83 X10^3/uL (0.83-4.51); Absolute Neutrophil Count 6.5 X10^3/uL (2.0-7.7); Basophil# 0.06 X10^3/uL; Basophil% 0.6 % (0-1); Eosinophils% 1.1 % (0-5); Hematocrit 27.6 % (40-54); Hemoglobin 8.7 g/dL (13.0-16.5); Lymphocyte # 1.83 X10^3/ul (0.83-4.51); Lymphocyte % 19.7 % (19-41); Mean Corp Hgb Conc 31.5 g/dL (32-36); Mean Corpuscular Hgb 29.6 pg (27.0-32.0); Mean Corpuscular Volume 93.9 fL (80-94); Mean Platelet Vol. 9.6 fl (6.2-12.0); Monocyte# 0.72 X10^3/uL; Monocyte% 7.8 % (0-10); NRBC Flagged by Analyzer 0 % (0-5); Neutrophil # 6.53 X10^3/uL (2.7-7.7); Neutrophil % 70.3 % (47-70); Platelet Count 322 K/mm3 (150-450); RBC Distribution Width CV 15.1 % (11.6-14.6); RBC Distribution Width SD 50.1 fl (35.1-43.9); Red Blood Count 2.94 M/mm3 (4.6-6.2); White Blood Count 9.3 K/mm3 (4.4-11.0)
[2022-12-07 08:33] LABS: Partial Thromboplast Time 25.9 Seconds (24.1-36.2)
[2022-12-07 08:42] LABS: ALB/GLOB Ratio 0.8 RATIO (0.9-2.4); AST(SGOT) 27 U/L (15-37); Alanine Aminotransfer ALT/SGPT 25 U/L (16-61); Albumin, Serum 3.1 g/dL (3.2-5.0); Alkaline Phosphatase 93 U/L (45-117); Anion Gap 9 (5-15); BUN 17 mg/dL (7-18); Calcium,Total 8.7 mg/dL (8.5-10.1); Chloride 101 mmol/L (98-107); Creatinine, Serum 1.21 mg/dL (0.70-1.30); EST Glomerular Filtration Rate 64 mL/min (>60); Est Glom Filt Rate - Afr Amer 78 mL/min (>60); Estimated Creatinine Clearance 73.71 ml/min; Globulin 3.9 g/dL (2.2-4.2); Glucose 144 mg/dL (74-106); Potassium 3.6 mmol/L (3.5-5.1); Sodium Level 138 mmol/L (136-145)
[2022-12-07 08:48] LABS: Hemoglobin A1c 9.4 % (3.8-5.6)
[2022-12-07] MEDS: Morphine 2 MG/ML Syringe IV ×2 (10:57→20:33)
--- NOTE | 2022-12-07 11:05 | CASEMGMT ---
Confirmed with palliative care of [facility] that pt is an active pt. Pt has an appt tomorrow. Made aware that pt is currently hospitalized.
--- NOTE | 2022-12-07 11:15 | CASEMGMT ---
ASHLYN ANGUIANO Assessment: Face to Face with pt for initial transition planning/care coordination assessment. RN ANNMARIE introduced self and role at [facility], pt voices understanding and consents to assessment. Pt is A/O x4 and answers all questions appropriately at this time. Pt lying in bed in no distress. Care providers, pharmacy, and demographics verified/updated. Admitting Dx: JORI PCP:Angel Luis Specialists:[facility]te, onc; active with Palliative Care Preferred Pharmacy: [facility] Insurance: [facility] Prescription Benefit: yes LNOK: Alan Light, friend Living Arrangements: Pt lives alone in a ground level apt with a threshold to enter. Pt reports he is I in ADL's and denies concerns at home. Transportation: Pt drives self and denies concerns with transportation. DME/HHC/SNF: Pt has a cane but does not use. Pt denies hx of HHC. Pt has been to [facility], [facility] and [facility]. Pt states no concerns with going home at time of dc. He states once it is figured out where he is bleeding from and corrected he feels he will get his strength back. Denies need for therapy currently, 6 clicks= 24. Pt states no further concerns/needs. CM to follow. Advised pt to ask CM if any further question/concerns/needs arise, voices understanding. Pt Goal: Home Plan: Home, hospice consult for informational purposes.
[2022-12-07 11:35] LABS: Bedside Glucose 143 mg/dL (74-106)
[2022-12-07] MEDS: Lactated Ringers 1,000 ML 15 ML IV (12:00)
--- NOTE | 2022-12-07 13:00 | EGD_PTH ---
PATIENT: ELEAZAR RODRIGUEZ LOC: MS3 U#:[id number] AGE/SX: 62/M [place] [facility] [place]06/[address]: Dr. Karlee Alvarez DO : 1960 BED: 1 DIS: 12/10/2022 SPEC #: [id number] RECD: 12/07/22 13:34 STATUS: FALGUNI REDora #: [id number] ALEJANDRA: 12/07/22 13:[address]: David Salgado DEPT: SURGICAL PATHOLOGY RECD BY: Cristy Peterson ENTERED: 12/08/22 07:52 SP TYPE: EGD BIOPSY OT DR: MD Dr. Karlee Crandall DO Dr. Scott Wilkins, DO Tissues: Duodenum, NOS Procedures: Surgery Specimen Level IV Comments: @ Ordering doctor for SUIV edited from to @ by RGOOD at 12/08/22 1354 @ Submitting doctor edited from to @ by RGOOD at 12/08/22 1354 HEADER OPERATION: EGD ([facility]) with biopsy, fulguration for hemostasis PRE-OP DIAGNOSIS: GI bleed TISSUE SUBMITTED: Duodenal bulb ulcer MICROSCOPIC DIAGNOSIS Duodenal bulb ulcer, biopsy: Fragments of duodenal mucosa with extensive ulceration and acute and chronic inflammation. Negative for malignancy. See comment. ZOILA:jay jay 12/09/2022 COMMENT Correlation with clinical, endoscopic findings and appropriate follow up are necessary. Case has been reviewed in consultation with Dr. Olivarez who concurs with the above diagnosis. IDC:AM MICROSCOPIC DESCRIPTION Slides are reviewed. GROSS DESCRIPTION Received in fixative is one container labeled with the patient's name and designated duodenal bulb ulcer. The specimen consists of multiple irregular fragments of light long soft tissue that in aggregate measure 0.7 x 0.7 x 0.1 cm. The specimen is totally submitted in one cassette. / ZOILA:jay jay 12/08/2022 TC:2 [facility]: [id number]
--- NOTE | 2022-12-07 13:26 | OP.CCLET_ITS ---
12/07/2022 Gamaliel Hein Do Re : Upper GI endoscopy procedure for Isidro Markham Dear Dr. Hein This procedure was performed on Wednesday, December 07, 2022. My impressions and recommendations are as follows: Impressions : - Normal esophagus. - Retained gastric fluid secondary to partial gastric outlet obstruction due to large malignant duodenal ulcer.. Fluid aspiration performed. - Granular gastric mucosa. - One oozing duodenal ulcer with a visible vessel. Injected. Treated with a heater probe. Biopsied. Recommendations : - Return patient to [facility] for ongoing care. - Full liquid diet. - Continue present medications. - Consider duodenal stent for gastric outlet obstruction and bleeding malignant ulcer. My findings are described in the full procedure note, which is enclosed. If I can be of further assistance, please feel free to contact me at . Sincerely, David Salgado, 12/07/2022 1:25:42 PM This report has been signed electronically.
--- NOTE | 2022-12-07 13:26 | OP.EGD_ITS ---
Patient Name: Isidro Markham Procedure Date: 12/07/2022 12:44 PM Date of : 1960 Age: 62 Procedure: Upper GI endoscopy Indications: Melena Providers: David Salgado DO Medicines: Monitored Anesthesia Care Patient Profile: This is a 62 year old male. Refer to note in patient chart for documentation of history and physical. Patient has symptoms of acute epigastric abdominal pain. Complications: No immediate complications. Procedure: Pre-Anesthesia Assessment: - Prior to the procedure, a History and Physical was performed, and patient medications and allergies were reviewed. The patient is competent. The risks and benefits of the procedure and the sedation options and risks were discussed with the patient. All questions were answered and informed consent was obtained. Patient identification and proposed procedure were verified in the pre-procedure area. Mental Status Examination: alert and oriented. Airway Examination: normal oropharyngeal airway and neck mobility. Respiratory Examination: clear to auscultation. CV Examination: normal. Prophylactic Antibiotics: The patient does not require prophylactic antibiotics. Prior Anticoagulants: The patient has taken no previous anticoagulant or antiplatelet agents. After reviewing the risks and benefits, the patient was deemed in satisfactory condition to undergo the procedure. The anesthesia plan was to use monitored anesthesia care (MAC). Immediately prior to administration of medications, the patient was re-assessed for adequacy to receive sedatives. The heart rate, respiratory rate, oxygen saturations, blood pressure, adequacy of pulmonary ventilation, and response to care were monitored throughout the procedure. The physical status of the patient was re-assessed after the procedure. After obtaining informed consent, the endoscope was passed under direct vision. Throughout the procedure, the patient's blood pressure, pulse, and oxygen saturations were monitored continuously. The gastroscope was introduced through the mouth, and advanced to the second part of duodenum. The upper GI endoscopy was accomplished without difficulty. The patient tolerated the procedure well. Scope In: 1:00:04 PM Scope Out: 1:15:06 PM Total Procedure Duration Time 0 hours 15 minutes 2 seconds Findings: The examined esophagus was normal. Retained fluid was found in the gastric body. Fluid aspiration was performed through the scope suction channel. The amount of fluid collected was 250 mL. Verification of patient identification for the specimen was done. Estimated blood loss was minimal. Granular mucosa was found in the gastric antrum. One oozing cratered duodenal ulcer with a visible vessel was found in the first portion of the duodenum. The lesion was 25 mm in largest dimension. Area was successfully injected with 13 mL of a 1:20,000 solution of epinephrine for drug delivery. Coagulation for hemostasis using heater probe was successful. Estimated blood loss was minimal. Biopsies were taken with a cold forceps for histology. Verification of patient identification for the specimen was done. Estimated blood loss was minimal. Impression: - Normal esophagus. - Retained gastric fluid secondary to partial gastric outlet obstruction due to large malignant duodenal ulcer.. Fluid aspiration performed. - Granular gastric mucosa. - One oozing duodenal ulcer with a visible vessel. Injected. Treated with a heater probe. Biopsied. Recommendation: - Return patient to [facility] for [facility] care. - Full liquid diet. - Continue present medications. - Consider duodenal stent for gastric outlet obstruction and bleeding malignant ulcer. Procedure Code(s): --- Professional --- 75505, 59, Esophagogastroduodenoscopy, flexible, transoral; with control of bleeding, any method 86266, 59, Esophagogastroduodenoscopy, flexible, transoral; with directed submucosal injection(s), any substance 59524, Esophagogastroduodenoscopy, flexible, transoral; with biopsy, single or multiple CPT copyright 2017 [employer]. All rights reserved. The codes documented in this report are preliminary and upon senior vice president & general counsel review may be revised to meet current compliance requirements. David Salgado DO 12/07/2022 1:25:42 PM This report has been signed electronically. Number of Addenda: 0 Note Initiated On: 12/07/2022 12:44 PM
[2022-12-07] MEDS: NIFEdipine 90 MG Tablet PO (14:42)
--- NOTE | 2022-12-07 16:08 | CASEMGMT ---
Social Work SW received referral from physician that pt is requesting information regarding hospice program. SW met with pt and introduced self and role of SW. SW spoke with pt regarding this and pt is requesting informational meeting with hospice. Phone call to Babita at [facility] and a Liason will be out this afternoon to meet with pt. SW spent time with pt offering emotional support. Pt open to discussing diagnosis and events over the past two years. Support provided. [employer]
--- NOTE | 2022-12-07 16:20 | CASEMGMT ---
Social Work Pt states he does have a living will and health care POA naming his friend Alan Light. Pt made aware documents are not on file and requested they be brought in. [employer]
[2022-12-07 16:31] LABS: Bedside Glucose 140 mg/dL (74-106)
[2022-12-07 17:15] LABS: Bedside Glucose 174 mg/dL (74-106)
[2022-12-07] MEDS: Insulin Lispro 100 UNIT/ML INSULN.PEN SC ×2 (17:57→22:59)
[2022-12-07 22:35] LABS: Bedside Glucose 199 mg/dL (74-106)
[2022-12-07 23:20] LABS: Bedside Glucose 202 mg/dL (74-106)
[2022-12-08] MEDS: 0.9% Saline Lock 10 ML Syringe IV ×3 (00:18→21:48)
[2022-12-08] MEDS: Morphine 2 MG/ML Syringe IV ×3 (00:18→21:47)
[2022-12-08 03:39] VITALS: BMI 32.0
[2022-12-08] MEDS: Insulin Lispro 100 UNIT/ML INSULN.PEN SC ×4 (05:12→21:59)
[2022-12-08] MEDS: Gabapentin 300 MG Capsule PO ×3 (05:15→21:41)
[2022-12-08] MEDS: Acetaminophen 325 MG Tablet 650 MG PO ×2 (05:18→19:35)
[2022-12-08] MEDS: oxyCODONE 5 MG Tablet PO ×2 (05:18→17:59)
[2022-12-08 05:26] VITALS: BP 135/65; PULSE 75; RESP 16; TEMP 36.6; O2SAT 96
[2022-12-08 05:31] LABS: Bedside Glucose 190 mg/dL (74-106)
[2022-12-08 06:08] LABS: Absolute Lymphocyte Count 1.33 X10^3/uL (0.83-4.51); Absolute Neutrophil Count 7.4 X10^3/uL (2.0-7.7); Basophil# 0.05 X10^3/uL; Basophil% 0.5 % (0-1); Eosinophil# 0.12 X10^3/uL; Eosinophils% 1.3 % (0-5); Hematocrit 31.3 % (40-54); Hemoglobin 9.7 g/dL (13.0-16.5); Lymphocyte # 1.33 X10^3/ul (0.83-4.51); Mean Corpuscular Hgb 29.8 pg (27.0-32.0); Mean Platelet Vol. 9.5 fl (6.2-12.0); Monocyte# 0.58 X10^3/uL; Monocyte% 6.1 % (0-10); NRBC Flagged by Analyzer 0 % (0-5); Neutrophil # 7.39 X10^3/uL (2.7-7.7); Neutrophil % 77.8 % (47-70); Platelet Count 321 K/mm3 (150-450); RBC Distribution Width CV 15.6 % (11.6-14.6); RBC Distribution Width SD 52.4 fl (35.1-43.9); Red Blood Count 3.26 M/mm3 (4.6-6.2); White Blood Count 9.5 K/mm3 (4.4-11.0)
[2022-12-08 06:38] LABS: Anion Gap 6 (5-15); BUN 14 mg/dL (7-18); BUN/Creat Ratio 10.6 RATIO (10-20); Calcium,Total 8.3 mg/dL (8.5-10.1); Chloride 102 mmol/L (98-107); Creatinine, Serum 1.32 mg/dL (0.70-1.30); EST Glomerular Filtration Rate 58 mL/min (>60); Est Glom Filt Rate - Afr Amer 70 mL/min (>60); Estimated Creatinine Clearance 67.57 ml/min; Glucose 202 mg/dL (74-106); Magnesium 1.8 mg/dL (1.6-2.6); Phosphorus 2.7 mg/dL (2.5-4.9); Potassium 3.9 mmol/L (3.5-5.1); Sodium Level 135 mmol/L (136-145)
[2022-12-08 07:42] VITALS: O2SAT 95
[2022-12-08 08:00] VITALS: BP 141/79; PULSE 87; RESP 16; TEMP 36.9; O2SAT 98
[2022-12-08] MEDS: NIFEdipine 90 MG Tablet PO (08:02)
[2022-12-08 11:00] LABS: Bedside Glucose 247 mg/dL (74-106)
[2022-12-08 15:02] VITALS: BP 113/69; PULSE 60; RESP 16; TEMP 36.4; O2SAT 100
--- NOTE | 2022-12-08 15:37 | PN.HOSP_ITS ---
Reason for Visit Reason for Visit: Generalized weakness/fatigue/melena Subjective Subjective No issues overnight. No nausea with full liquid diet. Discussed gastric outlet obstruction and malignant ulcer with Dr. Friend and patient would like to pursue stent placement. The plan is to do this tomorrow barring any issues with the stent being delivered. He did talk with hospice and is pleased that he has the information now going forward. Hemoglobin has stabilized. Objective Data Objective Data Vital Signs: Vital Signs Temp Pulse Resp BP Pulse Ox O2 Del Method 97.6 F L 60 16 113/69 100 Room Air 12/08/22 15:02 12/08/22 15:02 12/08/22 15:02 12/08/22 15:02 12/08/22 15:02 12/08/22 15:33 Oxygen Delivery Method Room Air Weight: 116.9 kg Body Mass Index (BMI) 32.0 Intake & Output: Intake and Output for Last 24 Hours 12/06/22 12/07/22 12/08/22 23:59 23:59 23:59 Intake Total 85 / 85 2571.67 / 2571.67 400 / 400 Output Total 4000 / 4000 1200 / 1200 Balance 85 / 85 -1428.33 / -1428.33 -800 / -800 Lab / Micro Data Result Diagrams: 12/08/22 05:35 12/08/22 05:35 Labs: Laboratory Results - last 24 hr 12/07/22 14:51: POC Glucose 140 H 12/07/22 16:51: POC Glucose 174 H 12/07/22 22:09: POC Glucose 199 H 12/07/22 22:58: POC Glucose 202 H 12/08/22 05:10: POC Glucose 190 H 12/08/22 05:35: WBC 9.5, RBC 3.26 L, Hgb 9.7 L, Hct 31.3 L, MCV 96.0 H, MCH 29.8, MCHC 31.0 L, RDW Std Deviation 52.4 H, RDW Coeff of [place] 15.6 H, Plt Count 321, MPV 9.5, Immature Gran % (Auto) 0.300, Neut % (Auto) 77.8 H, Lymph % (Auto) 14.0 L, [place] % (Auto) 6.1, Eos % (Auto) 1.3, Baso % (Auto) 0.5, Absolute Neuts (auto) 7.4, Absolute Lymphs (auto) 1.33, Nucleated RBC % 0 12/08/22 05:35: Sodium 135 L, Potassium 3.9, Chloride 102, Carbon Dioxide 27.0, Anion Gap 6, BUN 14, Creatinine 1.32 H, Estim Creat Clear Calc 67.57, Est GFR (MDRD) Af Amer 70, Est GFR (MDRD) Non-Af 58 L, BUN/Creatinine Ratio 10.6, Glucose 202 H, Calcium 8.3 L, Phosphorus 2.7, Magnesium 1.8 12/08/22 10:38: POC Glucose 247 H Micro: Microbiology 12/06/22 19:30 Stool Stool Occult Blood (MARIA ELENA) - Final Occult Blood Positive Physical Exam Const alert, oriented x3 and no apparent distress Constitutional Narrative: Obese, upper middle-aged, white male, sitting up in bed, appears comfortable nontoxic, very pleasant, watching television HEENT head/scalp atraumatic and moist oral mucous membranes Head and Scalp: normocephalic Resp normal respiratory effort, no retractions, no use of accessory muscles and clear to auscultation bilaterally Auscultation: Negative for rales, rhonchi or wheezes Cardio regular rate, regular rhythm, S1 normal heart sound, S2 normal heart sound, no murmurs, no rub, no gallops and no clicks GI normal to inspection, nondistended, normoactive bowel sounds and soft to palpation Extremity no clubbing, cyanosis or edema Extremity Narrative: Pedal pulses are 2+ Skin Skin Narrative: Pale Neuro oriented x3, moves all extremities and no focal motor deficits Speech: speech normal Psych affect normal Psych Narrative: Appropriate, eye contact is good, interaction is normal Assessment & Plan Assessment/Plan (1) Acute GI bleeding: (2) Peritoneal carcinomatosis: (3) H/O colon cancer, stage IV: (4) Acute anemia: (5) Elevated serum creatinine: (6) Gastric outlet obstruction: (7) Duodenal ulcer: PLAN: Plan GI bleed secondary to duodenal ulcer -Continue Protonix -Continue octreotide drip -EGD demonstrated normal esophagus with retained gastric fluid secondary to partial gastric outlet obstruction with large malignant duodenal ulcer, granular gastric mucosa and 1 oozing duodenal ulcer with visible vessel which was injec niko and treated with heater probe, biopsies were sent -Plan is for duodenal stent placement for GOO tomorrow -Continue full liquid diet until stent placed and then will trial regular diet prior to discharge Acute anemia on chronic anemia -Patient's baseline hemoglobin appears to have been running in the 12-13 range -Hemoglobin on presentation was 7.2 down from 12.1 on 07/17/2022 -Hemoglobin is stabilized at 9.7 today up from 8.7 yesterday -Status post 2 units of packed red blood cells on 12/06/2021 -Hold home meloxicam Serum creatinine elevation on CKD stage IIIa -Serum creatinine presentation was 1.67--> 1.32 today -Baseline creatinine looks to be between 1.3 and 1.5 -Continue to monitor Stage IV metastatic colon CA -Patient with abdominal wall and peritoneal metastatic disease that is worsening on most recent imaging -Was following with oncology-Dr. Giang -Did not tolerate oral chemo -Is following with palliative care -Did see hospice yesterday and is happy that he has any information going forward -Would like to change CODE STATUS to DNR CCA no intubation Hypertension/hyperlipidemia -Continue home nifedipine -Continue home statin -Hold home HCTZ DM-2 -Continue basal insulin -Sliding scale -Hold mealtime scheduled Humalog until p.o. intake has reinitiated as patient is n.p.o. for scopes Diabetic neuropathy -Continue home gabapentin Chronic pain -Continue home medications Obesity -Complicates treatment, prognosis, outcomes DVT prophylaxis -SCDs with concern for bleeding -Encourage ambulation CODE STATUS -Patient would like to change his CODE STATUS from full code to DNR CCA with no intubation Disposition: Plan for duodenal stent to be placed tomorrow as long as it is delivered and depending on timing and tolerance of diet patient may be able to be discharged in the next 24 to 48 hours. Charges/Coding Visit Charges Inpatient E&M: 56994 Subs Hosp L2
--- NOTE | 2022-12-08 16:27 | PCM.PROGNOTE ---
Subjective Subjective Patient seen and examined this morning. He is not having abdominal pain. He is not having any signs of bleeding at this time. Objective Data Objective Data Vital Signs: Vital Signs Temp Pulse Resp BP Pulse Ox O2 Del Method 97.6 F L 60 16 113/69 100 Room Air 12/08/22 15:02 12/08/22 15:02 12/08/22 15:02 12/08/22 15:02 12/08/22 15:02 12/08/22 15:33 Oxygen Delivery Method Room Air Weight: 257 lb 11.526 oz Body Mass Index (BMI) 32.0 Intake & Output: Intake and Output for Last 24 Hours 12/06/22 12/07/22 12/08/22 23:59 23:59 23:59 Intake Total 85 / 85 2571.67 / 2571.67 400 / 400 Output Total 4000 / 4000 1200 / 1200 Balance 85 / 85 -1428.33 / -1428.33 -800 / -800 Lab / Micro Data Result Diagrams: 12/08/22 05:35 12/08/22 05:35 Labs: Laboratory Results - last 24 hr 12/07/22 14:51: POC Glucose 140 H 12/07/22 16:51: POC Glucose 174 H 12/07/22 22:09: POC Glucose 199 H 12/07/22 22:58: POC Glucose 202 H 12/08/22 05:10: POC Glucose 190 H 12/08/22 05:35: WBC 9.5, RBC 3.26 L, Hgb 9.7 L, Hct 31.3 L, MCV 96.0 H, MCH 29.8, MCHC 31.0 L, RDW Std Deviation 52.4 H, RDW Coeff of [place] 15.6 H, Plt Count 321, MPV 9.5, Immature Gran % (Auto) 0.300, Neut % (Auto) 77.8 H, Lymph % (Auto) 14.0 L, [place] % (Auto) 6.1, Eos % (Auto) 1.3, Baso % (Auto) 0.5, Absolute Neuts (auto) 7.4, Absolute Lymphs (auto) 1.33, Nucleated RBC % 0 12/08/22 05:35: Sodium 135 L, Potassium 3.9, Chloride 102, Carbon Dioxide 27.0, Anion Gap 6, BUN 14, Creatinine 1.32 H, Estim Creat Clear Calc 67.57, Est GFR (MDRD) Af Amer 70, Est GFR (MDRD) Non-Af 58 L, BUN/Creatinine Ratio 10.6, Glucose 202 H, Calcium 8.3 L, Phosphorus 2.7, Magnesium 1.8 12/08/22 10:38: POC Glucose 247 H Micro: Microbiology 12/06/22 19:30 Stool Stool Occult Blood (MARIA ELENA) - Final Occult Blood Positive Physical Exam Narrative Physical Examination: General: Awake, alert, oriented x 3 and cooperative, seated upright in the ED bed, fatigued otherwise no acute distress. Skin: Mildly pale color, normal turgor, no icterus, no cyanosis. HEENT: AT/NC, EOMI, PERRLA, mildly dry MM, no carotid bruits or JVD noted. Lungs: Mildly diminished, greater bases, appropriate effort, no rales, ronchi or wheezing. Heart: Currently regular rate and rhythm; no gallop, rub audible. Abdomen: Soft, generalized discomfort, worse in the left lower quadrant with some guarding and rebound noted and he states this is chronic unfortunately secondary to the tumor present in that region, no obvious marked distention, hyperactive bowel sounds, difficult to assess HSM given habitus and discomfort elicited with manual palpation Extremities: No cyanosis, no clubbing, mild peripheral ankle nonpitting edema. Neurological: Patient awake, alert, oriented as noted, cognitive function intact; pupils equally reactive to light and accommodation, cranial nerves II-XII grossly normal, moving all 4 extremities, no focal deficits, strength moderately globally decreased secondary to acute presentation and underlying comorbidities Psychiatric: Affect appears fatigued, no acute evidence of depressive or anxiety feelings. Assessment & Plan Assessment/Plan (1) Duodenal ulcer: (2) Gastric outlet obstruction: (3) Colon cancer metastasized to multiple sites: PLAN: Plan 62 yo with invasive adenocarcinoma grade 2, that invaded through the muscularis propria into pericolorectal tissue, no macroscopic tumor perforation, no lymphovascular invasion, no perineural invasion, all margins were negative and 3 out of 34 dissected lymph nodes were positive for metastatic carcinoma pathologically staged T3N1B.?Recentt CT scan displays worsening metastatic disease throughout his abdomen. He underwent an upper endoscopy and was discovered to have a malignant duodenal ulcer in the D1 portion of his duodenum. It was actively bleeding and treated with epinephrine and cautery. Also noted was fluid in the stomach causing a gastric outlet obstruction. The fluid was removed. I had a long talk with him today explaining that the tumor would likely continue to grow and encapsulate the full circumference of the fourth portion of the duodenum causing a full gastric outlet obstruction. Recommendations is fully covered flexible duodenal stent to prevent further gastric outlet obstruction, gastroparesis. Hopefully with stenting he will be able to have a normal summer and prevent him from getting other transfusions for bleeding at the site of duodenal ulcer. He will continue on octreotide, PPI drip and the stent will be ordered.
[2022-12-08 17:30] LABS: Bedside Glucose 245 mg/dL (74-106)
[2022-12-08 20:00] VITALS: BP 132/69; PULSE 67; RESP 15; TEMP 36.6; O2SAT 97
[2022-12-08] MEDS: MELATONIN 3 MG TABLET PO (21:41)
[2022-12-08] MEDS: Atorvastatin Calcium 20 MG Tablet PO (21:54)
[2022-12-08 23:15] LABS: Bedside Glucose 240 mg/dL (74-106)
[2022-12-09] MEDS: Insulin Lispro 100 UNIT/ML INSULN.PEN SC ×4 (05:05→23:07)
[2022-12-09] MEDS: Gabapentin 300 MG Capsule PO ×3 (05:05→21:26)
[2022-12-09 05:23] VITALS: BP 117/68; PULSE 61; RESP 16; TEMP 36.6; O2SAT 95
[2022-12-09 05:35] LABS: Bedside Glucose 206 mg/dL (74-106)
[2022-12-09 05:44] VITALS: BMI 32.6
[2022-12-09 09:28] VITALS: BP 106/58; PULSE 69; RESP 16; TEMP 36.7; O2SAT 98
[2022-12-09 09:30] VITALS: O2SAT 94
[2022-12-09] MEDS: NIFEdipine 90 MG Tablet PO (09:30)
[2022-12-09] MEDS: oxyCODONE 5 MG Tablet PO ×2 (09:36→20:07)
[2022-12-09] MEDS: Acetaminophen 325 MG Tablet 650 MG PO ×2 (12:21→20:06)
[2022-12-09 12:51] LABS: Bedside Glucose 248 mg/dL (74-106)
--- NOTE | 2022-12-09 13:09 | PN.HOSP_ITS ---
Reason for Visit Reason for Visit: Generalized weakness/fatigue/melena Subjective Subjective Is overnight. No bowel movements. Hemoglobin was stable yesterday. Tolerated a full liquid diet without difficulty. Unfortunately the stent is not going to arrive until tonight so his procedure will not be able to be done till tomorrow. I discussed this with the patient and he voiced understanding however he was disappointed. We will continue full liquid diet today and n.p.o. after midnight. Objective Data Objective Data Vital Signs: Vital Signs Temp Pulse Resp BP Pulse Ox O2 Del Method 98.0 F 69 16 106/58 L 98 Room Air 12/09/22 09:28 12/09/22 09:28 12/09/22 09:28 12/09/22 09:28 12/09/22 09:28 12/09/22 10:00 Oxygen Delivery Method Room Air Weight: 119.1 kg Body Mass Index (BMI) 32.6 Intake & Output: Intake and Output for Last 24 Hours 12/07/22 12/08/22 12/09/22 23:59 23:59 23:59 Intake Total 2571.67 / 2571.67 751 / 751 189.83 / 189.83 Output Total 4000 / 4000 1550 / 2750 1525 / 1525 Balance -1428.33 / -1428.33 -799 / -1999 -1335.17 / -1335.17 Lab / Micro Data Result Diagrams: 12/08/22 05:35 12/08/22 05:35 Labs: Laboratory Results - last 24 hr 12/08/22 17:05: POC Glucose 245 H 12/08/22 21:58: POC Glucose 240 H 12/09/22 05:04: POC Glucose 206 H 12/09/22 12:27: POC Glucose 248 H Micro: Microbiology 12/06/22 19:30 Stool Stool Occult Blood (MARIA ELENA) - Final Occult Blood Positive Physical Exam Const alert, oriented x3 and no apparent distress Constitutional Narrative: Obese, upper middle-aged, white male, sitting up in bed, appears comfortable nontoxic, very pleasant, nursing at bedside Extremity Extremity Narrative: Pedal pulses are 2+ Skin Skin Narrative: Pale Psych affect normal Psych Narrative: Appropriate, eye contact is good, interaction is normal Assessment & Plan Assessment/Plan (1) Acute GI bleeding: (2) Peritoneal carcinomatosis: (3) H/O colon cancer, stage IV: (4) Acute anemia: (5) Elevated serum creatinine: (6) Gastric outlet obstruction: (7) Duodenal ulcer: PLAN: Plan GI bleed secondary to duodenal ulcer -Continue Protonix -Continue octreotide drip -EGD demonstrated normal esophagus with retained gastric fluid secondary to partial gastric outlet obstruction with large malignant duodenal ulcer, granular gastric mucosa and 1 oozing duodenal ulcer with visible vessel which was injected and treated with heater probe, biopsies were sent -Plan is for duodenal stent placement for GOO tomorrow 12/10/2022 as stent was n ot able to be delivered yesterday or this morning for procedure today -Continue full liquid diet until stent placed and then will trial regular diet prior to discharge--> n.p.o. after midnight Acute anemia on chronic anemia -Patient's baseline hemoglobin appears to have been running in the 12-13 range -Hemoglobin on presentation was 7.2 down from 12.1 on 07/17/2022 -Hemoglobin was improved yesterday -We will repeat in a.m. -Status post 2 units of packed red blood cells on 12/06/2021 -Hold home meloxicam Serum creatinine elevation on CKD stage IIIa -Serum creatinine presentation was 1.67 -Baseline creatinine looks to be between 1.3 and 1.5 -Continue to monitor -Repeat in the a.m. Stage IV metastatic colon CA -Patient with abdominal wall and peritoneal metastatic disease that is worsening on most recent imaging -Was following with oncology-Dr. Giang -Did not tolerate oral chemo -Is following with palliative care -Did see hospice yesterday and is happy that he has any information going forward Hypertension/hyperlipidemia -Continue home nifedipine -Continue home statin -Hold home HCTZ DM-2 -Continue basal insulin -Sliding scale -Hold mealtime scheduled Humalog until p.o. intake has reinitiated as patient is n.p.o. for scopes Diabetic neuropathy -Continue home gabapentin Chronic pain -Continue home medications Obesity -Complicates treatment, prognosis, outcomes DVT prophylaxis -SCDs with concern for bleeding -Encourage ambulation CODE STATUS -DNR CCA no intubation Disposition: Plan is for now duodenal stent to be placed tomorrow as it did not arrive to be placed today. Trial regular diet following and hopeful discharge home following as long as able to tolerate regular food without difficulty. Charges/Coding Visit Charges Inpatient E&M: 30659 Subs Hosp L1
[2022-12-09 16:00] VITALS: BP 125/69; PULSE 62; RESP 16; TEMP 36.6; O2SAT 99
[2022-12-09] MEDS: Glucerna Shake 120 ML LIQUID PO (16:00)
--- NOTE | 2022-12-09 18:01 | PN_ITS ---
Subjective Subjective Patient denies any abdominal pain. He has not seen any more signs of GI bleeding in the form of melanotic stools. He is tolerating a diet. Objective Data Objective Data Vital Signs: Vital Signs Temp Pulse Resp BP Pulse Ox O2 Del Method 98.0 F 69 16 106/58 L 94 Room Air 12/09/22 09:28 12/09/22 09:28 12/09/22 09:28 12/09/22 09:28 12/09/22 09:30 12/09/22 10:00 Oxygen Delivery Method Room Air Weight: 262 lb 9.129 oz Body Mass Index (BMI) 32.6 Intake & Output: Intake and Output for Last 24 Hours 12/07/22 12/08/22 12/09/22 23:59 23:59 23:59 Intake Total 2571.67 / 2571.67 751 / 751 440.83 / 440.83 Output Total 4000 / 4000 1550 / 2750 1525 / 1525 Balance -1428.33 / -1428.33 -799 / -1999 -1084.17 / -1084.17 Lab / Micro Data Result Diagrams: 12/08/22 05:35 12/08/22 05:35 Labs: Laboratory Results - last 24 hr 12/08/22 21:58: POC Glucose 240 H 12/09/22 05:04: POC Glucose 206 H 12/09/22 12:27: POC Glucose 248 H Micro: Microbiology 12/06/22 19:30 Stool Stool Occult Blood (MARIA ELENA) - Final Occult Blood Positive Physical Exam Narrative Physical Examination: General: Awake, alert, oriented x 3 and cooperative, seated upright in the ED bed, fatigued otherwise no acute distress. Skin: Mildly pale color, normal turgor, no icterus, no cyanosis. HEENT: AT/NC, EOMI, PERRLA, mildly dry MM, no carotid bruits or JVD noted. Lungs: Mildly diminished, greater bases, appropriate effort, no rales, ronchi or wheezing. Heart: Currently regular rate and rhythm; no gallop, rub audible. Abdomen: Soft, generalized discomfort, worse in the left lower quadrant with some guarding and rebound noted and he states this is chronic unfortunately s econdary to the tumor present in that region, no obvious marked distention, hyperactive bowel sounds, difficult to assess HSM given habitus and discomfort elicited with manual palpation Extremities: No cyanosis, no clubbing, mild peripheral ankle nonpitting edema. Neurological: Patient awake, alert, oriented as noted, cognitive function intact; pupils equally reactive to light and accommodation, cranial nerves II- XII grossly normal, moving all 4 extremities, no focal deficits, strength moderately globally decreased secondary to acute presentation and underlying comorbidities Psychiatric: Affect appears fatigued, no acute evidence of depressive or anxiety feelings. Assessment & Plan Assessment/Plan (1) Duodenal ulcer: (2) Gastric outlet obstruction: (3) Colon cancer metastasized to multiple sites: PLAN: Plan 62 yo with invasive adenocarcinoma grade 2, that invaded through the muscularis propria into pericolorectal tissue, no macroscopic tumor perforation, no lymphovascular invasion, no perineural invasion, all margins were negative and 3 out of 34 dissected lymph nodes were positive for metastatic carcinoma pathologically staged T3N1B.?Recentt CT scan displays worsening metastatic disease throughout his abdomen. He underwent an upper endoscopy and was discovered to have a malignant duodenal ulcer in the D1 portion of his duodenum. It was actively bleeding and treated with epinephrine and cautery. Also noted was fluid in the stomach causing a gastric outlet obstruction. The fluid was removed. I had a long talk with him previously explaining that the tumor would likely continue to grow and encapsulate the full circumference of the fourth portion of the duodenum causing a full gastric outlet obstruction. Recommendations is fully covered flexible duodenal stent to prevent further gastric outlet obstruction, gastroparesis. Hopefully with stenting he will be able to have a normal summer and prevent him from getting other transfusions for bleeding at the site of duodenal ulcer. He will continue on octreotide, PPI drip and the stent hopefully will be placed tomorrow. Charges/Coding Visit Charges Inpatient E&M: 62695 Subs Hosp L3
[2022-12-09 19:15] LABS: Bedside Glucose 237 mg/dL (74-106)
[2022-12-09 21:00] VITALS: BP 133/70; PULSE 66; RESP 16; TEMP 36.6; O2SAT 99
[2022-12-09] MEDS: Atorvastatin Calcium 20 MG Tablet PO (21:26)
[2022-12-09] MEDS: Morphine 2 MG/ML Syringe IV (23:07)
[2022-12-09] MEDS: MELATONIN 3 MG TABLET PO (23:08)
[2022-12-09 23:30] LABS: Bedside Glucose 259 mg/dL (74-106)
[2022-12-10] VITALS (9 sets, daily range): BP systolic 104–155; BP diastolic 55–78; PULSE 60–67; RESP 16–18; TEMP 36.2–36.6; O2SAT 97–100; BMI 32.6
--- NOTE | 2022-12-10 | IMM_PTH ---
PATIENT: ELEAZAR RODRIGUEZ LOC: [facility] U#:[id number] AGE/SX: 62/M ROOM: [facility] [place] RE12/06/[address]: Dr. Karlee Alvarez DO : 1960 BED: 1 DIS: 12/10/2022 SPEC #: [id number] RECD: 12/11/22 13:42 STATUS: FALGUNI REQ #: [id number] ALEJANDRA: 12/10/22 00:[address]: David Salgado DEPT: IMMUNOHISTOCHEMISTRY RECD BY: Shanice Berman ENTERED: 12/11/22 13:44 SP TYPE: IMMUNO OTHR DR: MD Dr. Karlee Crandall DO Dr. Scott Wilkins, DO Tissues: Duodenum, NOS Procedures: MSH2 (add) MLH-1 (add) MSH6 (add) Anti-PMS2 (add) HER2 STAR (add) P53 (add) KI-67 (initial) PHYSICIAN & INSTITUTION [address] [address] SPECIMEN INFORMATION: Tissue Source: Duodenal mass Clinical Info: Acute GI bleeding Specimen Number: [id number] CPT code: 84768, 57851 x6 METHODOLOGY: Deparaffinized sections of prefer/formalin-fixed tissue or PAP/DQ stained slides are incubated with monoclonal/polyclonal antibodies/oligonucleotide probes. Localization is made via biotin free immunoperoxidase method. Appropriate controls are performed and reacted as expected. Results on target cell population are indicated in the following table: RESULTS: ANTIBODY / CLONE RESULT Her-2neu (CB11) Negative (1+) MLH-1 (M1) positive MSH2 (25D12) positive MSH6 (44) positive PMS2 (NTR4516) positive Ki-67 (30-9) positive, high, >95% P53 (DO-7) positive (missense mutation pattern) These tests were developed and their performance characteristics determined by [facility]. They may not have been cleared or approved by the U.S. Food and Drug Administration. The FDA has determined that such clearance or approval is not necessary. The above immunohistochemical/dualISH markers are ordered and reviewed by the Pathologist. INTERPRETATION: Duodenal mass, biopsy: Invasive adenocarcinoma. Result of Microsatellite Instability Study: Negative (no loss of mismatch protein; no microsatellite instability detected). SJ:jay jay 12/15/2022
[2022-12-10] MEDS: Morphine 2 MG/ML Syringe IV ×2 (04:00→08:30)
[2022-12-10 04:37] LABS: Absolute Lymphocyte Count 1.65 X10^3/uL (0.83-4.51); Absolute Neutrophil Count 4.2 X10^3/uL (2.0-7.7); Basophil# 0.04 X10^3/uL; Basophil% 0.6 % (0-1); Eosinophil# 0.18 X10^3/uL; Eosinophils% 2.7 % (0-5); Hemoglobin 9.2 g/dL (13.0-16.5); Lymphocyte # 1.65 X10^3/ul (0.83-4.51); Lymphocyte % 24.8 % (19-41); Mean Corp Hgb Conc 32.9 g/dL (32-36); Mean Corpuscular Hgb 30.2 pg (27.0-32.0); Mean Corpuscular Volume 91.8 fL (80-94); Monocyte# 0.56 X10^3/uL; Monocyte% 8.4 % (0-10); NRBC Flagged by Analyzer 0 % (0-5); Neutrophil # 4.21 X10^3/uL (2.7-7.7); Neutrophil % 63.2 % (47-70); Platelet Count 348 K/mm3 (150-450); RBC Distribution Width CV 15.1 % (11.6-14.6); RBC Distribution Width SD 50.4 fl (35.1-43.9); Red Blood Count 3.05 M/mm3 (4.6-6.2); White Blood Count 6.7 K/mm3 (4.4-11.0)
[2022-12-10] MEDS: Insulin Lispro 100 UNIT/ML INSULN.PEN SC (05:12)
[2022-12-10 05:17] LABS: Anion Gap 6 (5-15); BUN 20 mg/dL (7-18); BUN/Creat Ratio 14.4 RATIO (10-20); Chloride 104 mmol/L (98-107); Creatinine, Serum 1.39 mg/dL (0.70-1.30); EST Glomerular Filtration Rate 55 mL/min (>60); Est Glom Filt Rate - Afr Amer 66 mL/min (>60); Estimated Creatinine Clearance 64.17 ml/min; Glucose 198 mg/dL (74-106); Potassium 3.9 mmol/L (3.5-5.1); Sodium Level 136 mmol/L (136-145)
[2022-12-10 06:06] LABS: Bedside Glucose 212 mg/dL (74-106)
[2022-12-10] MEDS: 0.9% Saline Lock 10 ML Syringe IV (08:31)
[2022-12-10 10:51] LABS: Bedside Glucose 204 mg/dL (74-106)
[2022-12-10] MEDS: 0.9% Normal Saline 1,000 ML 15 ML IV ×2 (10:51→12:35)
--- NOTE | 2022-12-10 11:20 | PCM.DC.SUM ---
Providers Date of Admission: 12/06/22 Date of Discharge: 12/10/22 Primary Care Physician: Dr. Gamaliel Hein, Consultations 12/06/22 22:44 Consult: Gastroenterology Routine Consulting Provider: [facility] Reason for Consult: GI bleed, acute anemia on chronic, Colon CA EMERGENT Consult: No MD Notified: Yes Date Notified: 12/06/22 Time Notified: 22:11 Method of Notification: Verbal Reason For Visit: GI BLEED Diagnosis Discharge Diagnosis (1) Duodenal ulcer: Status: Acute Code(s): K26.9 - Duodenal ulcer, unspecified as acute or chronic, without hemorrhage or perforation (2) Gastric outlet obstruction: Status: Acute Code(s): K31.1 - Adult hypertrophic pyloric stenosis (3) Colon cancer metastasized to multiple sites: Status: Acute Code(s): C18.9 - Malignant neoplasm of colon, unspecified Medications at Discharge Home Medications Cilostazol 50 mg PO DINNER neuropathy 06/25/15 aspirin 81 mg chewable tablet 81 mg PO DAILY@0800 heart health 06/25/15 insulin aspart U-100 100 unit/mL (3 mL) subcutaneous pen (Novolog FlexPen U-100 Insulin aspart) 13 units subcut TIDCM diabetes 06/25/15 insulin glargine 100 unit/mL (3 mL) subcutaneous pen (Lantus Solostar U-100 Insulin) 77 units subcut 1200 DM 06/25/15 nifedipine 90 mg tablet,extended release 90 mg PO DAILY HTN 06/25/15 simvastatin 40 mg tablet 40 mg PO QHS cholesterol 06/25/15 gabapentin 300 mg capsule 300 mg PO TID nerve pain 07/15/15 omega-3 fatty acids-fish oil 300 mg-1,000 mg capsule 1 ea PO BID supplement 07/15/15 tramadol 50 mg tablet 50 - 100 mg PO Q6H PRN PRN Pain 07/15/15 hydrochlorothiazide 25 mg tablet 25 mg PO DAILY diuretic ##0 09/13/19 meloxicam 15 mg tablet 15 mg PO DAILY pain 01/14/21 multivitamin 1 tab PO DAILY supplement 02/25/22 pantoprazole 40 mg tablet,delayed release (Protonix) 40 mg PO DAILY #60 tabs 12/10/22 Hospital Course Procedures EGD and - (Duodenal stent placement) Summary of Care Provided Minutes Spent on Discharge: 38 Hospital Course: Mr. Markham is a 62-year-old white male who presented to the emergency department at [facility] on 12/06/2022 complaining of dark appearing stools, increased weakness, and malaise.? Patient has a history of stage IV colon cancer with recurrence and follows with Dr. Giang.?Patient has been following with palliative care services and is not a candidate for any active cancer treatment.? CT of the abdomen pelvis emergency department revealed findings consistent with metastatic disease to the peritoneum and abdominal wall with increasing compared to previous study on 07/17/2022, no evidence of bowel obstruction, and gallbladder distention without gallstones.? His occult stool was positive for blood.? Hemoglobin was 7.2 with his most recent hemoglobin from 07/17/2022 being 12.1.? His baseline looks to be between 12 and 13. Platelets were normal.? The emergency department discussed the case with Dr. Salgado from gastroenterology who reviewed the case and the imaging and recommended Protonix drip, octreotide drip, and IV Rocephin.? He was admitted to the medical floor and taken for an EGD on 12/07/2022 at which time he was found to have retrained fluid in the gastric body which was aspirated, granular mucosa in the gastric antrum and 1 oozing cratered duodenal ulcer with a visible vessel in the first portion of duodenum that was treated with injection and coagulation for hemostasis. Gastric outlet obstruction was also noted to be fairly significant as a result of this malignant appearing cratered duodenal ulcer. Patient was started on a full liquid diet and return to the medical floor at which time gastroenterology discussed the placement of a duodenal stent if the patient so desired. The patient wanted proceed and he was taken for duodenal stent on 12/10/2022 to help prevent further gastric outlet obstruction and increased food tolerance. Unfortunately under fluoroscopy it was noted that the lesion was very close to the ampulla and the patient was not consented for ERCP and stent of the ampulla thus the procedure was aborted. I discussed the case with Dr. Salgado and he felt it was okay for the patient to be discharged home and will follow-up as an outpatient. The patient did also meet with hospice during his hospitalization and will consider this in the future with regards to his terminal diagnosis. He was transfused with 2 units of packed red blood cells during his hospital course done prior to his EGD. His hemoglobins were stable following procedure. He was able to be discharged home in stable condition on 12/10/2022. He will be placed on Protonix 40 mg p.o. twice daily in addition to his other home medications. We recommend that he follow-up with his primary care physician within next [address] Salgado in the next 2 to 4 weeks. We do recommend a soft diet be utilized in the short-term given the partial gastric outlet obstruction noted on imaging. He is to call for an appointment after discharge. Discharge diagnoses: GI bleed Malignant duodenal ulcer-pathology pending Acute anemia secondary to GI bleed CKD stage IIIa -Stage IV metastatic colon cancer Hypertension Hyperlipidemia DM-2 Diabetic neuropathy Chronic pain Obesity Physical Exam Const alert, oriented x3 and no apparent distress Constitutional Narrative: Obese, upper middle-aged, white male, sitting up in bed, appears comfortable nontoxic, very pleasant General Appearance: cooperative, comfortable, well kempt and well developed Orientation / Consciousness: awake, oriented to person, oriented to place and oriented to time Exam Limitations: no limitations Nutritional Appearance: obese HEENT normocephalic, head/scalp atraumatic, hearing grossly normal bilaterally and moist oral mucous membranes HEENT Narrative: Mallampati 2-3, no throat Eyes PERRL and EOMs intact bilaterally; Negative for conjunctivae normal Eyes Narrative: Mild pale conjunctiva, no scleral icterus Neck no lymphadenopathy and supple Neck Narrative: Trachea midline, no thyroid enlargement Resp normal respiratory effort, no retractions, no use of accessory muscles and clear to auscultation bilaterally Auscultation: Negative for rales, rhonchi or wheezes Cardio regular rate, regular rhythm, S1 normal heart sound, S2 normal heart sound, no murmurs, no rub, no gallops and no clicks GI soft to palpation and non-distended GI Narrative: Nodularity noted in the mid to lower left abdominal region which I suspect this is his abdominal wall mass, bowel sounds are normoactive Extremity no clubbing, cyanosis or edema Extremity Narrative: Pedal pulses are 2+ Skin no rashes or lesions noted, no wounds, skin turgor normal and no jaundice Skin Narrative: Pale Neuro oriented x3, CN's II-XII intact bilaterally, moves all extremities and no focal motor deficits Neuro Narrative: Mild bilateral neuropathy noted Speech: speech normal Psych affect normal Psych Narrative: Appropriate, eye contact is good, interaction is normal Weight / BMI Weight Weight: 119.1 kg Body Mass Index (BMI) 32.6 ABG / Lab / Microbiology Data Result Diagrams: 12/10/22 04:20 12/10/22 04:20 Laboratory: Laboratory Results - last 24 hr 12/09/22 12:27: POC Glucose 248 H 12/09/22 18:16: POC Glucose 237 H 12/09/22 23:05: POC Glucose 259 H 12/10/22 04:20: WBC 6.7, RBC 3.05 L, Hgb 9.2 L, Hct 28.0 L, MCV 91.8, MCH 30.2, MCHC 32.9 D, RDW Std Deviation 50.4 H, RDW Coeff of [place] 15.1 H, Plt Count 348, MPV 9.0, Immature Gran % (Auto) 0.300, Neut % (Auto) 63.2, Lymph % (Auto) 24.8, [place] % (Auto) 8.4, Eos % (Auto) 2.7, Baso % (Auto) 0.6, Absolute Neuts (auto) 4.2, Absolute Lymphs (auto) 1.65, Nucleated RBC % 0 12/10/22 04:20: Sodium 136, Potassium 3.9, Chloride 104, Carbon Dioxide 26.0, Anion Gap 6, BUN 20 H, Creatinine 1.39 H, Estim Creat Clear Calc 64.17, Est GFR (MDRD) Af Amer 66, Est GFR (MDRD) Non-Af 55 L, BUN/Creatinine Ratio 14.4, Glucose 198 H, Calcium 8.0 L 12/10/22 05:10: POC Glucose 212 H 12/10/22 10:14: POC Glucose 204 H Microbiology: Microbiology 12/06/22 19:30 Stool Stool Occult Blood (MARIA ELENA) - Final Occult Blood Positive D/C Instructions Discharge Diet: Soft diet Discharge Activity: Return to Normal Activity Meaningful Use Info Meaningful Use Diagnoses (Choose all that apply): None applicable Discharge Plan Admission Admit Date/Time: 12/06/22 21:24 Primary Reason for Your Visit: Generalized weakness/fatigue/melena Attending Provider: Karlee Alvarez Primary Care Provider: Gamaliel Hein Consulting Providers: Faith Solorio Discharge Orders/Prescriptions Prescriptions: New pantoprazole [Protonix] 40 mg tablet,delayed release (DR/EC) 40 mg PO DAILY Qty: 60 1RF No Action meloxicam 15 mg tablet 15 mg PO DAILY nifedipine 90 MG tablet 90 mg PO DAILY Label Comments: BLOOD PRESSURE simvastatin 40 MG tablet 40 mg PO QHS Label Comments: CHOLESTEROL aspirin 81 MG tablet,chewable 81 mg PO DAILY@0800 Label Comments: HEART HEALTH/PREVENTION insulin aspart U-100 [Novolog FlexPen U-100 Insulin] 100 UNITS/ML insulin pen 13 units subcut TIDCM Label Comments: SHORT ACTING INSULIN insulin glargine [Lantus Solostar U-100 Insulin] 100 UNITS/ML insulin pen 77 units subcut 1200 Label Comments: LONG ACTING INSULIN Cilostazol 50 MG tablet 50 mg PO DINNER Label Comments: ANTI-PLATELET/CIRCULATION tramadol 50 MG tablet 50 - 100 mg PO Q6H PRN PRN (Reason: Pain) Label Comments: Pain gabapentin 300 MG capsule 300 mg PO TID Label Comments: NERVE PAIN/NEUROPATHY omega-3 fatty acids-fish oil 1 EACH capsule 1 ea PO BID Label Comments: Supplement hydrochlorothiazide 25 MG tablet 25 mg PO DAILY Qty: 0 0RF Label Comments: BLOOD PRESSURE multivitamin Tablet 1 tab PO DAILY Referrals / Follow Up: David Salgado DO [Med Staff - Active Staff] - Within 2 Weeks (Call to make an appointment after you are discharged) Gamaliel Hein DO [Primary Care Provider] - Within 2 Weeks Disposition Disposition (needs filled in before D/C Order can be placed): Home, Self Care Charges/Coding Visit Charges Inpatient E&M: 37953 Disch Hosp >30min
--- NOTE | 2022-12-10 11:30 | EGD_PTH ---
PATIENT: ELEAZAR RODRIGUEZ LOC: [facility] U#:[id number] AGE/SX: 62/M ROOM: [facility] [place] RE12/06/[address]: Dr. Karlee Alvarez DO : 1960 BED: 1 DIS: 12/10/2022 SPEC #: [id number] RECD: 12/10/22 13:36 STATUS: FALGUNI REDora #: [id number] ALEJANDRA: 12/10/22 11:[address]: David Salgado DEPT: SURGICAL PATHOLOGY RECD BY: Cristy Peterson ENTERED: 12/10/22 13:58 SP TYPE: EGD BIOPSY OT DR: MD Dr. Karlee Crandall DO Dr. Scott Wilkins, DO Tissues: Duodenum, NOS Procedures: Surgery Specimen Level IV Comments: @ Ordering doctor for SUIV edited from to @ by RGOOD at 12/10/22 1443 @ Submitting doctor edited from to @ by RGOOD at 12/10/22 1443 HEADER OPERATION: EGD ([facility] [place]) with biopsy PRE-OP DIAGNOSIS: Acute GI bleeding TISSUE SUBMITTED: Duodenal mass biopsy MICROSCOPIC DIAGNOSIS Duodenal mass, biopsy: Invasive moderately differentiated adenocarcinoma. See comment. ZOILA:jay jay 12/11/2022 COMMENT Immunohistochemistry ([id number]) for microsatellite instability (mismatch repair of protein) will be performed and the results will be reported separately. Case has been reviewed in consultation with Dr. Olivarez who concurs with the above diagnosis. IDC:AM MICROSCOPIC DESCRIPTION Slides are reviewed. GROSS DESCRIPTION Received in fixative is one container labeled with the patient's name and designated duodenal mass biopsy. The specimen consists of multiple irregular fragments of light long soft tissue that in aggregate measure 1.8 x 0.7 x 0.1 cm. The specimen is totally submitted in one cassette. / ZOILA:jay jay 12/10/2022 TC:0 CPT: 14440
--- NOTE | 2022-12-10 12:27 | OP.CCLET_ITS ---
12/10/2022 Gamaliel Hein Do Re : Upper GI endoscopy procedure for Isidro Markham Dear Dr. Hein This procedure was performed on November. My impressions and recommendations are as follows: Impressions : - Normal esophagus. - Gastritis. - Gastroparesis, idiopathic etiology. - Rule out malignancy, duodenal mass. Biopsied. Injected. Treated with a heater probe. Recommendations : - Discharge patient to home. - Advance diet as tolerated. - Continue present medications. - Await pathology results. My findings are described in the full procedure note, which is enclosed. If I can be of further assistance, please feel free to contact me at . Sincerely, David Salgado, 12/10/2022 12:26:58 PM This report has been signed electronically.
--- NOTE | 2022-12-10 12:27 | OP.EGD_ITS ---
Patient Name: Isidro Markham Procedure Date: 12/10/2022 11:41 AM Date of : 1960 Age: 62 Procedure: Upper GI endoscopy Indications: Melena Providers: David Salgado DO Medicines: Monitored Anesthesia Care Patient Profile: This is a 62 year old male. Refer to note in patient chart for documentation of history and physical. Complications: No immediate complications. Procedure: Pre-Anesthesia Assessment: - Prior to the procedure, a History and Physical was performed, and patient medications and allergies were reviewed. The risks and benefits of the procedure and the sedation options and risks were discussed with the patient. All questions were answered and informed consent was obtained. Patient identification and proposed procedure were verified by the physician. Mental Status Examination: alert and oriented. Airway Examination: normal oropharyngeal airway and neck mobility. Respiratory Examination: clear to auscultation. CV Examination: normal. Prophylactic Antibiotics: The patient does not require prophylactic antibiotics. Prior Anticoagulants: The patient has taken no previous anticoagulant or antiplatelet agents. ASA Grade Assessment: II - A patient with mild systemic disease. After reviewing the risks and benefits, the patient was deemed in satisfactory condition to undergo the procedure. The anesthesia plan was to use monitored anesthesia care (MAC). Immediately prior to administration of medications, the patient was re-assessed for adequacy to receive sedatives. The heart rate, respiratory rate, oxygen saturations, blood pressure, adequacy of pulmonary ventilation, and response to care were monitored throughout the procedure. The physical status of the patient was re-assessed after the procedure. After obtaining informed consent, the endoscope was passed under direct vision. Throughout the procedure, the patient's blood pressure, pulse, and oxygen saturations were monitored continuously. The Endoscope was introduced through the mouth, and advanced to the second part of duodenum. The upper GI endoscopy was accomplished without difficulty. The patient tolerated the procedure well. Scope In: 11:57:14 AM Scope Out: 12:11:29 PM Total Procedure Duration Time 0 hours 14 minutes 15 seconds Findings: The examined esophagus was normal. Patchy moderate inflammation characterized by erythema was found in the gastric body. Suspect gastroparesis due to absence of peristalsis and retained gastric contents. Lavage of the area was performed using a moderate amount of sterile water, resulting in clearance with excellent visualization. A large ulcerated mass with bleeding was found in the first portion of the duodenum. Biopsies were taken with a cold forceps for histology. Area was successfully injected with 5 mL of a 1:10,000 solution of epinephrine for drug delivery. Coagulation for hemostasis using heater probe was successful. Estimated blood loss was minimal. Impression: - Normal esophagus. - Gastritis. - Gastroparesis, idiopathic etiology. - Rule out malignancy, duodenal mass. Biopsied. Injected. Treated with a heater probe. Recommendation: - Discharge patient to home. - Advance diet as tolerated. - Continue present medications. - Await pathology results. Procedure Code(s): --- Professional --- 89916, 59, Esophagogastroduodenoscopy, flexible, transoral; with control of bleeding, any method 83214, 59, Esophagogastroduodenoscopy, flexible, transoral; with directed submucosal injection(s), any substance 83987, Esophagogastroduodenoscopy, flexible, transoral; with biopsy, single or multiple CPT copyright 2017 [employer]. All rights reserved. The codes documented in this report are preliminary and upon director of education and training review may be revised to meet current compliance requirements. David Salgado DO 12/10/2022 12:26:58 PM This report has been signed electronically. Number of Addenda: 0 Note Initiated On: 12/10/2022 11:41 AM
[2022-12-10] MEDS: Gabapentin 300 MG Capsule PO (13:15)
== END 2022-12-10 13:50 | disposition home or self-care (01) | DRG 378 ==
LOC: ED 20:34 → MS3 21:43
PROVIDERS: Anesthesiology; Internal Medicine Gastroenterology; Admitting Provider Family Medicine; Emergency Provider Student in an Organized Health Care Education/Training Program; Visit Provider Internal Medicine
PROC: 0DJ08ZZ Inspection of Upper Intestinal Tract, Via Natural or Artificial Opening Endoscopic (ICD-10-PCS; CPT 43235; principal; 2022-12-07 12:55)
DX: K26.4 Chronic or unspecified duodenal ulcer with hemorrhage (principal); C18.2 Malignant neoplasm of ascending colon; K31.1 Adult hypertrophic pyloric stenosis; C77.9 Secondary and unspecified malignant neoplasm of lymph node, unspecified; C17.0 Malignant neoplasm of duodenum; C78.6 Secondary malignant neoplasm of retroperitoneum and peritoneum; D62 Acute posthemorrhagic anemia; Z79.4 Long term (current) use of insulin; E11.22 Type 2 diabetes mellitus with diabetic chronic kidney disease; E11.42 Type 2 diabetes mellitus with diabetic polyneuropathy; N18.31 Chronic kidney disease, stage 3a; E11.43 Type 2 diabetes mellitus with diabetic autonomic (poly)neuropathy; I12.9 Hypertensive chronic kidney disease with stage 1 through stage 4 chronic kidney disease, or unspecified chronic kidney disease; E78.5 Hyperlipidemia, unspecified; K31.84 Gastroparesis; K29.70 Gastritis, unspecified, without bleeding; Z79.891 Long term (current) use of opiate analgesic; Z79.82 Long term (current) use of aspirin; Z66 Do not resuscitate; Z51.5 Encounter for palliative care; G89.29 Other chronic pain; E66.9 Obesity, unspecified; Z68.32 Body mass index [BMI] 32.0-32.9, adult; Z53.9 Procedure and treatment not carried out, unspecified reason; Z79.1 Long term (current) use of non-steroidal anti-inflammatories (NSAID); Z79.899 Other long term (current) drug therapy; Z86.16 Personal history of COVID-19; Z92.21 Personal history of antineoplastic chemotherapy; Z90.49 Acquired absence of other specified parts of digestive tract; Z80.0 Family history of malignant neoplasm of digestive organs
CPT/HCPCS: 36415; 74177; 80048; 80053; 81001; 82274; 82962; 83036; 83735; 84100; 85025; 85610; 85730; 86850; 86900; 86901; 86920; 86922; 88305; 88341; 88342; 93005; 94668; 99252; 99285; J7030; J7120; P9016; Q9967; A4216; G0463; J2405; J3490

== ENCOUNTER 2022-12-30 17:01 | Observation (INO) | payer MEDICARE, SELFPAY ==
[2022-12-30] VITALS (9 sets, daily range): BP systolic 134–156; BP diastolic 65–90; PULSE 82–90; RESP 14–18; TEMP 35.1–36.7; O2SAT 94–100; BMI 33.3; BMI 33.6
--- NOTE | 2022-12-30 13:00 | HP.PCM_ITS ---
History and Physical Date of Admission: 12/30/22 62 M who presents for the evaluation of dark stools, fatigue, weakness and dizziness.? He has a history of colon cancer presenting with abdominal pain which is fairly mild but he is also having some black stools and lightheadedness.? He states he can barely walk a distance because he is so short of breath.? No fevers or chills.? No cough.? No nausea or vomiting.? No chest pain.? Patient states he has a history of colon cancer and previously had partial colectomy.? He went on chemotherapy and he states it almost killed me.? He states he will do chemotherapy anymore.? He states he is followed by Dr. Giang.? He refuses to do any more chemotherapy.? He states he just wants to live what ever life he has left.? He is not on any blood thinners. 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 CT scan of the chest abdomen and pelvis November 14, 2020?reported scattered small nodular and reticular opacities in the right lung sparing the apex, similar opacities in the left upper lobe, a transverse colon mass, enlarged adjacent mesenteric lymph nodes and no identifiable hepatic lesions. CEA preoperative:?38.4. November 20, 2020 underwent an extended right hemicolectomy?pathology revealed 2 foci of invasive adenocarcinoma grade 2, that invaded through the muscularis propria into pericolorectal tissue, no macroscopic tumor perforation, no lymphovascular invasion, no perineural invasion, all margins were negative and 3 out of 34 dissected lymph nodes were positive for metastatic carcinoma pathologically staged [id number].??Tumor is microsatellite stable. His past medical history is notable for diabetes for over 20 years duration, peripheral neuropathy of the lower extremities which together with an old left ankle injury contribute to his disability, hypertension, dyslipidemia.? He has a history of pneumonia and empyema in 2010.? 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 ?Hemoglobin 7.2, MCV 93.7 with most recent noted hemoglobin prior 07/17/22 Hgb 12.1 of note, platelet 351 without marked shift, unremarkable coags, CMP with sodium 135, BUN/creatinine 20/1.67, glucose 344, hepatic profile unremarkable, type and cross initiated per ED physician, CT abdomen and pelvis with findings of metastatic disease to the peritoneum and abdominal wall with increased findings compared to prior study 07/17/2022 with no evidence of any bowel obstruction, gallbladder distention with gallstones although similar appearance from imaging 07/17/2022, occult blood positive. He underwent an upper endoscopy and was discovered to have a obstructing mass in the first portion of the duodenum and extending into the second portion of duodenum. Biopsies were consistent with metastatic colon cancer to the duodenum. [facility] Medical History?(Updated 12/07/22 @ 12:[address] Hernandez Friend, DO) Anemia Arthritis Back pain Colon cancer metastasized to multiple sites COVID-19 Diabetic neuropathy H/O colon cancer, stage IV History of colon cancer Hypertension Insulin dependent diabetes mellitus Peritoneal carcinomatosis Stuttering priapism Vitreous hemorrhage due to type 1 diabetes mellitus Home Medications Cilostazol 50 mg PO DINNER neuropathy 06/25/15 [History Last Taken 12/05/22] aspirin 81 mg chewable tablet 81 mg PO DAILY@0800 heart health 06/25/15 [History Last Taken 12/06/22] insulin aspart U-100 100 unit/mL (3 mL) subcutaneous pen (Novolog FlexPen U-100 Insulin aspart) 13 units subcut TIDCM diabetes 06/25/15 [History Last Taken 02/27/20 12:00 13 units] insulin glargine 100 unit/mL (3 mL) subcutaneous pen (Lantus Solostar U-100 Insulin) 77 units subcut 1200 DM 06/25/15 [History Last Taken 02/27/20 08:00 77 units] nifedipine 90 mg tablet,extended release 90 mg PO DAILY HTN 06/25/15 [History Last Taken 12/06/22] simvastatin 40 mg tablet 40 mg PO QHS cholesterol 06/25/15 [History Last Taken 12/05/22] gabapentin 300 mg capsule 300 mg PO TID nerve pain 07/15/15 [History Last Taken 12/06/22] omega-3 fatty acids-fish oil 300 mg-1,000 mg capsule 1 ea PO BID supplement 07/15/15 [History Last Taken 12/06/22] tramadol 50 mg tablet 50 - 100 mg PO Q6H PRN PRN Pain 07/15/15 [History Last Taken 02/27/20 08:00 100 mg] hydrochlorothiazide 25 mg tablet 25 mg PO DAILY diuretic ##0 09/13/19 [Rx Last Taken 12/06/22] meloxicam 15 mg tablet 15 mg PO DAILY pain 01/14/21 [History Last Taken 12/06/22] multivitamin 1 tab PO DAILY supplement 02/25/22 [History Last Taken 12/06/22] Allergy/AdvReac Type Severity Reaction Status Date / Time No Known Allergies Allergy ? ? Verified 12/06/22 18:47 Family History? Father Pancreas cancerMother CVA (cerebral vascular accident) Surgical History? History of right hemicolectomy Hx of colonoscopy Social History? Smoking Status:? Never smoker second hand exposure:? No alcohol intake:? never substance use type:? does not use willian/samaritan:? Gnosticist seatbelt use:? always do you feel safe at home:? Yes ROS ROS Narrative Admission Review of Systems: CONSTITUTIONAL: No weight loss, fever, chills, + weakness or fatigue. HEENT: Eyes: No visual loss, blurred vision, double vision or yellow sclerae. Ears, Nose, Throat: No hearing loss, sneezing, congestion, runny nose or sore throat. SKIN: No rash or itching, lesions, wounds. CARDIOVASCULAR: + Edema. No chest pain, chest pressure or chest discomfort, palpitations, orthopnea, syncopal events. RESPIRATORY: No shortness of breath, cough or sputum, wheezing, hemoptysis. GASTROINTESTINAL: + anorexia, abdominal cramping/pain, black appearing stools. No marked nausea, vomiting or diarrhea, BRBPR. GENITOURINARY: No dysuria, frequency, urgency or retention. NEUROLOGICAL: No headache, dizziness, syncope, paralysis, ataxia, numbness or tingling in the extremities, focal weakness, change in bowel or bladder control, seizure. MUSCULOSKELETAL: + muscle, back pain, joint pain or stiffness. HEMATOLOGIC: + anemia, bleeding or bruising. LYMPHATICS: No enlarged nodes. No history of splenectomy. PSYCHIATRIC: No history of depression or anxiety. ENDOCRINOLOGIC: No reports of sweating, cold or heat intolerance. No polyuria or polydipsia. ALLERGIES: No history of asthma, hives, eczema or rhinitis. Physical Exam Narrative Physical Examination: General: Awake, alert, oriented x 3 and cooperative, seated upright in the ED bed, fatigued otherwise no acute distress. Skin: Mildly pale color, normal turgor, no icterus, no cyanosis. HEENT: AT/NC, EOMI, PERRLA, mildly dry MM, no carotid bruits or JVD noted. Lungs: Mildly diminished, greater bases, appropriate effort, no rales, ronchi or wheezing. Heart: Currently regular rate and rhythm; no gallop, rub audible. Abdomen: Soft, generalized discomfort, worse in the left lower quadrant with some guarding and rebound noted and he states this is chronic unfortunately secondary to the tumor present in that region, no obvious marked distention, hyperactive bowel sounds, difficult to assess HSM given habitus and discomfort elicited with manual palpation Extremities: No cyanosis, no clubbing, mild peripheral ankle nonpitting edema. Neurological: Patient awake, alert, oriented as noted, cognitive function intact; pupils equally reactive to light and accommodation, cranial nerves II- XII grossly normal, moving all 4 extremities, no focal deficits, strength moderately globally decreased secondary to acute presentation and underlying comorbidities Psychiatric: Affect appears fatigued, no acute evidence of depressive or anxiety feelings. Lab / Micro Data Result Diagrams: 12/07/22 07:49? 12/07/22 07:49? Labs: Laboratory Results - last 24 hr 12/06/22 19:03:?WBC 10.1,?RBC 2.39 L,?Hgb 7.2 L,?Hct 22.4 L, MCV 93.7, MCH 30.1, MCHC 32.1,?RDW Std Deviation 48.2 H,?RDW Coeff of [place] 15.0 H, Plt Count 351, MPV 9.7, Immature Gran % (Auto) 0.500,?Neut % (Auto) 74.7 H,?Lymph % (Auto) 17.2 L, [place] % (Auto) 6.6, Eos % (Auto) 0.4, Baso % (Auto) 0.6, Absolute Neuts (auto) 7.5, Absolute Lymphs (auto) 1.73, Nucleated RBC % 0 12/06/22 19:03: Sodium 135 L, Potassium 3.6, Chloride 98, Carbon Dioxide 28.0, Anion Gap 9,?BUN 24 H,?Creatinine 1.67 H, Estim Creat Clear Calc 53.41,?Est GFR (MDRD) Af Amer 54 L,?Est GFR (MDRD) Non-Af 44 L, BUN/Creatinine Ratio 14.4,? Glucose 344 H, Calcium 8.8, Total Bilirubin 0.30, AST 27, ALT 28, Alkaline Phosphatase 95, Total Protein 7.1, Albumin 3.3, Globulin 3.8, Albumin/Globulin Ratio 0.9 12/06/22 19:03:?Blood Type O POSITIVE, Antibody Screen NEGATIVE, Crossmatch See Detail 12/06/22 19:03:?PT 14.1, INR 1.1 12/06/22 19:03:?Phosphorus 2.8, Magnesium 1.8 12/07/22 00:45: POC Glucose 212 H 12/07/22 02:02:?Urine Color Yellow, Urine Clarity Clear, Urine pH 8.0, Ur Specific Chemult 1.010, Urine Protein Negative,?Urine Glucose (UA) 1000 H, Urine Ketones Negative, Urine Occult Blood Negative, Urine Nitrite Negative, Urine Bilirubin Negative, Urine Urobilinogen Normal, Ur Leukocyte Esterase Negative, Urine RBC 0 SEEN, Urine WBC 0 SEEN, Ur Squamous Epith Cells 0 SEEN, Urine Bacteria 0 SEEN, Urine Mucus 0 SEEN 12/07/22 07:49:?WBC 9.3,?RBC 2.94 L,?Hgb 8.7 L,?Hct 27.6 L, MCV 93.9, MCH 29.6,? MCHC 31.5 L,?RDW Std Deviation 50.1 H,?RDW Coeff of [place] 15.1 H, Plt Count 322, MPV 9.6, Immature Gran % (Auto) 0.500,?Neut % (Auto) 70.3 H, Lymph % (Auto) 19.7, [place] % (Auto) 7.8, Eos % (Auto) 1.1, Baso % (Auto) 0.6, Absolute Neuts (auto) 6.5, Absolute Lymphs (auto) 1.83, Nucleated RBC % 0 12/07/22 07:49:?Sodium 138, Potassium 3.6, Chloride 101, Carbon Dioxide 28.0, Anion Gap 9, BUN 17, Creatinine 1.21, Estim Creat Clear Calc 73.71, Est GFR (MDRD) Af Amer 78, Est GFR (MDRD) Non-Af 64, BUN/Creatinine Ratio 14.0,?Glucose 144 H, Calcium 8.7, Total Bilirubin 0.80, AST 27, ALT 25, Alkaline Phosphatase 93, Total Protein 7.0,?Albumin 3.1 L, Globulin 3.9,?Albumin/Globulin Ratio 0.8 L 12/07/22 07:49: Hemoglobin A1c 9.4 H 12/07/22 07:49:?APTT 25.9 12/07/22 10:39: POC Glucose 143 H Micro: Microbiology 12/06/22 19:30 ? Stool ? Stool Occult Blood (MARIA ELENA) - Final ? Occult Blood Positive Radiology Impression Abdomen/Pelvis CT? 12/06/22 19:36 IMPRESSION: ? Findings of metastatic disease to the peritoneum and abdominal wall with increase compared to prior study July 17, 2022.? No bowel obstruction. ? Gallbladder distention with gallstones although appearance is similar to July 17, 2022. ? Electronically Signed: Bernardo Meyer MD at 20:41 EDT , ? Assessment & Plan Assessment/Plan (1) Acute GI bleeding: PLAN: Differential diagnosis for acute GI bleeding would include bleeding from his known recurrence of colon cancer, angiodysplasias or telangiectasia associated with malignancy, peptic ulcer disease, ischemia to the stomach, small bowel or colon.? He should undergo an upper endoscopy to evaluate his upper GI tract.? He was explained alternatives, risk, benefits including outstanding bleeding, infection, sepsis, perforation, need for emergent surgery .? He will have an ASA of 3. (2) gastric outlet obstruction secondary to metastatic colon cancer in the duodenum partially obstructing ampulla. He will undergo an ERCP with possible stent placement in the common bile duct with placement of a duodenal stent for gastric outlet obstruction and GI bleeding. He is explained alternatives, risk, benefits include not withstanding bleeding, infection, sepsis, post ERCP pancreatitis. He will have an ASA of 3.
[2022-12-30] MEDS: Lactated Ringers 1,000 ML 15 ML IV (14:06)
[2022-12-30 14:46] LABS: Bedside Glucose 198 mg/dL (74-106)
--- NOTE | 2022-12-30 14:54 | EKG12_ITS ---
Test Reason : PRE OP Blood Pressure : / mmHG Vent. Rate : 081 BPM Atrial Rate : 081 BPM P-R Int : 170 ms QRS Dur : 110 ms QT Int : 374 ms P-R-T Axes : 047 064 037 degrees QTc Int : 434 ms Normal sinus rhythm Normal ECG When compared with ECG of 07-DEC-2022 05:11, No significant change was found Confirmed by DILIP RAUSCH, MARISSA ([id number]), copy editor MILY BARNHART ([id number]) on 01/04/2023 11:18:11 AM Referred By: Gamaliel Hein Confirmed By:MARISSA CHERRY MD
--- NOTE | 2022-12-30 15:34 | RAD_ITS ---
PROCEDURE: ERCP. DATE OF EXAMINATION: December 30, 2022 INDICATION: Male, 62 years old. Gallbladder distended. Metastatic disease to the peritoneum and abdominal wall. FLUOROSCOPY TIME (if supplied): 4 minutes 18 seconds RADIATION DOSAGE (If Supplied By Facility): 154.09 mGy. PROCEDURE/TECHNIQUE: Fluoroscopic guidance was provided. A series of 11 images were performed for documentation purposes. Please refer to procedural report for further details. RAD/ERCP Biliary/Pancreas IMPRESSION: Fluoroscopy provided during the performance of an ERCP. Electronically Signed: Jerry Bender DO at 17:16 EDT ,
--- NOTE | 2022-12-30 17:07 | HP.PCM.HOS_ITS ---
[facility] - General General Date of Admission: 12/30/22 Date of Service: 12/30/22 Chief Complaint: duodenal mass. HPI Narrative ELEAZAR RODRIGUEZ, is a 62 M who presents for scheduled duodenal stent as well as pancreatic stent. Patient was admitted towards the end of November and was seen by GI. Patient was noted to have retained fluid in the gastric body and a duodenal ulcer. Patient had known metastatic colon cancer that was no further treatment is being undertaken due to futility at this point. Patient was to have a duodenal stop but it appeared to be involving the ampulla and patient was not consented for an ERCP. So that was performed today. It was noted the patient was having some oozing from the duodenal stent and patient did have a pancreatic stent placed for palliation. Patient tolerated the procedure well but Dr. Salgado wanted to bring the patient in for closer monitoring in case she had any further issues such as bleeding. Patient was seen in the PACU and was little bit groggy but denies any pain or any other symptoms at this time. [facility], LAT[facility] Medical History (Updated 12/30/22 @ 17:[address] Konstantin Quiles, ) Anemia Arthritis Back pain Colon cancer metastasized to multiple sites Complete edentulism, class III COVID-19 Diabetic neuropathy Dietary restriction Duodenal ulcer Gastric outlet obstruction H/O colon cancer, stage IV History of colon cancer History of echocardiogram History of GI bleed Hypertension Insulin dependent diabetes mellitus Insulin dependent diabetes mellitus Non-smoker Peritoneal carcinomatosis Shortness of breath on exertion Stuttering priapism Vitreous hemorrhage due to type 1 diabetes mellitus Home Medications Cilostazol 50 mg PO DINNER neuropathy 06/25/15 [History Last Taken 12/29/22] aspirin 81 mg chewable tablet 81 mg PO DAILY@0800 heart health 06/25/15 [History Last Taken 12/29/22] insulin aspart U-100 100 unit/mL (3 mL) subcutaneous pen (Novolog FlexPen U-100 Insulin aspart) 13 units subcut TIDCM diabetes 06/25/15 [History Last Taken 02/27/20 12:00 13 units] insulin glargine 100 unit/mL (3 mL) subcutaneous pen (Lantus Solostar U-100 Insulin) 77 units subcut 1200 DM 06/25/15 [History Last Taken 12/29/22] nifedipine 90 mg tablet,extended release 90 mg PO DAILY HTN 06/25/15 [History Last Taken 12/30/22] simvastatin 40 mg tablet 40 mg PO QHS cholesterol 06/25/15 [History Last Taken 12/29/22] gabapentin 300 mg capsule 300 mg PO TID nerve pain 07/15/15 [History Last Taken 12/30/22] omega-3 fatty acids-fish oil 300 mg-1,000 mg capsule 1 ea PO BID supplement 07/15/15 [History Last Taken 12/27/22] tramadol 50 mg tablet 50 - 100 mg PO Q6H PRN PRN Pain 07/15/15 [History Last Taken 12/29/22] hydrochlorothiazide 25 mg tablet 25 mg PO DAILY diuretic ##0 09/13/19 [Rx Last Taken 12/29/22] meloxicam 15 mg tablet 15 mg PO DAILY pain 01/14/21 [History Last Taken 12/29/22] multivitamin 1 tab PO DAILY supplement 02/25/22 [History Last Taken 12/29/22] pantoprazole 40 mg tablet,delayed release (Protonix) 40 mg PO DAILY #60 tabs 12/10/22 [Rx Last Taken 12/30/22] Allergy/AdvReac Type Severity Reaction Status Date / Time No Known Allergies Allergy Verified 12/30/22 13:46 Family History Father Pancreas cancer Mother CVA (cerebral vascular accident) Surgical History History of right hemicolectomy Hx of colonoscopy Hx of esophagogastroduodenoscopy Social History Smoking Status: Never smoker second hand exposure: No alcohol intake: never substance use type: does not use willian/uatsdin: Anabaptism seatbelt use: always do you feel safe at home: Yes ROS ROS Narrative All review of systems were negative except as mentioned above in the history of present illness and the other review of systems. Vital Signs Vital Signs Vital Signs: 12/30/22 13:49 12/30/22 13:49 12/30/22 16:56 Temperature 36.0 C L 36.2 C L Temperature Source Temporal Temporal Pulse Rate 87 82 Respiratory Rate 18 14 Respiratory Pattern Normal Normal Blood Pressure 142/66 H 134/65 H Blood Pressure Mean 91 88 Blood Pressure Source Monitor Monitor Blood Pressure Position Semi-Fowlers Semi-Fowlers Blood Pressure Location Left Arm Left Arm Baseline BP 142/66 Pulse Ox 100 94 Oxygen Delivery Method Room Air Room Air Weight Weight: 121 kg Body Mass Index (BMI) 33.3 Physical Exam Const alert and no apparent distress Constitutional Narrative: Groggy but appropriate. HEENT normocephalic and head/scalp atraumatic Resp normal respiratory effort, no retractions, no use of accessory muscles and clear to auscultation bilaterally Cardio regular rate, regular rhythm, S1 normal heart sound and S2 normal heart sound GI GI Narrative: Slightly distended. Nontender. Extremity normal to inspection Results Lab / Micro Data Labs: Laboratory Results - last 24 hr 12/30/22 13:44: POC Glucose 198 H Assessment & Plan Assessment/Plan (1) Gastric outlet obstruction: PLAN: Status post pancreatic duct stent as the mass appear to be involving the ampulla. Patient also had a duodenal stent. Patient to be observed overnight to see if he has any other issues. Dr. Salgado to continue to follow while the patient is in the hospital. (2) GI bleed: PLAN: Patient had some oozing apparently around the duodenal mass. Patient will be monitored. We will monitor his hemoglobin. PLAN: Plan Chronic conditions * Colon cancer stage IV: No longer undergoing therapy. Patient being palliated. * BPH * Diabetes mellitus type 2, insulin-dependent. Continue with his home regimen. We will make adjustments if he happens to be NPO. Sliding scale insulin * PAD: Hold cilostazol for now Disposition: Patient plans for the patient be observed overnight and if he remains stable then hopefully patient be able to be discharged in the next coming day or so. CODE STATUS: Addressed with the patient. Patient wishes to be DNR Comfort Care arrest. Charges/Coding Visit Charges Inpatient E&M: 53903 Init Hosp L2
--- NOTE | 2022-12-30 17:12 | OP.ERCP_ITS ---
Patient Name: Isidro Markham Procedure Date: 12/30/2022 3:03 PM Date of : 1960 Age: 62 Procedure: ERCP Indications: Elevated liver enzymes, Suspected acute recurrent pancreatitis, Periampullary tumor Providers: David Salgado DO Medicines: General Anesthesia Patient Profile: This is a 62 year old male. Refer to note in patient chart for documentation of history and physical. Patient has symptoms of acute abdominal distention, chronic right upper quadrant abdominal pain, chronic nausea and chronic vomiting. Complications: No immediate complications. Procedure: Pre-Anesthesia Assessment: - Prior to the procedure, a History and Physical was performed, and patient medications and allergies were reviewed. The patient is competent. The risks and benefits of the procedure and the sedation options and risks were discussed with the patient. All questions were answered and informed consent was obtained. Patient identification and proposed procedure were verified by the physician in the pre-procedure area. Mental Status Examination: alert and oriented. Airway Examination: normal oropharyngeal airway and neck mobility. Respiratory Examination: clear to auscultation. CV Examination: normal. Prophylactic Antibiotics: The patient does not require prophylactic antibiotics. Prior Anticoagulants: The patient has taken no previous anticoagulant or antiplatelet agents. ASA Grade Assessment: II - A patient with mild systemic disease. After reviewing the risks and benefits, the patient was deemed in satisfactory condition to undergo the procedure. The anesthesia plan was to use general anesthesia. Immediately prior to administration of medications, the patient was re-assessed for adequacy to receive sedatives. The heart rate, respiratory rate, oxygen saturations, blood pressure, adequacy of pulmonary ventilation, and response to care were monitored throughout the procedure. The physical status of the patient was re-assessed after the procedure. After obtaining informed consent, the scope was passed under direct vision. Throughout the procedure, the patient's blood pressure, pulse, and oxygen saturations were monitored continuously. The Duodenoscope was introduced through the mouth, and advanced to the duodenum and used to inject contrast into the bile duct and ventral pancreatic duct. The ERCP was accomplished without difficulty. The patient tolerated the procedure well. Scope In: 3:45:57 PM Scope Out: 4:38:36 PM Total Procedure Duration Time 0 hours 52 minutes 39 seconds Findings: The supervisor firearms film was normal. The esophagus was successfully intubated under direct vision. The scope was advanced to a normal major papilla in the descending duodenum without detailed examination of the pharynx, larynx and associated structures, and upper GI tract. The upper GI tract was grossly normal. The bile duct was deeply cannulated with the short-nosed traction sphincterotome. Contrast was injected. I personally interpreted the bile duct images. There was brisk flow of contrast through the ducts. Image quality was adequate. Contrast extended to the entire biliary tree. Opacification of the entire opacified area and main bile duct was successful. The maximum diameter of the ducts was 3 mm. Placement of a 0.035 inch x 260 cm angled Hydra Jagwire into the biliary tree was attempted. This passed successfully. A 5 mm biliary sphincterotomy was made with a traction (standard) sphincterotome using ERBE electrocautery. There was no post-sphincterotomy bleeding. The biliary tree was swept with a 12 mm balloon starting at the bifurcation. Sludge was swept from the duct. All stones were removed. One 5 Fr by 7 cm temporary stent was placed 5 cm into the ventral pancreatic duct. Clear fluid flowed through the stent. The stent was in good position. A standard esophagogastroduodenoscopy scope was used for the examination of the upper gastrointestinal tract. The scope was passed under direct vision through the upper GI tract. A large amount of food (residue) was found in the gastric body. A large ulcerated mass with bleeding was found in the first portion of the duodenum and in the second portion of the duodenum. Area was successfully injected with 5 mL of a 1:10,000 solution of epinephrine through the esophagogastroduodenoscope for drug delivery. A large ulcerated mass with bleeding was found in the second portion of the duodenum. Coagulation for hemostasis in the first portion of the duodenum and in the second portion of the duodenum using heater probe through the esophagogastroduodenoscope was successful. This was stented with a 22 mm x 12 cm WallFlex stent under fluoroscopic guidance. Impression: - A large amount of food (residue) in the stomach. - Malignant duodenal mass. - An area successfully injected. - Malignant duodenal mass. - Hemostasis in the first portion of the duodenum and in the second portion of the duodenum with a heater probe was performed. - Choledocholithiasis was found. Complete removal was accomplished by biliary sphincterotomy and balloon extraction. - A biliary sphincterotomy was performed. - The biliary tree was swept. - One temporary stent was placed into the ventral pancreatic duct. Procedure Code(s): --- Professional --- 10312, Endoscopic retrograde cholangiopancreatography (ERCP); with placement of endoscopic stent into biliary or pancreatic duct, including pre- and post-dilation and guide wire passage, when performed, including sphincterotomy, when performed, each stent 89586, Endoscopic retrograde cholangiopancreatography (ERCP); with removal of calculi/debris from biliary/pancreatic duct(s) 97107, Endoscopic retrograde cholangiopancreatography (ERCP); with sphincterotomy/papillotomy 54704, Esophagogastroduodenoscopy, flexible, transoral; with placement of endoscopic stent (includes pre- and post-dilation and guide wire passage, when performed) 86096, 59, Esophagogastroduodenoscopy, flexible, transoral; with control of bleeding, any method 49762, 59, Esophagogastroduodenoscopy, flexible, transoral; with directed submucosal injection(s), any substance 66315, 26,51, Endoscopic catheterization of the biliary ductal system, radiological supervision and interpretation 84237, 26,59, Intraluminal dilation of strictures and/or obstructions (eg, esophagus), radiological supervision and interpretation CPT copyright 2017 [employer]. All rights reserved. The codes documented in this report are preliminary and upon regulatory affairs portfolio leader review may be revised to meet current compliance requirements. David Salgado DO 12/30/2022 5:11:43 PM This report has been signed electronically. Number of Addenda: 0 Note Initiated On: 12/30/2022 3:03 PM
--- NOTE | 2022-12-30 17:12 | OP.CCLET_ITS ---
12/30/2022 Gamaliel Hein Do Re : ERCP procedure for Isidro Markham Dear Dr. Hein This procedure was performed on Friday, December 30, 2022. My impressions and recommendations are as follows: Impressions : - A large amount of food (residue) in the stomach. - Malignant duodenal mass. - An area successfully injected. - Malignant duodenal mass. - Hemostasis in the first portion of the duodenum and in the second portion of the duodenum with a heater probe was performed. - Choledocholithiasis was found. Complete removal was accomplished by biliary sphincterotomy and balloon extraction. - A biliary sphincterotomy was performed. - The biliary tree was swept. - One temporary stent was placed into the ventral pancreatic duct. Recommendations : My findings are described in the full procedure note, which is enclosed. If I can be of further assistance, please feel free to contact me at . Sincerely, David Salgado, 12/30/2022 5:11:43 PM This report has been signed electronically.
[2022-12-30 17:18] LABS: Bedside Glucose 186 mg/dL (74-106)
[2022-12-30 17:43] LABS: Absolute Lymphocyte Count 0.95 X10^3/uL (0.83-4.51); Absolute Neutrophil Count 5.9 X10^3/uL (2.0-7.7); Basophil# 0.04 X10^3/uL; Basophil% 0.6 % (0-1); Eosinophils% 1.4 % (0-5); Hematocrit 29.6 % (40-54); Hemoglobin 9.2 g/dL (13.0-16.5); Lymphocyte # 0.95 X10^3/ul (0.83-4.51); Lymphocyte % 13.2 % (19-41); Mean Corp Hgb Conc 31.1 g/dL (32-36); Mean Corpuscular Hgb 28.2 pg (27.0-32.0); Mean Corpuscular Volume 90.8 fL (80-94); Mean Platelet Vol. 9.4 fl (6.2-12.0); Monocyte# 0.25 X10^3/uL; Monocyte% 3.5 % (0-10); NRBC Flagged by Analyzer 0 % (0-5); Neutrophil # 5.85 X10^3/uL (2.7-7.7); Platelet Count 271 K/mm3 (150-450); RBC Distribution Width CV 14.3 % (11.6-14.6); RBC Distribution Width SD 47.4 fl (35.1-43.9); Red Blood Count 3.26 M/mm3 (4.6-6.2); White Blood Count 7.2 K/mm3 (4.4-11.0)
[2022-12-30 17:57] LABS: ALB/GLOB Ratio 0.8 RATIO (0.9-2.4); AST(SGOT) 23 U/L (15-37); Alanine Aminotransfer ALT/SGPT 25 U/L (16-61); Albumin, Serum 3.2 g/dL (3.2-5.0); Alkaline Phosphatase 95 U/L (45-117); Anion Gap 6 (5-15); BUN 16 mg/dL (7-18); BUN/Creat Ratio 13.1 RATIO (10-20); Chloride 105 mmol/L (98-107); Creatinine, Serum 1.22 mg/dL (0.70-1.30); EST Glomerular Filtration Rate 64 mL/min (>60); Est Glom Filt Rate - Afr Amer 77 mL/min (>60); Estimated Creatinine Clearance 73.11 ml/min; Globulin 4.1 g/dL (2.2-4.2); Glucose 185 mg/dL (74-106); Potassium 4.3 mmol/L (3.5-5.1); Protein, Total 7.3 g/dL (6.4-8.2); Sodium Level 139 mmol/L (136-145)
[2022-12-30] MEDS: 0.9% Normal Saline 1,000 ML 100 ML IV (20:19)
--- NOTE | 2022-12-30 22:20 | NURSING ---
This nurse was asked to disconnect pt iv so he could walk to bathroom. I enter the room. Pt told me you are not my nurse. I said i was told by the aide to disconnect your iv so could you could go to the bathroom. Ptmad his nurse has not been back in his room for 1 hr. He has been on the phone w his rn building. He is going to own this hospital. I hope something bad happens and you will see what happens. Pt told me he was leaving. I informed pt i hiope he would not leave but i cant force him to stay. I asked him what i could do for him. Pt said he needed to go to a public bathroom to void. this nurse said i am confused, you dont want to use the bathroom in your room. Pt became more madder at this nurse. Pt kept telling me he will own this place. This nurse then remain quite because everything i said something he became madder. His nurse notified
[2022-12-30] MEDS: Morphine 2 MG/ML Syringe IV (22:40)
[2022-12-30] MEDS: Gabapentin 300 MG Capsule PO (23:22)
[2022-12-30 23:51] LABS: Bedside Glucose 278 mg/dL (74-106)
[2022-12-31] MEDS: MELATONIN 10 MG TABLET 5 MG PO (00:44)
[2022-12-31] MEDS: Morphine 2 MG/ML Syringe IV ×2 (01:44→05:03)
[2022-12-31 05:00] VITALS: BP 142/68; PULSE 81; RESP 16; TEMP 36.7; O2SAT 96
[2022-12-31] MEDS: Gabapentin 300 MG Capsule PO (05:03)
[2022-12-31 06:17] LABS: Absolute Neutrophil Count 8.1 X10^3/uL (2.0-7.7); Basophil# 0.01 X10^3/uL; Basophil% 0.1 % (0-1); Hematocrit 29.2 % (40-54); Hemoglobin 9.2 g/dL (13.0-16.5); Lymphocyte % 10.6 % (19-41); Mean Corp Hgb Conc 31.5 g/dL (32-36); Mean Corpuscular Hgb 28.3 pg (27.0-32.0); Mean Corpuscular Volume 89.8 fL (80-94); Mean Platelet Vol. 9.4 fl (6.2-12.0); Monocyte# 0.26 X10^3/uL; Monocyte% 2.8 % (0-10); NRBC Flagged by Analyzer 0 % (0-5); Neutrophil # 8.07 X10^3/uL (2.7-7.7); Neutrophil % 85.9 % (47-70); Platelet Count 259 K/mm3 (150-450); RBC Distribution Width CV 14.4 % (11.6-14.6); RBC Distribution Width SD 47.4 fl (35.1-43.9); Red Blood Count 3.25 M/mm3 (4.6-6.2); White Blood Count 9.4 K/mm3 (4.4-11.0)
[2022-12-31 07:15] LABS: Bedside Glucose 242 mg/dL (74-106)
--- NOTE | 2022-12-31 07:23 | PN.HOSP_ITS ---
Reason for Visit Reason for Visit: Diagnoses Adult hypertrophic pyloric stenosis (12/30/22) Gastrointestinal hemorrhage, unspecified (12/30/22) Subjective Subjective Feels well. No events overnight. Anxious be discharged so that he can go to work this afternoon. Objective Data Objective Data Vital Signs: Vital Signs Temp Pulse Resp BP Pulse Ox O2 Del Method 36.7 C 81 16 142/68 H 96 Room Air 12/31/22 05:00 12/31/22 05:00 12/31/22 05:00 12/31/22 05:00 12/31/22 05:00 12/31/22 05:00 Oxygen Delivery Method Room Air Weight: 122.062 kg Body Mass Index (BMI) 33.6 Intake & Output: Intake and Output for Last 24 Hours 12/29/22 12/30/22 12/31/22 23:59 23:59 23:59 Intake Total 98.75 / 248.75 1375 / 1375 Output Total 1850 / 1850 Balance 98.75 / -1601.25 -475 / -475 Lab / Micro Data Result Diagrams: 12/31/22 06:04 12/30/22 17:29 Labs: Laboratory Results - last 24 hr 12/30/22 13:44: POC Glucose 198 H 12/30/22 17:00: POC Glucose 186 H 12/30/22 17:29: WBC 7.2, RBC 3.26 L, Hgb 9.2 L, Hct 29.6 L, MCV 90.8, MCH 28.2, MCHC 31.1 L, RDW Std Deviation 47.4 H, RDW Coeff of [place] 14.3, Plt Count 271, MPV 9.4, Immature Gran % (Auto) 0.300, Neut % (Auto) 81.0 H, Lymph % (Auto) 13.2 L, [place] % (Auto) 3.5, Eos % (Auto) 1.4, Baso % (Auto) 0.6, Absolute Neuts (auto) 5.9, Absolute Lymphs (auto) 0.95, Nucleated RBC % 0 12/30/22 17:29: Sodium 139, Potassium 4.3, Chloride 105, Carbon Dioxide 28.0, Anion Gap 6, BUN 16, Creatinine 1.22, Estim Creat Clear Calc 73.11, Est GFR (MDRD) Af Amer 77, Est GFR (MDRD) Non-Af 64, BUN/Creatinine Ratio 13.1, Glucose 185 H, Calcium 9.0, Total Bilirubin 0.30, AST 23, ALT 25, Alkaline Phosphatase 95, Total Protein 7.3, Albumin 3.2, Globulin 4.1, Albumin/Globulin Ratio 0.8 L 12/30/22 23:25: POC Glucose 278 H 12/31/22 06:04: WBC 9.4, RBC 3.25 L, Hgb 9.2 L, Hct 29.2 L, MCV 89.8, MCH 28.3, MCHC 31.5 L, RDW Std Deviation 47.4 H, RDW Coeff of [place] 14.4, Plt Count 259, MPV 9.4, Immature Gran % (Auto) 0.600, Neut % (Auto) 85.9 H, Lymph % (Auto) 10.6 L, [place] % (Auto) 2.8, Eos % (Auto) 0.0, Baso % (Auto) 0.1, Absolute Neuts (auto) 8.1 H, Absolute Lymphs (auto) 1.00, Nucleated RBC % 0 12/31/22 06:52: POC Glucose 242 H Radiography Diagnostic Testing: Radiology Impression Endo Retro Cholangiopancreatogram 12/30/22 15:34 IMPRESSION: Fluoroscopy provided during the performance of an ERCP. Electronically Signed: Jerry Bender DO at 17:16 EDT Reading Location ID and State: [address] [place] [address] Tel [phone], Service support , Physical Exam Const alert and no apparent distress Constitutional Narrative: Up in bed. Pleasant appropriate. Psych affect normal Assessment & Plan Assessment/Plan (1) Gastric outlet obstruction: PLAN: Status post pancreatic duct stent as the mass appear to be involving the ampulla. Patient also had a duodenal stent. Patient to be observed overnight to see if he has any other issues. Dr. Salgado to continue to follow while the patient is in the hospital. (2) GI bleed: PLAN: Patient had some oozing apparently around the duodenal mass. Patient will be monitored. We will monitor his hemoglobin. Hg stable at 9.2 PLAN: Plan Chronic conditions * Colon cancer stage IV: No longer undergoing therapy. Patient being palliated. * BPH * Diabetes mellitus type 2, insulin-dependent. Continue with his home regimen. We will make adjustments if he happens to be NPO. Sliding scale insulin * PAD: Hold cilostazol for now Disposition: Patient plans for the patient be observed overnight and if he remains stable then hopefully patient be able to be discharged in the next coming day or so. CODE STATUS: Addressed with the patient. Patient wishes to be DNR Comfort Care arrest. Patient to be discharged home today. Patient advised to follow-up with gastroenterology but acknowledged that his current condition is palliation. Patient also states that he is involved in palliative care. Did recommend continued follow-up with palliative care as he may require escalation of palliative services.
--- NOTE | 2022-12-31 08:00 | EX.PCM.PN.GI ---
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 He denies anyhe denies any of them no pain and is tolerating a diet. Objective Data Objective Data Vital Signs: Vital Signs Temp Pulse Resp BP Pulse Ox O2 Del Method 98.2 F 76 16 113/59 L 98 Room Air 12/31/22 08:58 12/31/22 08:58 12/31/22 08:58 12/31/22 08:58 12/31/22 08:58 12/31/22 08:58 Oxygen Delivery Method Room Air Weight: 269 lb 1.6 oz Body Mass Index (BMI) 33.6 Intake & Output: Intake and Output for Last 24 Hours 12/29/22 12/30/22 12/31/22 23:59 23:59 23:59 Intake Total 98.75 / 248.75 1375 / 1375 Output Total 1850 / 1850 Balance 98.75 / -1601.25 -475 / -475 Lab / Micro Data Result Diagrams: 12/31/22 06:04 12/30/22 17:29 Labs: Laboratory Results - last 24 hr 12/30/22 23:25: POC Glucose 278 H 12/31/22 06:04: WBC 9.4, RBC 3.25 L, Hgb 9.2 L, Hct 29.2 L, MCV 89.8, MCH 28.3, MCHC 31.5 L, RDW Std Deviation 47.4 H, RDW Coeff of [place] 14.4, Plt Count 259, MPV 9.4, Immature Gran % (Auto) 0.600, Neut % (Auto) 85.9 H, Lymph % (Auto) 10.6 L, [place] % (Auto) 2.8, Eos % (Auto) 0.0, Baso % (Auto) 0.1, Absolute Neuts (auto) 8.1 H, Absolute Lymphs (auto) 1.00, Nucleated RBC % 0 12/31/22 06:52: POC Glucose 242 H 12/31/22 09:36: POC Glucose 285 H Physical Exam Const alert and no apparent distress Constitutional Narrative: Up in bed. Pleasant appropriate. Psych affect normal Assessment & Plan Assessment/Plan (1) Gastric outlet obstruction: PLAN: Status post pancreatic duct stent as the mass appear to be involving the ampulla. Patient also had a duodenal stent. Patient to be observed overnight to see if he has any other issues. Friend to continue to follow while the patient is in the hospital. (2) GI bleed: PLAN: Patient had some oozing apparently around the duodenal mass. Patient will be monitored. We will monitor his hemoglobin. Hg stable at 9.2 PLAN: Plan Chronic conditions Colon cancer stage IV: No longer undergoing therapy. Patient being palliated. BPH Diabetes mellitus type 2, insulin-dependent. Continue with his home regimen. We will make adjustments if he happens to be NPO. Sliding scale insulin PAD: Hold cilostazol for now Disposition: Patient plans for the patient be observed overnight and if he remains stable then hopefully patient be able to be discharged in the next coming day or so. CODE STATUS: Addressed with the patient. Patient wishes to be DNR Comfort Care arrest. Patient to be discharged home today. Patient advised to follow-up with gastroenterology but acknowledged that his current condition is palliation. Patient also states that he is involved in palliative care. Did recommend continued follow-up with palliative care as he may require escalation of palliative services. Charges/Coding Visit Charges Inpatient E&M: 32628 [facility] L3
[2022-12-31] MEDS: Insulin Lispro 100 UNIT/ML INSULN.PEN 13 UNIT SC (08:17)
[2022-12-31] MEDS: Insulin Lispro 100 UNIT/ML INSULN.PEN SC (08:17)
[2022-12-31] MEDS: NIFEdipine 90 MG Tablet PO (08:18)
--- NOTE | 2022-12-31 08:41 | NURSING ---
pt eating. scheduled insulin given per dr orders. after administration of insulin pt asked how much did he receive? nurse stated he got 13 unit with meals and 3 units sliding scale coverage. pt stated he was just over dosed. pt stated he takes 3 units with meals. nursing checked home med list and 13 units was listed with meals. notified dr that pt was given 16 units of insulin and he normally takes 3 units. pt ate 100 % on breakfast. no new orders noted. will continue to monitor blood sugar
[2022-12-31 08:58] VITALS: BP 113/59; PULSE 76; RESP 16; TEMP 36.8; O2SAT 98
--- NOTE | 2022-12-31 09:53 | PCM.DC ---
Discharge Instructions Diet Discharge Diet: No restrictions Activity Discharge Activity: Return to Normal Activity Dressing / Incision Call your doctor if you observe: - (Gastrointestinal bleeding: Vomiting blood, blood in the stool, dark tarry stools. Jaundice) Follow Up Care Test Results: Test results from this visit will be discussed in further detail at your follow-up appointment, if applicable. Discharge Plan Admission Admit Date/Time: 12/30/22 17:01 Primary Reason for Your Visit: Duodenal stent placement Attending Provider: Konstantin Quiles Primary Care Provider: Gamaliel Hein Instructions Additional Instructions / Restrictions: You had a stent placed in your duodenum as well as an your pancreatic duct. Notify someone if he noticed any evidence of any bleeding. Also notify if you become jaundiced or if the whites of your eyes become yellow. Recommend following up with palliative care as you are currently established with them. Also recommend following up with gastroenterology Discharge Orders/Prescriptions Prescriptions: New acetaminophen 500 mg capsule 1,000 mg PO Q6H PRN (Reason: pain) Qty: 30 0RF Continued nifedipine 90 MG tablet 90 mg PO DAILY Label Comments: BLOOD PRESSURE simvastatin 40 MG tablet 40 mg PO QHS Label Comments: CHOLESTEROL insulin aspart U-100 [Novolog FlexPen U-100 Insulin] 100 UNITS/ML insulin pen 3 units subcut TIDCM Label Comments: SHORT ACTING INSULIN insulin glargine [Lantus Solostar U-100 Insulin] 100 UNITS/ML insulin pen 77 units subcut 1200 Label Comments: LONG ACTING INSULIN tramadol 50 MG tablet 50 - 100 mg PO Q6H PRN PRN (Reason: Pain) Label Comments: Pain gabapentin 300 MG capsule 300 mg PO TID Label Comments: NERVE PAIN/NEUROPATHY omega-3 fatty acids-fish oil 1 EACH capsule 1 ea PO BID Label Comments: Supplement hydrochlorothiazide 25 MG tablet 25 mg PO DAILY Qty: 0 0RF Label Comments: BLOOD PRESSURE multivitamin Tablet 1 tab PO DAILY pantoprazole [Protonix] 40 mg tablet,delayed release (DR/EC) 40 mg PO DAILY Qty: 60 1RF Held meloxicam 15 mg tablet 15 mg PO DAILY Hold Instructions: Resume on 01/02/23. aspirin 81 MG tablet,chewable 81 mg PO DAILY@0800 Hold Instructions: Resume on 01/02/23. Label Comments: HEART HEALTH/PREVENTION Cilostazol 50 MG tablet 50 mg PO DINNER Hold Instructions: Resume on 01/02/23. Label Comments: ANTI-PLATELET/CIRCULATION Referrals / Follow Up: [facility] [Provider Group] - Within 1 Month Gamaliel Hein DO [Primary Care Provider] - Within 2 Weeks Disposition Disposition (needs filled in before D/C Order can be placed): Home, Self Care
[2022-12-31 09:54] LABS: Bedside Glucose 285 mg/dL (74-106)
--- NOTE | 2022-12-31 09:58 | DS.PCM_ITS ---
Providers Date of Admission: 12/30/22 Primary Care Physician: Dr. Gamaliel Hein DO Consultations 12/30/22 18:54 Consult: Gastroenterology Routine Consulting Provider: [facility] Reason for Consult: duodenal mass and stent EMERGENT Consult: No MD Notified: Yes Date Notified: 12/30/22 Time Notified: 17:04 Method of Notification: Verbal Diagnosis Discharge Diagnosis (1) Gastric outlet obstruction: Status: Acute Code(s): K31.1 - Adult hypertrophic pyloric stenosis Plan: Status post pancreatic duct stent as the mass appear to be involving the ampulla. Patient also had a duodenal stent. Patient to be observed overnight to see if he has any other issues. Friend to continue to follow while the patient is in the hospital. (2) GI bleed: Status: Acute Code(s): K92.2 - Gastrointestinal hemorrhage, unspecified Plan: Patient had some oozing apparently around the duodenal mass. Patient will be monitored. We will monitor his hemoglobin. Hg stable at 9.2 Plan Chronic conditions * Colon cancer stage IV: No longer undergoing therapy. Patient being palliated. * BPH * Diabetes mellitus type 2, insulin-dependent. Continue with his home regimen. We will make adjustments if he happens to be NPO. Sliding scale insulin * PAD: Hold cilostazol for now Disposition: Patient plans for the patient be observed overnight and if he remains stable then hopefully patient be able to be discharged in the next coming day or so. CODE STATUS: Addressed with the patient. Patient wishes to be DNR Comfort Care arrest. Patient to be discharged home today. Patient advised to follow-up with gastroenterology but acknowledged that his current condition is palliation. Patient also states that he is involved in palliative care. Did recommend con tinued follow-up with palliative care as he may require escalation of palliative services. Medications at Discharge Home Medications Cilostazol 50 mg PO DINNER neuropathy 06/25/15 aspirin 81 mg chewable tablet 81 mg PO DAILY@0800 heart health 06/25/15 insulin aspart U-100 100 unit/mL (3 mL) subcutaneous pen (Novolog FlexPen U-100 Insulin aspart) 3 units subcut TIDCM diabetes 06/25/15 insulin glargine 100 unit/mL (3 mL) subcutaneous pen (Lantus Solostar U-100 Insulin) 77 units subcut 1200 DM 06/25/15 nifedipine 90 mg tablet,extended release 90 mg PO DAILY HTN 06/25/15 simvastatin 40 mg tablet 40 mg PO QHS cholesterol 06/25/15 gabapentin 300 mg capsule 300 mg PO TID nerve pain 07/15/15 omega-3 fatty acids-fish oil 300 mg-1,000 mg capsule 1 ea PO BID supplement 07/15/15 tramadol 50 mg tablet 50 - 100 mg PO Q6H PRN PRN Pain 07/15/15 hydrochlorothiazide 25 mg tablet 25 mg PO DAILY diuretic ##0 09/13/19 meloxicam 15 mg tablet 15 mg PO DAILY pain 01/14/21 multivitamin 1 tab PO DAILY supplement 02/25/22 pantoprazole 40 mg tablet,delayed release (Protonix) 40 mg PO DAILY #60 tabs 12/10/22 acetaminophen 500 mg capsule 1,000 mg PO Q6H PRN pain #30 caps 12/31/22 Weight / BMI Weight Weight: 122.062 kg Body Mass Index (BMI) 33.6 ABG / Lab / Microbiology Data Result Diagrams: 12/31/22 06:04 12/30/22 17:29 Laboratory: Laboratory Results - last 24 hr 12/30/22 13:44: POC Glucose 198 H 12/30/22 17:00: POC Glucose 186 H 12/30/22 17:29: WBC 7.2, RBC 3.26 L, Hgb 9.2 L, Hct 29.6 L, MCV 90.8, MCH 28.2, MCHC 31.1 L, RDW Std Deviation 47.4 H, RDW Coeff of [place] 14.3, Plt Count 271, MPV 9.4, Immature Gran % (Auto) 0.300, Neut % (Auto) 81.0 H, Lymph % (Auto) 13.2 L, [place] % (Auto) 3.5, Eos % (Auto) 1.4, Baso % (Auto) 0.6, Absolute Neuts (auto) 5.9, Absolute Lymphs (auto) 0.95, Nucleated RBC % 0 12/30/22 17:29: Sodium 139, Potassium 4.3, Chloride 105, Carbon Dioxide 28.0, Anion Gap 6, BUN 16, Creatinine 1.22, Estim Creat Clear Calc 73.11, Est GFR (MDRD) Af Amer 77, Est GFR (MDRD) Non-Af 64, BUN/Creatinine Ratio 13.1, Glucose 185 H, Calcium 9.0, Total Bilirubin 0.30, AST 23, ALT 25, Alkaline Phosphatase 95, Total Protein 7.3, Albumin 3.2, Globulin 4.1, Albumin/Globulin Ratio 0.8 L 12/30/22 23:25: POC Glucose 278 H 12/31/22 06:04: WBC 9.4, RBC 3.25 L, Hgb 9.2 L, Hct 29.2 L, MCV 89.8, MCH 28.3, MCHC 31.5 L, RDW Std Deviation 47.4 H, RDW Coeff of [place] 14.4, Plt Count 259, MPV 9.4, Immature Gran % (Auto) 0.600, Neut % (Auto) 85.9 H, Lymph % (Auto) 10.6 L, [place] % (Auto) 2.8, Eos % (Auto) 0.0, Baso % (Auto) 0.1, Absolute Neuts (auto) 8.1 H, Absolute Lymphs (auto) 1.00, Nucleated RBC % 0 12/31/22 06:52: POC Glucose 242 H 12/31/22 09:36: POC Glucose 285 H Radiography Diagnostic Testing: Radiology Impression Endo Retro Cholangiopancreatogram 12/30/22 15:34 IMPRESSION: Fluoroscopy provided during the performance of an ERCP. Electronically Signed: Jerry Bender DO at 17:16 EDT Reading Location ID and State: [address] [place] [address] Tel [phone], Service support , D/C Instructions Discharge Diet: No restrictions Call your doctor if you observe: - (Gastrointestinal bleeding: Vomiting blood, blood in the stool, dark tarry stools. Jaundice) Meaningful Use Info Meaningful Use Diagnoses (Choose all that apply): None applicable Discharge Plan Admission Admit Date/Time: 12/30/22 17:01 Primary Reason for Your Visit: Duodenal stent placement Attending Provider: Konstantin Quiles Primary Care Provider: Gamaliel Hein Instructions Additional Instructions / Restrictions: You had a stent placed in your duodenum as well as an your pancreatic duct. Notify someone if he noticed any evidence of any bleeding. Also notify if you become jaundiced or if the whites of your eyes become yellow. Recommend following up with palliative care as you are currently established with them. Also recommend following up with gastroenterology Discharge Orders/Prescriptions Prescriptions: New acetaminophen 500 mg capsule 1,000 mg PO Q6H PRN (Reason: pain) Qty: 30 0RF Continued nifedipine 90 MG tablet 90 mg PO DAILY Label Comments: BLOOD PRESSURE simvastatin 40 MG tablet 40 mg PO QHS Label Comments: CHOLESTEROL insulin aspart U-100 [Novolog FlexPen U-100 Insulin] 100 UNITS/ML insulin pen 3 units subcut TIDCM Label Comments: SHORT ACTING INSULIN insulin glargine [Lantus Solostar U-100 Insulin] 100 UNITS/ML insulin pen 77 units subcut 1200 Label Comments: LONG ACTING INSULIN tramadol 50 MG tablet 50 - 100 mg PO Q6H PRN PRN (Reason: Pain) Label Comments: Pain gabapentin 300 MG capsule 300 mg PO TID Label Comments: NERVE PAIN/NEUROPATHY omega-3 fatty acids-fish oil 1 EACH capsule 1 ea PO BID Label Comments: Supplement hydrochlorothiazide 25 MG tablet 25 mg PO DAILY Qty: 0 0RF Label Comments: BLOOD PRESSURE multivitamin Tablet 1 tab PO DAILY pantoprazole [Protonix] 40 mg tablet,delayed release (DR/EC) 40 mg PO DAILY Qty: 60 1RF Held meloxicam 15 mg tablet 15 mg PO DAILY Hold Instructions: Resume on 01/02/23. aspirin 81 MG tablet,chewable 81 mg PO DAILY@0800 Hold Instructions: Resume on 01/02/23. Label Comments: HEART HEALTH/PREVENTION Cilostazol 50 MG tablet 50 mg PO DINNER Hold Instructions: Resume on 01/02/23. Label Comments: ANTI-PLATELET/CIRCULATION Referrals / Follow Up: [facility] [Provider Group] - Within 1 Month Gamaliel Hein DO [Primary Care Provider] - Within 2 Weeks Disposition Disposition (needs filled in before D/C Order can be placed): Home, Self Care Charges/Coding Visit Charges Inpatient E&M: 26788 Disch Hosp
--- NOTE | 2022-12-31 10:34 | CASEMGMT ---
ASHLYN ANGUIANO NOTE: Pt being discharged home. ASHLYN ANGUIANO to room. Introduced self and role. Pt sitting up in chair in room. Pt denies having any d/c planning needs or concerns. He plans to return to work today. Pt states is active w/ [facility]. Call to [facility]. VM left re: OBS admission and notified pt is discharging home today. Musa GRANADO RN, CM
== END 2022-12-31 10:25 | disposition home or self-care (01) ==
LOC: EN 20:09 → MS3 20:09
PROVIDERS: Admitting Provider Internal Medicine Gastroenterology
PROC: (CPT 43260; principal; 2022-12-30 14:40)
DX: K31.1 Adult hypertrophic pyloric stenosis (principal); C78.6 Secondary malignant neoplasm of retroperitoneum and peritoneum; C17.0 Malignant neoplasm of duodenum; E10.51 Type 1 diabetes mellitus with diabetic peripheral angiopathy without gangrene; E10.40 Type 1 diabetes mellitus with diabetic neuropathy, unspecified; Z79.4 Long term (current) use of insulin; K92.2 Gastrointestinal hemorrhage, unspecified; I10 Essential (primary) hypertension; K80.50 Calculus of bile duct without cholangitis or cholecystitis without obstruction; Z79.82 Long term (current) use of aspirin; Z86.16 Personal history of COVID-19; K85.90 Acute pancreatitis without necrosis or infection, unspecified; R74.8 Abnormal levels of other serum enzymes; Z79.899 Other long term (current) drug therapy; K21.9 Gastro-esophageal reflux disease without esophagitis
CPT/HCPCS: 43255; 43264; 43266; 43274; 43236; 36415; 74330; 76000; 80053; 82962; 85025; 93005; 96361; 96365; 96366; 96375; 96376; 99221; J7030; J7120; G0378; J2405